=== PATIENT | female | born 1935 | race Caucasian/White ===

== ENCOUNTER 2020-06-17 06:39 | Outpatient (REF) | payer MEDICARE, SELFPAY ==
[2020-06-17 11:41] LABS: Hematocrit 32.7 % (37-47); Hemoglobin 9.9 g/dl (12.0-16.0); Mean Corpuscular HGB Conc 30.3 g/dl (31.0-35.0); Mean Corpuscular Hemoglobin 27.3 pg (27.0-33.0); Mean Corpuscular Volume 90.3 fL (80-98); Mean Platelet Volume 9.4 fL (9.4-12.3); Platelet Count 225 X10*3/uL (160-400); Red Blood Count 3.62 X10*6/uL (4.20-5.50); Red Cell Distribution Width 14.4 % (11.0-16.0); White Blood Count 7.1 X10*3/uL (4.8-10.8)
[2020-06-17 11:44] LABS: Estimated Average Glucose 131 mg/dL; Hemoglobin A1c % 6.2 %
[2020-06-17 12:10] LABS: Alanine Aminotransferase 16 U/L (0-31); Albumin Level 4.1 g/dL (3.5-5.0); Alkaline Phosphatase 67 U/L (39-117); Anion Gap 14 (12-20); Aspartate Amino Transferase 20 U/L (5-31); Bilirubin Total 0.3 mg/dL (0.0-1.0); Blood Urea Nitrogen 26 mg/dL (9-16); Carbon Dioxide 25 mmol/L (22-29); Chloride 105 mmol/L (96-108); Cholesterol 164 mg/dL; Estimated Glomerular Filt Rate 42; Glucose Fasting 138 mg/dL (60-99); HDL Cholesterol 48 mg/dL; LDL Cholesterol Calculated 83 mg/dl; Potassium 4.5 mmol/l (3.3-5.1); Sodium 139 mmol/L (135-145); Total Protein 7.4 g/dL (6.5-8.0); Triglycerides 169 mg/dL
== END 2020-06-17 06:40 | disposition home or self-care (01) ==
LOC: HO.HMGCLDS 06:39
PROVIDERS: PCP Internal Medicine; Visit Provider Internal Medicine
DX: I10 Essential (primary) hypertension (principal); D51.0 Vitamin B12 deficiency anemia due to intrinsic factor deficiency; E78.5 Hyperlipidemia, unspecified; E11.9 Type 2 diabetes mellitus without complications
CPT/HCPCS: 36415; 80053; 80061; 83036; 85027

== ENCOUNTER 2020-07-04 10:36 | Outpatient (REF) | payer MEDICARE, SELFPAY ==
[2020-07-04 14:02] LABS: Basophils Percent Auto 0.5 % (0-2); Eosinophils Absolute Auto 0.2 X10*3/uL (0.0-0.4); Eosinophils Percent Auto 2.1 % (0-4); Hematocrit 34.4 % (37-47); Hemoglobin 10.5 g/dl (12.0-16.0); Imm Gran Abs Auto 0.02 X10*3/uL (0.00-0.03); Imm Gran Pct Auto 0.3 % (0.0-0.4); Lymphocytes Absolute Auto 2.2 X10*3/uL (1.2-4.9); Lymphocytes Percent Auto 27.9 % (20-40); MANUAL DIFF FLAG NO; Mean Corpuscular HGB Conc 30.5 g/dl (31.0-35.0); Mean Corpuscular Hemoglobin 27.5 pg (27.0-33.0); Mean Corpuscular Volume 90.1 fL (80-98); Mean Platelet Volume 9.4 fL (9.4-12.3); Monocytes Absolute Auto 0.7 X10*3/uL (0.1-1.2); Monocytes Percent Auto 8.3 % (2-11); Neutrophils Absolute Auto 4.9 X10*3/uL (2.0-8.3); Neutrophils Percent Auto 60.9 % (45-73); Platelet Count 256 X10*3/uL (160-400); Red Blood Count 3.82 X10*6/uL (4.20-5.50)
[2020-07-04 14:28] LABS: Alanine Aminotransferase 15 U/L (0-31); Albumin Level 4.3 g/dL (3.5-5.0); Alkaline Phosphatase 67 U/L (39-117); Amylase 58 U/L (28-100); Anion Gap 15 (12-20); Aspartate Amino Transferase 21 U/L (5-31); Bilirubin Direct < 0.2 mg/dL (0.0-0.5); Bilirubin Total 0.3 mg/dL (0.0-1.0); Blood Urea Nitrogen 30 mg/dL (9-16); Calcium 9.2 mg/dL (8.4-10.2); Carbon Dioxide 23 mmol/L (22-29); Chloride 107 mmol/L (96-108); Estimated Glomerular Filt Rate 41; Glucose Random 112 mg/dL (60-115); Lipase 36 U/L (8-78); Potassium 4.4 mmol/l (3.3-5.1); Sodium 141 mmol/L (135-145); Total Protein 7.9 g/dL (6.5-8.0)
== END 2020-07-04 10:37 | disposition home or self-care (01) ==
LOC: HO.HMGCLDS 10:36
PROVIDERS: PCP Internal Medicine; Visit Provider Nurse Practitioner Family
DX: Z13.89 Encounter for screening for other disorder (principal)
CPT/HCPCS: 36415; 80053; 80076; 82150; 83690; 85025

== ENCOUNTER 2020-07-04 13:31 | Emergency (ER) | payer MEDICARE, SELFPAY ==
[2020-07-04 14:01] VITALS: BP 140/66; PULSE 97; RESP 18; TEMP 36.8; O2SAT 97; BMI 26.4
--- NOTE | 2020-07-04 14:36 | ED_ITS ---
HPI - Dizziness General Chief Complaint: Dizziness Stated Complaint: dizzy,nausea,headache,abd pain Time Seen by Provider: 07/04/20 14:36 Source: patient Mode of arrival: ambulatory Limitations: no limitations History of Present Illness HPI Narrative: went to urgent care center referred to ED although patient states today she feels the best MD elicited complaint: dizziness, lightheadedness and other (nausea and vomiting, some diarrhea) Onset (ago): day(s) (3) Timing: gradual onset Severity: moderate Description: room spinning and lightheadedness Context: change in body position and recent illness Exacerbating factors: movement/ambulation and change in body position Relieving factors: remaining still Associated symptoms: nausea, vomiting and weakness Associated neuro symptoms: gait ataxia Related Data Home Medications Medication Instructions Recorded Confirmed acetaminophen 500 mg capsule 1,000 mg PO TID PRN cap 06/20/20 06/21/20 amlodipine 5 mg tablet 5 mg PO DAILY 06/20/20 06/21/20 cyanocobalamin (vitamin B-12) 5,000 mcg PO DAILY 06/20/20 06/21/20 5,000 mcg disintegrating tablet famotidine 40 mg tablet 40 mg PO DAILY 06/20/20 06/21/20 ferrous fumarate 325 mg (106 mg 325 mg PO DAILY tab 06/20/20 06/21/20 iron) tablet lisinopril 40 mg tablet 40 mg PO DAILY 06/20/20 06/21/20 metformin 1,000 mg tablet 1,000 mg PO BID 06/20/20 06/21/20 Previous Rx's Medication Instructions Recorded diabetic supplies, miscellan. #1 ea 05/13/20 hydrochlorothiazide 25 mg tablet 25 mg PO DAILY 30 Days #30 tab 06/20/20 simvastatin 40 mg tablet 40 mg PO DAILY 30 Days #30 tab 06/20/20 sertraline 50 mg tablet 50 mg PO DAILY #90 tab 07/01/20 meclizine 25 mg PO TID PRN #30 tab 07/04/20 ondansetron 4 mg PO Q8H PRN #20 tab 07/04/20 Allergies Allergy/AdvReac Type Severity Reaction Status Date / Time celecoxib [Celebrex] Allergy Unknown rash Verified 07/03/20 15:35 penicillin G Allergy Unknown rash Verified 07/03/20 15:35 penicillin V Allergy Unknown rash Verified 07/03/20 15:35 Penicillins [PENICILLINS] Allergy Unknown HIVES, rash Verified 07/03/20 15:35 Review of Systems Review of Systems: Constitutional : No Weight loss, No Fever, No Chills, No Fatigue, No Malaise ENT/Mouth : No sore throat, No Rhinorrhea Eyes: No Eye Pain, No Swelling, No Redness Cardiovascular : No Chest Pain, No SOB, No Dyspnea on Exertion, No Orthopnea, No Edema, No Palpitations Respiratory : No Cough, No Sputum, No Wheezing Gastrointestinal : pos Nausea, No Vomiting, pos Diarrhea, No Constipation, No abdominal Pain, No Hematochezia, No Melena Genitourinary : No Dysuria, No Urinary Frequency, No Hematuria, Musculoskeletal : No joint pain, No Myalgias, No Joint Swelling Skin : No Skin Lesions, No rash Neuro : No Weakness, No Numbness, pos Dizziness, No Headache Psych : No Anxiety/Panic, No Depression Heme/Lymph: No Bruising, No Bleeding,No Lymphadenopathy Endocrine : No Polyuria, No Polydipsia All other systems reviewed and are negative [facility] Past Medical History Attestation statement: The following information was validated with the patient. Medical History CKD (chronic kidney disease), stage III Diabetes HTN (hypertension) Hyperlipidemia Iron deficiency anemia Pernicious anemia Surgical History History of breast biopsy History of ERCP History of esophagogastroduodenoscopy (EGD) S/P cholecystectomy S/P ERCP Family History Family History (Updated 06/17/20 @ 12:42 by Nae Pickett, RMA, [employer]) Father Cancer Mother Colon cancer Social History Social History Alcohol intake: unknown Smoking Status: Unknown if ever smoked Use of substances other than those prescribed or required for medical reasons: Unknown Advance Directives: No Advance Directives Information Provided: No Physical Exam Vital Signs: Vital Signs: Last Vital Signs Temp 98.3 F 07/04/20 14:01 Pulse 87 07/04/20 16:08 Resp 18 07/04/20 14:01 BP 171/76 H 07/04/20 16:08 Pulse Ox 97 07/04/20 14:01 Body Mass Index 26.4 Appearance: Alert. Oriented X3. No acute distress. Eyes: Pupils equal, round and reactive to light. ENT: Pharynx normal. Neck: Normal inspection. Neck supple. CVS: Normal heart rate and rhythm. Pulses normal. Respiratory: No respiratory distress. Breath sounds normal. Abdomen: Soft and non-tender. Skin: Skin warm and dry. Normal skin color. Normal skin turgor. Extremities: No lower extremity edema. No calf ttp Neuro: Oriented X 3. No motor deficit. No sensory deficit. Gait slightly wobbly Course Course Course Narrative: signed out to Dr. Friend pending urine and reassessment otherwise negative workup MDM - Dizziness MDM Narrative Medical decision making narrative: 85 yo female with 3 days of n/v/d and positional dizziness worse with turning head to the left, no recent URI no CP/SOB, denies GIB symptoms, will obtain basic labs, EKG, given IVF, meclizine and zofran, CT head for mass, dispo per results and findings. Lab Data Result diagrams: 07/04/20 15:18 07/04/20 15:18 Labs: Lab Results 07/04/20 07/04/20 07/04/20 Range/Units 15:18 15:18 15:18 WBC 7.8 (4.8-10.8) X10*3/uL RBC 3.82 L (4.20-5.50) X10*6/uL Hgb 10.6 L (12.0-16.0) g/dl Hct 34.1 L (37-47) % MCV 89.3 (80-98) fL MCH 27.7 (27.0-33.0) pg MCHC 31.1 (31.0-35.0) g/dl RDW 14.1 (11.0-16.0) % Plt Count 243 (160-400) X10*3/uL MPV 8.9 L (9.4-12.3) fL Immature Gran % (Auto) 0.3 (0.0-0.4) % Neut % (Auto) 63.4 (45-73) % Lymph % (Auto) 27.0 (20-40) % [place] % (Auto) 7.1 (2-11) % Eos % (Auto) 1.7 (0-4) % Baso % (Auto) 0.5 (0-2) % Lymph # (Auto) 2.1 (1.2-4.9) X10*3/uL [place] # (Auto) 0.6 (0.1-1.2) X10*3/uL Eos # (Auto) 0.1 (0.0-0.4) X10*3/uL Baso # (Auto) 0.0 (0.0-0.2) X10*3/uL Abs Immat Gran (auto) 0.02 (0.00-0.03) X10*3/uL Absolute Neuts (auto) 5.0 (2.0-8.3) X10*3/uL Absolute Nucleated RBC 0.000 (0.0-0.012) X10*3/uL Nucleated RBC % (auto) 0.0 (0.0-0.2) /100WBC PT 11.9 (10.8-13.0) SEC INR 1.0 (0.9-1.1) APTT 31.7 (24.1-38.0) SEC Hold Blue Top SEE NOTE Sodium 141 (135-145) mmol/L Potassium 4.2 (3.3-5.1) mmol/l Chloride 108 (96-108) mmol/L Carbon Dioxide 22 (22-29) mmol/L Anion Gap 15 (12-20) BUN 29 H (9-16) mg/dL Creatinine 1.19 (0.5-1.4) mg/dL Estim Creat Clear Calc 38.8 Estimated GFR 43 Random Glucose 118 H (60-115) mg/dL Calcium 9.1 (8.4-10.2) mg/dL Magnesium 1.9 (1.6-2.6) mg/dL Total Bilirubin 0.3 (0.0-1.0) mg/dL Direct Bilirubin < 0.2 (0.0-0.5) mg/dL AST 21 (5-31) U/L ALT 15 (0-31) U/L Alkaline Phosphatase 69 (39-117) U/L Troponin I High Sens (<3.5-17.0) ng/L Total Protein 7.8 (6.5-8.0) g/dL Albumin 4.3 (3.5-5.0) g/dL Lipase 42 (8-78) U/L 07/04/20 Range/Units 15:18 WBC (4.8-10.8) X10*3/uL RBC (4.20-5.50) X10*6/uL Hgb (12.0-16.0) g/dl Hct (37-47) % MCV (80-98) fL MCH (27.0-33.0) pg MCHC (31.0-35.0) g/dl RDW (11.0-16.0) % Plt Count (160-400) X10*3/uL MPV (9.4-12.3) fL Immature Gran % (Auto) (0.0-0.4) % Neut % (Auto) (45-73) % Lymph % (Auto) (20-40) % [place] % (Auto) (2-11) % Eos % (Auto) (0-4) % Baso % (Auto) (0-2) % Lymph # (Auto) (1.2-4.9) X10*3/uL [place] # (Auto) (0.1-1.2) X10*3/uL Eos # (Auto) (0.0-0.4) X10*3/uL Baso # (Auto) (0.0-0.2) X10*3/uL Abs Immat Gran (auto) (0.00-0.03) X10*3/uL Absolute Neuts (auto) (2.0-8.3) X10*3/uL Absolute Nucleated RBC (0.0-0.012) X10*3/uL Nucleated RBC % (auto) (0.0-0.2) /100WBC PT (10.8-13.0) SEC INR (0.9-1.1) APTT (24.1-38.0) SEC Hold Blue Top Sodium (135-145) mmol/L Potassium (3.3-5.1) mmol/l Chloride (96-108) mmol/L Carbon Dioxide (22-29) mmol/L Anion Gap (12-20) BUN (9-16) mg/dL Creatinine (0.5-1.4) mg/dL Estim Creat Clear Calc Estimated GFR Random Glucose (60-115) mg/dL Calcium (8.4-10.2) mg/dL Magnesium (1.6-2.6) mg/dL Total Bilirubin (0.0-1.0) mg/dL Direct Bilirubin (0.0-0.5) mg/dL AST (5-31) U/L ALT (0-31) U/L Alkaline Phosphatase (39-117) U/L Troponin I High Sens < 3.5 (<3.5-17.0) ng/L Total Protein (6.5-8.0) g/dL Albumin (3.5-5.0) g/dL Lipase (8-78) U/L ECG Data Attestation: I personally reviewed and interpreted this ECG as follows: ECG interpretation date: 07/04/20 ECG interpretation time: 15:13 Interpretation: Rate: 79 Rhythm: NSR [place]: left Normal P waves. Normal MAGI. incomplete RBBB ST T wave : normal qTC: normal prior studies: no acute ischemia The study has been interpreted contemporaneously by me. . Discharge Plan Discharge Clinical Impression: Acute dehydration, Dizziness Patient Disposition: Home, Self-Care Instructions: Dizziness (ED) Additional Instructions: return to ED for any worsening symptoms or concerns Prescriptions: New meclizine 25 mg tablet 25 mg PO TID PRN (Reason: dizziness) Qty: 30 RF: 0 ondansetron 4 mg tablet,disintegrating 4 mg PO Q8H PRN (Reason: nausea and vomiting) Qty: 20 RF: 0 No Action (DME) diabetic supplies, miscellan. Misc See Rx Instructions .ROUTE .MEDSUPPLY Qty: 1 RF: 0 ferrous fumarate 325 mg (106 mg iron) tablet 325 mg PO DAILY RF: 0 metformin 1,000 mg tablet 1,000 mg PO BID RF: 0 cyanocobalamin (vitamin B-12) 5,000 mcg tablet,disintegrating 5,000 mcg PO DAILY RF: 0 acetaminophen 500 mg capsule 1,000 mg PO TID PRN (Reason: pain) RF: 0 amlodipine 5 mg tablet 5 mg PO DAILY RF: 0 lisinopril 40 mg tablet 40 mg PO DAILY RF: 0 famotidine 40 mg tablet 40 mg PO DAILY RF: 0 hydrochlorothiazide 25 mg tablet 25 mg PO DAILY 30 Days Qty: 30 RF: 2 simvastatin 40 mg tablet 40 mg PO DAILY 30 Days Qty: 30 RF: 2 sertraline 50 mg tablet 50 mg PO DAILY Qty: 90 RF: 3 Referrals: Sherron Villanueva MD [Primary Care Provider] - 2 days (if not better)
--- NOTE | 2020-07-04 14:49 | PC.NURSE ---
pt's daughter renal[facility] phone # [phone].
--- NOTE | 2020-07-04 14:53 | CT_ITS ---
EXAMINATION: CT HEAD WITHOUT CONTRAST CLINICAL INFORMATION: Dizziness. COMPARISON: CT brain 01/17/2018 TECHNIQUE: Contiguous axial imaging was performed from the skull base to vertex without intravenous administration of contrast. This CT examination was performed using dose optimization techniques as appropriate, variously including the following: *Automated exposure control *Adjustment of mA and/or kV according to patient size (this includes techniques or standardized protocols for targeted exams where dose is matched to indication/reason for exam; i.e. extremities or head) *Use of iterative reconstruction technique DLP: 731 mGy-cm FINDINGS: There is no evidence of acute intracranial hemorrhage or territorial infarction. No abnormal mass effect or midline shift is seen. Brennan to white matter differentiation is well preserved. No extra-axial fluid collections are identified. The lateral ventricles are symmetrical in size but enlarged with mild prominence of cortical sulci. There is no abnormal attenuation within the brain parenchyma. Bone windows reveal small diploic space 1.1 cm lucency right frontal bone axial image 15/4. Question vascular neil, less likely metastatic disease. The mastoid air cells and visualized portions of the paranasal sinuses are well aerated. CT/CT head/brain wo con IMPRESSION: No acute intracranial process seen. Small lucency right frontal bone, unchanged since 01/17/2018 exam.
--- NOTE | 2020-07-04 14:53 | ECG_ITS ---
Test Reason : DIZZINESS Blood Pressure : / mmHG Vent. Rate : 079 BPM Atrial Rate : 079 BPM P-R Int : 176 ms QRS Dur : 110 ms QT Int : 380 ms P-R-T Axes : 051 -63 021 degrees QTc Int : 435 ms Normal sinus rhythm Left anterior fascicular block Cannot rule out Inferior infarct (cited on or before 08-JUN-2019) Abnormal ECG When compared with ECG of 12-JUN-2019 10:22, Aberrant conduction is no longer Present Criteria for Anteroseptal infarct are no longer Present Referred By: Nery Johnson Electronically Signed By:BOO OHARA MD
[2020-07-04] MEDS: 0.9 % Sodium Chloride 500 ML IV (15:19)
[2020-07-04] MEDS: Meclizine HCl 25 MG TABLET PO (15:19)
[2020-07-04] MEDS: ondansetron HCL 4 MG/2 ML VIAL IVPUSH (15:20)
[2020-07-04 15:33] LABS: MANUAL DIFF FLAG NO
[2020-07-04 15:39] LABS: Basophils Percent Auto 0.5 % (0-2); Eosinophils Absolute Auto 0.1 X10*3/uL (0.0-0.4); Eosinophils Percent Auto 1.7 % (0-4); Hematocrit 34.1 % (37-47); Hemoglobin 10.6 g/dl (12.0-16.0); Imm Gran Abs Auto 0.02 X10*3/uL (0.00-0.03); Imm Gran Pct Auto 0.3 % (0.0-0.4); Lymphocytes Absolute Auto 2.1 X10*3/uL (1.2-4.9); Mean Corpuscular HGB Conc 31.1 g/dl (31.0-35.0); Mean Corpuscular Hemoglobin 27.7 pg (27.0-33.0); Mean Corpuscular Volume 89.3 fL (80-98); Mean Platelet Volume 8.9 fL (9.4-12.3); Monocytes Absolute Auto 0.6 X10*3/uL (0.1-1.2); Monocytes Percent Auto 7.1 % (2-11); Neutrophils Percent Auto 63.4 % (45-73); Platelet Count 243 X10*3/uL (160-400); Red Blood Count 3.82 X10*6/uL (4.20-5.50); Red Cell Distribution Width 14.1 % (11.0-16.0); White Blood Count 7.8 X10*3/uL (4.8-10.8)
[2020-07-04 15:40] LABS: Prothrombin Time 11.9 SEC (10.8-13.0)
--- NOTE | 2020-07-04 15:41 | PC.NURSE ---
patients daughter [phone] Jazmyne for pickup when needed
[2020-07-04 15:42] LABS: Partial Thromboplastin Time 31.7 SEC (24.1-38.0)
[2020-07-04 16:03] LABS: Alanine Aminotransferase 15 U/L (0-31); Albumin Level 4.3 g/dL (3.5-5.0); Alkaline Phosphatase 69 U/L (39-117); Anion Gap 15 (12-20); Aspartate Amino Transferase 21 U/L (5-31); Bilirubin Direct < 0.2 mg/dL (0.0-0.5); Bilirubin Total 0.3 mg/dL (0.0-1.0); Blood Urea Nitrogen 29 mg/dL (9-16); Calcium 9.1 mg/dL (8.4-10.2); Carbon Dioxide 22 mmol/L (22-29); Chloride 108 mmol/L (96-108); Creatinine Clr Calc Pharmacy 38.8; Estimated Glomerular Filt Rate 43; Glucose Random 118 mg/dL (60-115); Lipase 42 U/L (8-78); Magnesium 1.9 mg/dL (1.6-2.6); Potassium 4.2 mmol/l (3.3-5.1); Sodium 141 mmol/L (135-145); Total Protein 7.8 g/dL (6.5-8.0)
[2020-07-04 16:08] VITALS: BP 156/78; BP 165/72; BP 171/76; PULSE 72; PULSE 77; PULSE 87
[2020-07-04 16:08] LABS: Troponin-I High Sensitivity < 3.5 ng/L (<3.5-17.0)
[2020-07-04 16:17] LABS: Glucose Urine UA NEG (NEG); Leukocyte Esterase Urine TRACE (NEG); Nitrite Urine POS (NEG); PH 5.5 (5.0-8.0); Specific Gravity - Urine 1.025 (1.005-1.025); Urine Blood NEG (NEG); Urine Ketones NEG (NEG); Urine Protein NEG (NEG-TRACE)
[2020-07-04 16:36] LABS: Appearance Urine HAZY; Color Urine YELLOW
[2020-07-04 16:50] LABS: Bacteria Urine 4+ /LPF; RBC Urine 0 /HPF (0)
== END 2020-07-04 16:48 | disposition home or self-care (01) ==
PROVIDERS: Emergency Provider Emergency Medicine; PCP Internal Medicine
DX: N39.0 Urinary tract infection, site not specified (principal); R42 Dizziness and giddiness; R11.2 Nausea with vomiting, unspecified; E86.0 Dehydration; E11.22 Type 2 diabetes mellitus with diabetic chronic kidney disease; I12.9 Hypertensive chronic kidney disease with stage 1 through stage 4 chronic kidney disease, or unspecified chronic kidney disease; N18.30 Chronic kidney disease, stage 3 unspecified; E78.5 Hyperlipidemia, unspecified; D50.9 Iron deficiency anemia, unspecified; Z79.899 Other long term (current) drug therapy; Z79.84 Long term (current) use of oral hypoglycemic drugs
CPT/HCPCS: 36415; 70450; 80048; 80053; 80076; 81001; 82150; 83690; 83735; 84484; 85025; 85610; 85730; 87086; 93005; 96361; 96374; 99284; J2405

== ENCOUNTER 2020-08-20 | Outpatient (REF) | payer MEDICARE, SELFPAY | END 2020-08-20 00:01 | disposition home or self-care (01) | LOC: HO.LNP | PROVIDERS: Visit Provider Internal Medicine | DX: N39.0 Urinary tract infection, site not specified (principal) | CPT/HCPCS: 87086; 87088; 87186 ==

== ENCOUNTER 2020-08-22 08:08 | Outpatient (REF) | payer MEDICARE, SELFPAY | END 2020-08-22 08:09 | disposition home or self-care (01) | LOC: HO.LAB 08:08 | PROVIDERS: Visit Provider Nurse Practitioner Family | DX: Z13.89 Encounter for screening for other disorder (principal) ==

== ENCOUNTER 2020-10-16 14:48 | Outpatient (REF) | payer MEDICARE, SELFPAY ==
[2020-10-16 15:04] LABS: Glucose Urine UA NEG (NEG); Leukocyte Esterase Urine TRACE (NEG); Nitrite Urine NEG (NEG); PH 5.5 (5.0-8.0); Specific Gravity - Urine 1.025 (1.005-1.025); UACC Culture Trigger YES; Urine Blood NEG (NEG); Urine Ketones NEG (NEG); Urine Protein NEG (NEG-TRACE)
[2020-10-16 15:06] LABS: Appearance Urine CLEAR; Color Urine YELLOW
[2020-10-16 15:15] LABS: Bacteria Urine TRACE /LPF; RBC Urine 0-2 /HPF (0); Squamous Epithelial Cell Urine 1+ /LPF
== END 2020-10-16 14:49 | disposition home or self-care (01) ==
LOC: HO.LNP 14:48
PROVIDERS: Internal Medicine; Visit Provider Hospitalist
DX: N39.0 Urinary tract infection, site not specified (principal); R30.0 Dysuria
CPT/HCPCS: 81001; 81003; 87086

== ENCOUNTER 2020-10-23 | Outpatient (REF) | payer MEDICARE, SELFPAY ==
[2020-10-23 14:15] LABS: Glucose Urine UA NEG (NEG); Leukocyte Esterase Urine NEG (NEG); Nitrite Urine NEG (NEG); PH 5.5 (5.0-8.0); Specific Gravity - Urine 1.025 (1.005-1.025); Urine Blood NEG (NEG); Urine Ketones NEG (NEG); Urine Protein NEG (NEG-TRACE)
[2020-10-23 14:17] LABS: Appearance Urine CLEAR; Color Urine YELLOW
== END 2020-10-23 00:01 | disposition home or self-care (01) ==
LOC: HO.LNP
PROVIDERS: Visit Provider Internal Medicine
DX: R42 Dizziness and giddiness (principal); R30.0 Dysuria
CPT/HCPCS: 81003

== ENCOUNTER 2020-12-02 11:00 | Outpatient (RCR) | payer MEDICARE, SELFPAY ==
[2020-11-22 12:56] VITALS: BP 122/78
--- NOTE | 2020-11-22 14:04 | MHC.PT.EP ---
[facility] [place] Office [place] Office [place] Office [address] Leola Merchant [address] [phone] F: [phone] F: [phone] F: [phone] F: [phone] Physical Therapy Plan of Care Date of Evaluation: Date of Surgery: Diagnosis: Dizziness and Giddiness Assessment: 85 y/o F referred to PT with dizziness and giddiness. She reports no dizzy episodes in a few months but her walking is limited and her balance is slightly off. She lives with supportive family and is able to perform ADL's. Examination shows (-) for BPPV during Paula-Hallpike and Roll test, (-) oculomotor with ? saccadic intrusions during smooth pursuits, mild-moderate sway with static balance, and impaired gait pattern which is exacerbated with H/V head turns. Recommend PT 2x/week for 5 weeks to address balance impairments, implement HEP, and optimize functional mobility. She would like to trial one session at this time. Frequency and Duration: The patient will be seen 2x/week for 5 weeks Short Term Goals: 3 weeks 1. I with HEP 2. Pt will be able to perform staggered stance for 30sec without sway Band Top Maker Goals: 5 weeks 1. I with HEP and self management of sx 2. Pt will be able to ambulate with H/V head turns with no deviation in gait pattern Treatment Plan: Modalities to reduce pain, spasms and effusion. Manual therapy to restore motion and function. Therapeutic exercise to improve strength and flexibility. Neuromuscular re-education for posture and balance. Therapeutic activities to return to functional activities of daily living. Electronically signed by: Hui Neumann PT Please sign and return to therapist. Thank you for your referral.
--- NOTE | 2021-01-02 13:12 | MHC.PT.DC ---
[facility] [place] Office [place] Office [place] Office [address] Leola Merchant [address] [phone] F: [phone] F: [phone] F: [phone] F: [phone] Physical Therapy Discharge Report Diagnosis: Dizziness and Giddiness Date of Surgery: Date of Evaluation: 11/22/20 Date of Discharge: 01/02/21 Treatments to Date: 2 Cancellations to Date: 0 No Shows to Date: 0 Discharge Status: Improved Function Independent with HEP Discharge Summary: Educated and performed standing balance exercises today with good carryover. She would like to perform HEP only and does not feel the need for PT at this time as she feels I with ADL's and activity. REviewed HEP and pt will be d/c at this time. Electronically signed by: Hui Neumann PT Please sign and return to therapist. Thank you for your referral.
== END 2021-01-02 13:13 | disposition home or self-care (01) ==
LOC: HO.PTCHIC 11:00
PROVIDERS: PCP Internal Medicine; Visit Provider Internal Medicine
DX: R42 Dizziness and giddiness (principal)
CPT/HCPCS: 97110; 97162

== ENCOUNTER 2020-12-23 07:53 | Outpatient (REF) | payer MEDICARE, SELFPAY ==
[2020-12-23 11:49] LABS: Alanine Aminotransferase 13 U/L (0-31); Alkaline Phosphatase 66 U/L (39-117); Anion Gap 15 (12-20); Aspartate Amino Transferase 17 U/L (5-31); Bilirubin Total 0.4 mg/dL (0.0-1.0); Blood Urea Nitrogen 25 mg/dL (9-16); Calcium 9.1 mg/dL (8.4-10.2); Carbon Dioxide 23 mmol/L (22-29); Chloride 108 mmol/L (96-108); Cholesterol 164 mg/dL; Estimated Glomerular Filt Rate 44; Glucose Fasting 151 mg/dL (60-99); HDL Cholesterol 56 mg/dL; Iron 31 mcg/dL (30-160); LDL Cholesterol Calculated 81 mg/dl; Percent Iron Saturation 10 % (15-50); Sodium 141 mmol/L (135-145); Total Iron Binding Capacity 305 mcg/dL (228-428); Total Protein 7.3 g/dL (6.5-8.0); Triglycerides 138 mg/dL; Unsaturated Iron Binding 274 ug/dL
[2020-12-23 12:00] LABS: Hematocrit 32.6 % (37-47); Mean Corpuscular HGB Conc 30.7 g/dl (31.0-35.0); Mean Corpuscular Hemoglobin 27.6 pg (27.0-33.0); Mean Corpuscular Volume 90.1 fL (80-98); Mean Platelet Volume 9.1 fL (9.4-12.3); Platelet Count 227 X10*3/uL (160-400); Red Blood Count 3.62 X10*6/uL (4.20-5.50); Red Cell Distribution Width 14.2 % (11.0-16.0); White Blood Count 7.5 X10*3/uL (4.8-10.8)
[2020-12-23 12:20] LABS: Estimated Average Glucose 128 mg/dL; Hemoglobin A1c % 6.1 %
== END 2020-12-23 07:54 | disposition home or self-care (01) ==
LOC: HO.HMGCLDS 07:53
PROVIDERS: PCP Internal Medicine; Visit Provider Internal Medicine
DX: E11.9 Type 2 diabetes mellitus without complications (principal); D50.9 Iron deficiency anemia, unspecified; E78.5 Hyperlipidemia, unspecified; E11.22 Type 2 diabetes mellitus with diabetic chronic kidney disease; I12.9 Hypertensive chronic kidney disease with stage 1 through stage 4 chronic kidney disease, or unspecified chronic kidney disease; N18.30 Chronic kidney disease, stage 3 unspecified
CPT/HCPCS: 36415; 80053; 80061; 83036; 83540; 85027

== ENCOUNTER 2021-02-20 | Outpatient (REF) | payer MEDICARE, SELFPAY ==
[2021-02-20 11:24] LABS: Glucose Urine UA NEG (NEG); Leukocyte Esterase Urine NEG (NEG); Nitrite Urine NEG (NEG); PH 5.5 (5.0-8.0); Urine Blood NEG (NEG); Urine Ketones NEG (NEG); Urine Protein NEG (NEG-TRACE)
[2021-02-20 11:28] LABS: Appearance Urine CLEAR; Color Urine YELLOW
== END 2021-02-20 00:01 | disposition home or self-care (01) ==
LOC: HO.HMGCLNP
PROVIDERS: Visit Provider Internal Medicine
DX: R30.0 Dysuria (principal)
CPT/HCPCS: 81003

== ENCOUNTER 2021-02-23 10:08 | Emergency (ER) | payer MEDICARE, SELFPAY ==
--- NOTE | ~2021-02-23 | CT_ITS ---
CT ANGIOGRAM NECK WITH CONTRAST CT ANGIOGRAM BRAIN WITH CONTRAST CLINICAL INFORMATION: Question stroke. Dizziness. COMPARISON: Head CT 02/23/2021. TECHNIQUE: Test bolus sequences followed by intravenous administration 70 mL of Omnipaque 350. Helical imaging was performed in the axial plane from the thoracic inlet to the skull vertex. Delayed postcontrast imaging of the head was also performed. The data was processed at the chemical engineering technologist workstation for generation of MIP sequences. Angled MIPs and volume rendered reformatted images were also generated at an offline 3D workstation under concurrent supervision. Stenoses are assessed in accordance with NASCET criteria unless otherwise indicated. This CT examination was performed using dose optimization techniques as appropriate, variously including the following: *Automated exposure control *Adjustment of mA and/or kV according to patient size (this includes techniques or standardized protocols for targeted exams where dose is matched to indication/reason for exam; i.e. extremities or head) *Use of iterative reconstruction technique FINDINGS: BRAIN: [There is no intracranial hemorrhage, hydrocephalus, extra-axial surface collection, midline shift, or other herniation pattern. Brennan to white matter differentiation is diffusely maintained without evidence of an evolved acute territorial infarct. The basilar cisterns are preserved. No significant soft tissue abnormality. No acute osseous abnormality. The paranasal sinuses and the mastoid air cells are well aerated.] CERVICAL SOFT TISSUES AND LUNG APICES: Imaged upper lungs are clear. No significant soft tissue findings are appreciated within the neck. There are a few small subcentimeter nodules within the thyroid gland that are below size criteria for follow-up. There is multilevel cervical spondylosis. NECK CTA: [There is a classic 3 vessel configuration of the aortic arch. Proximal arch vessels are non-stenotic. The vertebral arteries are codominant. No significant ostial stenosis is visualized on either side. Both vertebral arteries are widely patent throughout their extracranial cervical course. Both common and internal carotid arteries are normal in course and caliber.] BRAIN CTA: [There is normal opacification of major intracranial arteries. No focal flow-limiting stenosis nor discrete proximal large artery occlusion. No aneurysm. Timing of the contrast bolus allows assessment of the major dural venous sinuses, which all opacify normally] CT/CT angio head neck IMPRESSION: - No acute intracranial findings. - No acute arterial occlusions and no significant arterial stenoses within the head or neck.
--- NOTE | ~2021-02-23 | CT_ITS ---
EXAMINATION: CT HEAD WITHOUT CONTRAST CLINICAL INFORMATION: Dizziness COMPARISON: July 04, 2020 TECHNIQUE: Contiguous axial imaging was performed from the skull base to vertex without intravenous administration of contrast. This CT examination was performed using dose optimization techniques as appropriate, variously including the following: *Automated exposure control *Adjustment of mA and/or kV according to patient size (this includes techniques or standardized protocols for targeted exams where dose is matched to indication/reason for exam; i.e. extremities or head) *Use of iterative reconstruction technique DLP: 816 mGy-cm FINDINGS: There is no evidence of acute intracranial hemorrhage or territorial infarction. No abnormal mass effect or midline shift is seen. Brennan to white matter differentiation is well preserved. No extra-axial fluid collections are identified. There is prominence of ventricles, sulci, and cisterns. There is no abnormal attenuation within the brain parenchyma. The osseous structures and soft tissues are normal. The mastoid air cells and visualized portions of the paranasal sinuses are well aerated. CT/CT head/brain wo con IMPRESSION: No acute intracranial pathology.
[2021-02-23 10:09] VITALS: BP 137/67; PULSE 76; RESP 16; TEMP 36.1; O2SAT 96; BMI 26.6
--- NOTE | 2021-02-23 11:09 | ECG_ITS ---
Test Reason : NAUSEA Blood Pressure : / mmHG Vent. Rate : 073 BPM Atrial Rate : 073 BPM P-R Int : 166 ms QRS Dur : 108 ms QT Int : 400 ms P-R-T Axes : -14 -61 004 degrees QTc Int : 440 ms Normal sinus rhythm Left axis deviation Incomplete right bundle branch block Possible Anterior infarct , age undetermined Abnormal ECG When compared with ECG of 04-JUL-2020 15:07, No significant change was found Referred By: Randy Vasquez Electronically Signed By:DEION MARTINEZ
--- NOTE | 2021-02-23 11:09 | ED.GENADULT ---
HPI - General Adult General Chief complaint: General Medical Stated complaint: EYE ISSUE DIZZY NAUSEA Time Seen by Provider: 02/23/21 10:55 Source: patient Mode of arrival: ambulatory Limitations: no limitations History of Present Illness HPI narrative: Patient presents to the ED for intermittent dizziness described as room spinning when changing position of head on the bed since September. Patient states when she takes meclizine and Zofran dizziness resolves. Patient states also having sounds in her ear. Patient denies any headache, ear pain, nausea, vomiting, fever, chills, any recent head trauma,, slurred speech, loss of vision, change of vision, paralysis of extremities, chest pain, or shortness of breath. Granddaughter states patient has not had any CT scan of the head. Grand- Daughter wanting CT scan of the head. Patient states dizziness began last night and slightly worsened 20 minutes before come to the ER. Gand- Daughter states also left eyeball bulging this morning and resolved on its own. Patient herself denies any eye pain, eye redness, eye lid swelling, loss of vision, headache, discharge from the eyes, fever, chills, or any recent trauma to the eye Related Data Home Medications Medication Instructions Recorded Confirmed acetaminophen 500 mg capsule 1,000 mg PO TID PRN cap 06/20/20 12/27/20 amlodipine 5 mg tablet 5 mg PO DAILY 06/20/20 12/27/20 cyanocobalamin (vitamin B-12) 5,000 mcg PO DAILY 06/20/20 12/27/20 5,000 mcg disintegrating tablet famotidine 40 mg tablet 40 mg PO DAILY 06/20/20 12/27/20 ferrous fumarate 325 mg (106 mg 325 mg PO DAILY tab 06/20/20 12/27/20 iron) tablet Previous Rx's Medication Instructions Recorded diabetic supplies, miscellan. #1 ea 05/13/20 ondansetron 4 mg PO Q8H PRN #20 tab 07/04/20 sertraline 50 mg tablet 50 mg PO DAILY #90 tab 07/30/20 metformin 1,000 mg tablet 1,000 mg PO BID #180 tab 09/25/20 meclizine 25 mg tablet 25 mg PO TID PRN #30 tab 10/23/20 triamcinolone acetonide 0.1 % 1 appl TOPICAL BID #30 g 10/23/20 topical cream hydrochlorothiazide 25 mg tablet 25 mg PO DAILY 90 Days #90 tab 11/22/20 simvastatin 40 mg tablet 40 mg PO DAILY #90 tab 12/06/20 lisinopril 40 mg tablet 40 mg PO DAILY #90 tab 12/24/20 Allergies Allergy/AdvReac Type Severity Reaction Status Date / Time celecoxib [Celebrex] Allergy Unknown rash Verified 12/27/20 10:49 penicillin G Allergy Unknown rash Verified 12/27/20 10:49 penicillin V Allergy Unknown rash Verified 12/27/20 10:49 Penicillins [PENICILLINS] Allergy Unknown HIVES, rash Verified 12/27/20 10:49 Review of Systems Review of Systems: Yes all other systems are reviewed and are negative Constitutional: Constitutional: Reports as per HPI and Reports no additional constitutional complaints Eyes: Eyes: Reports as per HPI and Reports no additional eye complaints ENT: Reports system reviewed and no additional complaints, except as documented, Reports as per HPI and Reports dizziness Cardiovascular: Cardiovascular: Reports as per HPI and Reports no additional cardiovascular complaints Respiratory: Respiratory: Reports as per HPI and Reports no additional respiratory complaints Gastrointestinal: Gastrointestinal: Reports as per HPI and Reports no additional gastrointestinal complaints Genitourinary: Genitourinary: Reports no additional female genitourinary complaints and Reports as per HPI Musculoskeletal: Musculoskeletal: Reports no additional musculoskeletal complaints and Reports as per HPI Neurologic: Reports system reviewed and no additional complaints, except as documented, Reports as per HPI and Reports dizziness Psychiatric: Psychiatric: Reports no additional psychiatric complaints and Reports as per HPI PMFSH Past Medical History Medical History (Updated 02/23/21 @ 16:58 by TITO Davis) Anemia CKD (chronic kidney disease), stage III Diabetes HTN (hypertension) Hyperlipidemia Iron deficiency anemia Pernicious anemia UTI (urinary tract infection) Vertigo Surgical History History of breast biopsy History of ERCP History of esophagogastroduodenoscopy (EGD) S/P cholecystectomy S/P ERCP Family History Family History Father Cancer Mother Colon cancer Social History Social History (Updated 12/27/20 @ 10:50 by Sowmya Hunter RN) Alcohol intake: never Patient Tobacco Use Status: Never used Tobacco Use of substances other than those prescribed or required for medical reasons: No Advance Directives: Yes Advance Directives Information Provided: Yes Advance Directives on File: No Physical Exam Vital Signs: Vital Signs: Last Vital Signs Temp 97.6 F 02/23/21 12:29 Pulse 68 02/23/21 12:35 Resp 14 02/23/21 12:29 BP 160/63 H 02/23/21 12:35 Pulse Ox 100 02/23/21 12:29 Body Mass Index 26.6 Const: General: cooperative, healthy appearing, comfortable, no acute distress, well developed, alert, awake and Physically active Orientation/consciousness: oriented to time and patient oriented x3 HENMT: Head: Yes normal to inspection, Yes No palpable skull fracture present, Yes normocephalic, Yes atraumatic and No abrasion Eyes: Other: Both eyes negative for any redness, swelling of eyelids, conjunctiva/scleral redness, photophobia, extraocular muscles entraptment, eyelid redness, discharge, or ecchymosis General: appearance normal, both eyes and all related structures Visual David: normal visual david by confrontation Alignment and Position: alignment normal Periorbital: periorbital findings normal Eyelids: Yes eyelids normal Conjunctivae: conjunctivae normal Sclerae: sclerae normal Corneas: corneas normal Pupils: Equal, round and reactive pupils present EOM: EOMs intact bilaterally Neck: Neck: Yes normal visual inspection, Yes full ROM, Yes no lymphadenopathy, Yes no meningeal signs, Yes trachea midline, Yes supple and No tender Chest: Chest palpation & inspection: normal inspection of the chest and normal palpation of entire chest wall Resp: Effort & Inspection: normal respiratory effort and able to speak in complete sentences Auscultation: clear to auscultation bilaterally Cardio: Jugular venous distension: no JVD Heart sounds: S1 normal heart sound present and S2 normal heart sound present GI: Inspection: Yes normal to inspection and No abdominal wall ecchymosis Palpation (GI): Soft to palpation, not firm, nontender, no guarding and not rigid : General: No CVA tenderness and Yes no CVA tenderness Back/Spine/Pelvis: Back: no CVA tenderness, No CVA tenderness and No back tenderness Skin: General skin exam: no rashes or lesions noted and elasticity normal Neuro: Other: Negative facial droop. Negative for slurred speech. Negative pronator drift. All extremities equal strength 5+. [id number] and rapid hand movement intact. Negative Romberg General: oriented to time, patient oriented x3 and no meningeal signs Cranial nerves: Yes Equal, round and reactive pupils present Extrem: General: Yes normal to inspection and Yes full ROM Psych: Appearance: grossly normal, well kempt and not disheveled Course Course Course Narrative: History sounds like vertigo. Will do a medical evaluation including head CT, EKG, troponin, and UA. Reevaluation(s) Reevaluation #1: EKG negative for STEMI. Orthostatics negative. Patient's 1st troponin negative. Urine negative for UTI. TSH level came back normal. Patient's chemistries fine. Are observed patient ambulating to the bathroom. Head CT came back negative for stroke. Head CT came back negative for any bleeding or mass. Will send patient for head CT to rule out any clot and the carotid as cause of dizziness although very unlikely due to patient having intermittent dizziness since September. Neuro exam is intact. TSH level normal. Grand-Daughter showed me pictures of patient's eyes this morning and I did not notice any bulging of the eyeballs, swelling, redness, ecchymosis, or any concerning symptoms.. Time: 13:36 Reevaluation #2: Head CT came back negative awaiting for 2nd troponin. The exam does not indicate conjunctivitis, septal or preseptal cellulitis, temporal arteritis, corneal abrasion, painful glaucoma or fracture. Patient denies any eye pain. Patient already has known history of glaucoma is on medication for glaucoma. Time: 16:00 Reevaluation #3: Second troponin came back negative. Diagnosis vertigo. Family patient informed to follow-up with PCP and ENT. Dizziness resolved after receiving meclizine and Zofran. Patient has meclizine is over prescription at home. Presently not consider posterior stroke. Patient's gait is at baseline as per patient and family. Negative Romberg. Time: 16:50 Medical Decision Making MDM Narrative Medical decision making narrative: Vertigo Lab Data Result diagrams: 02/23/21 11:58 02/23/21 11:58 Labs: Lab Results 02/23/21 02/23/21 02/23/21 Range/Units 11:58 11:58 11:58 WBC 6.8 (4.8-10.8) X10*3/uL RBC 3.67 L (4.20-5.50) X10*6/uL Hgb 10.2 L (12.0-16.0) g/dl Hct 32.4 L (37-47) % MCV 88.3 (80-98) fL MCH 27.8 (27.0-33.0) pg MCHC 31.5 (31.0-35.0) g/dl RDW 14.0 (11.0-16.0) % Plt Count 204 (160-400) X10*3/uL MPV 8.8 L (9.4-12.3) fL Immature Gran % (Auto) 0.3 (0.0-0.4) % Neut % (Auto) 58.8 (45-73) % Lymph % (Auto) 29.2 (20-40) % [place] % (Auto) 9.1 (2-11) % Eos % (Auto) 2.2 (0-4) % Baso % (Auto) 0.4 (0-2) % Lymph # (Auto) 2.0 (1.2-4.9) X10*3/uL [place] # (Auto) 0.6 (0.1-1.2) X10*3/uL Eos # (Auto) 0.2 (0.0-0.4) X10*3/uL Baso # (Auto) 0.0 (0.0-0.2) X10*3/uL Abs Immat Gran (auto) 0.02 (0.00-0.03) X10*3/uL Absolute Neuts (auto) 4.0 (2.0-8.3) X10*3/uL Absolute Nucleated RBC 0.000 (0.0-0.012) X10*3/uL Nucleated RBC % (auto) 0.0 (0.0-0.2) /100WBC PT (9.9-13.0) SEC INR (0.9-1.1) APTT (24.1-38.0) SEC Sodium 141 (135-145) mmol/L Potassium 4.9 (3.3-5.1) mmol/L Chloride 109 H (96-108) mmol/L Carbon Dioxide 21 L (22-29) mmol/L Anion Gap 16 (12-20) BUN 22 H (9-16) mg/dL Creatinine 1.23 (0.5-1.4) mg/dL Estim Creat Clear Calc 37.0 Estimated GFR 41 Random Glucose 99 (60-115) mg/dL Calcium 9.5 (8.4-10.2) mg/dL Magnesium 1.7 (1.6-2.6) mg/dL Total Bilirubin 0.2 (0.0-1.0) mg/dL AST 26 D (5-31) U/L ALT 12 (0-31) U/L Alkaline Phosphatase 61 (39-117) U/L Troponin I High Sens < 3.5 (<3.5-17.0) ng/L Total Protein 7.8 (6.5-8.0) g/dL Albumin 4.0 (3.5-5.0) g/dL TSH (0.32-4.0) uIU/mL Urine Color Urine Appearance Urine pH (5.0-8.0) Ur Specific [place] (1.005-1.025) Urine Protein (NEG-TRACE) MG/DL Urine Glucose (UA) (NEG) MG/DL Urine Ketones (NEG) MG/DL Urine Blood (NEG) Urine Nitrite (NEG) Ur Leukocyte Esterase (NEG) 02/23/21 02/23/21 02/23/21 Range/Units 11:58 11:58 12:27 WBC (4.8-10.8) X10*3/uL RBC (4.20-5.50) X10*6/uL Hgb (12.0-16.0) g/dl Hct (37-47) % MCV (80-98) fL MCH (27.0-33.0) pg MCHC (31.0-35.0) g/dl RDW (11.0-16.0) % Plt Count (160-400) X10*3/uL MPV (9.4-12.3) fL Immature Gran % (Auto) (0.0-0.4) % Neut % (Auto) (45-73) % Lymph % (Auto) (20-40) % [place] % (Auto) (2-11) % Eos % (Auto) (0-4) % Baso % (Auto) (0-2) % Lymph # (Auto) (1.2-4.9) X10*3/uL [place] # (Auto) (0.1-1.2) X10*3/uL Eos # (Auto) (0.0-0.4) X10*3/uL Baso # (Auto) (0.0-0.2) X10*3/uL Abs Immat Gran (auto) (0.00-0.03) X10*3/uL Absolute Neuts (auto) (2.0-8.3) X10*3/uL Absolute Nucleated RBC (0.0-0.012) X10*3/uL Nucleated RBC % (auto) (0.0-0.2) /100WBC PT 11.7 (9.9-13.0) SEC INR 1.0 (0.9-1.1) APTT 36.0 (24.1-38.0) SEC Sodium (135-145) mmol/L Potassium (3.3-5.1) mmol/L Chloride (96-108) mmol/L Carbon Dioxide (22-29) mmol/L Anion Gap (12-20) BUN (9-16) mg/dL Creatinine (0.5-1.4) mg/dL Estim Creat Clear Calc Estimated GFR Random Glucose (60-115) mg/dL Calcium (8.4-10.2) mg/dL Magnesium Cancelled (1.6-2.6) mg/dL Total Bilirubin (0.0-1.0) mg/dL AST (5-31) U/L ALT (0-31) U/L Alkaline Phosphatase (39-117) U/L Troponin I High Sens (<3.5-17.0) ng/L Total Protein (6.5-8.0) g/dL Albumin (3.5-5.0) g/dL TSH 1.75 (0.32-4.0) uIU/mL Urine Color Urine Appearance Urine pH (5.0-8.0) Ur Specific [place] (1.005-1.025) Urine Protein (NEG-TRACE) MG/DL Urine Glucose (UA) (NEG) MG/DL Urine Ketones (NEG) MG/DL Urine Blood (NEG) Urine Nitrite (NEG) Ur Leukocyte Esterase (NEG) 07/25/21 07/25/21 Range/Units 12:43 16:04 WBC (4.8-10.8) X10*3/uL RBC (4.20-5.50) X10*6/uL Hgb (12.0-16.0) g/dl Hct (37-47) % MCV (80-98) fL MCH (27.0-33.0) pg MCHC (31.0-35.0) g/dl RDW (11.0-16.0) % Plt Count (160-400) X10*3/uL MPV (9.4-12.3) fL Immature Gran % (Auto) (0.0-0.4) % Neut % (Auto) (45-73) % Lymph % (Auto) (20-40) % [place] % (Auto) (2-11) % Eos % (Auto) (0-4) % Baso % (Auto) (0-2) % Lymph # (Auto) (1.2-4.9) X10*3/uL [place] # (Auto) (0.1-1.2) X10*3/uL Eos # (Auto) (0.0-0.4) X10*3/uL Baso # (Auto) (0.0-0.2) X10*3/uL Abs Immat Gran (auto) (0.00-0.03) X10*3/uL Absolute Neuts (auto) (2.0-8.3) X10*3/uL Absolute Nucleated RBC (0.0-0.012) X10*3/uL Nucleated RBC % (auto) (0.0-0.2) /100WBC PT (9.9-13.0) SEC INR (0.9-1.1) APTT (24.1-38.0) SEC Sodium (135-145) mmol/L Potassium (3.3-5.1) mmol/L Chloride (96-108) mmol/L Carbon Dioxide (22-29) mmol/L Anion Gap (12-20) BUN (9-16) mg/dL Creatinine (0.5-1.4) mg/dL Estim Creat Clear Calc Estimated GFR Random Glucose (60-115) mg/dL Calcium (8.4-10.2) mg/dL Magnesium (1.6-2.6) mg/dL Total Bilirubin (0.0-1.0) mg/dL AST (5-31) U/L ALT (0-31) U/L Alkaline Phosphatase (39-117) U/L Troponin I High Sens < 3.5 (<3.5-17.0) ng/L Total Protein (6.5-8.0) g/dL Albumin (3.5-5.0) g/dL TSH (0.32-4.0) uIU/mL Urine Color YELLOW Urine Appearance CLEAR Urine pH 5.5 (5.0-8.0) Ur Specific [place] 1.020 (1.005-1.025) Urine Protein NEG (NEG-TRACE) MG/DL Urine Glucose (UA) NEG (NEG) MG/DL Urine Ketones NEG (NEG) MG/DL Urine Blood NEG (NEG) Urine Nitrite NEG (NEG) Ur Leukocyte Esterase NEG (NEG) ECG Data Interpretation: A normal sinus rhythm. Incomplete right bundle-branch block. Patient recently 3. Pr interval 166 QRS 108. QTC 440. Negative STEMI Discharge Plan Discharge Clinical Impression: Vertigo Patient Disposition: Home, Self-Care Instructions: Vertigo (ED) Additional Instructions: Your head CT and head/neck CTA came back negative for stroke. EKG and 2 troponins were negative for heart attack. Negative for UTI. Electrolytes came back normal. Red blood cells came back at baseline. Negative for elevated white blood cell count. Please follow-up with your PCP and ENT. Return to the ED immediately for chest pain, shortness of breath, slurred speech, facial droop, loss of vision, paralysis of extremities, eye pain, eyelid or eye swelling, redness of the eye, bruising around the eye, abdominal pain, intractable nausea/vomiting, or any other concerning symptoms. Continue to take a meclizine and Zofran prescription meds you have at home. Prescriptions: No Action (DME) diabetic supplies, miscellan. Misc See Rx Instructions .ROUTE .MEDSUPPLY Qty: 1 RF: 0 ferrous fumarate 325 mg (106 mg iron) tablet 325 mg PO DAILY RF: 0 cyanocobalamin (vitamin B-12) 5,000 mcg tablet,disintegrating 5,000 mcg PO DAILY RF: 0 acetaminophen 500 mg capsule 1,000 mg PO TID PRN (Reason: pain) RF: 0 amlodipine 5 mg tablet 5 mg PO DAILY RF: 0 famotidine 40 mg tablet 40 mg PO DAILY RF: 0 sertraline 50 mg tablet 50 mg PO DAILY Qty: 90 RF: 3 metformin 1,000 mg tablet 1,000 mg PO BID Qty: 180 RF: 3 hydrochlorothiazide 25 mg tablet 25 mg PO DAILY 90 Days Qty: 90 RF: 2 simvastatin 40 mg tablet 40 mg PO DAILY Qty: 90 RF: 0 lisinopril 40 mg tablet 40 mg PO DAILY Qty: 90 RF: 3 ondansetron 4 mg tablet,disintegrating 4 mg PO Q8H PRN (Reason: nausea and vomiting) Qty: 20 RF: 0 meclizine 25 mg tablet 25 mg PO TID PRN (Reason: dizziness) Qty: 30 RF: 0 triamcinolone acetonide 0.1 % cream 1 appl topical BID Qty: 30 RF: 0 Referrals: Sherron Villanueva MD [Primary Care Provider] - 2 days (Vertigo. Head CT and head/neck CTA came back normal. EKG and troponins were negative. CBC and chemistry came back at baseline. UA negative for UTI.) Akbar Jon [Physician] - 2 days (Vertigo) Interventions: ED Discharge Assessment Last Done: 02/23/21 17:04 Discharge Date/Time: 02/23/21 17:24 Print Language: Citizen Of [place]
[2021-02-23 12:02] LABS: MANUAL DIFF FLAG NO
[2021-02-23 12:04] LABS: Basophils Percent Auto 0.4 % (0-2); Eosinophils Absolute Auto 0.2 X10*3/uL (0.0-0.4); Eosinophils Percent Auto 2.2 % (0-4); Hematocrit 32.4 % (37-47); Hemoglobin 10.2 g/dl (12.0-16.0); Imm Gran Abs Auto 0.02 X10*3/uL (0.00-0.03); Imm Gran Pct Auto 0.3 % (0.0-0.4); Lymphocytes Percent Auto 29.2 % (20-40); Mean Corpuscular HGB Conc 31.5 g/dl (31.0-35.0); Mean Corpuscular Hemoglobin 27.8 pg (27.0-33.0); Mean Corpuscular Volume 88.3 fL (80-98); Mean Platelet Volume 8.8 fL (9.4-12.3); Monocytes Absolute Auto 0.6 X10*3/uL (0.1-1.2); Monocytes Percent Auto 9.1 % (2-11); Neutrophils Percent Auto 58.8 % (45-73); Platelet Count 204 X10*3/uL (160-400); Red Blood Count 3.67 X10*6/uL (4.20-5.50); White Blood Count 6.8 X10*3/uL (4.8-10.8)
[2021-02-23] MEDS: 0.9 % Sodium Chloride 1,000 ML 999 ML IV (12:11)
[2021-02-23] MEDS: Meclizine HCl 25 MG TABLET 50 MG PO (12:11)
[2021-02-23 12:29] VITALS: BP 163/67; PULSE 65; RESP 14; TEMP 36.4; O2SAT 100
[2021-02-23 12:31] VITALS: BP 163/69; PULSE 66
[2021-02-23 12:33] VITALS: BP 146/59; PULSE 64
[2021-02-23 12:34] LABS: Troponin-I High Sensitivity < 3.5 ng/L (<3.5-17.0)
[2021-02-23 12:35] VITALS: BP 160/63; PULSE 68
[2021-02-23 12:35] LABS: Alanine Aminotransferase 12 U/L (0-31); Alkaline Phosphatase 61 U/L (39-117); Anion Gap 16 (12-20); Aspartate Amino Transferase 26 U/L (5-31); Bilirubin Total 0.2 mg/dL (0.0-1.0); Blood Urea Nitrogen 22 mg/dL (9-16); Calcium 9.5 mg/dL (8.4-10.2); Carbon Dioxide 21 mmol/L (22-29); Chloride 109 mmol/L (96-108); Estimated Glomerular Filt Rate 41; Glucose Random 99 mg/dL (60-115); Magnesium 1.7 mg/dL (1.6-2.6); Potassium 4.9 mmol/L (3.3-5.1); Sodium 141 mmol/L (135-145); Total Protein 7.8 g/dL (6.5-8.0)
[2021-02-23 12:46] LABS: Prothrombin Time 11.7 SEC (9.9-13.0)
[2021-02-23 12:49] LABS: TSH reflex Free T4 1.75 uIU/mL (0.32-4.0)
[2021-02-23 12:50] LABS: Glucose Urine UA NEG (NEG); Leukocyte Esterase Urine NEG (NEG); Nitrite Urine NEG (NEG); PH 5.5 (5.0-8.0); Urine Blood NEG (NEG); Urine Ketones NEG (NEG); Urine Protein NEG (NEG-TRACE)
[2021-02-23 12:51] LABS: Appearance Urine CLEAR; Color Urine YELLOW
[2021-02-23] MEDS: iohexoL 350 MG/ML 100 ML INFUS..BTL IV (14:57)
[2021-02-23 16:44] LABS: Troponin-I High Sensitivity < 3.5 ng/L (<3.5-17.0)
== END 2021-02-23 17:24 | disposition home or self-care (01) ==
PROVIDERS: Physician Assistant; Emergency Provider Emergency Medicine; PCP Internal Medicine
DX: R42 Dizziness and giddiness (principal); E11.22 Type 2 diabetes mellitus with diabetic chronic kidney disease; I12.9 Hypertensive chronic kidney disease with stage 1 through stage 4 chronic kidney disease, or unspecified chronic kidney disease; N18.30 Chronic kidney disease, stage 3 unspecified; E78.5 Hyperlipidemia, unspecified; D64.9 Anemia, unspecified; Z79.02 Long term (current) use of antithrombotics/antiplatelets; Z79.899 Other long term (current) drug therapy; Z79.84 Long term (current) use of oral hypoglycemic drugs
CPT/HCPCS: 36415; 70450; 70496; 70498; 80053; 81003; 83735; 84443; 84484; 85025; 85610; 85730; 93005; 96361; 96374; 99285; Q9967

== ENCOUNTER 2021-03-04 13:00 | Outpatient (RCR) | payer MEDICARE, SELFPAY ==
[2021-02-28 13:06] VITALS: BP 158/78
--- NOTE | 2021-02-28 14:22 | MHC.PT.EP ---
[facility] [place] Office [place] Office [place] Office [address] Leola Merchant [address] [phone] F: [phone] F: [phone] F: [phone] F: [phone] Physical Therapy Plan of Care Date of Evaluation: Date of Surgery: Diagnosis: BPPV Assessment: 86 y/o female referred for BPPV complaining of dizziness and room spinning at night. Since September 2020, pt has noticed onset of dizziness and nausea in bed while rolling and changing positioning. Of note, there have been several episodes since initial onset, with the last episode being 3-4 weeks ago. Examination shows (-) B Vertebral Artery Test, (-) smooth pursuits and horizontal saccades, and (-) head thrust test B. Ageotropic nystagmus noted with R roll test. (-) B [place] Hal[place]. Recommend PT 2x/week for 4 week to assess status of BPPV and continue to treat as needed. Frequency and Duration: The patient will be seen 2x/week for 4 weeks Short Term Goals: Film Mounter Goals: 4 weeks: 1. Pt will be (-) for nystagmus and reports of vertigo in all diagnostic directions with resolution of BPPV 2. Pt to be able to functionally move in all planes without provocation of dizziness and return to PLOF Treatment Plan: Modalities to reduce pain, spasms and effusion. Manual therapy to restore motion and function. Therapeutic exercise to improve strength and flexibility. Neuromuscular re-education for posture and balance. Therapeutic activities to return to functional activities of daily living. Electronically signed by: Hui Neumann PT Please sign and return to therapist. Thank you for your referral.
--- NOTE | 2021-04-04 10:51 | MHC.PT.DC ---
[facility] [place] Office [place] Office [place] Office [address] Leola Merchant [address] [phone] F: [phone] F: [phone] F: [phone] F: [phone] Physical Therapy Discharge Report Diagnosis: BPPV Date of Surgery: Date of Evaluation: 02/28/21 Date of Discharge: 04/04/21 Treatments to Date: 3 Cancellations to Date: 0 No Shows to Date: 0 Discharge Status: Patient Elected to Stop Discharge Summary: Pt without any symptoms or notable nystagmus with assessment. Patient did not understand why she was coming and did not want to continue therapy after today. 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 Demos + saccades horizontally with VOR but reports no symptoms. Electronically signed by: Hui Neumann PT Please sign and return to therapist. Thank you for your referral.
== END 2021-04-04 10:51 | disposition home or self-care (01) ==
LOC: HO.PTCHIC 13:00
PROVIDERS: PCP Internal Medicine; Visit Provider Internal Medicine
DX: H81.13 Benign paroxysmal vertigo, bilateral (principal)
CPT/HCPCS: 95992; 97161

== ENCOUNTER 2021-05-14 08:37 | Outpatient (REF) | payer MEDICARE, SELFPAY ==
[2021-05-14 11:46] LABS: Hematocrit 32.5 % (37-47); Hemoglobin 10.1 g/dl (12.0-16.0); Mean Corpuscular HGB Conc 31.1 g/dl (31.0-35.0); Mean Corpuscular Hemoglobin 27.6 pg (27.0-33.0); Mean Corpuscular Volume 88.8 fL (80-98); Mean Platelet Volume 9.4 fL (9.4-12.3); Platelet Count 241 X10*3/uL (160-400); Red Blood Count 3.66 X10*6/uL (4.20-5.50); Red Cell Distribution Width 14.1 % (11.0-16.0); White Blood Count 6.9 X10*3/uL (4.8-10.8)
[2021-05-14 12:03] LABS: Alanine Aminotransferase 13 U/L (0-31); Albumin Level 4.2 g/dL (3.5-5.0); Alkaline Phosphatase 63 U/L (39-117); Anion Gap 14 (12-20); Aspartate Amino Transferase 18 U/L (5-31); Bilirubin Total 0.4 mg/dL (0.0-1.0); Blood Urea Nitrogen 33 mg/dL (9-16); Calcium 9.7 mg/dL (8.4-10.2); Carbon Dioxide 22 mmol/L (22-29); Chloride 107 mmol/L (96-108); Estimated Glomerular Filt Rate 41; Glucose Fasting 132 mg/dL (60-99); Potassium 4.3 mmol/L (3.3-5.1); Sodium 139 mmol/L (135-145); Total Protein 7.5 g/dL (6.5-8.0)
[2021-05-14 12:40] LABS: Folate 19.9 ng/mL (> or = 4.0); Vitamin B12 661 pg/mL (200-900)
[2021-05-14 13:41] LABS: Estimated Average Glucose 134 mg/dL; Hemoglobin A1c % 6.3 %
== END 2021-05-14 08:38 | disposition home or self-care (01) ==
LOC: HO.HMGCLDS 08:37
PROVIDERS: PCP Internal Medicine; Visit Provider Internal Medicine
DX: D64.9 Anemia, unspecified (principal); I10 Essential (primary) hypertension; E11.9 Type 2 diabetes mellitus without complications
CPT/HCPCS: 36415; 80048; 80053; 82607; 82746; 83036; 84484; 85025; 85027; 93005; 99283; 99284

== ENCOUNTER 2021-05-14 19:19 | Emergency (ER) | payer MEDICARE, SELFPAY ==
[2021-05-14 19:26] VITALS: BP 138/72; BP 152/69; PULSE 71; PULSE 80; RESP 16; TEMP 36.8; O2SAT 100; O2SAT 99; BMI 28.0
--- NOTE | 2021-05-14 19:35 | ECG_ITS ---
Test Reason : SYNCOPE Blood Pressure : / mmHG Vent. 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
[2021-05-14 19:52] LABS: MANUAL DIFF FLAG NO
[2021-05-14 19:55] LABS: Basophils Percent Auto 0.5 % (0-2); Eosinophils Absolute Auto 0.2 X10*3/uL (0.0-0.4); Eosinophils Percent Auto 1.9 % (0-4); Hematocrit 32.5 % (37-47); Hemoglobin 10.4 g/dl (12.0-16.0); Imm Gran Abs Auto 0.03 X10*3/uL (0.00-0.03); Imm Gran Pct Auto 0.3 % (0.0-0.4); Lymphocytes Absolute Auto 2.1 X10*3/uL (1.2-4.9); Lymphocytes Percent Auto 24.1 % (20-40); Mean Corpuscular Hemoglobin 28.4 pg (27.0-33.0); Mean Corpuscular Volume 88.8 fL (80-98); Mean Platelet Volume 8.6 fL (9.4-12.3); Monocytes Absolute Auto 0.7 X10*3/uL (0.1-1.2); Monocytes Percent Auto 7.5 % (2-11); Neutrophils Absolute Auto 5.8 X10*3/uL (2.0-8.3); Neutrophils Percent Auto 65.7 % (45-73); Platelet Count 222 X10*3/uL (160-400); Red Blood Count 3.66 X10*6/uL (4.20-5.50); Red Cell Distribution Width 14.1 % (11.0-16.0); White Blood Count 8.8 X10*3/uL (4.8-10.8)
--- NOTE | 2021-05-14 20:10 | ED.GENADULT ---
HPI - General Adult General Chief complaint: Syncope Stated complaint: FALL Time Seen by Provider: 05/14/21 20:09 Source: patient Mode of arrival: EMS Limitations: no limitations History of Present Illness HPI narrative: patient with bilateral cramps to her hands while having to urinate, she got sweaty during this felt nauseated and went to vomit in the sink and slid off the toilet. No LOC. Onset (ago): minute(s) Radiation: non-radiation Severity: mild Relieving factors: none Exacerbating factors: none Associated symptoms: denies other symptoms Related Data Home Medications Medication Instructions Recorded Confirmed acetaminophen 500 mg capsule 1,000 mg PO TID PRN cap 06/20/20 03/27/21 amlodipine 5 mg tablet 5 mg PO DAILY 06/20/20 03/27/21 cyanocobalamin (vitamin B-12) 5,000 mcg PO DAILY 06/20/20 03/27/21 5,000 mcg disintegrating tablet famotidine 40 mg tablet 40 mg PO DAILY 06/20/20 03/27/21 ferrous fumarate 325 mg (106 mg 325 mg PO DAILY tab 06/20/20 03/27/21 iron) tablet Previous Rx's Medication Instructions Recorded diabetic supplies, miscellan. #1 ea 05/13/20 ondansetron 4 mg disintegrating 4 mg PO Q8H PRN #20 tab 07/04/20 tablet sertraline 50 mg tablet 50 mg PO DAILY #90 tab 07/30/20 metformin 1,000 mg tablet 1,000 mg PO BID #180 tab 09/25/20 meclizine 25 mg tablet 25 mg PO TID PRN #30 tab 10/23/20 triamcinolone acetonide 0.1 % 1 appl TOPICAL BID #30 g 10/23/20 topical cream hydrochlorothiazide 25 mg tablet 25 mg PO DAILY 90 Days #90 tab 11/22/20 lisinopril 40 mg tablet 40 mg PO DAILY #90 tab 12/24/20 simvastatin 40 mg tablet 40 mg PO DAILY #90 tab 03/02/21 Allergies Allergy/AdvReac Type Severity Reaction Status Date / Time celecoxib [Celebrex] Allergy Unknown rash Verified 05/14/21 19:34 penicillin G Allergy Unknown rash Verified 05/14/21 19:34 penicillin V Allergy Unknown rash Verified 05/14/21 19:34 Penicillins [PENICILLINS] Allergy Unknown HIVES, rash Verified 05/14/21 19:34 Review of Systems Constitutional: Constitutional: Reports no additional constitutional complaints Eyes: Eyes: Reports no additional eye complaints ENT: Denies dizziness Cardiovascular: Cardiovascular: Reports no additional cardiovascular complaints Respiratory: Respiratory: Reports as per HPI Gastrointestinal: Gastrointestinal: Reports no additional gastrointestinal complaints Genitourinary: Genitourinary: Reports no additional female genitourinary complaints Musculoskeletal: Musculoskeletal: Reports no additional musculoskeletal complaints Integumentary/Breasts: Skin/Breast: Denies rash Neurologic: Reports system reviewed and no additional complaints, except as documented, Denies dizziness and Denies Sensory deficit (Neuro) Psychiatric: Psychiatric: Denies anxiety PMFSH Past Medical History Medical History Anemia Annual physical exam CKD (chronic kidney disease), stage III Diabetes Hearing loss HTN (hypertension) Hyperlipidemia Iron deficiency anemia Pernicious anemia UTI (urinary tract infection) Vertigo Vertigo Surgical History History of breast biopsy History of ERCP History of esophagogastroduodenoscopy (EGD) S/P cholecystectomy S/P ERCP Family History Family History Father Cancer Mother Colon cancer Social History Social History Alcohol intake: never Patient Tobacco Use Status: Never used Tobacco Advance Directives: No Advance Directives Information Provided: Yes Physical Exam Vital Signs: Vital Signs: Last Vital Signs Temp 98.2 F 05/14/21 19:26 Pulse 80 05/14/21 19:26 Resp 16 05/14/21 19:26 BP 152/69 H 05/14/21 19:26 Pulse Ox 99 05/14/21 19:26 Body Mass Index 28.0 Const: Other: elderly patient General: healthy appearing Nutritional Appearance: average body habitus Orientation/consciousness: oriented to person and patient oriented x3 Limitations: no limitations HENMT: Head: Yes normal to inspection Ears: external ears normal General nose exam: Normal external nose present Mouth: Normal oral and palatal mucosa present and oropharynx normal Throat: Yes posterior oropharynx normal Eyes: General: appearance normal, both eyes and all related structures Neck: Other: supple Neck: Yes normal visual inspection Chest: Chest palpation & inspection: normal inspection of the chest Resp: Auscultation: clear to auscultation bilaterally Cardio: Jugular venous distension: no JVD Rate: regular rate Rhythm: regular rhythm Heart sounds: S1 normal heart sound present and S2 normal heart sound present GI: Inspection: Yes normal to inspection Palpation (GI): Soft to palpation, nontender and No hepatosplenomegaly present Auscultation: normal bowel sounds : General: Yes no CVA tenderness Back/Spine/Pelvis: Back: no CVA tenderness Skin: General skin exam: no rashes or lesions noted Neuro: General: oriented to person and patient oriented x3 Cranial nerves: Yes CN's II-XII intact bilaterally Motor exam (neuro): 5/5 motor strength present throughout Sensory Exam: No Sensory deficit (Neuro) Extrem: General: Yes normal to inspection Psych: Appearance: grossly normal Course Reevaluation(s) Reevaluation #1: patient with an episode of nausea and vomiting with dizziness while on the toilet. no LOC. Her EKG is unchanged and cardiac enzymes are normal, her neuro exam is nonfocal. Discussed with family will dc home Time: 20:25 Medical Decision Making Lab Data Result diagrams: 05/14/21 19:46 05/14/21 19:46 Labs: Lab Results 05/14/21 Range/Units 19:46 WBC 8.8 (4.8-10.8) X10*3/uL RBC 3.66 L (4.20-5.50) X10*6/uL Hgb 10.4 L (12.0-16.0) g/dl Hct 32.5 L (37-47) % MCV 88.8 (80-98) fL MCH 28.4 (27.0-33.0) pg MCHC 32.0 (31.0-35.0) g/dl RDW 14.1 (11.0-16.0) % Plt Count 222 (160-400) X10*3/uL MPV 8.6 L (9.4-12.3) fL Immature Gran % (Auto) 0.3 (0.0-0.4) % Neut % (Auto) 65.7 (45-73) % Lymph % (Auto) 24.1 (20-40) % [place] % (Auto) 7.5 (2-11) % Eos % (Auto) 1.9 (0-4) % Baso % (Auto) 0.5 (0-2) % Lymph # (Auto) 2.1 (1.2-4.9) X10*3/uL [place] # (Auto) 0.7 (0.1-1.2) X10*3/uL Eos # (Auto) 0.2 (0.0-0.4) X10*3/uL Baso # (Auto) 0.0 (0.0-0.2) X10*3/uL Abs Immat Gran (auto) 0.03 (0.00-0.03) X10*3/uL Absolute Neuts (auto) 5.8 (2.0-8.3) X10*3/uL Absolute Nucleated RBC 0.000 (0.0-0.012) X10*3/uL Nucleated RBC % (auto) 0.0 (0.0-0.2) /100WBC ECG Data Attestation: I personally reviewed and interpreted this ECG as follows: Interpretation: sinus 80, ole inferior and anterior [place], no st or twave changes Discharge Plan Discharge Clinical Impression: Dizziness Vomiting Qualifiers: Vomiting type: unspecified Vomiting Intractability: non-intractable Nausea presence: with nausea Qualified Code(s): R11.2 - Nausea with vomiting, unspecified Patient Disposition: Home, Self-Care Instructions: Dizziness (ED), Acute Nausea and Vomiting (ED) Prescriptions: No Action (DME) diabetic supplies, miscellan. Misc See Rx Instructions .ROUTE .MEDSUPPLY Qty: 1 RF: 0 ferrous fumarate 325 mg (106 mg iron) tablet 325 mg PO DAILY RF: 0 cyanocobalamin (vitamin B-12) 5,000 mcg tablet,disintegrating 5,000 mcg PO DAILY RF: 0 acetaminophen 500 mg capsule 1,000 mg PO TID PRN (Reason: pain) RF: 0 amlodipine 5 mg tablet 5 mg PO DAILY RF: 0 famotidine 40 mg tablet 40 mg PO DAILY RF: 0 sertraline 50 mg tablet 50 mg PO DAILY Qty: 90 RF: 3 metformin 1,000 mg tablet 1,000 mg PO BID Qty: 180 RF: 3 hydrochlorothiazide 25 mg tablet 25 mg PO DAILY 90 Days Qty: 90 RF: 2 lisinopril 40 mg tablet 40 mg PO DAILY Qty: 90 RF: 3 simvastatin 40 mg tablet 40 mg PO DAILY Qty: 90 RF: 3 ondansetron 4 mg tablet,disintegrating 4 mg PO Q8H PRN (Reason: nausea and vomiting) Qty: 20 RF: 0 meclizine 25 mg tablet 25 mg PO TID PRN (Reason: dizziness) Qty: 30 RF: 0 triamcinolone acetonide 0.1 % cream 1 appl topical BID Qty: 30 RF: 0 Referrals: Spencer Parham [Emergency Nurse] - 2 days
[2021-05-14 20:11] LABS: Anion Gap 15 (12-20); Blood Urea Nitrogen 34 mg/dL (9-16); Calcium 9.3 mg/dL (8.4-10.2); Carbon Dioxide 17 mmol/L (22-29); Chloride 112 mmol/L (96-108); Creatinine Clr Calc Pharmacy 28.3; Estimated Glomerular Filt Rate 32; Glucose Random 188 mg/dL (60-115); Potassium 4.1 mmol/L (3.3-5.1); Sodium 140 mmol/L (135-145)
--- NOTE | 2021-05-14 20:11 | PC.NURSE ---
at bed side for primary eval.
[2021-05-14 20:17] LABS: Troponin-I High Sensitivity < 3.5 ng/L (<3.5-17.0)
== END 2021-05-14 20:56 | disposition home or self-care (01) ==
PROVIDERS: Emergency Provider Emergency Medicine
DX: R42 Dizziness and giddiness (principal); R11.2 Nausea with vomiting, unspecified; I12.9 Hypertensive chronic kidney disease with stage 1 through stage 4 chronic kidney disease, or unspecified chronic kidney disease; E11.22 Type 2 diabetes mellitus with diabetic chronic kidney disease; N18.9 Chronic kidney disease, unspecified; Z79.84 Long term (current) use of oral hypoglycemic drugs; Z79.899 Other long term (current) drug therapy
CPT/HCPCS: 36415; 80048; 84484; 85025; 93005; 99283; 99284

== ENCOUNTER 2021-06-02 11:01 | Outpatient (REF) | payer MEDICARE, SELFPAY ==
[2021-06-02 14:26] LABS: Anion Gap 17 (12-20); Blood Urea Nitrogen 22 mg/dL (9-16); Calcium 9.3 mg/dL (8.4-10.2); Carbon Dioxide 19 mmol/L (22-29); Chloride 113 mmol/L (96-108); Estimated Glomerular Filt Rate 44; Glucose Random 121 mg/dL (60-115); Magnesium 1.7 mg/dL (1.6-2.6); Potassium 4.9 mmol/L (3.3-5.1); Sodium 144 mmol/L (135-145)
[2021-06-02 14:51] LABS: Vitamin D 25-OH Total 44.6 ng/mL (>30)
== END 2021-06-02 11:02 | disposition home or self-care (01) ==
LOC: HO.HMGCLDS 11:01
PROVIDERS: PCP Internal Medicine; Visit Provider Internal Medicine
DX: Z00.00 Encounter for general adult medical examination without abnormal findings (principal); D64.9 Anemia, unspecified; E78.5 Hyperlipidemia, unspecified; N39.0 Urinary tract infection, site not specified; N18.30 Chronic kidney disease, stage 3 unspecified; I10 Essential (primary) hypertension
CPT/HCPCS: 36415; 80048; 82306; 83735

== ENCOUNTER 2021-09-01 08:49 | Outpatient (REF) | payer MEDICARE, SELFPAY ==
[2021-09-01 11:50] LABS: Hematocrit 34.1 % (37.0-47.0); Hemoglobin 10.2 g/dl (12.0-16.0); Mean Corpuscular HGB Conc 29.9 g/dl (31.0-35.0); Mean Corpuscular Volume 90.2 fL (80.0-98.0); Mean Platelet Volume 8.8 fL (9.4-12.3); Platelet Count 225 X10*3/uL (160-400); Red Blood Count 3.78 X10*6/uL (4.20-5.50); Red Cell Distribution Width 13.7 % (11.0-16.0); White Blood Count 6.5 X10*3/uL (4.8-10.8)
[2021-09-01 11:55] LABS: Estimated Average Glucose 131 mg/dL; Hemoglobin A1c % 6.2 %
[2021-09-01 12:13] LABS: Alanine Aminotransferase 14 U/L (0-31); Albumin Level 4.1 g/dL (3.5-5.0); Alkaline Phosphatase 60 U/L (39-117); Anion Gap 12 (12-20); Aspartate Amino Transferase 18 U/L (5-31); Bilirubin Total 0.3 mg/dL (0.0-1.0); Blood Urea Nitrogen 20 mg/dL (9-16); Calcium 9.8 mg/dL (8.4-10.2); Carbon Dioxide 30 mmol/L (22-29); Chloride 106 mmol/L (96-108); Cholesterol 158 mg/dL; Estimated Glomerular Filt Rate 44; Glucose Fasting 126 mg/dL (60-99); HDL Cholesterol 50 mg/dL; LDL Cholesterol Calculated 85 mg/dl; Potassium 4.7 mmol/L (3.3-5.1); Sodium 143 mmol/L (135-145); Total Protein 7.4 g/dL (6.5-8.0); Triglycerides 116 mg/dL
== END 2021-09-01 08:50 | disposition home or self-care (01) ==
LOC: HO.HMGCLDS 08:49
PROVIDERS: PCP Internal Medicine; Visit Provider Internal Medicine
DX: Z00.00 Encounter for general adult medical examination without abnormal findings (principal); N18.30 Chronic kidney disease, stage 3 unspecified; D63.1 Anemia in chronic kidney disease; E78.5 Hyperlipidemia, unspecified; N39.0 Urinary tract infection, site not specified
CPT/HCPCS: 36415; 80053; 80061; 83036; 85027

== ENCOUNTER 2022-03-27 07:30 | Outpatient (REF) | payer MEDICARE, SELFPAY ==
[2022-03-27 11:42] LABS: Hematocrit 32.6 % (37.0-47.0); Hemoglobin 10.2 g/dl (12.0-16.0); Mean Corpuscular HGB Conc 31.3 g/dl (31.0-35.0); Mean Corpuscular Hemoglobin 27.7 pg (27.0-33.0); Mean Corpuscular Volume 88.6 fL (80.0-98.0); Mean Platelet Volume 9.1 fL (9.4-12.3); Platelet Count 206 X10*3/uL (160-400); Red Blood Count 3.68 X10*6/uL (4.20-5.50); Red Cell Distribution Width 14.3 % (11.0-16.0); White Blood Count 5.9 X10*3/uL (4.8-10.8)
[2022-03-27 11:53] LABS: Estimated Average Glucose 137 mg/dL; Hemoglobin A1c % 6.4 %
[2022-03-27 12:34] LABS: Alanine Aminotransferase 13 U/L (0-31); Albumin Level 4.1 g/dL (3.5-5.0); Alkaline Phosphatase 58 U/L (39-117); Anion Gap 19 (12-20); Aspartate Amino Transferase 16 U/L (5-31); Bilirubin Total 0.3 mg/dL (0.0-1.0); Blood Urea Nitrogen 23 mg/dL (9-16); Calcium 9.2 mg/dL (8.4-10.2); Carbon Dioxide 24 mmol/L (22-29); Chloride 106 mmol/L (96-108); Estimated Glomerular Filt Rate 38; Glucose Fasting 135 mg/dL (60-99); Iron 44 mcg/dL (30-160); Percent Iron Saturation 14 % (15-50); Potassium 4.6 mmol/L (3.3-5.1); Sodium 144 mmol/L (135-145); Total Iron Binding Capacity 319 mcg/dL (228-428); Total Protein 7.4 g/dL (6.5-8.0); Unsaturated Iron Binding 275 ug/dL
== END 2022-03-27 07:31 | disposition home or self-care (01) ==
LOC: HO.HMGCLDS 07:30
PROVIDERS: PCP Internal Medicine; Visit Provider Internal Medicine
DX: I12.9 Hypertensive chronic kidney disease with stage 1 through stage 4 chronic kidney disease, or unspecified chronic kidney disease (principal); N18.30 Chronic kidney disease, stage 3 unspecified; E11.22 Type 2 diabetes mellitus with diabetic chronic kidney disease; E78.5 Hyperlipidemia, unspecified
CPT/HCPCS: 36415; 80053; 83036; 83540; 85027

== ENCOUNTER 2022-06-24 09:39 | Outpatient (REF) | payer MEDICARE, SELFPAY ==
[2022-06-24 11:16] LABS: MANUAL DIFF FLAG NO
[2022-06-24 11:33] LABS: Basophils Percent Auto 0.6 % (0-2); Eosinophils Absolute Auto 0.1 X10*3/uL (0.0-0.4); Eosinophils Percent Auto 1.9 % (0-4); Hematocrit 33.4 % (37.0-47.0); Hemoglobin 10.6 g/dl (12.0-16.0); Imm Gran Abs Auto 0.02 X10*3/uL (0.00-0.03); Imm Gran Pct Auto 0.3 % (0.0-0.4); Lymphocytes Absolute Auto 1.9 X10*3/uL (1.2-4.9); Mean Corpuscular HGB Conc 31.7 g/dl (31.0-35.0); Mean Corpuscular Hemoglobin 28.2 pg (27.0-33.0); Mean Corpuscular Volume 88.8 fL (80.0-98.0); Mean Platelet Volume 9.1 fL (9.4-12.3); Monocytes Absolute Auto 0.4 X10*3/uL (0.1-1.2); Monocytes Percent Auto 6.9 % (2-11); Neutrophils Absolute Auto 3.9 x10*3/uL (2.0-8.3); Neutrophils Percent Auto 60.3 % (45-73); Platelet Count 261 X10*3/uL (160-400); Red Blood Count 3.76 X10*6/uL (4.20-5.50); Red Cell Distribution Width 13.5 % (11.0-16.0); White Blood Count 6.4 X10*3/uL (4.8-10.8)
[2022-06-24 11:45] LABS: Alanine Aminotransferase 13 U/L (0-31); Albumin Level 4.3 g/dL (3.5-5.0); Alkaline Phosphatase 66 U/L (39-117); Anion Gap 15 (12-20); Aspartate Amino Transferase 18 U/L (5-31); Bilirubin Total 0.3 mg/dL (0.0-1.0); Blood Urea Nitrogen 28 mg/dL (9-16); Calcium 9.5 mg/dL (8.4-10.2); Carbon Dioxide 24 mmol/L (22-29); Chloride 107 mmol/L (96-108); Cholesterol 155 mg/dL; Estimated Glomerular Filt Rate 38; Glucose Fasting 128 mg/dL (60-99); HDL Cholesterol 54 mg/dL; LDL Cholesterol Calculated 82 mg/dl; Potassium 4.9 mmol/L (3.3-5.1); Sodium 141 mmol/L (135-145); Total Protein 7.8 g/dL (6.5-8.0); Triglycerides 99 mg/dL
[2022-06-24 11:47] LABS: Estimated Average Glucose 131 mg/dL; Hemoglobin A1c % 6.2 %
== END 2022-06-24 09:40 | disposition home or self-care (01) ==
LOC: HO.HMGCLDS 09:39
PROVIDERS: PCP Internal Medicine; Visit Provider Internal Medicine
DX: I12.9 Hypertensive chronic kidney disease with stage 1 through stage 4 chronic kidney disease, or unspecified chronic kidney disease (principal); E11.22 Type 2 diabetes mellitus with diabetic chronic kidney disease; N18.30 Chronic kidney disease, stage 3 unspecified; E78.5 Hyperlipidemia, unspecified
CPT/HCPCS: 36415; 80053; 80061; 83036; 85025

== ENCOUNTER 2022-10-22 17:16 | Emergency (ER) | payer MEDICARE, SELFPAY ==
[2022-10-22 17:24] VITALS: BP 193/86; PULSE 77; RESP 18; TEMP 36.9; O2SAT 100; BMI 28.0
--- NOTE | 2022-10-22 17:24 | ED_ITS ---
HPI - General Adult General Chief complaint: Back Pain/Injury Stated complaint: right lower back pain Source: patient and RN notes reviewed Mode of arrival: ambulatory Limitations: no limitations History of Present Illness HPI narrative: 87-year-old female in for evaluation of right flank pain. Patient's symptoms started last night. She admits to ?breaking the entire your of leaves last night. ? Her discomfort is worse with standing up and moving She rates her discomfort as 6/10. She has been taking ibuprofen and Tylenol with no improvement. Denies any fevers, chills. Denies any nausea vomiting, diarrhea Denies any burning with urination or urinary frequency Related Data Home Medications Medication Instructions Recorded Confirmed acetaminophen 500 mg capsule 1,000 mg PO TID PRN pain 06/20/20 07/03/22 cyanocobalamin (vitamin B-12) 5,000 mcg PO DAILY 06/20/20 07/03/22 5,000 mcg disintegrating tablet famotidine 40 mg tablet 40 mg PO DAILY 06/20/20 07/03/22 ferrous fumarate 325 mg (106 mg 325 mg PO DAILY 06/20/20 07/03/22 iron) tablet Previous Rx's Medication Instructions Recorded triamcinolone acetonide 0.1 % 1 appl topical BID #30 grams 10/23/20 topical cream meclizine 25 mg tablet 25 mg PO TID PRN for dizziness #30 06/03/21 tabs ondansetron 4 mg disintegrating 4 mg PO Q8H PRN nausea and 09/03/21 tablet vomiting #20 tabs lisinopril 40 mg tablet 40 mg PO DAILY #90 tabs 10/17/21 latanoprost 0.005 % eye drops 1 drp ophthalmic (eye) QPM #7.5 mL 11/25/21 simvastatin 40 mg tablet 40 mg PO DAILY #90 tabs 02/26/22 nystatin 100,000 unit/gram topical 1 appl topical BID #60 grams 03/30/22 cream blood sugar diagnostic (OneTouch #100 ea 07/03/22 Ultra Test strips) diabetic supplies, miscellan. #1 ea 07/03/22 metformin 500 mg tablet,extended 500 mg PO DAILY #90 tabs 07/03/22 release 24 hr amlodipine 5 mg tablet 5 mg PO DAILY #90 tabs 09/01/22 sertraline 50 mg tablet 50 mg PO DAILY #90 tabs 09/14/22 cefpodoxime 200 mg tablet 200 mg PO Q12H #14 tabs 10/22/22 phenazopyridine 200 mg tablet 200 mg PO TID 6 doses #6 tabs 10/22/22 (Pyridium) Allergies Allergy/AdvReac Type Severity Reaction Status Date / Time celecoxib [Celebrex] Allergy Unknown rash Verified 07/03/22 11:05 penicillin G Allergy Unknown rash Verified 07/03/22 11:05 Penicillins [PENICILLINS] Allergy Unknown HIVES, rash Verified 07/03/22 11:05 Review of Systems Constitutional: Constitutional: Reports as per HPI, Denies chills, Denies fatigue, Denies fever(s) and Denies headache(s) ENT: Denies headache(s) Cardiovascular: Cardiovascular: Denies chest pain and Denies dyspnea Respiratory: Respiratory: Denies cough and Denies dyspnea Gastrointestinal: Gastrointestinal: Denies abdominal pain, Denies constipation and Denies vomiting Genitourinary: Genitourinary: Denies dysuria Musculoskeletal: Musculoskeletal: Reports back pain Neurologic: Denies headache(s) and Denies focal weakness Endocrine: Endocrine: Denies fatigue [facility] Past Medical History Medical History Anemia Annual physical exam CKD (chronic kidney disease), stage III Diabetes Hearing loss HTN (hypertension) Hyperlipidemia Iron deficiency anemia Pernicious anemia UTI (urinary tract infection) Vertigo Vertigo Surgical History History of breast biopsy History of ERCP History of esophagogastroduodenoscopy (EGD) S/P cholecystectomy S/P ERCP Family History Family History Father Cancer Mother Colon cancer Social History Social History Housing: House Alcohol intake: never Patient Tobacco Use Status: Never used Tobacco e-Cigarette/Vaping Use: Never Used Advance Directives: No Advance Directives Information Provided: Yes Current occupational status: retired Cognitive needs: No Hearing needs: Yes Vision needs: Yes Physical Exam ED Vital Signs: Vital Signs - 24 hr 10/22/22 17:24 Temperature 98.5 F Pulse Rate 77 Respiratory Rate 18 Blood Pressure 193/86 H Pulse Oximetry 100 Oxygen Delivery Method Room Air BMI result Body Mass Index 28.0 Const General: healthy appearing, comfortable, no acute distress, alert and awake Nutritional Appearance: well nourished Orientation/consciousness: patient oriented x3 HENMT Head: Yes normocephalic and Yes atraumatic Throat: Yes posterior oropharynx normal Eyes Eyelids: Yes eyelids normal Conjunctivae: conjunctivae normal Sclerae: sclerae normal Corneas: corneas normal Pupils: Equal, round and reactive pupils present EOM: EOMs intact bilaterally Neck Neck: Yes full ROM Resp Effort & Inspection: normal respiratory effort, able to speak in complete sentences, no audible wheezes and not labored Auscultation: clear to auscultation bilaterally Cardio Rate: regular rate Rhythm: regular rhythm GI Inspection: No distended Palpation (GI): Soft to palpation, not firm, nontender, no guarding and not rigid Auscultation: normoactive bowel sounds Back/Spine/Pelvis Other: Right lumbar paraspinous tenderness. No CVA tenderness. Skin General skin exam: no rashes or lesions noted and elasticity normal Neuro General: patient oriented x3 Cranial nerves: Yes CN's II-XII intact bilaterally, Yes Equal, round and reactive pupils present and Yes Bilaterally intact EOM present Cognition (Neuro): normal cognition Extrem Other: Moving all extremities well without any obvious deformities Course Course Course Narrative: 87-year-old female presents for evaluation of right flank pain. Patient started yesterday. Of note she was outside raking her yard yesterday. Denies any GI or symptoms. Plan for labs, UA no but the patient's pain may be musculoskeletal in origin Reevaluation(s) Reevaluation #1: Patient continues to appear well, labs are reviewed significant for a significant UTI. There is no white count, no fever to suggest systemic infection. I think the patient's pain is likely multifactorial, related to her exertion yesterday as well as the UTI. Will treat with antibiotics and she will use Tylenol Time: 18:37 Medical Decision Making Medical Decision Making MDM Narrative: 87-year-old female presents for evaluation of flank pain. The patient denies any GI or complaints. However given her age will get basic labs and a UA. Patient does admit that she was out working in the [place] all day yesterday. Her pain may be musculoskeletal. Differential Diagnosis Muscle strain Pyelonephritis Obstructive uropathy Back pain Radiculopathy Lab Data 10/22/22 17:43 10/22/22 17:43 Labs: Lab Results 10/22/22 10/22/22 10/22/22 Range/Units 17:42 17:43 17:43 WBC 8.6 (4.8-10.8) X10*3/uL RBC 3.89 L (4.20-5.50) X10*6/uL Hgb 10.7 L (12.0-16.0) g/dl Hct 34.0 L (37.0-47.0) % MCV 87.4 (80.0-98.0) fL MCH 27.5 (27.0-33.0) pg MCHC 31.5 (31.0-35.0) g/dl RDW 13.8 (11.0-16.0) % Plt Count 226 (160-400) X10*3/uL MPV 8.4 L (9.4-12.3) fL Immature Gran % (Auto) 0.1 (0.0-0.4) % Neut % (Auto) 54.6 (45-73) % Lymph % (Auto) 35.0 (20-40) % [place] % (Auto) 7.6 (2-11) % Eos % (Auto) 2.1 (0-4) % Baso % (Auto) 0.6 (0-2) % Lymph # (Auto) 3.0 (1.2-4.9) X10*3/uL [place] # (Auto) 0.7 (0.1-1.2) X10*3/uL Eos # (Auto) 0.2 (0.0-0.4) X10*3/uL Baso # (Auto) 0.1 (0.0-0.2) X10*3/uL Abs Immat Gran (auto) 0.01 (0.00-0.03) X10*3/uL Absolute Neuts (auto) 4.7 (2.0-8.3) x10*3/uL Absolute Nucleated RBC 0.000 (0.0-0.012) X10*3/uL Nucleated RBC % (auto) 0.0 (0.0-0.2) /100WBC Sodium 142 (135-145) mmol/L Potassium 5.3 H (3.3-5.1) mmol/L Chloride 108 (96-108) mmol/L Carbon Dioxide 25 (22-29) mmol/L Anion Gap 14 (12-20) BUN 25 H (9-16) mg/dL Creatinine 1.47 H (0.5-1.4) mg/dL Estim Creat Clear Calc 29.1 Estimated GFR 34 Random Glucose 116 H (60-115) mg/dL Calcium 9.7 (8.4-10.2) mg/dL Total Bilirubin 0.3 (0.0-1.0) mg/dL AST 15 (5-31) U/L ALT 14 (0-31) U/L Alkaline Phosphatase 73 (39-117) U/L Total Protein 7.6 (6.5-8.0) g/dL Albumin 4.1 (3.5-5.0) g/dL Lipase 36 (8-78) U/L Urine Color Yellow Urine Appearance Cloudy Urine pH 5.5 (5.0-9.0) Ur Specific [place] 1.010 (1.005-1.025) Urine Protein Negative (Neg-Trace) mg/dL Urine Glucose (UA) Negative (Negative) mg/dL Urine Ketones Negative (Negative) mg/dL Urine Blood Trace H (Negative) Urine Nitrite Negative (Negative) Ur Leukocyte Esterase Large (3+) H (Negative) Urine RBC 6-10 H (0-2) /HPF Urine WBC >50 H (0-5) /HPF Ur Squamous Epith Cells 0-2 (0-2) /HPF Urine Bacteria 4+ (None Seen) Hyaline Casts 0-2 (0-2) /LPF Discharge Plan Discharge Clinical Impression: Urinary tract infection Patient Disposition: Home, Self-Care Instructions: Urinary Tract Infection in Women (DC) Additional Instructions: Your urine sample shows that you have a urinary tract infection. Your blood work shows that you do have chronic kidney disease, but your kidney function is at its baseline Prescriptions: New cefpodoxime 200 mg tablet 200 mg PO Q12H Qty: 14 0RF Rx Instructions: must administer with a meal/food phenazopyridine [Pyridium] 200 mg tablet 200 mg PO TID Qty: 6 0RF No Action ferrous fumarate 325 mg (106 mg iron) tablet 325 mg PO DAILY cyanocobalamin (vitamin B-12) 5,000 mcg tablet,disintegrating 5,000 mcg PO DAILY acetaminophen 500 mg capsule 1,000 mg PO TID PRN (Reason: pain) famotidine 40 mg tablet 40 mg PO DAILY meclizine 25 mg tablet 25 mg PO TID PRN (Reason: for dizziness) Qty: 30 0RF lisinopril 40 mg tablet 40 mg PO DAILY Qty: 90 3RF latanoprost 0.005 % drops 1 drp ophthalmic (eye) QPM Qty: 7.5 0RF Rx Instructions: One drop to both eyes at bedtime. simvastatin 40 mg tablet 40 mg PO DAILY Qty: 90 3RF amlodipine 5 mg tablet 5 mg PO DAILY Qty: 90 3RF sertraline 50 mg tablet 50 mg PO DAILY Qty: 90 3RF triamcinolone acetonide 0.1 % cream 1 appl topical BID Qty: 30 0RF nystatin 100,000 unit/gram cream 1 appl topical BID Qty: 60 3RF ondansetron 4 mg tablet,disintegrating 4 mg PO Q8H PRN (Reason: nausea and vomiting) Qty: 20 0RF metformin 500 mg tablet extended release 24 hr 500 mg PO DAILY Qty: 90 1RF (DME) diabetic supplies, miscellan. Misc See Rx Instructions .ROUTE .MEDSUPPLY Qty: 1 0RF Rx Instructions: diabetic shoes (DME) OneTouch Ultra Test Strip See Rx Instructions .Route Qty: 100 3RF Rx Instructions: qd
[2022-10-22 17:49] LABS: MANUAL DIFF FLAG NO
[2022-10-22 17:52] LABS: Basophils Absolute Auto 0.1 X10*3/uL (0.0-0.2); Basophils Percent Auto 0.6 % (0-2); Eosinophils Absolute Auto 0.2 X10*3/uL (0.0-0.4); Eosinophils Percent Auto 2.1 % (0-4); Hemoglobin 10.7 g/dl (12.0-16.0); Imm Gran Abs Auto 0.01 X10*3/uL (0.00-0.03); Imm Gran Pct Auto 0.1 % (0.0-0.4); Mean Corpuscular HGB Conc 31.5 g/dl (31.0-35.0); Mean Corpuscular Hemoglobin 27.5 pg (27.0-33.0); Mean Corpuscular Volume 87.4 fL (80.0-98.0); Mean Platelet Volume 8.4 fL (9.4-12.3); Monocytes Absolute Auto 0.7 X10*3/uL (0.1-1.2); Monocytes Percent Auto 7.6 % (2-11); Neutrophils Absolute Auto 4.7 x10*3/uL (2.0-8.3); Neutrophils Percent Auto 54.6 % (45-73); Platelet Count 226 X10*3/uL (160-400); Red Blood Count 3.89 X10*6/uL (4.20-5.50); Red Cell Distribution Width 13.8 % (11.0-16.0); White Blood Count 8.6 X10*3/uL (4.8-10.8)
[2022-10-22 18:02] LABS: Appearance Urine Cloudy; Color Urine Yellow; Glucose Urine UA Negative (Negative); Leukocyte Esterase Urine Large (3+) (Negative); Nitrite Urine Negative (Negative); PH 5.5 (5.0-9.0); UMIC TRIGGER UACC YES; Urine Blood Trace (Negative); Urine Ketones Negative (Negative); Urine Protein Negative (Neg-Trace)
[2022-10-22 18:08] LABS: Bacteria Urine 4+ (None Seen); Hyaline Casts Urine 0-2 /LPF (0-2); Squamous Epithelial Cell Urine 0-2 /HPF (0-2); UACC Culture Trigger YES; WBC Urine >50 /HPF (0-5)
[2022-10-22 18:13] LABS: Alanine Aminotransferase 14 U/L (0-31); Albumin Level 4.1 g/dL (3.5-5.0); Alkaline Phosphatase 73 U/L (39-117); Anion Gap 14 (12-20); Aspartate Amino Transferase 15 U/L (5-31); Bilirubin Total 0.3 mg/dL (0.0-1.0); Blood Urea Nitrogen 25 mg/dL (9-16); Calcium 9.7 mg/dL (8.4-10.2); Carbon Dioxide 25 mmol/L (22-29); Chloride 108 mmol/L (96-108); Creatinine Clr Calc Pharmacy 29.1; Estimated Glomerular Filt Rate 34; Glucose Random 116 mg/dL (60-115); Lipase 36 U/L (8-78); Potassium 5.3 mmol/L (3.3-5.1); Sodium 142 mmol/L (135-145); Total Protein 7.6 g/dL (6.5-8.0)
== END 2022-10-22 18:43 | disposition home or self-care (01) ==
PROVIDERS: Physician Assistant; Emergency Provider Emergency Medicine; PCP Internal Medicine
DX: N39.0 Urinary tract infection, site not specified (principal); B96.1 Klebsiella pneumoniae [K. pneumoniae] as the cause of diseases classified elsewhere; E11.22 Type 2 diabetes mellitus with diabetic chronic kidney disease; I12.9 Hypertensive chronic kidney disease with stage 1 through stage 4 chronic kidney disease, or unspecified chronic kidney disease; N18.30 Chronic kidney disease, stage 3 unspecified; E78.5 Hyperlipidemia, unspecified; Z79.84 Long term (current) use of oral hypoglycemic drugs; Z79.899 Other long term (current) drug therapy; Z79.02 Long term (current) use of antithrombotics/antiplatelets
CPT/HCPCS: 36415; 80053; 81001; 83690; 85025; 87086; 87088; 87186; 99282; 99283

== ENCOUNTER 2022-12-02 08:34 | Outpatient (REF) | payer MEDICARE, SELFPAY ==
[2022-12-02 12:06] LABS: Alanine Aminotransferase 13 U/L (0-31); Albumin Level 4.1 g/dL (3.5-5.0); Alkaline Phosphatase 69 U/L (39-117); Anion Gap 13 (12-20); Aspartate Amino Transferase 17 U/L (5-31); Bilirubin Total 0.4 mg/dL (0.0-1.0); Blood Urea Nitrogen 25 mg/dL (9-16); Calcium 9.5 mg/dL (8.4-10.2); Carbon Dioxide 26 mmol/L (22-29); Chloride 106 mmol/L (96-108); Cholesterol 162 mg/dL; Estimated Glomerular Filt Rate 37; Glucose Fasting 137 mg/dL (60-99); HDL Cholesterol 49 mg/dL; LDL Cholesterol Calculated 80 mg/dl; Potassium 4.6 mmol/L (3.3-5.1); Sodium 140 mmol/L (135-145); Total Protein 7.4 g/dL (6.5-8.0); Triglycerides 167 mg/dL
[2022-12-02 12:18] LABS: Estimated Average Glucose 137 mg/dL; Hemoglobin A1c % 6.4 %
== END 2022-12-02 08:35 | disposition home or self-care (01) ==
LOC: HO.HMGCLDS 08:34
PROVIDERS: PCP Internal Medicine; Visit Provider Internal Medicine
DX: I12.9 Hypertensive chronic kidney disease with stage 1 through stage 4 chronic kidney disease, or unspecified chronic kidney disease (principal); E11.22 Type 2 diabetes mellitus with diabetic chronic kidney disease; N18.30 Chronic kidney disease, stage 3 unspecified; E78.5 Hyperlipidemia, unspecified
CPT/HCPCS: 36415; 80053; 80061; 83036; 84443

== ENCOUNTER 2023-01-29 21:11 | Emergency (ER) | payer MEDICARE, SELFPAY ==
[2023-01-29 21:29] VITALS: BP 188/82; PULSE 85; RESP 18; TEMP 36.6; O2SAT 96; BMI 28.1
--- NOTE | 2023-01-29 23:47 | ED.EYEPROB ---
HPI - Eye Problem General Chief complaint: Eye Problems Stated complaint: swollen/ pain eye Time Seen by Provider: 01/29/23 23:34 Source: patient and family Mode of arrival: ambulatory Limitations: no limitations History of Present Illness HPI Narrative: Patient comes to the emergency room accompanied by his daughter. Patient complaining of severe pain on the left side of her forehead,, erythema around the eye. Patient was diagnosed with shingles 2 days ago, patient on valacyclovir. Patient has not taking any pain medications. Patient states that her vision is normal, the actual eye does not hurt, it is the surrounding area above, below and laterally. Related Data Home Medications Medication Instructions Recorded Confirmed acetaminophen 500 mg capsule 1,000 mg PO TID PRN pain 06/20/20 12/07/22 cyanocobalamin (vitamin B-12) 5,000 mcg PO DAILY 06/20/20 12/07/22 5,000 mcg disintegrating tablet ferrous fumarate 325 mg (106 mg 325 mg PO DAILY 06/20/20 12/07/22 iron) tablet Previous Rx's Medication Instructions Recorded triamcinolone acetonide 0.1 % 1 appl topical BID #30 grams 10/23/20 topical cream meclizine 25 mg tablet 25 mg PO TID PRN for dizziness #30 06/03/21 tabs latanoprost 0.005 % eye drops 1 drp ophthalmic (eye) QPM #7.5 mL 11/25/21 blood sugar diagnostic (OneTouch #100 ea 07/03/22 Ultra Test strips) [facility] supplies, [facility] #1 ea 07/03/22 amlodipine 5 mg tablet 5 mg PO DAILY #90 tabs 09/01/22 sertraline 50 mg tablet 50 mg PO DAILY #90 tabs 09/14/22 lisinopril 40 mg tablet 40 mg PO DAILY #90 tabs 11/30/22 hydrocortisone 2.5 % topical 1 appl topical BID PRN skin 12/07/22 ointment irritation #28.35 grams mupirocin 2 % topical ointment 1 appl topical BID #22 grams 12/07/22 ondansetron 4 mg disintegrating 4 mg PO Q8H PRN nausea and 12/07/22 tablet vomiting #20 tabs simvastatin 40 mg tablet 40 mg PO DAILY #90 tabs 01/01/23 gabapentin 100 mg capsule 100 mg PO TID #30 caps 01/30/23 tramadol 50 mg tablet 50 mg PO BID PRN pain #7 tabs 01/30/23 Allergies Allergy/AdvReac Type Severity Reaction Status Date / Time celecoxib [Celebrex] Allergy Unknown rash Verified 12/07/22 11:11 penicillin G Allergy Unknown rash Verified 12/07/22 11:11 Penicillins [PENICILLINS] Allergy Unknown HIVES, rash Verified 12/07/22 11:11 Review of Systems Review of Systems: Constitutional : No Weight loss, No Fever, No Chills, No Night Sweats, No Fatigue, No Malaise ENT/Mouth : No Hearing loss, No Ear Pain, No Nasal Congestion, No Sinus Pain, No Hoarseness, No sore throat, No Rhinorrhea, No Swallowing Difficulty Eyes: No Eye Pain, No Swelling, No Redness, No Foreign Body, No Discharge, No Vision Changes Cardiovascular : No Chest Pain, No SOB, No Dyspnea on Exertion, No Orthopnea, No Edema, No Palpitations Respiratory : No Cough, No Sputum, No Wheezing, No Smoke Exposure, No Dyspnea Gastrointestinal : No Nausea, No Vomiting, No Diarrhea, No Constipation, No abdominal Pain, No Hematochezia, No Melena Genitourinary : no irregular bleeding, No Dysuria, No Urinary Frequency, No Hematuria, No Urinary Incontinence, No Urgency, No Flank Pain, No Urinary Flow Changes, No Hesitancy Musculoskeletal : No joint pain, No Myalgias, No Joint Swelling Skin : Crusted over lesions in the forehead, no lesions in nose Neuro : No Weakness, No Numbness, No Paresthesias, No Loss of Consciousness, No Dizziness, No Headache, complaining of severe pain, recently diagnosed with shingles Psych : No Anxiety/Panic, No Depression, No SI/HI/AH/VH, No Social Issues, Heme/Lymph: No Bruising, No Bleeding,No Lymphadenopathy Endocrine : No Polyuria, No Polydipsia, No Temperature Intolerance [facility] Past Medical History Medical History Anemia Annual physical exam CKD (chronic kidney disease), stage III Diabetes Hearing loss HTN (hypertension) Hyperlipidemia Iron deficiency anemia Pernicious anemia UTI (urinary tract infection) Vertigo Vertigo Surgical History History of breast biopsy History of ERCP History of esophagogastroduodenoscopy (EGD) S/P cholecystectomy S/P ERCP Family History Family History Father Cancer Mother Colon cancer Social History Social History Housing: House Alcohol intake: never Patient Tobacco Use Status: Never used Tobacco e-Cigarette/Vaping Use: Never Used Advance Directives: No Advance Directives Information Provided: No Current occupational status: retired Cognitive needs: No Hearing needs: Yes Vision needs: Yes Physical Exam Vital Signs: Vital Signs: Last Vital Signs Temp 98 F 01/29/23 21:29 Pulse 85 01/29/23 21:29 Resp 18 01/29/23 21:29 BP 188/82 H 01/29/23 21:29 Pulse Ox 96 01/29/23 21:29 O2 Del Method Room Air 01/29/23 21:29 BMI result Body Mass Index 28.1 Const: Other: Appearance: Alert. Oriented X3. No acute distress. Eyes: Pupils equal, round and reactive to light. Fluorescein stain and a Wood's lamp did not show any lesions in the eye/cornea. Mild erythema under the lower eyelid. No significant pain to palpation. No pain with eye movements ENT: Pharynx normal. Neck: Normal inspection. Neck supple. No lymph nodes noted. No crepitus CVS: Normal heart rate and rhythm. Pulses normal. Normal S1 and S2 Respiratory: No respiratory distress. Breath sounds normal. No Wheezing. No rales Abdomen: Soft and nontender. No rigidity. No distention. Skin: Skin warm and dry. Normal skin color. Normal skin turgor. There is a crusted over rash on the forehead under left side, no rash over the nose, Extremities: No lower extremity edema. No Lacerations. No Rash Neuro: Oriented X 3. No motor deficit. No sensory deficit. Moving all extremities. No slurred speech. CN 2 through 12 grossly intact Psych: calm, cooperative, normal affect Medications Administered Discontinued Medications Generic Name Dose Route Start Last Admin Trade Name Freq PRN Reason Stop Dose Admin Oxycodone HCl 5 mg 01/29/23 23:45 01/29/23 23:49 Oxycodone Hcl Immed Release 5 Mg Tablet PO 01/29/23 23:46 5 mg ONCE ONE Administration Medical Decision Making Medical Decision Making MDM Narrative: -I discussed the physical exam with the patient and her family. No lesions in the eye. However, instructed to follow-up with ophthalmology for checkup -patient instructed to continue taking valacyclovir -patient was given 1 dose of oxycodone, patient feeling much better. 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 If you have any worsening or new symptoms, please return to the emergency room or call 911 Prescriptions: New gabapentin 100 mg capsule 100 mg PO TID Qty: 30 0RF tramadol 50 mg tablet 50 mg PO BID PRN (Reason: pain) Qty: 7 0RF No Action ferrous fumarate 325 mg (106 mg iron) tablet 325 mg PO DAILY cyanocobalamin (vitamin B-12) 5,000 mcg tablet,disintegrating 5,000 mcg PO DAILY acetaminophen 500 mg capsule 1,000 mg PO TID PRN (Reason: pain) meclizine 25 mg tablet 25 mg PO TID PRN (Reason: for dizziness) Qty: 30 0RF latanoprost 0.005 % drops 1 drp ophthalmic (eye) QPM Qty: 7.5 0RF Rx Instructions: One drop to both eyes at bedtime. amlodipine 5 mg tablet 5 mg PO DAILY Qty: 90 3RF sertraline 50 mg tablet 50 mg PO DAILY Qty: 90 3RF lisinopril 40 mg tablet 40 mg PO DAILY Qty: 90 3RF simvastatin 40 mg tablet 40 mg PO DAILY Qty: 90 3RF triamcinolone acetonide 0.1 % cream 1 appl topical BID Qty: 30 0RF (DME) diabetic supplies, [employer]. Misc See Rx Instructions .ROUTE .MEDSUPPLY Qty: 1 0RF Rx Instructions: diabetic shoes (DME) OneTouch Ultra Test Strip See Rx Instructions .Route Qty: 100 3RF Rx Instructions: qd mupirocin 2 % ointment 1 appl topical BID Qty: 22 3RF hydrocortisone 2.5 % ointment 1 appl topical BID PRN (Reason: skin irritation) Qty: 28.35 4RF ondansetron 4 mg tablet,disintegrating 4 mg PO Q8H PRN (Reason: nausea and vomiting) Qty: 20 0RF
[2023-01-29] MEDS: oxyCODONE HCl Immed Release 5 MG TABLET PO (23:49)
== END 2023-01-30 00:18 | disposition home or self-care (01) ==
PROVIDERS: Emergency Provider Emergency Medicine; PCP Internal Medicine
DX: B02.23 Postherpetic polyneuropathy (principal); E11.22 Type 2 diabetes mellitus with diabetic chronic kidney disease; I12.9 Hypertensive chronic kidney disease with stage 1 through stage 4 chronic kidney disease, or unspecified chronic kidney disease; N18.30 Chronic kidney disease, stage 3 unspecified; E78.5 Hyperlipidemia, unspecified; Z79.02 Long term (current) use of antithrombotics/antiplatelets; Z79.899 Other long term (current) drug therapy
CPT/HCPCS: 99283

== ENCOUNTER 2023-02-09 09:42 | Outpatient (AMB) | payer MEDICARE, SELFPAY ==
[2023-02-09 09:37] VITALS: BP 124/64; PULSE 78; O2SAT 98; BMI 28.6
--- NOTE | 2023-02-09 09:37 | A.OFFPC_ITS ---
Vital Signs 02/09/23 09:37 Height 5 ft 6 in Weight 177 lb BMI 28.6 BP 124/64 Blood Pressure Location Rt brachial Position Sitting Pulse 78 Pulse Source Pulse Oximeter Pulse Oximetry (%) 98 Oxygen Delivery Method Room Air Intake Visit Reasons: ER follow up Intake Note: Pt is here today for ER follow up visit from [facility] after being seen for shingles. Pt was put on Zpak by her eye doctor. Allergies celecoxib [Celebrex] Allergy (Unknown, Verified 02/09/23 09:39) rash penicillin G Allergy (Unknown, Verified 02/09/23 09:39) rash Penicillins [PENICILLINS] Allergy (Unknown, Verified 02/09/23 09:39) HIVES, rash Medication List - Last Reconciled 02/09/23 by Sherron Villanueva MD acetaminophen 1,000 mg PO TID PRN amlodipine 5 mg PO DAILY blood sugar diagnostic ([employer] Ultra Test strips) qd cyanocobalamin (vitamin B-12) 5,000 mcg PO DAILY diabetic supplies, [employer]. diabetic shoes ferrous fumarate 325 mg PO DAILY hydrocortisone 2.5% 1 appl topical BID PRN latanoprost 0.005% 1 drp ophthalmic (eye) QPM lisinopril 40 mg PO DAILY meclizine 25 mg PO TID PRN mupirocin 2% 1 appl topical BID ondansetron 4 mg PO Q8H PRN sertraline 50 mg PO DAILY simvastatin 40 mg PO DAILY tramadol 50 mg PO BID PRN triamcinolone acetonide 0.1% 1 appl topical BID Tobacco use date assessed: 02/09/23 Dental Screening Dental Screen Date: 02/09/23 Did you have a dental visit in the last 12 months?: No Did you have a dental problem in the last 6 months where you did not have access to dental care?: No Was dental information given to patient?: Patient declined HPI ER follow up HPI Details Pt presents for f/u ER for H. zoster. She completed a course of Valtrex. Pt has been taking Gabapentin 100 mg tid and feels better. She has been taking Tylenol occasionally but denies any significant pain. Hypertension and type 2 diabetes are stable on meds. [facility] Medical History Anemia Annual physical exam CKD (chronic kidney disease), stage III Diabetes Hearing loss HTN (hypertension) Hyperlipidemia Iron deficiency anemia Pernicious anemia UTI (urinary tract infection) Vertigo Vertigo Surgical History History of breast biopsy History of ERCP History of esophagogastroduodenoscopy (EGD) S/P cholecystectomy S/P ERCP Family History Father Cancer Mother Colon cancer Social History Housing: House Alcohol intake: never Patient Tobacco Use Status: Never used Tobacco e-Cigarette/Vaping Use: Never Used Current occupational status: retired Cognitive needs: No Hearing needs: Yes Vision needs: Yes Questionnaire Thrive Questionnaire Date Thrive assessed: 12/07/22 JADE-7 AMB Questionnaire JADE-7 Date JADE - 7 assessed: 12/07/22 Source: Developed by Drs. Rommel Simmons, Tamie Child, Karl Capone and colleagues, with an educational louis from [employer]. Review of Systems Const All systems reviewed & are unremarkable except as noted in HPI and below Reports no additional complaints Eyes Reports no additional complaints ENT Reports no additional complaints Card Reports no additional complaints Resp Reports no additional complaints GI Reports no additional complaints Physical exam (Primary Care) Vital Signs: Last Vital Signs Pulse 78 02/09/23 09:37 BP 124/64 02/09/23 09:37 Pulse Ox 98 02/09/23 09:37 Oxygen Delivery Method Room Air 02/09/23 09:37 BMI result Body Mass Index 28.6 Tobacco/Smoking Status: Tobacco use Status Tobacco use date assessed 02/09/23 02/09/23 09:45 Patient Tobacco Use Status Never used Tobacco 02/09/23 09:37 e-Cigarette/Vaping Use Never Used 02/09/23 09:37 Thrive Assessment: Date of Thrive Assessment Date Thrive assessed 12/07/22 02/09/23 09:37 Const General: no acute distress HENMT Head: Yes normal to inspection Face and sinus: Yes normal facial exam Throat: Yes posterior oropharynx normal Resp Effort & Inspection: normal respiratory effort Auscultation: clear to auscultation bilaterally Cardio Rhythm: regular rhythm Heart sounds: S1 normal heart sound present and S2 normal heart sound present Assessment and Plan Assessment & Plan (1) HTN (hypertension): Comment: BP goal less than 130/80 Code(s): I10 - Essential (primary) hypertension Plan: Continue medications (2) Zoster: Code(s): B02.9 - Zoster without complications Plan: Lesions healed, patient will continue gabapentin as needed trying to taper it down (3) Diabetes: Comment: A1C less than 8 Code(s): E11.9 - Type 2 diabetes mellitus without complications Plan: Continue ADA and current medications Medications: Refilled gabapentin 100 mg PO TID 30 caps 0RF Discontinued tramadol Discontinued Reason: Doctor's Order 50 mg PO BID PRN 7 tabs 0RF pain Coding Level of Care Code Est Pt Level 4 (24591) Diagnoses HTN (hypertension) I10 Zoster B02.9 Diabetes E11.9
== END 2023-02-09 10:23 | disposition home or self-care (01) ==
LOC: HO.HMGC 09:42
PROVIDERS: PCP Internal Medicine; Visit Provider Internal Medicine
DX: I10 Essential (primary) hypertension (principal); B02.9 Zoster without complications; E11.9 Type 2 diabetes mellitus without complications
CPT/HCPCS: 99214

== ENCOUNTER 2023-03-23 15:09 | Outpatient (AMB) | payer MEDICARE, SELFPAY ==
--- NOTE | 2023-03-23 15:19 | AM.OFFWIN_ITS ---
Intake Vital Signs 03/23/23 15:30 Weight 178 lb BP 130/72 Blood Pressure Location Lt brachial Position Sitting Pulse 76 Pulse Source Pulse Oximeter Pulse Oximetry (%) 99 Oxygen Delivery Method Room Air Intake Visit Reasons: EP not eating/Stomach Bloating Intake Note: Patient here for stomach bloating that has been present for about she states she has been drinking a lot and not really urinating as she usually she states i wear pads because i drip but i have not, its been dry . Patient Tobacco Use Status: Never used Tobacco Allergies celecoxib [Celebrex] Allergy (Unknown, Verified 03/23/23 15:59) rash penicillin G Allergy (Unknown, Verified 03/23/23 15:59) rash Penicillins [PENICILLINS] Allergy (Unknown, Verified 03/23/23 15:59) HIVES, rash Medication List - Last Reconciled 03/23/23 by Oleg Godfrey MD acetaminophen 1,000 mg PO TID PRN amlodipine 5 mg PO DAILY blood sugar diagnostic ([employer] Ultra Test strips) qd cyanocobalamin (vitamin B-12) 5,000 mcg PO DAILY diabetic supplies, [employer]. diabetic shoes ferrous fumarate 325 mg PO DAILY gabapentin 100 mg PO TID hydrocortisone 2.5% 1 appl topical BID PRN latanoprost 0.005% 1 drp ophthalmic (eye) QPM lisinopril 40 mg PO DAILY meclizine 25 mg PO TID PRN mupirocin 2% 1 appl topical BID ondansetron 4 mg PO Q8H PRN sertraline 50 mg PO DAILY simvastatin 40 mg PO DAILY triamcinolone acetonide 0.1% 1 appl topical BID Do you need a note to return to daycare/school/sports/work: No HPI EP not eating/Stomach Bloating HPI Details 88-year-old female presents to the office for a sick visit. Patient is hard of hearing. She reports that she has had difficulty passing urine in the last 2 days. She is normally incontinent but has been dry in the past few days. She has been drinking adequate amount of water. This morning she had 3-4 bowel movements. Her appetite is normal. No fevers or chills. [facility] Medical History Anemia Annual physical exam CKD (chronic kidney disease), stage III Diabetes Hearing loss HTN (hypertension) Hyperlipidemia Iron deficiency anemia Pernicious anemia UTI (urinary tract infection) Vertigo Vertigo Surgical History History of breast biopsy History of ERCP History of esophagogastroduodenoscopy (EGD) S/P cholecystectomy S/P ERCP Family History Father Cancer Mother Colon cancer Social History Housing: House Alcohol intake: never Patient Tobacco Use Status: Never used Tobacco e-Cigarette/Vaping Use: Never Used Current occupational status: retired Cognitive needs: No Hearing needs: Yes Vision needs: Yes Physical Exam Vital Signs: Last Vital Signs Pulse 76 03/23/23 15:30 BP 130/72 03/23/23 15:30 Pulse Ox 99 03/23/23 15:30 Oxygen Delivery Method Room Air 03/23/23 15:30 Const General: cooperative and healthy appearing Nutritional Appearance: well nourished Orientation/consciousness: patient oriented x3 Limitations: no limitations HEENT Head: Yes normal to inspection Eyes General: appearance normal, both eyes and all related structures Neck Neck: Yes normal visual inspection Chest Chest palpation & inspection: normal palpation of entire chest wall Resp Effort & Inspection: normal respiratory effort Neuro General: patient oriented x3 Results AMB Urinalysis, Automated UA Leukoctes 15 Tracy/uL Last Edit by NICK Estrada on 03/23/23 15:3 9 UA Nitrite Negative Last Edit by NICK Estrada on 03/23/23 15:39 UA Urobilinogen 0.2 mg/dL Last Edit by Johnathon Butcher CCM on 03/23/23 15:39 UA Protein 0 mg/dL Last Edit by NICK Estrada on 03/23/23 15:39 UA pH 6.5 Last Edit by NICK Estrada on 03/23/23 15:39 UA Blood 0 Ant/uL Last Edit by NICK Estrada on 03/23/23 15:39 UA Specific Osborne 1.005 Last Edit by NICK Estrada on 03/23/23 15:39 UA Ketone Negative [facility] on 03/23/23 15:39 UA Bilirubin 0 mg/dL Last Edit by John[facility] But[facility] on 03/23/23 15:39 UA Glucose 0 mg/dL Last Edit by John[facility] But[facility] on 03/23/23 15:39 Results Reviewed Results Reviewed: Laboratory Last Values Urine pH (Auto) 6.5 03/23/23 15:37 Specific Osborne (Auto) 1.005 03/23/23 15:37 Urine Protein (Auto) 0 mg/dL 03/23/23 15:37 Glucose (UA)(Auto) 0 mg/dL 03/23/23 15:37 Urine Ketones (Auto) Negative 03/23/23 15:37 Urine Blood (Auto) 0 Ant/uL 03/23/23 15:37 Urine Nitrite (Auto) Negative 03/23/23 15:37 Urine Bilirubin (Auto) 0 mg/dL 03/23/23 15:37 Urine Urobilinogen (Auto) 0.2 mg/dL 03/23/23 15:37 Leukocyte Esterase (Auto) 15 Tracy/uL 03/23/23 15:37 Assessment & Plan Assessment & Plan (1) UTI (urinary tract infection): Code(s): N39.0 - Urinary tract infection, site not specified Plan: Blood work has been ordered to check for kidney functions. Urinalysis is positive for trace infection 5 days of Bactrim ordered. Orders: Orders AMB Urinalysis Automated Today Z13.9 - Encounter for screening, unspecified Coding Level of Care Code Est Pt Level 3 (68151) Diagnoses UTI (urinary tract infection) N39.0
[2023-03-23 15:30] VITALS: BP 130/72; PULSE 76; O2SAT 99
== END 2023-03-23 16:39 | disposition home or self-care (01) ==
PROVIDERS: PCP Internal Medicine; Visit Provider Internal Medicine
DX: N39.0 Urinary tract infection, site not specified (principal)
CPT/HCPCS: 81003; 99213

== ENCOUNTER 2023-03-24 13:16 | Outpatient (REF) | payer MEDICARE, SELFPAY ==
[2023-03-24 16:13] LABS: Hematocrit 34.2 % (37.0-47.0); Hemoglobin 10.8 g/dl (12.0-16.0); Mean Corpuscular HGB Conc 31.6 g/dl (31.0-35.0); Mean Corpuscular Volume 88.6 fL (80.0-98.0); Mean Platelet Volume 9.2 fL (9.4-12.3); Platelet Count 231 X10*3/uL (160-400); Red Blood Count 3.86 X10*6/uL (4.20-5.50); Red Cell Distribution Width 14.6 % (11.0-16.0); White Blood Count 8.2 X10*3/uL (4.8-10.8)
[2023-03-24 16:19] LABS: Alanine Aminotransferase 16 U/L (0-31); Albumin Level 4.1 g/dL (3.5-5.0); Alkaline Phosphatase 78 U/L (39-117); Anion Gap 11 (12-20); Aspartate Amino Transferase 21 U/L (5-31); Bilirubin Direct 0.1 mg/dL (0.0-0.5); Bilirubin Total 0.3 mg/dL (0.0-1.0); Blood Urea Nitrogen 20 mg/dL (9-16); Calcium 9.8 mg/dL (8.4-10.2); Carbon Dioxide 24 mmol/L (22-29); Chloride 103 mmol/L (96-108); Estimated Glomerular Filt Rate 45; Glucose Random 107 mg/dL (60-115); Potassium 4.3 mmol/L (3.3-5.1); Sodium 134 mmol/L (135-145)
[2023-03-24 16:50] LABS: Erythrocyte Sedimentation Rate 67 MM/HR (0-20)
== END 2023-03-24 13:17 | disposition home or self-care (01) ==
LOC: HO.HMGCLDS 13:16
PROVIDERS: PCP Internal Medicine; Visit Provider Internal Medicine
DX: R30.0 Dysuria (principal)
CPT/HCPCS: 36415; 80048; 80076; 85027; 85652

== ENCOUNTER 2023-04-09 13:32 | Emergency (ER) | payer MEDICARE, SELFPAY ==
[2023-04-09 14:26] VITALS: BP 148/66; PULSE 81; RESP 16; TEMP 36.6; O2SAT 98; BMI 28.4
--- NOTE | 2023-04-09 14:31 | ED.GENADULT ---
HPI - General Adult General Chief complaint: Urogenital-Female Stated complaint: Bladder Pain Sent By PCP Source: patient and family Mode of arrival: ambulatory Limitations: no limitations History of Present Illness HPI narrative: Patient comes in the emergency room complaining of intermittent back pain and bladder discomfort for 3-4 days, patient denies hematuria, dysuria. No fever chills, nausea or vomiting. Related Data Home Medications Medication Instructions Recorded Confirmed acetaminophen 500 mg capsule 1,000 mg PO TID PRN pain 06/20/20 02/09/23 cyanocobalamin (vitamin B-12) 5,000 mcg PO DAILY 06/20/20 02/09/23 5,000 mcg disintegrating tablet ferrous fumarate 325 mg (106 mg 325 mg PO DAILY 06/20/20 02/09/23 iron) tablet Previous Rx's Medication Instructions Recorded triamcinolone acetonide 0.1 % 1 appl topical BID #30 grams 10/23/20 topical cream meclizine 25 mg tablet 25 mg PO TID PRN for dizziness #30 06/03/21 tabs latanoprost 0.005 % eye drops 1 drp ophthalmic (eye) QPM #7.5 mL 11/25/21 blood sugar diagnostic (OneTouch #100 ea 07/03/22 Ultra Test strips) diabetic supplies, miscellan. #1 ea 07/03/22 amlodipine 5 mg tablet 5 mg PO DAILY #90 tabs 09/01/22 sertraline 50 mg tablet 50 mg PO DAILY #90 tabs 09/14/22 lisinopril 40 mg tablet 40 mg PO DAILY #90 tabs 11/30/22 hydrocortisone 2.5 % topical 1 appl topical BID PRN skin 12/07/22 ointment irritation #28.35 grams mupirocin 2 % topical ointment 1 appl topical BID #22 grams 12/07/22 ondansetron 4 mg disintegrating 4 mg PO Q8H PRN nausea and 12/07/22 tablet vomiting #20 tabs simvastatin 40 mg tablet 40 mg PO DAILY #90 tabs 01/01/23 gabapentin 100 mg capsule 100 mg PO TID #30 caps 02/09/23 sulfamethoxazole 800 1 tab PO BID #10 tabs 03/24/23 mg-trimethoprim 160 mg tablet (Bactrim DS) cefuroxime axetil 500 mg tablet 500 mg PO BID #13 tabs 04/09/23 Allergies Allergy/AdvReac Type Severity Reaction Status Date / Time celecoxib [Celebrex] Allergy Unknown rash Verified 03/23/23 15:59 penicillin G Allergy Unknown rash Verified 03/23/23 15:59 Penicillins [PENICILLINS] Allergy Unknown HIVES, rash Verified 03/23/23 15:59 Review of Systems Review of Systems: Constitutional : No Weight loss, No Fever, No Chills, No Night Sweats, No Fatigue, No Malaise ENT/Mouth : No Hearing loss, No Ear Pain, No Nasal Congestion, No Sinus Pain, No Hoarseness, No sore throat, No Rhinorrhea, No Swallowing Difficulty Eyes: No Eye Pain, No Swelling, No Redness, No Foreign Body, No Discharge, No Vision Changes Cardiovascular : No Chest Pain, No SOB, No Dyspnea on Exertion, No Orthopnea, No Edema, No Palpitations Respiratory : No Cough, No Sputum, No Wheezing, No Smoke Exposure, No Dyspnea Gastrointestinal : No Nausea, No Vomiting, No Diarrhea, No Constipation, No abdominal Pain, No Hematochezia, No Melena Genitourinary : Complaining of mild Dysuria and bladder pressure, No Urinary Frequency, No Hematuria, No Urinary Incontinence, No Urgency, questionable lower flank pain, No Urinary Flow Changes, No Hesitancy Musculoskeletal : No joint pain, No Myalgias, No Joint Swelling Skin : No Skin Lesions, No rash Neuro : No Weakness, No Numbness, No Paresthesias, No Loss of Consciousness, No Dizziness, No Headache Psych : No Anxiety/Panic, No Depression, No SI/HI/AH/VH, No Social Issues, Heme/Lymph: No Bruising, No Bleeding,No Lymphadenopathy Endocrine : No Polyuria, No Polydipsia, No Temperature Intolerance [facility], [facility] Past Medical History Medical History Hearing loss Annual physical exam Vertigo Anemia Vertigo UTI (urinary tract infection) CKD (chronic kidney disease), stage III Iron deficiency anemia Pernicious anemia HTN (hypertension) Hyperlipidemia Diabetes Surgical History History of esophagogastroduodenoscopy (EGD) S/P ERCP S/P cholecystectomy History of breast biopsy History of ERCP Family History Family History Father Cancer Mother Colon cancer Social History Social History Housing: House Alcohol intake: never Patient Tobacco Use Status: Never used Tobacco Smoked in Last 30 Days: No e-Cigarette/Vaping Use: Never Used Use of substances other than those prescribed or required for medical reasons: No Advance Directives: No Advance Directives Information Provided: No Current occupational status: retired Cognitive needs: No Hearing needs: Yes Vision needs: Yes Physical Exam ED Vital Signs: Vital Signs - 24 hr 04/09/23 14:26 Temperature 97.8 F Pulse Rate 81 Respiratory Rate 16 Blood Pressure 148/66 H Pulse Oximetry 98 Oxygen Delivery Method Room Air BMI result Body Mass Index 28.4 Const Other: Appearance: Alert. Oriented X3. No acute distress. Eyes: Pupils equal, round and reactive to light. ENT: Pharynx normal. Neck: Normal inspection. Neck supple. No lymph nodes noted. No crepitus CVS: Normal heart rate and rhythm. Pulses normal. Normal S1 and S2 Respiratory: No respiratory distress. Breath sounds normal. No Wheezing. No rales Abdomen: Soft and nontender. No rigidity. No distention. No CVA tenderness Skin: Skin warm and dry. Normal skin color. Normal skin turgor. Extremities: No lower extremity edema. No Lacerations. No Rash Neuro: Oriented X 3. No motor deficit. No sensory deficit. Moving all extremities. No slurred speech. CN 2 through 12 grossly intact Psych: calm, cooperative, very anxious Course Course Course Narrative: RME- 88 year old female presents for evaluation of lower back pain that started a few days ago. Denies any injury. Reports history of bladder infections that present with similar pain. Plan for labs and a UA Medical Decision Making Medical Decision Making [facility] Narrative: -I discussed the lab results with the patient, it is possible that she might have a mild UTI. I reviewed patient's microbiology results, susceptible to ceftriaxone and cephalosporins. Patient given 1 dose of IM ceftriaxone in the emergency room, patient will continue treatment with p.o. medications. -patient also complaining of weakness, generalized malaise starting a few hours after getting her flu shot today. -patient well appearing, vital stable, blood pressure 148/66, no fever, sepsis not suspected Differential Diagnosis Differential Diagnoses: The differential diagnosis associated with the presentation includes (UTI, pyelonephritis, viral syndrome) Lab Data MDM Lab Attestation statement: I reviewed the patient's lab results. 04/09/23 15:08 04/09/23 15:08 Labs: Lab Results 04/09/23 Range/Units 15:08 WBC 8.1 (4.8-10.8) X10*3/uL RBC 3.69 L (4.20-5.50) X10*6/uL Hgb 10.6 L (12.0-16.0) g/dl Hct 32.8 L (37.0-47.0) % MCV 88.9 (80.0-98.0) fL MCH 28.7 (27.0-33.0) pg MCHC 32.3 (31.0-35.0) g/dl RDW 14.5 (11.0-16.0) % Plt Count 199 (160-400) X10*3/uL MPV 8.5 L (9.4-12.3) fL Immature Gran % (Auto) 0.4 (0.0-0.4) % Neut % (Auto) 66.1 (45-73) % Lymph % (Auto) 24.1 (20-40) % [place] % (Auto) 6.7 (2-11) % Eos % (Auto) 2.1 (0-4) % Baso % (Auto) 0.6 (0-2) % Lymph # (Auto) 2.0 (1.2-4.9) X10*3/uL [place] # (Auto) 0.5 (0.1-1.2) X10*3/uL Eos # (Auto) 0.2 (0.0-0.4) X10*3/uL Baso # (Auto) 0.1 (0.0-0.2) X10*3/uL Abs Immat Gran (auto) 0.03 (0.00-0.03) X10*3/uL Absolute Neuts (auto) 5.4 (2.0-8.3) x10*3/uL Absolute Nucleated RBC 0.000 (0.0-0.012) X10*3/uL Nucleated RBC % (auto) 0.0 (0.0-0.2) /100WBC Sodium 140 (135-145) mmol/L Potassium 4.0 (3.3-5.1) mmol/L Chloride 108 (96-108) mmol/L Carbon Dioxide 25 (22-29) mmol/L Anion Gap 11 L (12-20) BUN 22 H (9-16) mg/dL Creatinine 1.35 (0.5-1.4) mg/dL Estim Creat Clear Calc 31.3 Estimated GFR 37 Random Glucose 194 H (60-115) mg/dL Calcium 9.9 (8.4-10.2) mg/dL Total Bilirubin 0.2 (0.0-1.0) mg/dL AST 19 (5-31) U/L ALT 15 (0-31) U/L Alkaline Phosphatase 73 (39-117) U/L Total Protein 8.0 (6.5-8.0) g/dL Albumin 4.0 (3.5-5.0) g/dL Urine Color Yellow Urine Appearance Clear Urine pH 5.5 (5.0-9.0) Ur Specific [place] 1.015 (1.005-1.025) Urine Protein Negative (Neg-Trace) mg/dL Urine Glucose (UA) Negative (Negative) mg/dL Urine Ketones Negative (Negative) mg/dL Urine Blood Negative (Negative) Urine Nitrite Negative (Negative) Ur Leukocyte Esterase Small (1+) H (Negative) Urine RBC 0-2 (0-2) /HPF Urine WBC 0-5 (0-5) /HPF Ur Squamous Epith Cells 0-2 (0-2) /HPF Urine Bacteria None Seen (None Seen) Hyaline Casts 0-2 (0-2) /LPF Discharge Plan Discharge Clinical Impression: UTI (urinary tract infection) Patient Disposition: Home, Self-Care Instructions: Urinary Tract Infection in Older Adults (ED) Additional Instructions: Please follow-up with your primary care physician tomorrow. If you have any worsening or new symptoms, please return to the emergency room or call 911 Prescriptions: New cefuroxime axetil 500 mg tablet 500 mg PO BID Qty: 13 0RF No Action ferrous fumarate 325 mg (106 mg iron) tablet 325 mg PO DAILY cyanocobalamin (vitamin B-12) 5,000 mcg tablet,disintegrating 5,000 mcg PO DAILY acetaminophen 500 mg capsule 1,000 mg PO TID PRN (Reason: pain) meclizine 25 mg tablet 25 mg PO TID PRN (Reason: for dizziness) Qty: 30 0RF latanoprost 0.005 % drops 1 drp ophthalmic (eye) QPM Qty: 7.5 0RF Rx Instructions: One drop to both eyes at bedtime. amlodipine 5 mg tablet 5 mg PO DAILY Qty: 90 3RF sertraline 50 mg tablet 50 mg PO DAILY Qty: 90 3RF lisinopril 40 mg tablet 40 mg PO DAILY Qty: 90 3RF simvastatin 40 mg tablet 40 mg PO DAILY Qty: 90 3RF sulfamethoxazole-trimethoprim [Bactrim DS] 800-160 mg tablet 1 tab PO BID Qty: 10 0RF triamcinolone acetonide 0.1 % cream 1 appl topical BID Qty: 30 0RF (DME) diabetic supplies, miscellan. Misc See Rx Instructions .ROUTE .MEDSUPPLY Qty: 1 0RF Rx Instructions: diabetic shoes (DME) OneTouch Ultra Test Strip See Rx Instructions .Route Qty: 100 3RF Rx Instructions: qd mupirocin 2 % ointment 1 appl topical BID Qty: 22 3RF hydrocortisone 2.5 % ointment 1 appl topical BID PRN (Reason: skin irritation) Qty: 28.35 4RF ondansetron 4 mg tablet,disintegrating 4 mg PO Q8H PRN (Reason: nausea and vomiting) Qty: 20 0RF gabapentin 100 mg capsule 100 mg PO TID Qty: 30 0RF
[2023-04-09 15:19] LABS: MANUAL DIFF FLAG NO
[2023-04-09 15:21] LABS: Basophils Absolute Auto 0.1 X10*3/uL (0.0-0.2); Basophils Percent Auto 0.6 % (0-2); Eosinophils Absolute Auto 0.2 X10*3/uL (0.0-0.4); Eosinophils Percent Auto 2.1 % (0-4); Hematocrit 32.8 % (37.0-47.0); Hemoglobin 10.6 g/dl (12.0-16.0); Imm Gran Abs Auto 0.03 X10*3/uL (0.00-0.03); Imm Gran Pct Auto 0.4 % (0.0-0.4); Lymphocytes Percent Auto 24.1 % (20-40); Mean Corpuscular HGB Conc 32.3 g/dl (31.0-35.0); Mean Corpuscular Hemoglobin 28.7 pg (27.0-33.0); Mean Corpuscular Volume 88.9 fL (80.0-98.0); Mean Platelet Volume 8.5 fL (9.4-12.3); Monocytes Absolute Auto 0.5 X10*3/uL (0.1-1.2); Monocytes Percent Auto 6.7 % (2-11); Neutrophils Absolute Auto 5.4 x10*3/uL (2.0-8.3); Neutrophils Percent Auto 66.1 % (45-73); Platelet Count 199 X10*3/uL (160-400); Red Blood Count 3.69 X10*6/uL (4.20-5.50); Red Cell Distribution Width 14.5 % (11.0-16.0); White Blood Count 8.1 X10*3/uL (4.8-10.8)
[2023-04-09 15:26] LABS: Appearance Urine Clear; Color Urine Yellow; Glucose Urine UA Negative (Negative); Leukocyte Esterase Urine Small (1+) (Negative); Nitrite Urine Negative (Negative); PH 5.5 (5.0-9.0); Specific Gravity - Urine 1.015 (1.005-1.025); UMIC TRIGGER UACC YES; Urine Blood Negative (Negative); Urine Ketones Negative (Negative); Urine Protein Negative (Neg-Trace)
[2023-04-09 15:36] LABS: Alanine Aminotransferase 15 U/L (0-31); Alkaline Phosphatase 73 U/L (39-117); Anion Gap 11 (12-20); Aspartate Amino Transferase 19 U/L (5-31); Bacteria Urine None Seen (None Seen); Bilirubin Total 0.2 mg/dL (0.0-1.0); Blood Urea Nitrogen 22 mg/dL (9-16); Calcium 9.9 mg/dL (8.4-10.2); Carbon Dioxide 25 mmol/L (22-29); Chloride 108 mmol/L (96-108); Creatinine Clr Calc Pharmacy 31.3; Estimated Glomerular Filt Rate 37; Glucose Random 194 mg/dL (60-115); Hyaline Casts Urine 0-2 /LPF (0-2); RBC Urine 0-2 /HPF (0-2); Sodium 140 mmol/L (135-145); Squamous Epithelial Cell Urine 0-2 /HPF (0-2); UACC Culture Trigger YES; WBC Urine 0-5 /HPF (0-5)
[2023-04-09] MEDS: cefTRIAXone sodium 500 MG, Lidocaine HCl 1 % MPF 1 ML IM (21:21)
[2023-04-09 21:32] VITALS: BP 138/73; PULSE 84; RESP 16; TEMP 36.8; O2SAT 97
== END 2023-04-09 21:36 | disposition home or self-care (01) ==
PROVIDERS: Physician Assistant; Emergency Provider Emergency Medicine; PCP Internal Medicine
DX: N39.0 Urinary tract infection, site not specified (principal); E11.22 Type 2 diabetes mellitus with diabetic chronic kidney disease; I12.9 Hypertensive chronic kidney disease with stage 1 through stage 4 chronic kidney disease, or unspecified chronic kidney disease; N18.30 Chronic kidney disease, stage 3 unspecified; E78.5 Hyperlipidemia, unspecified
CPT/HCPCS: 36415; 80053; 81001; 85025; 87086; 96372; 99284; J0696

== ENCOUNTER 2023-04-20 10:21 | Outpatient (REF) | payer MEDICARE, SELFPAY | END 2023-04-20 10:22 | disposition home or self-care (01) | LOC: HO.HMGCLDS 10:21 | PROVIDERS: PCP Internal Medicine; Visit Provider Internal Medicine | DX: R30.0 Dysuria (principal) | CPT/HCPCS: 87086 ==

== ENCOUNTER 2023-04-21 08:35 | Outpatient (AMB) | payer MEDICARE, SELFPAY ==
--- NOTE | 2023-04-21 09:06 | MHC.OFFWIV ---
Intake Vital Signs 04/21/23 09:14 Weight 175 lb BP 120/68 Blood Pressure Location Lt brachial Position Sitting Pulse 78 Pulse Source Pulse Oximeter Temp 97.6 F Temp Source Temporal Artery Scan Pulse Oximetry (%) 98 Oxygen Delivery Method Room Air Intake Visit Reasons: EP ?UTI Intake Note: Patient here for possible UTI, she states Dr. villanueva ordered a Urine Culture which was done yesterday. She was seen on 04/09 where a UA was done. The only complaint she has is lower back pain. Patient Tobacco Use Status: Never used Tobacco Allergies celecoxib [Celebrex] Allergy (Unknown, Verified 03/23/23 15:59) rash penicillin G Allergy (Unknown, Verified 03/23/23 15:59) rash Penicillins [PENICILLINS] Allergy (Unknown, Verified 03/23/23 15:59) HIVES, rash HPI EP ?UTI HPI Details This 88-year-old female patient presents today accompanied by her daughter for possible UTI. She was treated for [place] [facility] [place] on 04/09/[place]. She has been complaining of lower back pain and felt this might be a recurrent UTI. She came in yesterday for a urine culture as ordered by PCP Dr. Villanueva. These results are not back yet. She denies any burning/frequency/urgency. Denies fever or discolored/odorous urine. She describes lower back pain that radiates down her buttocks. This is worse with standing after sitting for prolonged periods. [facility] Medical History Hearing loss Annual physical exam Vertigo Anemia Vertigo UTI (urinary tract infection) CKD (chronic kidney disease), stage III Iron deficiency anemia Pernicious anemia HTN (hypertension) Hyperlipidemia Diabetes Surgical History History of esophagogastroduodenoscopy (EGD) S/P ERCP S/P cholecystectomy History of breast biopsy History of ERCP Family History Father Cancer Mother Colon cancer Social History Housing: House Alcohol intake: never Patient Tobacco Use Status: Never used Tobacco e-Cigarette/Vaping Use: Never Used Current occupational status: retired Cognitive needs: No Hearing needs: Yes Vision needs: Yes Review of Systems Const All systems reviewed & are unremarkable except as noted in HPI and below Physical Exam Vital Signs: Last Vital Signs Temp 97.6 F 04/21/23 09:14 Pulse 78 04/21/23 09:14 BP 120/68 04/21/23 09:14 Pulse Ox 98 04/21/23 09:14 Oxygen Delivery Method Room Air 04/21/23 09:14 Const General: cooperative, healthy appearing and no acute distress Neck Neck: Yes no lymphadenopathy Resp Effort & Inspection: normal respiratory effort and able to speak in complete sentences General: Yes bladder normal to palpation and Yes no CVA tenderness Bimanual exam- vagina & uterus: bladder normal to palpation Back/Spine/Pelvis Back: no CVA tenderness Thoracic/Lumbar Spine: thoracic and lumbar spine normal to inspection, straight leg raise negative bilaterally and pain with thoraco-lumbar ROM (Painful flexion, extension, lower lumbar) Skin General skin exam: no rashes or lesions noted Extrem General: Yes capillary refill normal and Yes no clubbing, cyanosis or edema Psych Appearance: grossly normal Mental Status: mental status grossly normal Speech and movement: Normal speech and movement present Results AMB Urinalysis, Automated UA Leukoctes 0 Tracy/uL Last Edit by Ora Han CMA on 04/21/23 09:47 UA Nitrite Negative Last Edit by Ora Han CMA on 04/21/23 09:47 UA Urobilinogen 0.2 mg/dL Last Edit by Ora Han CMA on 04/21/23 09:47 UA Protein 0 mg/dL Last Edit by Ora Han CMA on 04/21/23 09:47 UA pH 6.5 Last Edit by Ora Han CMA on 04/21/23 09:47 UA Blood 0 Ant/uL Last Edit by Ora Han CMA on 04/21/23 09:47 UA Specific [place] 1.015 Last Edit by Ora Han CMA on 04/21/23 09:47 UA Ketone Negative Last Edit by Ora Han CMA on 04/21/23 09:47 UA Bilirubin 0 mg/dL Last Edit by Ora Han CMA on 04/21/23 09:47 UA Glucose 0 mg/dL Last Edit by Ora Han CMA on 04/21/23 09:47 Assessment & Plan Assessment & Plan (1) Lower back pain: Code(s): M54.50 - Low back pain, unspecified Qualifiers: Chronicity: chronic Back pain laterality: bilateral Sciatica presence: without sciatica Qualified Code(s): M54.50 - Low back pain, unspecified; G89.29 - Other chronic pain Plan: Urine dip not consistent with UTI today. Results were all negative. She had a urine culture done yesterday, results still pending on this. I feel her lower back pain is not urologic-related, but rather facet-mediated lower lumbar pain. She has some pain into buttocks, but it does not appear to be radicular in nature. I have ordered an XR of the lumbar spine and also advised Tylenol arthritis, which I will prescribe. Also advised heat/ice application, otc lidocaine patches, and some gentle stretching exercises. Patient will be notified with results once these are available. Certainly if urinary symptoms recur, she should return to the clinic for further evaluation. She should follow up with PCP as needed. Orders: Orders XR lumbar spine 2-3V Today M54.50 - Low back pain, unspecified AMB Urinalysis Automated Today Z13.9 - Encounter for screening, unspecified Medications: New acetaminophen ER (Tylenol Arthritis Pain) 650 mg PO Q12H PRN 60 tabs 0RF pain G89.29 - Other chronic pain, M54.50 - Low back pain, unspecified Coding Level of Care Code Est Pt Level 3 (51417) Diagnoses Chronic bilateral low back pain without sciatica M54.50; G89.29 Chronicity: chronic Back pain laterality: bilateral Sciatica presence: without sciatica
[2023-04-21 09:14] VITALS: BP 120/68; PULSE 78; TEMP 36.4; O2SAT 98
== END 2023-04-21 10:15 | disposition home or self-care (01) ==
PROVIDERS: PCP Internal Medicine; Visit Provider Nurse Practitioner Family
DX: M54.50 Low back pain, unspecified (principal)
CPT/HCPCS: 81003; 99213

== ENCOUNTER 2023-04-21 10:08 | Outpatient (REF) | payer MEDICARE, SELFPAY ==
--- NOTE | ~2023-04-21 | XR_ITS ---
EXAMINATION: XR LUMBOSACRAL SPINE CLINICAL INFORMATION: Low back pain COMPARISON: Lumbar spine radiograph from 03/04/2011 TECHNIQUE: Three views of the lumbosacral spine. FINDINGS: 5 nonrib-bearing lumbar-type vertebral bodies. No acute visible fracture or dislocation. Grade 1 anterolisthesis of L3 on L4 L4 and L4 on L5. Multilevel degenerative changes with disc space narrowing, endplate sclerosis, vacuum disc phenomenon, osteophyte formation, and facet arthropathy. Posterior elements are intact. Paraspinal soft tissues are unremarkable. Atherosclerotic calcification of the abdominal aorta. Bowel gas is unremarkable. Surgical clips in the right upper abdomen. Degenerative changes of the bilateral sacroiliac joints. XR/XR lumbar spine 2-3V IMPRESSION: 1. No acute visible fracture or dislocation. 2. Grade 1 anterolisthesis of L3 on L4 and L4 on L5. 3. Multilevel degenerative changes.
== END 2023-04-21 10:09 | disposition home or self-care (01) ==
LOC: HO.HMGCX 10:08
PROVIDERS: PCP Internal Medicine; Visit Provider Nurse Practitioner Family
DX: M54.50 Low back pain, unspecified (principal)
CPT/HCPCS: 72100

== ENCOUNTER 2023-05-24 08:26 | Outpatient (REF) | payer MEDICARE, SELFPAY ==
[2023-05-24 11:44] LABS: MANUAL DIFF FLAG NO
[2023-05-24 12:01] LABS: Estimated Average Glucose 146 mg/dL; Hemoglobin A1c % 6.7 % (<6.0)
[2023-05-24 12:14] LABS: Alanine Aminotransferase 14 U/L (0-31); Albumin Level 4.1 g/dL (3.5-5.0); Alkaline Phosphatase 77 U/L (39-117); Anion Gap 14 (12-20); Aspartate Amino Transferase 16 U/L (5-31); Bilirubin Total 0.4 mg/dL (0.0-1.0); Blood Urea Nitrogen 24 mg/dL (9-16); Calcium 9.8 mg/dL (8.4-10.2); Carbon Dioxide 27 mmol/L (22-29); Chloride 104 mmol/L (96-108); Estimated Glomerular Filt Rate 41; Glucose Fasting 179 mg/dL (60-99); Iron 56 mcg/dL (30-160); Percent Iron Saturation 22 % (15-50); Potassium 4.5 mmol/L (3.3-5.1); Sodium 140 mmol/L (135-145); Total Iron Binding Capacity 258 mcg/dL (228-428); Unsaturated Iron Binding 202 ug/dL
[2023-05-24 12:21] LABS: Basophils Percent Auto 0.4 % (0-2); Eosinophils Absolute Auto 0.2 X10*3/uL (0.0-0.4); Eosinophils Percent Auto 2.4 % (0-4); Hematocrit 35.4 % (37.0-47.0); Hemoglobin 11.1 g/dl (12.0-16.0); Imm Gran Abs Auto 0.03 X10*3/uL (0.00-0.03); Imm Gran Pct Auto 0.4 % (0.0-0.4); Lymphocytes Absolute Auto 2.2 X10*3/uL (1.2-4.9); Lymphocytes Percent Auto 31.2 % (20-40); Mean Corpuscular HGB Conc 31.4 g/dl (31.0-35.0); Mean Corpuscular Hemoglobin 28.4 pg (27.0-33.0); Mean Corpuscular Volume 90.5 fL (80.0-98.0); Mean Platelet Volume 9.1 fL (9.4-12.3); Monocytes Absolute Auto 0.6 X10*3/uL (0.1-1.2); Monocytes Percent Auto 8.2 % (2-11); Neutrophils Absolute Auto 4.1 x10*3/uL (2.0-8.3); Neutrophils Percent Auto 57.4 % (45-73); Platelet Count 232 X10*3/uL (160-400); Red Blood Count 3.91 X10*6/uL (4.20-5.50); Red Cell Distribution Width 13.7 % (11.0-16.0); White Blood Count 7.1 X10*3/uL (4.8-10.8)
== END 2023-05-24 08:27 | disposition home or self-care (01) ==
LOC: HO.HMGCLDS 08:26
PROVIDERS: PCP Internal Medicine; Visit Provider Internal Medicine
DX: I12.9 Hypertensive chronic kidney disease with stage 1 through stage 4 chronic kidney disease, or unspecified chronic kidney disease (principal); E11.22 Type 2 diabetes mellitus with diabetic chronic kidney disease; N18.30 Chronic kidney disease, stage 3 unspecified; E78.5 Hyperlipidemia, unspecified
CPT/HCPCS: 36415; 80053; 83036; 83540; 85025

== ENCOUNTER 2023-05-25 09:28 | Outpatient (AMB) | payer MEDICARE, SELFPAY ==
[2023-05-25 09:31] VITALS: BP 126/62; PULSE 85; O2SAT 94; BMI 28.2
--- NOTE | 2023-05-25 09:31 | A.OFFPC_ITS ---
Vital Signs 05/25/23 09:31 Height 5 ft 6 in Weight 175 lb BMI 28.2 BP 126/62 Blood Pressure Location Lt brachial Position Sitting Pulse 85 Pulse Source Pulse Oximeter Pulse Oximetry (%) 94 Oxygen Delivery Method Room Air Intake Visit Reasons: 4m follow up Intake Note: Pt is here today for 4 months follow up visit on labs. Allergies celecoxib [Celebrex] Allergy (Unknown, Verified 05/25/23 09:33) rash penicillin G Allergy (Unknown, Verified 05/25/23 09:33) rash Penicillins [PENICILLINS] Allergy (Unknown, Verified 05/25/23 09:33) HIVES, rash Medication List - Last Reconciled 05/25/23 by Sherron Villanueva MD acetaminophen 1,000 mg PO TID PRN acetaminophen ER (Tylenol Arthritis Pain) 650 mg PO Q12H PRN amlodipine 5 mg PO DAILY blood sugar diagnostic ([employer] Ultra Test strips) qd cefuroxime axetil 500 mg PO BID cyanocobalamin (vitamin B-12) 5,000 mcg PO DAILY diabetic supplies, miscellan. diabetic shoes ferrous fumarate 325 mg PO DAILY gabapentin 100 mg PO TID hydrocortisone 2.5% 1 appl topical BID PRN latanoprost 0.005% 1 drp ophthalmic (eye) QPM lisinopril 40 mg PO DAILY meclizine 25 mg PO TID PRN mupirocin 2% 1 appl topical BID ondansetron 4 mg PO Q8H PRN sertraline 50 mg PO DAILY simvastatin 40 mg PO DAILY triamcinolone acetonide 0.1% 1 appl topical BID Tobacco use date assessed: 05/25/23 Fall risk assessment: No Falls in past year Last assessed Fall Risk: 05/25/23 Dental Screening Dental Screen Date: 05/25/23 Did you have a dental visit in the last 12 months?: No Did you have a dental problem in the last 6 months where you did not have access to dental care?: No Was dental information given to patient?: Patient declined HPI 4m follow up HPI Details Patient presents for the follow-up of hypertension hyperlipidemia chronic kidney disease stage 3 diet-controlled diabetes. She complains of frequent episodes of chronic diarrhea and frequent UTIs that she has been treated with antibiotics. Patient denies hematochezia abdominal pain weight loss PFSH Medical History Hearing loss Annual physical exam Vertigo Anemia Vertigo UTI (urinary tract infection) CKD (chronic kidney disease), stage III Iron deficiency anemia Pernicious anemia HTN (hypertension) Hyperlipidemia Diabetes Surgical History History of esophagogastroduodenoscopy (EGD) S/P ERCP S/P cholecystectomy History of breast biopsy History of ERCP Family History Father Cancer Mother Colon cancer Social History Housing: House Alcohol intake: never Patient Tobacco Use Status: Never used Tobacco e-Cigarette/Vaping Use: Never Used Current occupational status: retired Cognitive needs: No Hearing needs: Yes Vision needs: Yes Questionnaire Thrive Questionnaire Date Thrive assessed: 12/07/22 AUDIT C Alcohol Use Questionnaire (AUDIT-C) 1. How often do you have a drink containing alcohol?: Never 3. How often do you have six or more drinks on one occasion?: Never Total Score: 0 JADE-7 AMB Questionnaire JADE-7 Date JADE - 7 assessed: 12/07/22 Source: Developed by Drs. Rommel Simmons, Tamie Child, Karl Capone and colleagues, with an educational louis from [employer]. Review of Systems Const All systems reviewed & are unremarkable except as noted in HPI and below Reports no additional complaints Eyes Reports no additional complaints ENT Reports no additional complaints Card Reports no additional complaints Resp Reports no additional complaints GI Reports no additional complaints Reports no additional complaints Physical exam (Primary Care) Vital Signs: Last Vital Signs Pulse 85 05/25/23 09:31 BP 126/62 05/25/23 09:31 Pulse Ox 94 05/25/23 09:31 Oxygen Delivery Method Room Air 05/25/23 09:31 BMI result Body Mass Index 28.2 Tobacco/Smoking Status: Tobacco use Status Tobacco use date assessed 05/25/23 05/25/23 09:38 Patient Tobacco Use Status Never used Tobacco 05/25/23 09:38 e-Cigarette/Vaping Use Never Used 05/25/23 09:32 Thrive Assessment: Date of Thrive Assessment Date Thrive assessed 12/07/22 05/25/23 09:32 Const General: no acute distress HENMT Head: Yes normal to inspection Neck Neck: Yes no lymphadenopathy and Yes supple Resp Effort & Inspection: normal respiratory effort Auscultation: clear to auscultation bilaterally Cardio Rhythm: regular rhythm Heart sounds: S1 normal heart sound present and S2 normal heart sound present GI Inspection: Yes normal to inspection Palpation (GI): Soft to palpation Percussion: Yes normal to percussion Auscultation: normal bowel sounds Assessment and Plan Assessment & Plan (1) Diarrhea: Code(s): R19.7 - Diarrhea, unspecified Plan: Continue fiber supplement patient declined referral to GI. Check stool for C diff (2) HTN (hypertension): Comment: BP goal less than 130/80 Code(s): I10 - Essential (primary) hypertension Plan: Continue current medications (3) Diabetes: Comment: A1C less than 8 Code(s): E11.9 - Type 2 diabetes mellitus without complications Plan: A1c is 6.7, ADA diet increase physical activity weight loss discussed with the patient. Follow-up in 6 months with fasting labs before (4) Hyperlipidemia: Code(s): E78.5 - Hyperlipidemia, unspecified Plan: Continue statin (5) Anemia: Code(s): D64.9 - Anemia, unspecified Plan: Better on chronic iron supplement (6) CKD (chronic kidney disease), stage III: Code(s): N18.30 - Chronic kidney disease, stage 3 unspecified Plan: Avoid NSAIDs and monitor renal function (7) UTI (urinary tract infection): Code(s): N39.0 - Urinary tract infection, site not specified Plan: For frequent UTIs patient will try Estrace vaginal cream twice a week Orders: Orders CDiff Gene PCR Today R19.7 - Diarrhea, unspecified Hemoglobin A1c 6 Months D64.9 - Anemia, unspecified, E11.9 - Type 2 diabetes mellitus without complications, E78.5 - Hyperlipidemia, unspecified, I10 - Essential (primary) hypertension, N18.30 - Chronic kidney disease, stage 3 unspecified, N39.0 - Urinary tract infection, site not specified Lipid Panel 6 Months D64.9 - Anemia, unspecified, E11.9 - Type 2 diabetes mellitus without complications, E78.5 - Hyperlipidemia, unspecified, I10 - Essential (primary) hypertension, N18.30 - Chronic kidney disease, stage 3 unspecified, N39.0 - Urinary tract infection, site not specified Comprehensive [place]. Panel Fast 6 Months D64.9 - Anemia, unspecified, E11.9 - Type 2 diabetes mellitus without complications, E78.5 - Hyperlipidemia, unspec ified, I10 - Essential (primary) hypertension, N18.30 - Chronic kidney disease, stage 3 unspecified, N39.0 - Urinary tract infection, site not specified Complete Blood Count Auto Diff 6 Months D64.9 - Anemia, unspecified, E11.9 - Type 2 diabetes mellitus without complications, E78.5 - Hyperlipidemia, unspecified, I10 - Essential (primary) hypertension, N18.30 - Chronic kidney disease, stage 3 unspecified, N39.0 - Urinary tract infection, site not specified IRON PROFILE 6 Months D64.9 - Anemia, unspecified, E11.9 - Type 2 diabetes mellitus without complications, E78.5 - Hyperlipidemia, unspecified, I10 - Essential (primary) hypertension, N18.30 - Chronic kidney disease, stage 3 unspecified, N39.0 - Urinary tract infection, site not specified TSH reflex Free T4 6 Months D64.9 - Anemia, unspecified, E11.9 - Type 2 diabetes mellitus without complications, E78.5 - Hyperlipidemia, unspecified, I10 - Essential (primary) hypertension, N18.30 - Chronic kidney disease, stage 3 unspecified, N39.0 - Urinary tract infection, site not specified Coding Level of Care Code Est Pt Level 4 (88558) Diagnoses Diarrhea R19.7 HTN (hypertension) I10 Diabetes E11.9 Hyperlipidemia E78.5 Anemia D64.9 CKD (chronic kidney disease), stage III N18.30 UTI (urinary tract infection) N39.0
== END 2023-05-25 10:36 | disposition home or self-care (01) ==
PROVIDERS: Visit Provider Internal Medicine
DX: I12.9 Hypertensive chronic kidney disease with stage 1 through stage 4 chronic kidney disease, or unspecified chronic kidney disease (principal); E11.22 Type 2 diabetes mellitus with diabetic chronic kidney disease; N18.30 Chronic kidney disease, stage 3 unspecified; R19.7 Diarrhea, unspecified; E78.5 Hyperlipidemia, unspecified; D64.9 Anemia, unspecified; N39.0 Urinary tract infection, site not specified
CPT/HCPCS: 99214

== ENCOUNTER 2023-11-12 18:33 | Emergency (ER) | payer MEDICARE, SELFPAY ==
--- NOTE | ~2023-11-12 | CT_ITS ---
EXAMINATION: CT head/brain wo IV con CLINICAL INFORMATION: Reason for Exam R temporal headache COMPARISON: CT head without contrast 02/23/2021 TECHNIQUE: Contiguous axial imaging was performed from the skull base to vertex without intravenous contrast. Sagittal and coronal reformatted images were obtained. This CT examination was performed using dose optimization techniques as appropriate, variously including the following: * Automated exposure control * Adjustment of mA and/or kV according to patient size (this includes techniques or standardized protocols for targeted exams where dose is matched to indication/reason for exam; i.e. extremities or head) Use of iterative reconstruction technique DLP: 661 FINDINGS: No acute osseous or soft tissue abnormality. 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 The mastoid air cells and visualized portions of the paranasal sinuses are well aerated. There is no evidence of acute intracranial hemorrhage or territorial infarction. No abnormal mass effect or midline shift is seen. Brennan to white matter differentiation is well preserved. No extra-axial fluid collections are identified. No hydrocephalus. Proportional prominence of the ventricles and sulcal spaces related to volume loss. Patchy periventricular and deep white matter hypoattenuation is consistent with mild small vessel ischemic changes. CT/CT head/brain wo IV con IMPRESSION: No acute intracranial abnormality including hemorrhage, mass effect, hydrocephalus, or acute territorial edematous infarction.
[2023-11-12 18:37] VITALS: BP 173/98; PULSE 77; RESP 18; TEMP 37.2; O2SAT 97; BMI 26.4
--- NOTE | 2023-11-12 18:37 | ED_ITS ---
HPI - Headache General Chief Complaint: Headache Stated Complaint: high bp headache Time Seen by Provider: 11/12/23 20:57 Source: patient, family (Granddaughter) and RN notes reviewed Mode of arrival: ambulatory Limitations: no limitations History of Present Illness HPI Narrative: 88-year-old female presents for evaluation of a headache. Patient reports that she woke up at 7:00 a.m. this morning with a headache. She took Tylenol and her symptoms resolved The headache is on the right side of her head only, intermittent and described as shooting in nature She denies any blurry vision, nausea, lightheadedness, trauma to the head or neck She denies any fevers, chills, neck pain There are no rashes The patient did have shingles on the opposite side of her face last summer The patient states that she took Tylenol again this afternoon and her headache did not resolve this time prompting her to seek medical attention Related Data Home Medications ?Medication ?Instructions ?Recorded ?Confirmed acetaminophen 500 mg capsule 1,000 mg PO TID PRN pain 06/20/20 05/25/23 cyanocobalamin (vitamin B-12) 5,000 mcg PO DAILY 06/20/20 05/25/23 5,000 mcg disintegrating tablet ferrous fumarate 325 mg (106 mg 325 mg PO DAILY 06/20/20 05/25/23 iron) tablet Previous Rx's ?Medication ?Instructions ?Recorded triamcinolone acetonide 0.1 % 1 appl topical BID #30 grams 10/23/20 topical cream meclizine 25 mg tablet 25 mg PO TID PRN for dizziness #30 06/03/21 tabs latanoprost 0.005 % eye drops 1 drp ophthalmic (eye) QPM #7.5 mL 11/25/21 blood sugar diagnostic (OneTouch #100 ea 07/03/22 Ultra Test strips) diabetic supplies, miscellan. #1 ea 07/03/22 hydrocortisone 2.5 % topical 1 appl topical BID PRN skin 12/07/22 ointment irritation #28.35 grams mupirocin 2 % topical ointment 1 appl topical BID #22 grams 12/07/22 ondansetron 4 mg disintegrating 4 mg PO Q8H PRN nausea and 12/07/22 tablet vomiting #20 tabs simvastatin 40 mg tablet 40 mg PO DAILY #90 tabs 01/01/23 gabapentin 100 mg capsule 100 mg PO TID #30 caps 02/09/23 cefuroxime axetil 500 mg tablet 500 mg PO BID #13 tabs 04/09/23 acetaminophen 650 mg 650 mg PO Q12H PRN pain #60 tabs 04/21/23 tablet,extended release (Tylenol Arthritis Pain) estradiol 0.01% (0.1 mg/gram) 1 g vaginal 2XW #42.5 grams 05/27/23 vaginal cream (Estrace) amlodipine 5 mg tablet 5 mg PO DAILY #90 tabs 08/21/23 sertraline 50 mg tablet 50 mg PO DAILY #90 tabs 09/07/23 lisinopril 40 mg tablet 40 mg PO DAILY #90 tabs 10/17/23 prednisone 20 mg tablet 40 mg (2 x 20 mg) PO DAILY #28 tabs 11/12/23 Allergies Allergy/AdvReac Type Severity Reaction Status Date / Time celecoxib [Celebrex] Allergy Unknown rash Verified 11/12/23 18:40 penicillin G Allergy Unknown rash Verified 11/12/23 18:40 Penicillins [PENICILLINS] Allergy Unknown HIVES, rash Verified 11/12/23 18:40 Review of Systems 2 Constitutional: Constitutional: Denies body ache(s), Denies chills, Denies fever(s) and Reports headache(s) Eyes: Eyes: Denies blurry vision ENT: Reports headache(s) and Denies sore throat Cardiovascular: Cardiovascular: Denies chest pain and Denies dyspnea Respiratory: Respiratory: Denies cough and Denies dyspnea Gastrointestinal: Gastrointestinal: Denies abdominal pain, Denies nausea and Denies vomiting Musculoskeletal: Musculoskeletal: Denies back pain Integumentary/Breasts: Skin/Breast: Denies rash Neurologic: Reports headache(s) Psychiatric: Psychiatric: Denies anxiety PMFSH Past Medical History Medical History Hearing loss Annual physical exam Vertigo Anemia Vertigo UTI (urinary tract infection) CKD (chronic kidney disease), stage III Iron deficiency anemia Pernicious anemia HTN (hypertension) Hyperlipidemia Diabetes Surgical History History of esophagogastroduodenoscopy (EGD) S/P ERCP S/P cholecystectomy History of breast biopsy History of ERCP Family History Family History Father Cancer Mother Colon cancer Social History Social History Housing: House Alcohol intake: never Patient Tobacco Use Status: Never used Tobacco e-Cigarette/Vaping Use: Never Used Advance Directives: No Advance Directives Information Provided: No Current occupational status: retired Cognitive needs: No Hearing needs: Yes Vision needs: Yes Physical Exam 2 Vital Signs: Vital Signs: Last Vital Signs Temp 98.0 F 11/12/23 21:48 Pulse 71 11/12/23 21:48 Resp 14 11/12/23 21:48 BP 161/59 H 11/12/23 21:48 Pulse Ox 98 11/12/23 21:48 O2 Del Method Room Air 11/12/23 21:48 BMI result Body Mass Index 26.4 Const: General: healthy appearing, comfortable, no acute distress, alert and awake Nutritional Appearance: well nourished Orientation/consciousness: p atient oriented x3 HEENT: Head: Yes normocephalic and Yes atraumatic Eyes: Eyelids: Yes eyelids normal Conjunctivae: conjunctivae normal S clerae: sclerae normal Corneas: corneas normal Pupils: Equal, round and reactive pupils present EOM: EOMs intact bilaterally Neck: Neck: Yes full ROM Resp: Effort & Inspection: normal respiratory effort, able to speak in complete sentences and not labored GI: Inspection: No distended Palpation (GI): Soft to palpation, not firm, nontender, no guarding and not rigid Skin: Other: No rashes to the face General skin exam: elasticity normal Neuro: General: patient oriented x3 Cranial nerves: Yes CN's II-XII intact bilaterally, Yes Equal, round and reactive pupils present and Yes Bilaterally intact EOM present Cognition (Neuro): normal cognition Course Course Course Narrative: This is an RME: Additional HPI, ROS, PE not included below will be deferred to primary provider. Patient is an 88-year-old female with past medical history of vertigo, anemia, hypertension, hyperlipidemia, diabetes, CKD stage 3 who presents emergency department Right temporal headache with varying intensity awoke today with it, shooting pain, ticking then subsides, took Tylenol at 0700 with relief, returned at 15:00 took Tylenol without relief. Denies dizziness or lightheadedness, visions changes, ear pain, neck pain, known tick bites. denies history of similar headache in the past. She does report a history of shingles to the right upper face approximately summer. No obvious rashes, lesions or abnormalities of the external auditory canal. Plan: labs, CT Medications Administered Discontinued Medications Generic Name Dose Route Start Last Admin Trade Name Leslye PRN Reason Stop Dose Admin Acetaminophen/Butalbital/Caffeine 1 tab 11/12/23 21:05 11/12/23 21:29 Butalb/Acetamin/Caff 50/325/40 Tablet PO 11/12/23 21:06 1 tab ONCE ONE Administration Prednisone 60 mg 11/12/23 21:12 11/12/23 21:29 Prednisone 20 Mg Tablet PO 11/12/23 21:13 60 mg ONCE ONE Administration Medical Decision Making Medical Decision Making [facility] Narrative: 88-year-old female presents for evaluation of a headache. She has no neuro deficits, no obvious signs of trauma. She had a workup that included a CT scan of the brain which shows no concerning abnormalities. The patient has no slurred speech, dysarthria, facial asymmetry. Very low suspicion for CVA. She had had labs that were significant for an elevated ESR. She is right temporal headache. There was concern for temporal arteritis. I discussed this with the patient and her daughter at bedside. The patient has no ophthalmic signs or symptoms. Plan to discharge the patient with prednisone and vascular referral. The patient was hypertensive on arrival this improved with just Fioricet and prednisone Differential Diagnosis Differential Diagnoses: The differential diagnosis associated with the presentation includes Acute headache Tension headache Cluster headache Shingles A portal iritis Lab Data [facility] Lab Attestation statement: I reviewed the patient's lab results. There is no leukocytosis, patient has a mild anemia consistent with her baseline. There is no left shift. It is significant the patient's ESR is elevated to 49. No significant chemistry abnormalities. Patient has hyperglycemia to 130 without evidence of DKA 11/12/23 18:56 11/12/23 18:56 Labs: Lab Results 11/12/23 11/12/23 Range/Units 18:56 20:44 WBC 9.1 (4.8-10.8) X10*3/uL RBC 4.04 L (4.20-5.50) X10*6/uL Hgb 11.2 L (12.0-16.0) g/dl Hct 34.4 L (37.0-47.0) % MCV 85.1 (80.0-98.0) fL MCH 27.7 (27.0-33.0) pg MCHC 32.6 (31.0-35.0) g/dl RDW 13.4 (11.0-16.0) % Plt Count 206 (160-400) X10*3/uL MPV 8.5 L (9.4-12.3) fL Immature Gran % (Auto) 0.3 (0.0-0.4) % Neut % (Auto) 58.2 (45-73) % Lymph % (Auto) 32.1 (20-40) % [place] % (Auto) 6.8 (2-11) % Eos % (Auto) 2.1 (0-4) % Baso % (Auto) 0.5 (0-2) % Lymph # (Auto) 2.9 (1.2-4.9) X10*3/uL [place] # (Auto) 0.6 (0.1-1.2) X10*3/uL Eos # (Auto) 0.2 (0.0-0.4) X10*3/uL Baso # (Auto) 0.1 (0.0-0.2) X10*3/uL Abs Immat Gran (auto) 0.03 (0.00-0.03) X10*3/uL Absolute Neuts (auto) 5.3 (2.0-8.3) x10*3/uL Absolute Nucleated RBC 0.000 (0.0-0.012) X10*3/uL Nucleated RBC % (auto) 0.0 (0.0-0.2) /100WBC ESR 49 H (0-20) MM/HR Sodium 141 (135-145) mmol/L Potassium 4.5 (3.3-5.1) mmol/L Chloride 109 H (96-108) mmol/L Carbon Dioxide 22 (22-29) mmol/L Anion Gap 15 (12-20) BUN 28 H (9-16) mg/dL Creatinine 0.94 (0.5-1.4) mg/dL Estim Creat Clear Calc 46.5 Estimated GFR 56 POC Glucose 123 H (60-115) mg/dL Random Glucose 130 H (60-115) mg/dL Calcium 9.8 (8.4-10.2) mg/dL Total Bilirubin 0.2 (0.0-1.0) mg/dL AST 17 (5-31) U/L ALT 16 (0-31) U/L Alkaline Phosphatase 78 (39-117) U/L C-Reactive Protein 0.46 (< or = 0.50) mg/dL Total Protein 8.2 H (6.5-8.0) g/dL Albumin 4.2 (3.5-5.0) g/dL Independent Interpretation I performed an independent interpretation of an: CT Scan (No acute intracranial hemorrhage, mass effect or midline shift) Radiology Impression Discussion of test interpretation with radiology: I have reviewed the radiologist's reading. Radiologist Impression: IMPRESSION: No acute intracranial abnormality including hemorrhage, mass effect, hydrocephalus, or acute territorial edematous infarction. Discharge Plan Discharge Clinical Impression: Acute headache, Elevated erythrocyte sedimentation rate Patient Disposition: Home, Self-Care Instructions: Temporal Arteritis (ED) Additional Instructions: Your workup in the ER today was reassuring Your CT scan did not show any concerning Your blood work is consistent with your baseline. Your blood tests was elevated which is your ESR This may be a sign of temporal arteritis also known as giant cell arteritis I have attached some paperwork regarding this for you to read It is important to follow-up with vascular surgery for a temporal artery biopsy In the meantime you may take prednisone 40 mg daily for the next 2 weeks Use Tylenol as needed for headaches Prescriptions: New prednisone 20 mg tablet 40 mg PO DAILY Qty: 28 0RF No Action ferrous fumarate 325 mg (106 mg iron) tablet 325 mg PO DAILY cyanocobalamin (vitamin B-12) 5,000 mcg tablet,disintegrating 5,000 mcg PO DAILY acetaminophen 500 mg capsule 1,000 mg PO TID PRN (Reason: pain) meclizine 25 mg tablet 25 mg PO TID PRN (Reason: for dizziness) Qty: 30 0RF latanoprost 0.005 % drops 1 drp ophthalmic (eye) QPM Qty: 7.5 0RF Rx Instructions: One drop to both eyes at bedtime. simvastatin 40 mg tablet 40 mg PO DAILY Qty: 90 3RF estradiol [Estrace] 0.01 % (0.1 mg/gram) cream 1 g vaginal 2XW Qty: 42.5 0RF amlodipine 5 mg tablet 5 mg PO DAILY Qty: 90 3RF sertraline 50 mg tablet 50 mg PO DAILY Qty: 90 3RF lisinopril 40 mg tablet 40 mg PO DAILY Qty: 90 3RF cefuroxime axetil 500 mg tablet 500 mg PO BID Qty: 13 0RF triamcinolone acetonide 0.1 % cream 1 appl topical BID Qty: 30 0RF (DME) diabetic supplies, miscellan. Misc See Rx Instructions .ROUTE .MEDSUPPLY Qty: 1 0RF Rx Instructions: diabetic shoes (DME) OneTouch Ultra Test Strip See Rx Instructions .Route Qty: 100 3RF Rx Instructions: qd mupirocin 2 % ointment 1 appl topical BID Qty: 22 3RF hydrocortisone 2.5 % ointment 1 appl topical BID PRN (Reason: skin irritation) Qty: 28.35 4RF ondansetron 4 mg tablet,disintegrating 4 mg PO Q8H PRN (Reason: nausea and vomiting) Qty: 20 0RF gabapentin 100 mg capsule 100 mg PO TID Qty: 30 0RF acetaminophen [Tylenol Arthritis Pain] 650 mg tablet extended release 650 mg PO Q12H PRN (Reason: pain) Qty: 60 0RF Referrals: Hector Houston MD [Physician] - (Acute headache with elevated ESR. ) Interventions: ED Discharge Assessment Last Done: 11/12/23 21:48 Discharge Date/Time: 11/12/23 21:49 Print Language: Swiss
[2023-11-12 18:59] LABS: MANUAL DIFF FLAG NO
[2023-11-12 19:01] LABS: Basophils Absolute Auto 0.1 X10*3/uL (0.0-0.2); Basophils Percent Auto 0.5 % (0-2); Eosinophils Absolute Auto 0.2 X10*3/uL (0.0-0.4); Eosinophils Percent Auto 2.1 % (0-4); Hematocrit 34.4 % (37.0-47.0); Hemoglobin 11.2 g/dl (12.0-16.0); Imm Gran Abs Auto 0.03 X10*3/uL (0.00-0.03); Imm Gran Pct Auto 0.3 % (0.0-0.4); Lymphocytes Absolute Auto 2.9 X10*3/uL (1.2-4.9); Lymphocytes Percent Auto 32.1 % (20-40); Mean Corpuscular HGB Conc 32.6 g/dl (31.0-35.0); Mean Corpuscular Hemoglobin 27.7 pg (27.0-33.0); Mean Corpuscular Volume 85.1 fL (80.0-98.0); Mean Platelet Volume 8.5 fL (9.4-12.3); Monocytes Absolute Auto 0.6 X10*3/uL (0.1-1.2); Monocytes Percent Auto 6.8 % (2-11); Neutrophils Absolute Auto 5.3 x10*3/uL (2.0-8.3); Neutrophils Percent Auto 58.2 % (45-73); Platelet Count 206 X10*3/uL (160-400); Red Blood Count 4.04 X10*6/uL (4.20-5.50); Red Cell Distribution Width 13.4 % (11.0-16.0); White Blood Count 9.1 X10*3/uL (4.8-10.8)
[2023-11-12 19:15] LABS: Alanine Aminotransferase 16 U/L (0-31); Albumin Level 4.2 g/dL (3.5-5.0); Alkaline Phosphatase 78 U/L (39-117); Anion Gap 15 (12-20); Aspartate Amino Transferase 17 U/L (5-31); Bilirubin Total 0.2 mg/dL (0.0-1.0); Blood Urea Nitrogen 28 mg/dL (9-16); C Reactive Protein 0.46 mg/dL (< or = 0.50); Calcium 9.8 mg/dL (8.4-10.2); Carbon Dioxide 22 mmol/L (22-29); Chloride 109 mmol/L (96-108); Creatinine Clr Calc Pharmacy 46.5; Estimated Glomerular Filt Rate 56; Glucose Random 130 mg/dL (60-115); Potassium 4.5 mmol/L (3.3-5.1); Sodium 141 mmol/L (135-145); Total Protein 8.2 g/dL (6.5-8.0)
[2023-11-12 19:53] LABS: Erythrocyte Sedimentation Rate 49 MM/HR (0-20)
[2023-11-12 20:47] VITALS: BP 173/73; PULSE 68; RESP 20; TEMP 36.7; O2SAT 99
[2023-11-12 20:49] LABS: Glucose, Whole Blood 123 mg/dL (60-115)
[2023-11-12] MEDS: Butalb/Acetamin/Caff 50/325/40 TABLET 1 TAB PO (21:29)
[2023-11-12] MEDS: predniSONE 20 MG TABLET 60 MG PO (21:29)
--- NOTE | 2023-11-12 21:32 | PC.NURSE ---
Pt medicated per sep. Plan of care ongoing.
[2023-11-12 21:48] VITALS: BP 161/59; PULSE 71; RESP 14; TEMP 36.7; O2SAT 98
== END 2023-11-12 21:49 | disposition home or self-care (01) ==
PROVIDERS: Nurse Practitioner Family; Emergency Provider Student in an Organized Health Care Education/Training Program; PCP Internal Medicine
DX: R51.9 Headache, unspecified (principal); R70.0 Elevated erythrocyte sedimentation rate; E11.65 Type 2 diabetes mellitus with hyperglycemia; E11.22 Type 2 diabetes mellitus with diabetic chronic kidney disease; I12.9 Hypertensive chronic kidney disease with stage 1 through stage 4 chronic kidney disease, or unspecified chronic kidney disease; N18.30 Chronic kidney disease, stage 3 unspecified
CPT/HCPCS: 36415; 70450; 80053; 82947; 85025; 85652; 86140; 99283; 99284

== ENCOUNTER 2023-11-18 13:48 | Outpatient (AMB) | payer MEDICARE, SELFPAY ==
--- NOTE | 2023-11-18 13:53 | A.OFFVIS_ITS ---
Intake Visit Reasons: [employer]/ED referral for temporal arteritis Intake Note: New patient presents for temporal arteritis , was seen at the ED on 11/12/23. Accompanied by: grandson Allergies celecoxib [Celebrex] Allergy (Unknown, Verified 11/18/23 14:03) rash penicillin G Allergy (Unknown, Verified 11/18/23 14:03) rash Penicillins [PENICILLINS] Allergy (Unknown, Verified 11/18/23 14:03) HIVES, rash HPI HPI [employer]/ED referral for temporal arteritis: Details: Very pleasant 88-year-old female presents for evaluation regarding right temporal headaches. She originally presented to the emergency room on 11/12/2023. She woke up with headaches that have been intermittent. She actually noted that while tapping on the side of the head it was increasingly painful. She was treated in the emergency room and subsequently received prednisone. She did feel some relief after that. She now presents for vascular evaluation. [facility] Medical History Hearing loss Annual physical exam Vertigo Anemia Vertigo UTI (urinary tract infection) CKD (chronic kidney disease), stage III Iron deficiency anemia Pernicious anemia HTN (hypertension) Hyperlipidemia Diabetes Surgical History History of esophagogastroduodenoscopy (EGD) S/P ERCP S/P cholecystectomy History of breast biopsy History of ERCP Family History Father Cancer Mother Colon cancer Social History Housing: House Alcohol intake: never Patient Tobacco Use Status: Never used Tobacco e-Cigarette/Vaping Use: Never Used Current occupational status: retired Cognitive needs: No Hearing needs: Yes Vision needs: Yes Review of Systems Const All systems reviewed & are unremarkable except as noted in HPI and below Reports no additional complaints ENT Reports Normal hearing present Card Denies chest pain, Denies chest pain at rest, Denies chest pain with activity and Denies pedal edema Resp Denies cough GI Denies abdominal pain Musc Denies abnormal gait, Denies muscle cramps and Denies radiating pain into limb Skin/Breast Denies skin ulcer and Denies wounds Neuro Reports Normal hearing present and Denies abnormal gait Psych Reports no additional complaints Physical Exam Const General: cooperative, healthy appearing and comfortable Orientation/consciousness: oriented to person, oriented to place and oriented to time HEENT Head: Yes normal to inspection Neck Neck: Yes normal visual inspection Carotids: no bruits Chest Chest palpation & inspection: normal inspection of the chest Resp Effort & Inspection: normal respiratory effort and able to speak in complete sentences Auscultation: clear to auscultation bilaterally, no crackles, no rales, no rhonchi and no wheezes Cardio Rate: regular rate Rhythm: regular rhythm Heart sounds: S1 normal heart sound present and S2 normal heart sound present Bruits: no carotid bruits Peripheral pulses: Peripheral pulses 2+ throughout GI Inspection: Yes normal to inspection Skin Wounds: no wounds Hair: normal Neuro General: oriented to person, oriented to place and oriented to time Cranial nerves: Yes CN's II-XII intact bilaterally and Yes Normal hearing present Cognition (Neuro): normal cognition Motor exam (neuro): 5/5 motor strength present throughout Extrem Other: venous exam: No significant superficial varicosities or spider telangiectasias, minimal edema General: No clubbing, No cyanosis and No edema Psych Appearance: grossly normal Mental Status: mental status grossly normal Speech and movement: Normal speech and movement present Results Reviewed Results Reviewed: ESR of 49 CRP of 0.46 Assessment & Plan Assessment & Plan (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 The patient will require right temporal artery biopsy. Risks benefits complications were discussed in detail with the patient. She will be scheduled as soon as possible. Thank you for allowing us to assist in her care. If there are any questions or concerns please do not hesitate to contact us.
== END 2023-11-18 14:35 | disposition home or self-care (01) ==
PROVIDERS: PCP Internal Medicine; Visit Provider Surgery Vascular Surgery
DX: M31.6 Other giant cell arteritis (principal)
CPT/HCPCS: 99204

== ENCOUNTER → 2023-11-18 13:48 | Outpatient (BNVA) | payer MEDICARE, SELFPAY | PROVIDERS: PCP Internal Medicine; Visit Provider Surgery Vascular Surgery | DX: M31.6 Other giant cell arteritis (principal) | CPT/HCPCS: 99202 ==

== ENCOUNTER 2023-11-22 08:50 | Day surgery (SDC) | payer MEDICARE, SELFPAY ==
--- NOTE | 2023-11-22 07:50 | MHC.SHP ---
Pre-Procedural Eval Section A - 24 Hr Update-Section A only Date of Service: 11/22/23 The patient is an INPATIENT: No Changes since office visit: Yes Patient answered all questions The patient has been examined within 24 hours of the surgical procedure. The History & Physical has been completed within 30 days and I have reviewed it.: Yes Section B - Complete if H&P > 30 days Chief Complaint: Other giant cell arteritis Allergies: Allergies Allergy/AdvReac Type Severity Reaction Status Date / Time celecoxib [Celebrex] Allergy Unknown rash Verified 11/18/23 14:03 penicillin G Allergy Unknown rash Verified 11/18/23 14:03 Penicillins [PENICILLINS] Allergy Unknown HIVES, rash Verified 11/18/23 14:03 Plan I have reviewed the history and physical and performed a pertinent physical examination on my patient. No changes have occurred unless specified. Time Spent With Patient Time: Total time managing care of this patient today ____ minutes.
[2023-11-22 09:10] VITALS: BMI 27.1
[2023-11-22 09:33] VITALS: BP 173/89; PULSE 82; RESP 16; TEMP 36.3; O2SAT 98
[2023-11-22] MEDS: Lactated Ringers 1,000 ML 80 ML IVCONT (09:36)
[2023-11-22 09:43] LABS: Glucose, Whole Blood 264 mg/dL (60-115)
--- NOTE | 2023-11-22 09:48 | HO.ANESPROP2 ---
HPI - Anesthesia Eval Consult details Narrative: 88 yo female patient for Right temporal artery biopsy PMFSH Active Problems Active Problems: All Active Problems Giant cell arteritis (Acute) Diarrhea (Acute) Zoster (Acute) Hearing loss (Acute) Annual physical exam (Acute) Vertigo (Acute) Anemia (Acute) HTN (hypertension) (Acute) Vertigo (Acute) Dysuria (Acute) Dizziness (Acute) Diabetes (Acute) Hyperlipidemia (Acute) UTI (urinary tract infection) (Acute) Epigastric pain (Acute) CKD (chronic kidney disease), stage III (Acute) Past Medical History Medical History Hearing loss Annual physical exam Vertigo Anemia Vertigo UTI (urinary tract infection) CKD (chronic kidney disease), stage III Iron deficiency anemia Pernicious anemia HTN (hypertension) Hyperlipidemia Diabetes Family History Family History Father Cancer Mother Colon cancer Family history of problems with anesthesia: No Surgical History Surgical History History of esophagogastroduodenoscopy (EGD) S/P ERCP S/P cholecystectomy History of breast biopsy History of ERCP History of Problems with Anesthesia: No Social History Social History Housing: House Alcohol intake: never Patient Tobacco Use Status: Never used Tobacco e-Cigarette/Vaping Use: Never Used Use of substances other than those prescribed or required for medical reasons: No Are you DNR?: No Advance Directives: No Advance Directives Information Provided: Yes Current occupational status: retired Cognitive needs: No Hearing needs: Yes Vision needs: Yes Meds Allergies Allergy/AdvReac Type Severity Reaction Status Date / Time celecoxib [Celebrex] Allergy Unknown rash Verified 11/22/23 09:15 penicillin G Allergy Unknown rash Verified 11/22/23 09:15 Penicillins [PENICILLINS] Allergy Unknown HIVES, rash Verified 11/22/23 09:15 Active Medications: Current Medications Lactated Ringer's (Lr) 1,000 mls @ 80 mls/hr IVCONT .[id number] Last Admin: 11/22/23 09:36 Dose: 80 mls/hr Home Medications ?Medication ?Instructions ?Recorded ?Confirmed ?Last Taken ?Type acetaminophen 500 mg capsule 1,000 mg PO TID PRN pain 06/20/20 05/25/23 Unknown History cyanocobalamin (vitamin B-12) 5,000 mcg PO DAILY 06/20/20 11/22/23 11/22/23 History 5,000 mcg disintegrating tablet ferrous fumarate 325 mg (106 mg 325 mg PO DAILY 06/20/20 11/22/23 11/22/23 History iron) tablet erythromycin 5 mg/gram (0.5 %) eye ophthalmic (eye) TID 11/18/23 Unknown History ointment famotidine 40 mg tablet 40 mg PO DAILY 11/18/23 11/22/23 11/22/23 History Exam Height,Weight and Vital Signs: Height 5 ft 8 in Weight 80.739 kg Last Vital Signs Temp 97.3 F 11/22/23 09:33 Pulse 82 11/22/23 09:33 Resp 16 11/22/23 09:33 BP 173/89 H 11/22/23 09:33 Pulse Ox 98 11/22/23 09:33 O2 Del Method Room Air 11/22/23 09:33 Pertinent Lab Results Pertinent Lab Results: Laboratory Tests 11/22/23 09:33 POC Glucose 264 H Airway Mallampati Class: III TM Dist: >3cm Neck ROM: Full Loose/Missing/Broken Teeth: Yes (Only a few teeth bottom. Denies broken or loose. Left dentures at home) Heart: RRR Lungs: CTAB Assessment and Plan Assessment Anesthesia Assessment: Anesthesia Plan Discussed and Chart Reviewed Final Anesthetic Review Family History of Problems with Anesthesia: No History of Problems with Anesthesia: No NPO: Yes ASA Class: III Final Preanesthetic Review: No Changes in Pt Med Stat, Meds/Allgs Chart Reviewed, Consent Obtained/Reviewed and Anes Risks/Benef Reviewed Patient Risk: Intermediate Procedure Risk: Low Assessment/Block/Sedation in SS: Assess/Block/Sedation-SS Anesthetic Plan Anesthetic Plan: MAC: Disposition: Standard PACU
[2023-11-22 11:42] VITALS: BP 152/89; PULSE 74; RESP 16; TEMP 36.1; O2SAT 98
[2023-11-22 11:57] VITALS: BP 163/85; PULSE 79; RESP 16; TEMP 36.1; O2SAT 99
--- NOTE | 2023-11-22 12:10 | W.PM.OPN ---
Operative Note Operative Note Date of Service: 11/22/23 Narrative: Operative note by [facility] Preoperative diagnosis: Giant cell arteritis Postoperative diagnosis: Same Procedure: Right temporal artery biopsy Surgeon:Hector Houston M.D. Change Consultant: None Anesthesia: Local with sedation performed by Dr. Lazo Specimens: 1 Drains: None Estimated blood loss: Minimal Indications: Very pleasant 88-year-old female who presented to the emergency room with temporal headaches. She had a significant amount of pain. She was noted to have elevated ESR and CRP. She now presents for operative intervention. The patient has signed the informed consent after reviewing risks, complications, benefits, and alternatives previously discussed with the patient. The patient was given the opportunity to ask any additional questions or voice any concerns. All questions were answered to the patient's satisfaction. Procedure in detail: Patient was brought to the operating room prior to which a time-out was called for patient identification and site verification. Incision was carried out right anterior to the ear. Is approximately 3-5 cm in length. It went down into the skin subQ down to the temporal artery. This was confirmed by Doppler. Proximally a 3 cm segment of the temporal artery was removed ends were ligated with 3-0 silk ties. This was then passed off the table as specimen. Wound was irrigated thoroughly. Adequate hemostasis was achieved. Deep layer was reapproximated using 3-0 poly Sorb and finally skin was reapproximated using 4-0 Monocryl in a subcuticular manner. Patient tolerated the procedure well returned to recovery with stable vitals. This note is constructed using voice recognition software. While every effort has been made to ensure accuracy, fleshing machine operator errors may have been included. Thank you for allowing me to participate in the care of your patient. Yours sincerely, Hector Houston MD, FACS, R.P.V.I.
== END 2023-11-22 12:32 | disposition home or self-care (01) ==
PROVIDERS: PCP Internal Medicine; Visit Provider Surgery Vascular Surgery
PROC: (CPT 37609; principal; 2023-11-22 10:40)
DX: I77.89 Other specified disorders of arteries and arterioles (principal); R51.0 Headache with orthostatic component, not elsewhere classified; R42 Dizziness and giddiness; R70.0 Elevated erythrocyte sedimentation rate; R79.82 Elevated C-reactive protein (CRP); E11.22 Type 2 diabetes mellitus with diabetic chronic kidney disease; I12.9 Hypertensive chronic kidney disease with stage 1 through stage 4 chronic kidney disease, or unspecified chronic kidney disease; N18.30 Chronic kidney disease, stage 3 unspecified; Z79.4 Long term (current) use of insulin; D50.9 Iron deficiency anemia, unspecified; E78.5 Hyperlipidemia, unspecified; D51.0 Vitamin B12 deficiency anemia due to intrinsic factor deficiency; Z79.899 Other long term (current) drug therapy; Z88.0 Allergy status to penicillin; Z88.8 Allergy status to other drugs, medicaments and biological substances; Z98.890 Other specified postprocedural states
CPT/HCPCS: 37609; 82947; 88305; A4364; J1596; J2704; J2795

== ENCOUNTER → 2023-11-22 08:50 | Outpatient (BNV) | payer MEDICARE, SELFPAY | PROVIDERS: PCP Internal Medicine; Visit Provider Surgery Vascular Surgery | DX: M31.6 Other giant cell arteritis (principal) | CPT/HCPCS: 37609 ==

== ENCOUNTER 2023-12-06 08:07 | Outpatient (REF) | payer MEDICARE, SELFPAY ==
[2023-12-06 10:32] LABS: MANUAL DIFF FLAG NO
[2023-12-06 10:50] LABS: Estimated Average Glucose 220 mg/dL; Hemoglobin A1c % 9.3 % (<6.0)
[2023-12-06 11:02] LABS: Basophils Percent Auto 0.5 % (0-2); Eosinophils Absolute Auto 0.2 X10*3/uL (0.0-0.4); Eosinophils Percent Auto 2.9 % (0-4); Hematocrit 32.5 % (37.0-47.0); Hemoglobin 10.8 g/dl (12.0-16.0); Imm Gran Abs Auto 0.04 X10*3/uL (0.00-0.03); Imm Gran Pct Auto 0.6 % (0.0-0.4); Lymphocytes Absolute Auto 1.4 X10*3/uL (1.2-4.9); Lymphocytes Percent Auto 20.4 % (20-40); Mean Corpuscular HGB Conc 33.2 g/dl (31.0-35.0); Mean Corpuscular Hemoglobin 29.3 pg (27.0-33.0); Mean Corpuscular Volume 88.1 fL (80.0-98.0); Mean Platelet Volume 9.1 fL (9.4-12.3); Monocytes Absolute Auto 0.8 X10*3/uL (0.1-1.2); Monocytes Percent Auto 11.5 % (2-11); Neutrophils Absolute Auto 4.3 x10*3/uL (2.0-8.3); Neutrophils Percent Auto 64.1 % (45-73); Red Blood Count 3.69 X10*6/uL (4.20-5.50); Red Cell Distribution Width 13.3 % (11.0-16.0); White Blood Count 6.6 X10*3/uL (4.8-10.8)
[2023-12-06 11:04] LABS: Platelet Count 139 X10*3/uL (160-400)
[2023-12-06 11:06] LABS: Alanine Aminotransferase 19 U/L (0-31); Albumin Level 3.6 g/dL (3.5-5.0); Alkaline Phosphatase 57 U/L (39-117); Anion Gap 14 (12-20); Aspartate Amino Transferase 14 U/L (5-31); Bilirubin Total 0.4 mg/dL (0.0-1.0); Blood Urea Nitrogen 19 mg/dL (9-16); Carbon Dioxide 24 mmol/L (22-29); Chloride 108 mmol/L (96-108); Cholesterol 162 mg/dL (<200); Estimated Glomerular Filt Rate 48; Glucose Fasting 197 mg/dL (60-99); HDL Cholesterol 53 mg/dL (>40); Iron 39 mcg/dL (30-160); LDL Cholesterol Calculated 80 mg/dL (<100); Percent Iron Saturation 17 % (15-50); Potassium 5.1 mmol/L (3.3-5.1); Sodium 141 mmol/L (135-145); Total Iron Binding Capacity 225 mcg/dL (228-428); Triglycerides 145 mg/dL (<150); Unsaturated Iron Binding 186 ug/dL
[2023-12-06 11:22] LABS: TSH reflex Free T4 2.62 uIU/mL (0.32-4.0)
== END 2023-12-06 08:08 | disposition home or self-care (01) ==
LOC: HO.HMGCLDS 08:07
PROVIDERS: PCP Internal Medicine; Visit Provider Internal Medicine
DX: I10 Essential (primary) hypertension (principal); E11.9 Type 2 diabetes mellitus without complications; E78.5 Hyperlipidemia, unspecified; D64.9 Anemia, unspecified; N18.30 Chronic kidney disease, stage 3 unspecified; N39.0 Urinary tract infection, site not specified
CPT/HCPCS: 36415; 80053; 80061; 83036; 83540; 84443; 85025

== ENCOUNTER 2023-12-08 10:07 | Outpatient (AMB) | payer MEDICARE, SELFPAY ==
[2023-12-08 10:24] VITALS: BP 132/64; PULSE 89; O2SAT 95; BMI 26.1
--- NOTE | 2023-12-08 10:24 | MHC.PC.OV ---
Vital Signs 12/08/23 10:24 Height 5 ft 8 in Weight 172 lb BMI 26.1 BP 132/64 Blood Pressure Location Lt brachial Position Sitting Pulse 89 Pulse Source Pulse Oximeter Pulse Oximetry (%) 95 Oxygen Delivery Method Room Air Intake Visit Reasons: 6 month fu Intake Note: Pt is here today for 6 months follow up visit. Allergies celecoxib [Celebrex] Allergy (Unknown, Verified 12/08/23 10:29) rash penicillin G Allergy (Unknown, Verified 12/08/23 10:29) rash Penicillins [PENICILLINS] Allergy (Unknown, Verified 12/08/23 10:29) HIVES, rash Medication List - Last Reconciled 12/08/23 by Sherron Villanueva MD acetaminophen 1,000 mg PO TID PRN acetaminophen ER (Tylenol Arthritis Pain) 650 mg PO Q12H PRN amlodipine 5 mg PO DAILY blood sugar diagnostic ([employer] Ultra Test strips) qd blood-glucose sensor (DexMagick.nu G7 Sensor device) As directed cyanocobalamin (vitamin B-12) 5,000 mcg PO DAILY diabetic supplies, Blur[employer]ellan. diabetic shoes famotidine 40 mg PO DAILY ferrous fumarate 325 mg PO DAILY insulin glargine (Lantus Solostar U-100 Insulin) 20 units (0.2 mL) subcut QPM latanoprost 0.005% 1 drp ophthalmic (eye) QPM lisinopril 40 mg PO DAILY meclizine 25 mg PO TID PRN mupirocin 2% 1 appl topical BID pen needle, diabetic (BD Ultra-Fine Mini Pen Needle) As directed to inject insulin once a day sertraline 50 mg PO DAILY simvastatin 40 mg PO DAILY Tobacco use date assessed: 12/08/23 Fall risk assessment: 1 Fall in past year Last assessed Fall Risk: 12/08/23 Dental Screening Dental Screen Date: 12/08/23 Did you have a dental visit in the last 12 months?: No Did you have a dental problem in the last 6 months where you did not have access to dental care?: No Was dental information given to patient?: Patient declined HPI 6 month fu HPI Details Patient presents for the follow-up of type 2 diabetes. She reports persistently elevated blood glucose readings between 200-300 fasting despite taking 10 units of Lantus. Patient had negative biopsy of temporal artery and stopped taking prednisone 2 weeks ago. Patient denies any recurrent headaches, polyuria polydipsia. Hypertension and hyperlipidemia are controlled on current meds [facility] Medical History Hearing loss Annual physical exam Vertigo Anemia Vertigo UTI (urinary tract infection) CKD (chronic kidney disease), stage III Iron deficiency anemia Pernicious anemia HTN (hypertension) Hyperlipidemia Diabetes Surgical History History of esophagogastroduodenoscopy (EGD) S/P ERCP S/P cholecystectomy History of breast biopsy History of ERCP Family History Father Cancer Mother Colon cancer Social History Housing: House Alcohol intake: never Patient Tobacco Use Status: Never used Tobacco e-Cigarette/Vaping Use: Never Used service: No Current occupational status: retired Cognitive needs: No Hearing needs: Yes Vision needs: Yes Questionnaire Thrive Questionnaire Date Thrive assessed: 12/07/22 AUDIT C Alcohol Use Questionnaire (AUDIT-C) 1. How often do you have a drink containing alcohol?: Never 3. How often do you have six or more drinks on one occasion?: Never Total Score: 0 JADE-7 AMB Questionnaire JADE-7 Date JADE - 7 assessed: 12/07/22 Feeling nervous, anxious, or on edge: 0 = Not at all Not being able to stop or control worryin = Not at all Worrying too much about different things: 0 = Not at all Trouble relaxin = Not at all Being so restless that it is hard to sit still: 0 = Not at all Becoming easily annoyed or irritable: 1 = Several days Feeling afraid as if something awful might happen: 0 = Not at all Total JADE-7 score (0-4 normal; 5-9 mild; 10-14 moderate; 15-21 severe): 1 Source: Developed by Drs. Rommel Simmons, Tamie Child, Karl Capone and colleagues, with an educational louis from [employer] Review of Systems Const All systems reviewed & are unremarkable except as noted in HPI and below Eyes Reports no additional complaints Card Reports no additional complaints Resp Reports no additional complaints GI Reports no additional complaints Reports no additional complaints Physical exam (Primary Care) Vital Signs: Last Vital Signs Pulse 89 12/08/23 10:24 BP 132/64 12/08/23 10:24 Pulse Ox 95 12/08/23 10:24 Oxygen Delivery Method Room Air 12/08/23 10:24 BMI result Body Mass Index 26.1 Tobacco/Smoking Status: Tobacco use Status Tobacco use date assessed 12/08/23 12/08/23 10:33 Patient Tobacco Use Status Never used Tobacco 12/08/23 10:33 e-Cigarette/Vaping Use Never Used 12/08/23 10:24 Thrive Assessment: Date of Thrive Assessment Date Thrive assessed 12/07/22 12/08/23 10:24 Const General: no acute distress HENMT Head: Yes normal to inspection Mouth: Normal oral and palatal mucosa present Neck Neck: Yes supple Resp Effort & Inspection: normal respiratory effort Auscultation: clear to auscultation bilaterally Cardio Rhythm: regular rhythm Heart sounds: S1 normal heart sound present and S2 normal heart sound present GI Inspection: Yes normal to inspection Assessment and Plan Assessment & Plan (1) Diabetes: Comment: A1C less than 8 Code(s): E11.9 - Type 2 diabetes mellitus without complications Plan: Increase Lantus to 20 units , patient will start monitoring with Dexcom to detect hypoglycemia, ADA diet regular physical activity discussed with the patient. Follow-up in 1 month (2) Hyperlipidemia: Code(s): E78.5 - Hyperlipidemia, unspecified Plan: Continue statin (3) CKD (chronic kidney disease), stage III: Code(s): N18.30 - Chronic kidney disease, stage 3 unspecified Plan: Monitor renal function avoid nephrotoxins Orders: Orders Comprehensive Met. Panel 1 Month E11.9 - Type 2 diabetes mellitus without complications, E78.5 - Hyperlipidemia, unspecified, N18.30 - Chronic kidney disease, stage 3 unspecified Complete Blood Count Auto Diff 1 Month E11.9 - Type 2 diabetes mellitus without complications, E78.5 - Hyperlipidemia, unspecified, N18.30 - Chronic kidney disease, stage 3 unspecified Medications: New blood-glucose sensor (Dexcom G7 Sensor device) As directed 3 ea 3RF Changed From insulin glargine (Lantus Solostar U-100 Insulin) 10 units (0.1 mL) subcut QPM 15 mL 0RF To insulin glargine (Lantus Solostar U-100 Insulin) 20 units (0.2 mL) subcut QPM 15 mL 0RF Refilled simvastatin 40 mg PO DAILY 90 tabs 3RF E78.5 - Hyperlipidemia, unspecified lisinopril 40 mg PO DAILY 90 tabs 3RF meclizine 25 mg PO TID PRN 30 tabs 0RF for dizziness Coding Level of Care Code Est Pt Level 4 (08953) Diagnoses Diabetes E11.9 Hyperlipidemia E78.5 CKD (chronic kidney disease), stage III N18.30
== END 2023-12-08 11:17 | disposition home or self-care (01) ==
PROVIDERS: PCP Internal Medicine; Visit Provider Internal Medicine
DX: E11.69 Type 2 diabetes mellitus with other specified complication (principal); E78.5 Hyperlipidemia, unspecified; N18.30 Chronic kidney disease, stage 3 unspecified
CPT/HCPCS: 99214

== ENCOUNTER 2024-01-03 14:10 | Outpatient (AMB) | payer MEDICARE, SELFPAY ==
--- NOTE | 2024-01-03 14:21 | MHC.PC.OV ---
Vital Signs 01/03/24 14:23 Height 5 ft 8 in Weight 171 lb BMI 26.0 BP 118/64 Blood Pressure Location Lt brachial Position Sitting Pulse 92 Pulse Source Pulse Oximeter Pulse Oximetry (%) 96 Oxygen Delivery Method Room Air Intake Visit Reasons: 1 month follow up before [address] Jayashree camara for keo Intake Note: Pt is here today for 1 month follow up visit. Allergies celecoxib [Celebrex] Allergy (Unknown, Verified 12/08/23 10:29) rash penicillin G Allergy (Unknown, Verified 12/08/23 10:29) rash Penicillins [PENICILLINS] Allergy (Unknown, Verified 12/08/23 10:29) HIVES, rash Medication List - Last Reconciled 01/03/24 by Sherron Villanueva MD acetaminophen 1,000 mg PO TID PRN acetaminophen ER (Tylenol Arthritis Pain) 650 mg PO Q12H PRN amlodipine 5 mg PO DAILY blood sugar diagnostic ([employer]Touch Ultra Test strips) qd blood-glucose sensor (DexZeOmega G7 Sensor device) As directed cyanocobalamin (vitamin B-12) 5,000 mcg PO DAILY diabetic supplies, [employer]ellan. diabetic shoes famotidine 40 mg PO DAILY ferrous fumarate 325 mg PO DAILY insulin glargine (Lantus Solostar U-100 Insulin) 20 units (0.2 mL) subcut QPM latanoprost 0.005% 1 drp ophthalmic (eye) QPM lisinopril 40 mg PO DAILY meclizine 25 mg PO TID PRN mupirocin 2% 1 appl topical BID pen needle, diabetic (BD Ultra-Fine Mini Pen Needle) As directed to inject insulin once a day sertraline 50 mg PO DAILY simvastatin 40 mg PO DAILY Tobacco use date assessed: 12/08/23 Dental Screening Dental Screen Date: 12/08/23 HPI 1 month follow up before dr Jayashree camara for keo HPI Details Patient presents for the follow-up of insulin-dependent diabetes. She reports improved fasting blood glucose readings between 110-140. Patient reports feeling tired but denies chest pain shortness of breath PND orthopnea or dizziness. [facility] Medical History Hearing loss Annual physical exam Vertigo Anemia Vertigo UTI (urinary tract infection) CKD (chronic kidney disease), stage III Iron deficiency anemia Pernicious anemia HTN (hypertension) Hyperlipidemia Diabetes Surgical History History of esophagogastroduodenoscopy (EGD) S/P ERCP S/P cholecystectomy History of breast biopsy History of ERCP Family History Father Cancer Mother Colon cancer Social History Housing: House Alcohol intake: never Patient Tobacco Use Status: Never used Tobacco e-Cigarette/Vaping Use: Never Used service: No Current occupational status: retired Cognitive needs: No Hearing needs: Yes Vision needs: Yes Questionnaire Thrive Questionnaire Date Thrive assessed: 12/07/22 JADE-7 AMB Questionnaire JADE-7 Date JADE - 7 assessed: 12/07/22 Source: Developed by Drs. Rommel Simmons, Tamie Child, Karl Capone and colleagues, with an educational louis from [employer]. Review of Systems ENT Reports no additional complaints Card Reports no additional complaints Resp Reports no additional complaints GI Reports no additional complaints Reports no additional complaints Physical exam (Primary Care) Vital Signs: Last Vital Signs Pulse 92 01/03/24 14:23 BP 118/64 01/03/24 14:23 Pulse Ox 96 01/03/24 14:23 Oxygen Delivery Method Room Air 01/03/24 14:23 BMI result Body Mass Index 26.0 Tobacco/Smoking Status: Tobacco use Status Tobacco use date assessed 12/08/23 01/03/24 14:23 Patient Tobacco Use Status Never used Tobacco 01/03/24 14:23 e-Cigarette/Vaping Use Never Used 01/03/24 14:23 Thrive Assessment: Date of Thrive Assessment Date Thrive assessed 12/07/22 01/03/24 14:23 Const General: no acute distress HENMT Head: Yes normal to inspection Face and sinus: Yes normal facial exam Eyes General: appearance normal, both eyes and all related structures Neck Neck: Yes supple Resp Effort & Inspection: normal respiratory effort Auscultation: clear to auscultation bilaterally Cardio Rhythm: regular rhythm Heart sounds: S1 normal heart sound present and S2 normal heart sound present GI Inspection: Yes normal to inspection Palpation (GI): Soft to palpation Percussion: Yes normal to percussion Auscultation: normal bowel sounds Assessment and Plan Assessment & Plan (1) Hyperlipidemia: Code(s): E78.5 - Hyperlipidemia, unspecified Plan: cont simvastatin (2) HTN (hypertension): Comment: BP goal less than 130/80 Code(s): I10 - Essential (primary) hypertension Plan: Continue current medications (3) CKD (chronic kidney disease), stage III: Code(s): N18.30 - Chronic kidney disease, stage 3 unspecified Plan: Avoid nephrotoxin and monitor renal function (4) Giant cell arteritis: Comment: in remission Code(s): M31.6 - Other giant cell arteritis Plan: Monitor for recurrence of the symptoms (5) Insulin use (long-term) in type 2 diabetes: Code(s): E11.9 - Type 2 diabetes mellitus without complications; Z79.4 - nursing home (current) use of insulin Plan: Continue 28 units of Lantus and monitor fasting blood glucose, ADA diet regular physical activity discussed with the patient. Follow-up in 3 months with a fasting labs before (6) Anemia: Code(s): D64.9 - Anemia, unspecified (7) Vitamin D deficiency: Code(s): E55.9 - Vitamin D deficiency, unspecified Orders: Orders Hemoglobin A1c 3 Months E11.9 - Type 2 diabetes mellitus without complications, E78.5 - Hyperlipidemia, unspecified, I10 - Essential (primary) hypertension, M31.6 - Other giant cell arteritis, N18.30 - Chronic kidney disease, stage 3 unspecified, Z79.4 - long term care pharmacist (current) use of insulin Vitamin B12 and Folate 3 Months D64.9 - Anemia, unspecified, E11.9 - Type 2 diabetes mellitus without complications, E78.5 - Hyperlipidemia, unspecified, I10 - Essential (primary) hypertension, M31.6 - Other giant cell arteritis, N18.30 - Chronic kidney disease, stage 3 unspecified, Z79.4 - long term care pharmacist (current) use of insulin Vitamin D 25-OH Total 3 Months E11.9 - Type 2 diabetes mellitus without complications, E55.9 - Vitamin D deficiency, unspecified, E78.5 - Hyperlipidemia, unspecified, I10 - Essential (primary) hypertension, M31.6 - Other giant cell arteritis, N18.30 - Chronic kidney disease, stage 3 unspecified, Z79.4 - long term care pharmacist (current) use of insulin IRON PROFILE 3 Months E11.9 - Type 2 diabetes mellitus without complications, E78.5 - Hyperlipidemia, unspecified, I10 - Essential (primary) hypertension, M31.6 - Other giant cell arteritis, N18.30 - Chronic kidney disease, stage 3 unspecified, Z79.4 - long term care pharmacist (current) use of insulin Comprehensive [place]. Panel Fast 3 Months E11.9 - Type 2 diabetes mellitus without complications, E78.5 - Hyperlipidemia, unspecified, I10 - Essential (primary) hypertension, M31.6 - Other giant cell arteritis, N18.30 - Chronic kidney disease, stage 3 unspecified, Z79.4 - long term care pharmacist (current) use of insulin Lipid Panel 3 Months E11.9 - Type 2 diabetes mellitus without complications, E78.5 - Hyperlipidemia, unspecified, I10 - Essential (primary) hypertension, M31.6 - Other giant cell arteritis, N18.30 - Chronic kidney disease, stage 3 unspecified, Z79.4 - long term care pharmacist (current) use of insulin Complete Blood Count Auto Diff 3 Months E11.9 - Type 2 diabetes mellitus without complications, E78.5 - Hyperlipidemia, unspecified, I10 - Essential (primary) hypertension, M31.6 - Other giant cell arteritis, N18.30 - Chronic kidney disease, stage 3 unspecified, Z79.4 - nursing home (current) use of insulin Medications: Refilled blood sugar diagnostic (GuestD[employer]enTouch Ultra Test strips) qd 100 ea 3RF E11.9 - Type 2 diabetes mellitus without complications Coding Level of Care Code Est Pt Level 4 (64112) Diagnoses Hyperlipidemia E78.5 HTN (hypertension) I10 CKD (chronic kidney disease), stage III N18.30 Giant cell arteritis M31.6 Insulin use (long-term) in type 2 diabetes E11.9; Z79.4 Anemia D64.9 Vitamin D deficiency E55.9
[2024-01-03 14:23] VITALS: BP 118/64; PULSE 92; O2SAT 96; BMI 26.0
== END 2024-01-03 14:48 | disposition home or self-care (01) ==
PROVIDERS: PCP Internal Medicine; Visit Provider Internal Medicine
DX: E11.22 Type 2 diabetes mellitus with diabetic chronic kidney disease (principal); N18.30 Chronic kidney disease, stage 3 unspecified; M31.6 Other giant cell arteritis; Z79.4 Long term (current) use of insulin; E78.5 Hyperlipidemia, unspecified; I10 Essential (primary) hypertension; D64.9 Anemia, unspecified; E55.9 Vitamin D deficiency, unspecified
CPT/HCPCS: 99214

== ENCOUNTER 2024-01-23 15:05 | Emergency (ER) | payer MEDICARE, SELFPAY ==
--- NOTE | ~2024-01-23 | XR_ITS ---
EXAMINATION: XR HIP, LEFT CLINICAL INFORMATION: Pain COMPARISON: None available. TECHNIQUE: Two views of the left hip. One view of the pelvis FINDINGS: Bone alignment is normal. No fracture or dislocation. 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 There is arthritis at the sacroiliac joints, left greater than right. There are degenerative changes of the visualized lower lumbar spine. There is atherosclerotic disease. XR/XR hip LT w PEL1V IMPRESSION: Degenerative changes. No fracture or dislocation.
--- NOTE | ~2024-01-23 | XR_ITS ---
EXAMINATION: XR LUMBOSACRAL SPINE CLINICAL INFORMATION: Back pain COMPARISON: Radiograph from 04/21/2023 TECHNIQUE: Three views of the lumbosacral spine. FINDINGS: 5 nonrib-bearing lumbar-type vertebral bodies. No acute visible fracture or dislocation. Dextrocurvature of the mid lumbar spine. Slight grade 1 anterolisthesis of L3 on L4 and L4 and L5. Multilevel degenerative changes disc space narrowing, endplate sclerosis, osteophyte formation, vacuum disc phenomenon, and lower lumbar spine facet arthropathy. Vertebral body heights and spaces are otherwise maintained. Posterior elements are intact. Paraspinal soft tissues are unremarkable. Degenerative changes bilateral sacroiliac joints. Visualized bowel gas is unremarkable. Surgical clips right upper abdomen. XR/XR lumbar spine 2-3V IMPRESSION: 1. No acute visible fracture or dislocation. 2. Dextrocurvature of the mid lumbar spine. 3. Slight grade 1 anterolisthesis of L3 on L4 and L4 and L5. 4. Multilevel degenerative changes.
[2024-01-23 15:09] VITALS: BP 140/61; PULSE 87; RESP 18; TEMP 36.4; O2SAT 98; BMI 29.1
--- NOTE | 2024-01-23 15:31 | ED.GENADULT ---
HPI - General Adult General Chief complaint: Back Pain/Injury Stated complaint: pain from butt down leg Time Seen by Provider: 01/23/24 15:42 Source: patient and family Mode of arrival: ambulatory Limitations: no limitations History of Present Illness ED Provider: Maritza Perea APRN HPI narrative: 88-year-old female with a history of diabetes, chronic kidney disease, hypertension, hyperlipidemia presents the ER with complaints of left lower back pain with radiates to the left buttock for 1 month. Pain is worsened with lifting her left leg. She denies any urinary symptoms. no associated weakness, numbness, tingling of lower extremities. No numbness in the groin. No fevers or chills. Patient has been able to ambulate at home with no difficulty. She has been trying to take Tylenol with continued symptoms. Related Data Home Medications ?Medication ?Instructions ?Recorded ?Confirmed acetaminophen 500 mg capsule 1,000 mg PO TID PRN pain 06/20/20 01/03/24 cyanocobalamin (vitamin B-12) 5,000 mcg PO DAILY 06/20/20 01/03/24 5,000 mcg disintegrating tablet ferrous fumarate 325 mg (106 mg 325 mg PO DAILY 06/20/20 01/03/24 iron) tablet famotidine 40 mg tablet 40 mg PO DAILY 11/18/23 01/03/24 Previous Rx's ?Medication ?Instructions ?Recorded latanoprost 0.005 % eye drops 1 drp ophthalmic (eye) QPM #7.5 mL 11/25/21 diabetic supplies, miscellan. #1 ea 07/03/22 mupirocin 2 % topical ointment 1 appl topical BID #22 grams 12/07/22 acetaminophen 650 mg 650 mg PO Q12H PRN pain #60 tabs 04/21/23 tablet,extended release (Tylenol Arthritis Pain) amlodipine 5 mg tablet 5 mg PO DAILY #90 tabs 08/21/23 sertraline 50 mg tablet 50 mg PO DAILY #90 tabs 09/07/23 pen needle, diabetic 31 gauge x #100 ea 11/25/23/ (BD Ultra-Fine Mini Pen Needle) insulin glargine 100 unit/mL (3 20 unit (0.2 mL) subcut QPM #15 mL 12/08/23 mL) subcutaneous pen (Lantus Solostar U-100 Insulin) lisinopril 40 mg tablet 40 mg PO DAILY #90 tabs 12/08/23 meclizine 25 mg tablet 25 mg PO TID PRN for dizziness #30 12/08/23 tabs simvastatin 40 mg tablet 40 mg PO DAILY #90 tabs 12/08/23 blood-glucose sensor (Dexcom G7 #3 ea 12/12/23 Sensor device) blood sugar diagnostic (OneTouch #100 ea 01/03/24 Ultra Test strips) cefuroxime axetil 500 mg tablet 500 mg PO BID #14 tabs 01/23/24 cyclobenzaprine 5 mg tablet 5 mg PO TID PRN muscle spasm #15 01/23/24 tabs lidocaine 5 % topical patch 1 patch topical DAILY #15 ea 01/23/24 (Lidoderm) Allergies Allergy/AdvReac Type Severity Reaction Status Date / Time celecoxib [Celebrex] Allergy Unknown rash Verified 01/23/24 15:11 penicillin G Allergy Unknown rash Verified 01/23/24 15:11 Penicillins [PENICILLINS] Allergy Unknown HIVES, rash Verified 01/23/24 15:11 Review of Systems Review of Systems: Yes all other systems are reviewed and are negative Constitutional: Constitutional: Reports no additional constitutional complaints, Denies body ache(s), Denies chills, Denies fever(s), Denies headache(s) and Denies weakness Eyes: Eyes: Reports no additional eye complaints and Denies change in vision ENT: Reports system reviewed and no additional complaints, except as documented, Denies dizziness, Denies headache(s), Denies nasal congestion, Denies nasal discharge and Denies neck pain Cardiovascular: Cardiovascular: Reports no additional cardiovascular complaints, Denies chest pain, Denies leg edema and Denies dyspnea Respiratory: Respiratory: Reports no additional respiratory complaints, Denies cough and Denies dyspnea Gastrointestinal: Gastrointestinal: Reports no additional gastrointestinal complaints, Denies abdominal pain, Denies diarrhea, Denies nausea and Denies vomiting Genitourinary: Genitourinary: Reports no additional female genitourinary complaints and Denies urinary incontinence Musculoskeletal: Musculoskeletal: Reports no additional musculoskeletal complaints, Reports back pain, Denies arthralgias, Denies joint swelling, Denies neck pain, Denies numbness, Reports radiating pain into limb and Denies tingling Integumentary/Breasts: Skin/Breast: Reports system reviewed and no additional complaints, except as docu and Denies rash Neurologic: Reports system reviewed and no additional complaints, except as documented, Denies Abnormal speech present, Denies dizziness, Denies headache(s), Denies numbness, Denies tingling and Denies weakness PMFSH Past Medical History Attestation statement: The following information was validated with the patient. Source: old records reviewed and nursing notes reviewed Medical History Hearing loss Annual physical exam Vertigo Anemia Vertigo UTI (urinary tract infection) CKD (chronic kidney disease), stage III Iron deficiency anemia Pernicious anemia HTN (hypertension) Hyperlipidemia Diabetes Surgical History History of esophagogastroduodenoscopy (EGD) S/P ERCP S/P cholecystectomy History of breast biopsy History of ERCP Family History Family History Father Cancer Mother Colon cancer Social History Social History Housing: House Alcohol intake: never Patient Tobacco Use Status: Never used Tobacco e-Cigarette/Vaping Use: Never Used Advance Directives: No Advance Directives Information Provided: No Do you have a plan to hurt others: No Plan service: No Current occupational status: retired Cognitive needs: No Hearing needs: Yes Vision needs: Yes Physical Exam ED Vital Signs: Vital Signs - 24 hr 01/23/24 15:09 01/23/24 17:37 01/23/24 17:38 Temperature 97.6 F 98 F Pulse Rate 87 78 78 Respiratory Rate 18 19 19 Blood Pressure 140/61 H 142/69 H 142/69 H Pulse Oximetry 98 98 98 Oxygen Delivery Method Room Air BMI result Body Mass Index 29.1 Const General: cooperative, healthy appearing, comfortable and no acute distress Orientation/consciousness: patient oriented x3 Limitations: no limitations HENMT Head: Yes normal to inspection Ears: hearing grossly normal bilaterally General nose exam: Normal external nose present Face and sinus: Yes normal facial exam Mouth: Normal oral and palatal mucosa present Throat: Yes posterior oropharynx normal Eyes General: appearance normal, both eyes and all related structures Pupils: Equal, round and reactive pupils present Neck Neck: Yes normal visual inspection Chest Chest palpation & inspection: normal inspection of the chest Resp Effort & Inspection: normal respiratory effort Auscultation: clear to auscultation bilaterally Cardio Rate: regular rate Rhythm: regular rhythm Peripheral pulses: Peripheral pulses 2+ throughout GI Inspection: Yes normal to inspection Palpation (GI): Soft to palpation and nontender Auscultation: normal bowel sounds General: Yes no CVA tenderness Back/Spine/Pelvis Other: TTP to left lumbar soft tissue and left buttocks With no midline tenderness, step-offs or deformities. Pain is worsened with left straight leg raise. Back: no CVA tenderness Thoracic/Lumbar Spine: thoracic and lumbar spine normal to inspection Skin General skin exam: no rashes or lesions noted Neuro General: patient oriented x3, no focal motor deficits and normal sensation to monofilament Cranial nerves: Yes CN's II-XII intact bilaterally, Yes Equal, round and reactive pupils present, Yes Bilaterally intact EOM present, Yes Nystagmus not present, Yes Normal facial strength present and Yes Midline tongue present Cognition (Neuro): normal cognition Speech: No Abnormal speech present Gait exam (Neuro): Normal gait present Motor exam (neuro): 5/5 motor strength present throughout Sensory Exam: Normal double simultaneous stimulation for sensation Deep tendon reflexes (DTR's): Right patellar reflex intensity grade: 2+ and Left patellar reflex intensity grade: 2+ Extrem General: Yes normal to inspection, Yes no pedal edema and Yes no calf tenderness Course Course Course Narrative: RME: done by TITO Vasquez. Presented to the ED for left sided back pain radiaing down left leg since wednesday. NO trauma. positive for lumbar spine and posterior hip tendenress on palpatin. xrays ordered and uA. Reevaluation(s) Reevaluation #1: UA consistent with UTI. No evidence of renal colic or pyelonephritis. X-ray show degenerative changes with no other acute finding. Patient feels improved and will be discharged home. She is up and ambulatory. Reviewed worrisome signs and symptoms of when to return to the emergency room. Comfortable for discharge home. Medications Administered Discontinued Medications Generic Name Dose Route Start Last Admin Trade Name Freq PRN Reason Stop Dose Admin Acetaminophen 975 mg 01/23/24 16:40 01/23/24 16:54 Acetaminophen 325 Mg Tablet PO 01/23/24 16:41 975 mg ONCE ONE Administration Cefuroxime Axetil 500 mg 01/23/24 17:01 01/23/24 17:20 Cefuroxime Axetil 500 Mg Tablet PO 01/23/24 17:02 500 mg ONCE ONE Administration Oxycodone HCl 5 mg 01/23/24 16:40 01/23/24 16:55 Oxycodone Hcl Immed Release 5 Mg Tablet PO 01/23/24 16:41 5 mg ONCE ONE Administration Medical Decision Making Medical Decision Making [facility] Narrative: 88-year-old female with a history of diabetes, chronic kidney disease, hypertension, hyperlipidemia presents the ER with complaints of left lower back pain with radiates to the left buttock for 1 month. Pain is worsened with lifting her left leg. She denies any urinary symptoms. no associated weakness, numbness, tingling of lower extremities. No numbness in the groin. No fevers or chills. Patient has been able to ambulate at home with no difficulty. She has been trying to take Tylenol with continued symptoms. TTP to left lumbar soft tissue and left buttocks With no midline tenderness, step-offs or deformities. Pain is worsened with left straight leg raise. Normal neuro exam no focal deficits or red flag symptoms No CVA tenderness or abdominal pain. Will check x-rays, UA Differential Diagnosis Differential Diagnoses: The differential diagnosis associated with the presentation includes UTI Less likely pyelonephritis or renal colic Lumbar strain, sacroiliitis Low suspicion for cord compression, cauda equina, malignancy, epidural abscess with no neurological deficits or red flag symptoms. Less likely AAA with gradual onset of symptoms Admission/Observation Consideration of admission/observation: Escalation of care including admission/observation considered See MDM. NO need for advanced imaging, urgent NSY consultation and or admission Lab Data [facility] Lab Attestation statement: I reviewed the patient's lab results. Labs: Lab Results 01/23/24 Range/Units 16:25 Urine Color Yellow Urine Appearance Clear Urine pH 7.5 (5.0-9.0) Ur Specific [place] 1.015 (1.005-1.025) Urine Protein Negative (Neg-Trace) mg/dL Urine Glucose (UA) Negative (Negative) mg/dL Urine Ketones Negative (Negative) mg/dL Urine Blood Negative (Negative) Urine Nitrite Negative (Negative) Ur Leukocyte Esterase Moderate (2+) H (Negative) Urine RBC 0-2 (0-2) /HPF Urine WBC >50 H (0-5) /HPF Ur Squamous Epith Cells 0-2 (0-2) /HPF Urine Bacteria Trace (None Seen) Hyaline Casts 0-2 (0-2) /LPF Independent Interpretation I performed an independent interpretation of an: Plain X-Ray Interpretation: I independently reviewed the x-ray and agree with the radiology report Radiology Impression Discussion of test interpretation with radiology: I have reviewed the radiologist's reading. Radiologist Impression: [address] [address] XRay Report Signed Patient: Tamie Mcdaniel MR#: [id number] : 1935 Acct:[id number] Age/Sex: 88 / F ADM Date: 01/23/24 Loc: HO.ED Attending Dr: Ordering Physician: Randy Vasquez Date of Service: 01/23/24 Procedure(s): XR lumbar spine 2-3V Accession Number(s): [id number] cc: Randy Vasquez; Sherron Villanueva MD~ EXAMINATION: XR LUMBOSACRAL SPINE CLINICAL INFORMATION: Back pain COMPARISON: Radiograph from 04/21/2023 TECHNIQUE: Three views of the lumbosacral spine. FINDINGS: 5 nonrib-bearing lumbar-type vertebral bodies. No acute visible fracture or dislocation. Dextrocurvature of the mid lumbar spine. Slight grade 1 anterolisthesis of L3 on L4 and L4 and L5. Multilevel degenerative changes disc space narrowing, endplate sclerosis, osteophyte formation, vacuum disc phenomenon, and lower lumbar spine facet arthropathy. Vertebral body heights and spaces are otherwise maintained. Posterior elements are intact. Paraspinal soft tissues are unremarkable. Degenerative changes bilateral sacroiliac joints. Visualized bowel gas is unremarkable. Surgical clips right upper abdomen. XR/XR lumbar spine 2-3V IMPRESSION: 1. No acute visible fracture or dislocation. 2. Dextrocurvature of the mid lumbar spine. 3. Slight grade 1 anterolisthesis of L3 on L4 and L4 and L5. 4. Multilevel degenerative changes. [address] [address] XRay Report Signed Patient: Tamie Mcdaniel MR#: [id number] : 1935 Acct:[id number] Age/Sex: 88 / F ADM Date: 01/23/24 Loc: HO.ED Attending Dr: Ordering Physician: Randy Vasquez Date of Service: 01/23/24 Procedure(s): XR hip LT w PEL1V Accession Number(s): [id number] cc: Ranyd Vasquez; Sherron Villanueva MD~ EXAMINATION: XR HIP, LEFT CLINICAL INFORMATION: Pain COMPARISON: None available. TECHNIQUE: Two views of the left hip. One view of the pelvis FINDINGS: Bone alignment is normal. No fracture or dislocation. 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 There is arthritis at the sacroiliac joints, left greater than right. There are degenerative changes of the visualized lower lumbar spine. There is atherosclerotic disease. XR/XR hip LT w PEL1V IMPRESSION: Degenerative changes. No fracture or dislocation. Independent Historian Clinical information obtained from an independent historian. History obtained from or confirmed by: Other (daughter) Tests considered The following testing was considered but not selected: Low suspicion for cord compression, cauda equina, malignancy, epidural abscess with no neurological deficits or red flag symptoms requiring advanced imaging Prescription Management I considered prescription management with: Pain Medication Chronic Conditions Patient?s care impacted by: Diabetes Discharge Plan Discharge Clinical Impression: UTI (urinary tract infection), Back pain Patient Disposition: Home, Self-Care Instructions: Urinary Tract Infection in Women (ED), Acute Low Back Pain (ED) Additional Instructions: Continue tylenol 650mg every 4 hours as needed for pain Take the muscle relaxant as needed.Be careful because it can make you sleepy and may cause falls. Use the medication patches (lidoderm as needed) heat or ice the area Gentle stretching No heavy lifting or bending Follow up with her primary care doctor as needed Prescriptions: New cefuroxime axetil 500 mg tablet 500 mg PO BID Qty: 14 0RF lidocaine [Lidoderm] 5 % adhesive patch,medicated 1 patch topical DAILY Qty: 15 0RF Rx Instructions: leave on most painful area for up to 12 hrs cyclobenzaprine 5 mg tablet 5 mg PO TID PRN (Reason: muscle spasm) Qty: 15 0RF No Action ferrous fumarate 325 mg (106 mg iron) tablet 325 mg PO DAILY cyanocobalamin (vitamin B-12) 5,000 mcg tablet,disintegrating 5,000 mcg PO DAILY acetaminophen 500 mg capsule 1,000 mg PO TID PRN (Reason: pain) latanoprost 0.005 % drops 1 drp ophthalmic (eye) QPM Qty: 7.5 0RF Rx Instructions: One drop to both eyes at bedtime. amlodipine 5 mg tablet 5 mg PO DAILY Qty: 90 3RF sertraline 50 mg tablet 50 mg PO DAILY Qty: 90 3RF (DME) pen needle, diabetic [BD Ultra-Fine Mini Pen Needle] 31 gauge x 3/16 needle See Rx Instructions .Route Qty: 100 0RF Rx Instructions: As directed to inject insulin once a day (DME) Dexcom G7 Sensor Device See Rx Instructions .Route Qty: 3 3RF Rx Instructions: As directed (DME) diabetic supplies, miscellan. Misc See Rx Instructions .ROUTE .MEDSUPPLY Qty: 1 0RF Rx Instructions: diabetic shoes mupirocin 2 % ointment 1 appl topical BID Qty: 22 3RF insulin glargine [Lantus Solostar U-100 Insulin] 100 unit/mL (3 mL) insulin pen 20 unit subcut QPM Qty: 15 0RF simvastatin 40 mg tablet 40 mg PO DAILY Qty: 90 3RF lisinopril 40 mg tablet 40 mg PO DAILY Qty: 90 3RF meclizine 25 mg tablet 25 mg PO TID PRN (Reason: for dizziness) Qty: 30 0RF acetaminophen [Tylenol Arthritis Pain] 650 mg tablet extended release 650 mg PO Q12H PRN (Reason: pain) Qty: 60 0RF (DME) OneTouch Ultra Test Strip See Rx Instructions .Route Qty: 100 3RF Rx Instructions: qd famotidine 40 mg tablet 40 mg PO DAILY Referrals: Sherron Villanueva MD [Primary Care Provider] - 1 week Interventions: ED Discharge Assessment Last Done: 01/23/24 17:38 Discharge Date/Time: 01/23/24 17:39 Print Language: Citizen Of [place]
[2024-01-23 16:35] LABS: Appearance Urine Clear; Color Urine Yellow; Glucose Urine UA Negative (Negative); Leukocyte Esterase Urine Moderate (2+) (Negative); Nitrite Urine Negative (Negative); PH 7.5 (5.0-9.0); Specific Gravity - Urine 1.015 (1.005-1.025); UMIC TRIGGER UACC YES; Urine Blood Negative (Negative); Urine Ketones Negative (Negative); Urine Protein Negative (Neg-Trace)
[2024-01-23 16:44] LABS: Bacteria Urine Trace (None Seen); Hyaline Casts Urine 0-2 /LPF (0-2); RBC Urine 0-2 /HPF (0-2); Squamous Epithelial Cell Urine 0-2 /HPF (0-2); UACC Culture Trigger YES; WBC Urine >50 /HPF (0-5)
[2024-01-23] MEDS: Acetaminophen 325 MG TABLET 975 MG PO (16:54)
[2024-01-23] MEDS: oxyCODONE HCl Immed Release 5 MG TABLET PO (16:55)
[2024-01-23] MEDS: cefuroxime axetiL 500 MG TABLET PO (17:20)
[2024-01-23 17:37] VITALS: BP 142/69; PULSE 78; RESP 19; O2SAT 98
[2024-01-23 17:38] VITALS: BP 142/69; PULSE 78; RESP 19; TEMP 36.6; O2SAT 98
== END 2024-01-23 17:39 | disposition home or self-care (01) ==
PROVIDERS: Physician Assistant; Emergency Provider Internal Medicine; PCP Internal Medicine
DX: N39.0 Urinary tract infection, site not specified (principal); M54.50 Low back pain, unspecified; E11.22 Type 2 diabetes mellitus with diabetic chronic kidney disease; I12.9 Hypertensive chronic kidney disease with stage 1 through stage 4 chronic kidney disease, or unspecified chronic kidney disease; N18.30 Chronic kidney disease, stage 3 unspecified; E78.5 Hyperlipidemia, unspecified; Z79.4 Long term (current) use of insulin; Z79.84 Long term (current) use of oral hypoglycemic drugs; Z79.899 Other long term (current) drug therapy; Z79.02 Long term (current) use of antithrombotics/antiplatelets
CPT/HCPCS: 72100; 73502; 81001; 87086; 87088; 87186; 99283; 99284

== ENCOUNTER 2024-04-05 10:36 | Outpatient (AMB) | payer MEDICARE, SELFPAY ==
--- NOTE | 2024-04-05 10:41 | MHC.PC.OV ---
Vital Signs 04/05/24 10:42 Height 5 ft 5 in Weight 175 lb BMI 29.1 BP 120/62 Blood Pressure Location Rt brachial Position Sitting Pulse 78 Pulse Source Pulse Oximeter Pulse Oximetry (%) 99 Oxygen Delivery Method Room Air Intake Visit Reasons: 3M F/U Intake Note: Pt is here today for 3 months follow up visit. Allergies celecoxib [Celebrex] Allergy (Unknown, Verified 01/23/24 15:11) rash penicillin G Allergy (Unknown, Verified 01/23/24 15:11) rash Penicillins [PENICILLINS] Allergy (Unknown, Verified 01/23/24 15:11) HIVES, rash Medication List - Last Reconciled 04/05/24 by Sherron Villanueva MD acetaminophen 1,000 mg PO TID PRN acetaminophen ER (Tylenol Arthritis Pain) 650 mg PO Q12H PRN amlodipine 5 mg PO DAILY blood sugar diagnostic (QuadROIuch Ultra Test strips) qd blood-glucose sensor ([employer] G7 Sensor device) As directed cefuroxime axetil 500 mg PO BID cyanocobalamin (vitamin B-12) 5,000 mcg PO DAILY cyclobenzaprine 5 mg PO TID PRN diabetic supplies, [employer]. diabetic shoes famotidine 40 mg PO DAILY ferrous fumarate 325 mg PO DAILY gabapentin 100 mg PO BID insulin degludec (Tresiba FlexTouch U-100 insulin) 28 units (0.28 mL) subcut DAILY latanoprost 0.005% 1 drp ophthalmic (eye) QPM lidocaine 5% (Lidoderm) 1 patch topical DAILY lisinopril 40 mg PO DAILY meclizine 25 mg PO TID PRN mupirocin 2% 1 appl topical BID pen needle, diabetic (BD Ultra-Fine Mini Pen Needle) As directed to inject insulin once a day sertraline 50 mg PO DAILY simvastatin 40 mg PO DAILY Tobacco use date assessed: 12/08/23 Dental Screening Dental Screen Date: 12/08/23 HPI 3M F/U HPI Details Pt presents for f/u hypertension type 2 diabetes chronic kidney disease stage 3 anxiety advanced osteoarthritis. Patient complains of lower back pain radiating to both lower extremities when starting to walk. She denies any weakness or numbness in extremities. She reports frequent UTIs due to incontinence and wearing a pad at night. Patient's daughter reports better diabetes control on insulin but is at risk for hypoglycemia with A1c of 6%. [facility] Medical History Hearing loss Annual physical exam Vertigo Anemia Vertigo UTI (urinary tract infection) CKD (chronic kidney disease), stage III Iron deficiency anemia Pernicious anemia HTN (hypertension) Hyperlipidemia Diabetes Surgical History History of esophagogastroduodenoscopy (EGD) S/P ERCP S/P cholecystectomy History of breast biopsy History of ERCP Family History Father Cancer Mother Colon cancer Social History Housing: House Alcohol intake: never Patient Tobacco Use Status: Never used Tobacco e-Cigarette/Vaping Use: Never Used service: No Current occupational status: retired Cognitive needs: No Hearing needs: Yes Vision needs: Yes Questionnaire PHQ-9 Over the last 2 weeks, how often have you been bothered by any of the following problems? 1. Little interest or pleasure in doing things: several days 2. Feeling down, depressed, or hopeless: several days 3. Trouble falling or staying asleep, or sleeping too much: not at all 4. Feeling tired or having little energy: several days 5. Poor appetite or overeating: not at all 6. Feeling bad about yourself - or that you are a failure or have let yourself or your family down: not at all 7. Trouble concentrating on things, such as reading the newspaper or watching television: not at all 8. Moving or speaking so slowly that other people could have noticed. Or the opposite - being so fidgety or restless that you have been moving around a lot more than usual: not at all 9. Thoughts that you would be better off or of hurting yourself in some way: not at all Total score: 3 Depression Screening Interpretation: Negative Depression Screening Done: Yes [id number] - PHQ-9 Billing: Yes Source: Developed by Drs. Rommel Simmons, Tamie Child, Karl Capone and colleagues, with an educational louis from [employer]. Thrive Questionnaire Date Thrive assessed: 03/29/24 I am a: Patient What is your living situation today?: I have a steady place to live Within the past 12 months, did the food you bought not last and you didn't have the money to get more?: Never true Within the past 12 months, did you worry whether your food would run out before you got money to buy more?: Never true Do you have trouble paying for medicines?: No Do you have trouble getting transportation to medical appointments?: No Do you have trouble paying your heating and electricity bill?: No Do you have trouble taking care of your child, family member or friend?: I choose not to answer this question Do you have trouble with day-to-day activities such as bathing, preparing meals, shopping, managing finances, etc.?: No Are you currently unemployed and looking for a job?: No Are you interested in more education?: No Please select the resources that you would like help with: None Currently or been in a relationship where the following occur: No concerns reported THRIVE Score: 0 AUDIT C Alcohol Use Questionnaire (AUDIT-C) 3. How often do you have six or more drinks on one occasion?: Never Total Score: 0 JADE-7 AMB Questionnaire JADE-7 Date JADE - 7 assessed: 12/07/22 Feeling nervous, anxious, or on edge: 0 = Not at all Not being able to stop or control worryin = Not at all Worrying too much about different things: 0 = Not at all Trouble relaxin = Not at all Being so restless that it is hard to sit still: 0 = Not at all Becoming easily annoyed or irritable: 1 = Several days Feeling afraid as if something awful might happen: 0 = Not at all Total JADE-7 score (0-4 normal; 5-9 mild; 10-14 moderate; 15-21 severe): 1 Source: Developed by Drs. Rommel iSmmons, Tamie Child, Karl Capone and colleagues, with an educational louis from [employer]. Review of Systems Const All systems reviewed & are unremarkable except as noted in HPI and below Eyes Reports no additional complaints ENT Reports no additional complaints Card Reports no additional complaints Resp Reports no additional complaints GI Reports no additional complaints Reports no additional complaints Physical exam (Primary Care) Vital Signs: Last Vital Signs Pulse 78 09/04/24 10:42 BP 120/62 04/05/24 10:42 Pulse Ox 99 04/05/24 10:42 Oxygen Delivery Method Room Air 04/05/24 10:42 BMI result Body Mass Index 29.1 Tobacco/Smoking Status: Tobacco use Status Tobacco use date assessed 12/08/23 04/05/24 10:46 Patient Tobacco Use Status Never used Tobacco 04/05/24 10:46 e-Cigarette/Vaping Use Never Used 04/05/24 10:46 PHQ-9: PHQ-9 Score PHQ-9: Total score 3 04/05/24 10:46 Depression Screening Interpretation: Negative Thrive Assessment: Date of Thrive Assessment Date Thrive assessed 03/29/24 04/05/24 10:46 Currently or been in a relationship where the following occur: No concerns reported Const General: no acute distress HENMT Head: Yes normal to inspection Mouth: Normal oral and palatal mucosa present Eyes General: appearance normal, both eyes and all related structures Neck Neck: Yes supple Resp Effort & Inspection: normal respiratory effort Auscultation: clear to auscultation bilaterally Cardio Rhythm: regular rhythm Heart sounds: S1 normal heart sound present and S2 normal heart sound present GI Inspection: Yes normal to inspection Palpation (GI): Soft to palpation Percussion: Yes normal to percussion Auscultation: normal bowel sounds Results AMB Hemoglobin A1c AMB Hemoglobin A1c 6.0 % Last Edit by SHAYLA Polk on 04/05/24 10:58 Results Reviewed Results Reviewed: Laboratory Last Values Hgb A1c (Clinic) 6.0 % (4.0-6.0) 04/05/24 10:57 Assessment and Plan Assessment & Plan (1) HTN (hypertension): Comment: BP goal less than 130/80 Code(s): I10 - Essential (primary) hypertension Plan: Continue current medications (2) Giant cell arteritis: Comment: in remission, follow-up with rheumatology Code(s): M31.6 - Other giant cell arteritis Plan: Check sed rate (3) Insulin use (long-term) in type 2 diabetes: Code(s): E11.9 - Type 2 diabetes mellitus without complications; Z79.4 - nursing home (current) use of insulin Plan: A1c is 6.0, ADA diet discussed with the patient. Continue insulin, patient is at risk for hypoglycemia with well controlled diabetes and it is medically necessary for patient to have Dexcom to monitor her glucose closely (4) DJD (degenerative joint disease), lumbar: Code(s): M47.816 - Spondylosis without myelopathy or radiculopathy, lumbar region Plan: Continue Tylenol p.r.n. at gabapentin 100 mg twice a day. Patient declined physical therapy (5) Hyperlipidemia: Code(s): E78.5 - Hyperlipidemia, unspecified Plan: Continue statin (6) UTI (urinary tract infection): Code(s): N39.0 - Urinary tract infection, site not specified Plan: Patient will try estradiol vaginal cream topically (7) CKD (chronic kidney disease), stage III: Code(s): N18.30 - Chronic kidney disease, stage 3 unspecified Plan: Monitor renal function avoid nephrotoxins Orders: Orders Comprehensive Met. Panel Today E11.9 - Type 2 diabetes mellitus without complications, I10 - Essential (primary) hypertension, M31.6 - Other giant cell arteritis, M47.816 - Spondylosis without myelopathy or radiculopathy, lumbar region, Z79.4 - termite control servicer (current) use of insulin Erythrocyte Sedimentation Rate Today E11.9 - Type 2 diabetes mellitus without complications, I10 - Essential (primary) hypertension, M31.6 - Other giant cell arteritis, M47.816 - Spondylosis without myelopathy or radiculopathy, lumbar region, Z79.4 - termite control servicer (current) use of insulin C Reactive Protein Today E11.9 - Type 2 diabetes mellitus without complications, I10 - Essential (primary) hypertension, M31.6 - Other giant cell arteritis, M47.816 - Spondylosis without myelopathy or radiculopathy, lumbar region, Z79.4 - nursing home (current) use of insulin IRON PROFILE Today E11.9 - Type 2 diabetes mellitus without complications, I10 - Essential (primary) hypertension, M31.6 - Other giant cell arteritis, M47.816 - Spondylosis without myelopathy or radiculopathy, lumbar region, Z79.4 - nursing home (current) use of insulin PT Evaluation and Treatment 11/22/20 E11.9 - Type 2 diabetes mellitus without complications, I10 - Essential (primary) hypertension, M31.6 - Other giant cell arteritis, M47.816 - Spondylosis without myelopathy or radiculopathy, lumbar region, R42 - Dizziness and giddiness, Z79.4 - termite control servicer (current) use of insulin AMB Hemoglobin A1c Today Z13.9 - Encounter for screening, unspecified Complete Blood Count Auto Diff Today E11.9 - Type 2 diabetes mellitus without complications, I10 - Essential (primary) hypertension, M31.6 - Other giant cell arteritis, M47.816 - Spondylosis without myelopathy or radiculopathy, lumbar region, Z79.4 - termite control servicer (current) use of insulin Medications: New gabapentin 100 mg PO BID 60 caps 1RF estradiol 0.01%(0.1mg/gram) pea size to urethra vaginally daily; for 14 days 42.5 grams 2RF Refilled blood-glucose sensor (Dexcom G7 Sensor device) As directed 3 ea 3RF E11.9 - Type 2 diabetes mellitus without complications, E16.2 - Hypoglycemia, unspecified, Z79.4 - termite control servicer (current) use of insulin Coding Level of Care Code Est Pt Level 4 (19895) Diagnoses HTN (hypertension) I10 Giant cell arteritis M31.6 Insulin use (long-term) in type 2 diabetes E11.9; Z79.4 DJD (degenerative joint disease), lumbar M47.816 Hyperlipidemia E78.5 UTI (urinary tract infection) N39.0 CKD (chronic kidney disease), stage III N18.30
[2024-04-05 10:42] VITALS: BP 120/62; PULSE 78; O2SAT 99; BMI 29.1
== END 2024-04-05 11:25 | disposition home or self-care (01) ==
PROVIDERS: PCP Internal Medicine; Visit Provider Internal Medicine
DX: I12.9 Hypertensive chronic kidney disease with stage 1 through stage 4 chronic kidney disease, or unspecified chronic kidney disease (principal); N18.30 Chronic kidney disease, stage 3 unspecified; M31.6 Other giant cell arteritis; E11.22 Type 2 diabetes mellitus with diabetic chronic kidney disease; Z79.4 Long term (current) use of insulin; M47.816 Spondylosis without myelopathy or radiculopathy, lumbar region; E78.5 Hyperlipidemia, unspecified; N39.0 Urinary tract infection, site not specified
CPT/HCPCS: 83036; 99214

== ENCOUNTER 2024-04-05 11:29 | Outpatient (REF) | payer MEDICARE, SELFPAY ==
[2024-04-05 13:21] LABS: MANUAL DIFF FLAG NO
[2024-04-05 13:37] LABS: Basophils Percent Auto 0.4 % (0-2); Eosinophils Absolute Auto 0.1 X10*3/uL (0.0-0.4); Eosinophils Percent Auto 1.9 % (0-4); Hematocrit 34.9 % (37.0-47.0); Imm Gran Abs Auto 0.03 X10*3/uL (0.00-0.03); Imm Gran Pct Auto 0.4 % (0.0-0.4); Lymphocytes Absolute Auto 1.7 X10*3/uL (1.2-4.9); Lymphocytes Percent Auto 23.3 % (20-40); Mean Corpuscular HGB Conc 31.5 g/dl (31.0-35.0); Mean Corpuscular Hemoglobin 27.6 pg (27.0-33.0); Mean Corpuscular Volume 87.5 fL (80.0-98.0); Mean Platelet Volume 8.5 fL (9.4-12.3); Monocytes Absolute Auto 0.5 X10*3/uL (0.1-1.2); Monocytes Percent Auto 6.4 % (2-11); Neutrophils Absolute Auto 4.9 x10*3/uL (2.0-8.3); Neutrophils Percent Auto 67.6 % (45-73); Platelet Count 232 X10*3/uL (160-400); Red Blood Count 3.99 X10*6/uL (4.20-5.50); Red Cell Distribution Width 14.2 % (11.0-16.0); White Blood Count 7.3 X10*3/uL (4.8-10.8)
[2024-04-05 13:48] LABS: Alanine Aminotransferase 16 U/L (0-31); Alkaline Phosphatase 68 U/L (39-117); Anion Gap 14 (12-20); Aspartate Amino Transferase 18 U/L (5-31); Bilirubin Total 0.3 mg/dL (0.0-1.0); Blood Urea Nitrogen 27 mg/dL (9-16); Calcium 9.7 mg/dL (8.4-10.2); Carbon Dioxide 25 mmol/L (22-29); Chloride 107 mmol/L (96-108); Estimated Glomerular Filt Rate 47; Glucose Random 119 mg/dL (60-115); Iron 33 mcg/dL (30-160); Percent Iron Saturation 14 % (15-50); Potassium 4.5 mmol/L (3.3-5.1); Sodium 141 mmol/L (135-145); Total Iron Binding Capacity 243 mcg/dL (228-428); Total Protein 7.6 g/dL (6.5-8.0); Unsaturated Iron Binding 210 ug/dL
[2024-04-05 14:12] LABS: Erythrocyte Sedimentation Rate 49 MM/HR (0-20)
== END 2024-04-05 11:30 | disposition home or self-care (01) ==
LOC: HO.HMGCLDS 11:29
PROVIDERS: PCP Internal Medicine; Visit Provider Internal Medicine
DX: M47.816 Spondylosis without myelopathy or radiculopathy, lumbar region (principal); E11.9 Type 2 diabetes mellitus without complications; M31.6 Other giant cell arteritis; I10 Essential (primary) hypertension; Z79.4 Long term (current) use of insulin
CPT/HCPCS: 36415; 80053; 83540; 85025; 85652; 86140

== ENCOUNTER 2024-07-07 08:50 | Outpatient (REF) | payer MEDICARE, SELFPAY ==
[2024-07-07 10:00] LABS: MANUAL DIFF FLAG NO
[2024-07-07 10:04] LABS: Basophils Absolute Auto 0.1 X10*3/uL (0.0-0.2); Basophils Percent Auto 0.7 % (0-2); Eosinophils Absolute Auto 0.1 X10*3/uL (0.0-0.4); Eosinophils Percent Auto 1.6 % (0-4); Hematocrit 34.7 % (37.0-47.0); Hemoglobin 11.1 g/dl (12.0-16.0); Imm Gran Abs Auto 0.03 X10*3/uL (0.00-0.03); Imm Gran Pct Auto 0.4 % (0.0-0.4); Lymphocytes Absolute Auto 1.6 X10*3/uL (1.2-4.9); Mean Corpuscular Hemoglobin 27.7 pg (27.0-33.0); Mean Corpuscular Volume 86.5 fL (80.0-98.0); Mean Platelet Volume 8.7 fL (9.4-12.3); Monocytes Absolute Auto 0.5 X10*3/uL (0.1-1.2); Monocytes Percent Auto 6.6 % (2-11); Neutrophils Absolute Auto 5.8 x10*3/uL (2.0-8.3); Neutrophils Percent Auto 70.7 % (45-73); Platelet Count 229 X10*3/uL (160-400); Red Blood Count 4.01 X10*6/uL (4.20-5.50); Red Cell Distribution Width 13.9 % (11.0-16.0); White Blood Count 8.2 X10*3/uL (4.8-10.8)
[2024-07-07 10:52] LABS: Alanine Aminotransferase 15 U/L (0-31); Albumin Level 4.1 g/dL (3.5-5.0); Alkaline Phosphatase 73 U/L (39-117); Anion Gap 14 (12-20); Aspartate Amino Transferase 21 U/L (5-31); Bilirubin Total 0.3 mg/dL (0.0-1.0); Blood Urea Nitrogen 37 mg/dL (9-16); Calcium 9.8 mg/dL (8.4-10.2); Carbon Dioxide 25 mmol/L (22-29); Chloride 109 mmol/L (96-108); Estimated Glomerular Filt Rate 40; Glucose Fasting 122 mg/dL (60-99); Iron 48 mcg/dL (30-160); Percent Iron Saturation 18 % (15-50); Potassium 4.7 mmol/L (3.3-5.1); Sodium 143 mmol/L (135-145); Total Iron Binding Capacity 263 mcg/dL (228-428); Total Protein 7.9 g/dL (6.5-8.0); Unsaturated Iron Binding 215 ug/dL
[2024-07-07 11:27] LABS: Folate 17.8 ng/mL (> or = 4.0); Vitamin B12 431 pg/mL (200-900)
[2024-07-07 11:35] LABS: Estimated Average Glucose 137 mg/dL; Hemoglobin A1c % 6.4 % (<6.0); Total Hemoglobin (HGBA1C) 2690.5215 umol/L
--- OUTSIDE RECORDS SUMMARY | 2024-07-12 05:56 | XMS_ITS ---
Author Organization [facility] Address [address] [place] [address] Care Team Providers Care Warp Spinner Name Role Phone Sherron Villanueva MD Primary Care Provider Roslyn Campuzano Unavailable [phone] Allergies Allergen (clinical drug ingredient) Drug/Non Drug Allergy documented on EMR Reaction Allergy Type Onset Date Status Adhesive rash Allergy Active Latex Latex redness, itchy Allergy Activ e Penicillin rash Drug Allergy Active REASON FOR VISIT Pcp-04/25, At Risk Footcare Medications Medication SIG (Take, Route, Frequency, Duration) Notes Start Date End Date Status Caltrate 600 Not-Jeremy ing Citalopram Hydrobromide Not-Taking LORazepam Not-Taking Lantus 70units Not-T aking amLODIPine Besylate Not-Taking Extra Depth Diabetic Shoes with 3 Pair Custom heat-molded multi-density innersoles for 1 year Dx: 01/10/2018 Not-Taking Extra-Depth Diabetic Shoes with 3 Pair Custom heat-molded multi-density innersoles . for 1 year . Dx:niddm with neuropathy, foot deformity and preulcerative skin lesions for . 04/11/2014 Active Extra Depth Diabetic Shoes with 3 Pair Custom heat-molded multi-density innersoles for 1 year Dx: 05/13/2016 Not-Taking Extra Depth Diabetic Shoes with 3 Pair Custom heat-molded multi-density innersoles for 1 year Dx: 07/28/2021 Active Extra Depth Orthopedic Shoes (1 Pair) with Customized Heat Molded Multidensity Innersoles (3 Pair) as directed Dx: NIDDM/Polyneuropathy (E11.42), Hammertoe Foot Deformity (M20.41,M20.42), Preulcerative Skin Lesion(s) (L85.1 Active Trulicity 70unit Act shari vitamin Active Simvastatin 20 MG 1 tablet in the evening Orally Once a day for 30 day(s) Active Ondansetron 4 MG Oral for 20 A ctive Meclizine HCl 25 MG Oral for 10 Active Lisinopril 40 MG Orally Act shari Glucosamine Active Metformin & Diet Manage Prod Active levoFLOXacin 750 MG Oral for 5 Active Iron Active Reji Aspirin Active Extra Depth Diabetic Shoes with 3 Pair Custom heat-molded multi-density innersoles for 1 year Dx: Active hydroCHLOROthiazide 25 MG Orally Active Social History Tobacco Use: Social History Observation Description Date Details (start date - stop date) Never Smoker NA - NA Tobacco Use/Smoking Question Answer Notes Are you a: nonsmoker Tobacco use other than smoking: Question Answer Notes Are you an other tobacco user? No Problems Problem Type SNOMED Code ICD Code Onset Dates Problem Status W/U Status Risk Notes Problem Polyneuropathy due to type 2 diabetes mellitus (033304309) Type 2 diabetes mellitus with diabetic polyneuropathy (E11.42) Active confirmed Vital Signs Height 5 ft 6 in in 06/26/2024 Weight 177 lbs 06/26/2024 BMI 28.57 kg/m2 06/26/2024 Blood pressure systolic 120 mm Hg 06/26/20 24 Blood pressure diastolic 80 mm Hg 024 Procedures Procedure Date Ordered Date Performed Result Body Sit e 46061-SZTMCTG NAIL, 6 OR MORE 06/26/2024 N/A 78625-LUNZ SKIN LESIONS, OVER 4 06/26/2024 N/A Encounters Encounter Location Date Provider Diagnosis [facility] [address] [place] [address] 06/26/2024 Roslyn Everardo Type 2 diabetes mellitus with diabetic polyneuropathy E11.42 and Tinea unguium B35.1 Assessments Encounter Date Diagnosis (ICD Code) Assessment Notes Treatment Notes Treatment Clinical Notes Section Notes 06/26/2024 Type 2 diabetes mellitus with diabetic polyneuropathy (ICD-10 - E11.42) 06/26/2024 Tinea unguium (ICD-10 - B35.1) Plan Of Treatment Pending Test Test Name Order Date 52035-FDEXQTO NAIL, 6 OR MORE 06/26/2024 72975-QNKM SKIN LESIONS, OVER 4 06/26/20 24 Next Appt Details Follow Up: 3 Months, Reason: Provider Name:Roslyn chávez, 11/22/2024 01:30:00 PM, [address] [place] [address], [id number], Procedure Notes * Category Sub-Category Detail Notes Debride Nail 6-10 Nail debridement Performance o f this nail treatment by a nonprofessional would put this patients foot and overall health at risk. Therefore, debridement to affected nail(s), as described in exam, was performed extensively to reduce/remove overall nail length, girth, thickness, subungual debris, and necrotic tissue, by manual and/or electrical means through the use of a nail nipper and/or dremel-type grinder carbon plant, to a more viable healthy nail plate or bed tissue 6-10 nails in total. Silver nitrate was used for any petechial bleeding as necessary. Definitive antifungal treatment options, both pharmaceutical and surgical, have been reviewed and discussed with the patient. The patient solely prefers the use of intermittent/as needed professional debridement services for their nail condition and understands the need for additional periodic treatments to maintain effectiveness in symptomatic relief - 37009 Keratoma Treatment Parring or Cutting o f Benign Hyperkeratotic Lesion(s) (-57) More than 4 Lesions - The Benign hyperkeratotic lesions, ( __ ) in total, locations as stated and described in exam, were pared, and/or cut utilizing a sterile 15 blade, tissue nippers, and/or power dremel instrumentation - 35007 Progress Notes * GRICELDAChris MACEbozenaDOB:[birth year] (89 yo F)Acc No.[id number]:06/26/2024 Progress Note Patient:?Tamie MCDANIEL Provider:?Roslyn Mcgee DPM :1935???Age:89 Y???Sex:Female D ate:06/26/2024 Address: [address] , [id number] Pcp:Sherron Villanueva MD Subjective: * Chief Complaints: * ???Pcp-04/25At Risk Footcare * HPI: ???At Risk footcare:?Pt States Last PCP Visit:?Date?04/18/2024 * ROS:?General/Constitutional:?Nausea?denies.?Vomiting?denies.?Hunger Thirst?denies.?Loss appetite?denies.?Chills?denies.?Fatigue?denies.?Fever?denies.?Night Sweats?denies.?Unexplained weight loss?denies.?Unexplained weight gain?denies.?HEENTM:?Dentures?denies.?Dizziness?denies.?Glasses/contacts?denies.?Retinopathy?den ies.?Blurred/double vision?denies.?TMJ?denies.?Discharge/drainage?denies.?Implants?denies.?Sore throat?denies.?Dental implants?denies.?Hard of hearing ?admits.?Difficulty chewing/swallowing/speaking?denies.?Nose bleeds?denies.?Sore mouth?denies.?Respiratory:?On O xygen?denies.?Pneumonia/pleurisy?denies.?Bronchitis?denies.?Emphysema?denies.?Co ughing?denies.?Cough blood?denies.?Shortness of breath?denies.?Wheezing?denies.?Cardiovascular:?Pacemaker?denies.?MVP?denies.?WPW?denies.?CHF?denies.?Heart attack?denies.?Septal defect?denies.?Rapid beat?denies.?Chest pain ?denies.?Atrial Fib.?denies.?Murmur/Palpitations?denies.?Gastrointestinal:?Hemorrhoids?denies.?Stomach/Abdominal pain?denies.?Dark blood stool?denies.?Irritable bowel ?denies.?Constipation?denies.?Diarrhea?denies.?Hematology:?Swelling?denies.?Clots?denies.?Varicose Veins?denies.?Bruising?admits.?Bleeding problem?denies.?Genitourinary:?Blood urine?denies.?Frequent/Painfu/urination/bladder control?denies.?Kidney stones?denies.?Infection (UTI)?denies.?Nephropathy?denies.?sex trans dis (STD)?denies.?Prostate?denies.?Musculoskeletal:?Hammertoes?admits.?Bunions?denies.?Back Pain?denies.?Muscle Cramps/ Resting?denies.?Muscle cramps / walking?denies.?Generalized aches and pains?admits.?Weakness?denies.?Integ.:?Severino?denies.?Scars?denies.?Corns/calluses?admits.?Ingrown nails?denies.?Painful nails?denies.?Open Sores?denies.?Rashes?denies.?Neurologic:?Difficulty sleeping?denies.?Brain disorder?denies.?Numbness?denies.?Balance t rouble?denies.?Confusion?denies.?Fainting/blackouts?denies.?Tingling?denies.?Adrian mors?denies.? * Medical History:? * Surgical History:?Right eye cateract surgery 11/2013Left eyey cateract surgery 12/2013gall bladder complication she had a gallstone and travel from her bladder to her intestian she had to get the gallstone remove 06/19/2019gall stones 06/19/2019intestinal surgery 06/19/2019 * Hospitalization/Major Diagno stic Procedure:?bladder infection 07/2020 * Family History:?Mother: dece ased, diagnosed with Other malignant neoplasm of unspecified site, Diabetic - NIDDM.?Father: , diagnosed with Other malignant neoplasm of unspecified site, Diabetic - NIDDM.?Daughter(s): unknown, diagnosed with Other specified conditions influencing health status.?Son(s): unknown, diagnosed with Other specified conditions influencing health status.?Siblings: multiple sclerosis, heart condition, diagnosed with Diabetic - NIDDM.?1 daughter(s) . .? * Social History:?Tobacco Use:?Tobacco Use/Smoking?Are you a:?nonsmoker ?Tobacco use other than smoking?Are you an other tobacco user??No * Medications:?TakingExtra Dep th Diabetic Shoes with 3 Pair Custom heat-molded multi-density innersoles for 1 year Dx: Reji Aspirin hydroCHLOROthiazide 25 MG Tablet Orally Iron Glucosamine Lisinopril 40 MG Tablet Orally levoFLOXacin 750 MG Tablet Oral Metformin & Diet Manage Prod Meclizine HCl 25 MG Tablet Oral Ondansetron 4 MG Tablet Disintegrating Oral Simvastatin 20 MG Tablet 1 tablet in the evening Orally Once a day vitamin Trulicity 70unit Extra Depth Orthopedic Shoes (1 Pair) with Customized Heat Molded Multidensity Innersoles (3 Pair) as directed Dx: NIDDM/Polyneuropathy (E11.42), Hammertoe Foot Deformity (M20.41,M20.42), Preulcerative Skin Lesion(s) (L85.1 Extra Depth Diabetic Shoes with 3 Pair Custom heat-molded multi-density innersoles for 1 year Dx: Extra-Depth Diabetic Shoes with 3 Pair Custom heat-molded multi-density innersoles . . for 1 year . Dx:niddm with neuropathy, foot deformity and preulcerative skin lesions Taking Extra Depth Diabetic Shoes with 3 Pair Custom heat-molded multi-density innersoles for 1 year Dx: Taking Reji Aspirin Taking hydroCHLOROthiazide 25 MG Tablet Orally Taking Iron Taking Glucosamine Taking Lisinopril 40 MG Tablet Orally Taking levoFLOXacin 750 MG Tablet Oral Taking Metformin & Diet Manage Prod Taking Meclizine HCl 25 MG Tablet Oral Taking Ondansetron 4 MG Tablet Disintegrating Oral Taking Simvastatin 20 MG Tablet 1 tablet in the evening Orally Once a day Taking vitamin Taking Trulicity 70unit Taking Extra Depth Orthopedic Shoes (1 Pair) with Customized Heat Molded Multidensity Innersoles (3 Pair) as directed Dx: NIDDM/Polyneuropathy (E11.42), Hammertoe Foot Deformity (M20.41,M20.42), Preulcerative Skin Lesion(s) (L85.1 Taking Extra Depth Diabetic Shoes with 3 Pair Custom heat-molded multi-density innersoles for 1 year Dx: Taking Extra-Depth Diabetic Shoes with 3 Pair Custom heat-molded multi-density innersoles . . for 1 year . Dx:niddm with neuropathy, foot deformity and preulcerative skin lesions Not-Taking/PRNExtra Depth Diabetic Shoes with 3 Pair Custom heat-molded multi-density innersoles for 1 year Dx: Extra Depth Diabetic Shoes with 3 Pair Custom heat-molded multi-density innersoles for 1 year Dx: Caltrate 600 amLODIPine Besylate Lantus 70units LORazepam Citalopram Hydrobromide Medication List reviewed and reconciled with the patientNot-Taking/PRN Extra Depth Diabetic Shoes with 3 Pair Custom heat-molded multi-density innersoles for 1 year Dx: Not- Taking/PRN Extra Depth Diabetic Shoes with 3 Pair Custom heat-molded multi-density innersoles for 1 year Dx: Not-Taking/PRN Caltrate 600 Not-Taking/PRN amLODIPine Besylate Not-Taking/PRN Lantus 70units Not-Taking/PRN LORazepam Not-Taking/PRN Citalopram Hydrobromide Medication List reviewed and reconciled with the patient * Allergies:?Latex: redness, i tchyAdhesive: rashPenicillin: rashyes[Allergies Verified] Objective: * Vitals:?Ht: 5 ft 6 in, Wt: 1 77, BMI: 28.57, Shoe size: 9.5, BP: 120/80 mm Hg, BS: 130, Wt-k.29 kg. * ???Past Orders: ???Lab:HEMOGLOBIN A1C (GLYCO HEMOGLOBIN) (Order Date - 04/02/2024) (Collection Date & Time - 04/02/2024 01:06 PM) ? Value Reference Range ?TOTAL HEMOGLOBIN (HGBA1C) 5.5 * Examination: ???Ophthalmology Referral: ?DIABETES EYE EXAM?Neurological: ?SENSORY:? Neurological exam demonstrates, reduced light touch sensation, reduced sharp/dull pin prick discrimination , B/L, 5.07 monofilament test performed at plantar aspects of 5 varied sites per foot shows sensation, reduced , B/L.?Nails: ?NAILS are:?Elongated, overgrown, dystrophic, lytic, greater than 3mm thick, discolored and friable with crumbly malodorous subungual debris, 1-5 B/L.?Dermatologic: ?SKIN FINDINGS:?Skin exam reveals Keratotic lesion(s) located at sub 1st and 5th metatarsal heads bilateral, plantar heels bilateral.?Vascular: ?DP PULSES(B):?2/4, B/L.?PT PULSES(B):?3/4, B/L.?CAPILLARY FILL TIME:?3 secs. per digit, b/l.?TROPHIC CONDITION-TEXTURE/ELASTICITY/TURGOR/HAIR GROWTH(B):?normal, B/L.?TEMPERTURE GRADIENT(C):?warm to cool, proximal to distal.?EDEMA(C):?no edema.?ELEV. PALOR:?absent.?CLAUDICATION(C):?negative, b/l .?REST PAIN:?negative.?TELANGECTASIA:?absent.?VARICOSITIES:?absent.?Orthopedic: ?MUSCLE STRENGTH:?5/5 all groups in a symmetrical fashion, B/L.?General Examination: ?GENERAL APPEARANCE:?Reveals a pleasant, alert, well nourished, well- developed, well hydrated individual, who demonstrates proper attention to hygiene/body habitus, and is in no acute distress, Pt serves as own historian for office visit today.?ORIENTED:?person, place, and time.? Assessment: * Assessment: 1.?Type 2 diabetes mellitus with diabetic polyneuropathy - E11.42 (Primary)???2.?Tinea unguium - B35.1??? Plan: * Treatment: * Procedures:?Debride Nail 6-10:?Nail debridement?Performance of this nail treatment by a nonprofessional would put this patients foot and overall health at risk. Therefore, debridement to affected nail(s), as described in exam, was performed extensively to reduce/remove overall nail length, girth, thickness, subungual debris, and necrotic tissue, by manual and/or electrical means through the use of a nail nipper and/or dremel-type grinder carbon plant, to a more viable healthy nail plate or bed tissue 6-10 nails in total. Silver nitrate was used for any petechial bleeding as necessary. Definitive antifungal treatment options, both pharmaceutical and surgical, have been reviewed and discussed with the patient. The patient solely prefers the use of intermittent/as needed professional debridement services for their nail condition and understands the need for additional periodic treatments to maintain effectiveness in symptomatic relief - 25307.?Keratoma Treatment:?Parring or Cutting of Benign Hyperkeratotic Lesion(s)?(-57) More than 4 Lesions - The Benign hyperkeratotic lesions, ( __ ) in total, locations as stated and described in exam, were pared, and/or cut utilizing a sterile 15 blade, tissue nippers, and/or power dremel instrumentation - 65460.? * Procedure Codes:?57244 DEBRI DE NAIL, 6 OR MORE, Modifiers: XS 83267 TRIM SKIN LESIONS, OVER 4, Modifiers: XS * Follow Up:?3 Months * Images: * Sign off status: Completed true * Provider:?Roslyn Mcgee DPM Date:?08/26/2023 Generated for Kary hernández/Daisy/Zachary on:?07/12/2024 05:56 AM EST History and Physical Notes * HPI (History of Present Illness) Category Sub-Category Detail Notes Category Not es At Risk footcare Pt States Last PCP Visit: Date: Examination Category Sub-Category Detail Notes Category Not es Neurological SENSORY: Neurological exa m demonstrates, reduced light touch sensation, reduced sharp/dull pin prick discrimination , B/L, 5.07 monofilament test performed at plantar aspects of 5 varied sites per foot shows sensation, reduced , B/L Dermatologic SKIN FINDINGS: Skin exam reveal s Keratotic lesion(s) located at sub 1st and 5th metatarsal heads bilateral, plantar heels bilateral Orthopedic MUSCLE STRENGTH: 5/5 all groups in a symmetrical fashion, B/L General Examination GENERAL APPEARANCE: Reveals a pleasant, alert, well nourished, well-developed, well hydrated individual, who demonstrates proper attention to hygiene/body habitus, and is in no acute distress, Pt serves as own historian for office visit today ORIENTED: person, place, and t merlene Ophthalmology Referral DIABETES EYE EXAM Procedure Perform ed:: Yes ?Date of Exam Performed: 04/02/2024 Findings of Diabetic Eye Exam:: no retin opathy Vascular DP PULSES(B): 2/4, B/L PT PULSES(B): 3/4, B/L CAPILLARY FILL TIME: 3 secs. per digit, b/l TEMPERTURE GRADIENT(C): warm to cool, pr oximal to distal TROPHIC CONDITION-TEXTURE/EL ASTICITY/TURGOR/HAIR GROWTH(B): normal, B/L EDEMA(C): no edema TELANGECTASIA: absent VARICOSITIES: absent ELEV. PALOR: absent CLAUDICATION(C): negative, b/l REST PAIN: negative Nails NAILS are: Elongated, overg rown, dystrophic, lytic, greater than 3mm thick, discolored and friable with crumbly malodorous subungual debris, 1-5 B/L
--- OUTSIDE RECORDS SUMMARY | 2024-07-12 05:57 | XMS_ITS | Patient Health Record ---
Author Organization [facility] Address [address] [facility] [place] [address] Care Team Providers Care Mortar Carrier Name Role Phone Sherron Villanueva MD Primary Care Provider Roslyn Campuzano Unavailable [phone] David Vasques Unavailable [phone] Allergies Allergen (clinical drug ingredient) Drug/Non Drug Allergy documented on EMR Reaction Allergy Type Onset Date Status Adhesive rash Allergy Active Latex Latex redness, itchy Allergy Activ e Penicillin rash Drug Allergy Active Results Component Value Reference Range Notes HEMOGLOBIN A1C (GLYCOHEMOGLO BIN) Reviewed date:06/26/2024 01:07:14 PM Interpretation: Performing Lab: Notes/Report: TOTAL HEMOGLOBIN (HGBA1C) 5.5 Reason For Referral No Information Medications Medication SIG (Take, Route, Frequency, Duration) Notes Start Date End Date Status Simvastatin 20 MG 1 tablet in the evening Orally Once a day for 30 day(s) Active LORazepam Not-Taking Lantus 70units Not-T aking Lisinopril 40 MG Orally Act shari Extra Depth Diabetic Shoes with 3 Pair Custom heat-molded multi-density innersoles for 1 year Dx: 01/10/2018 Not-Taking Glucosamine Active Extra-Depth Diabetic Shoes with 3 Pair Custom heat-molded multi-density innersoles . for 1 year . Dx:niddm with neuropathy, foot deformity and preulcerative skin lesions for . 04/11/2014 Active Metformin & Diet Manage Prod Active Caltrate 600 Not-Jeremy ing levoFLOXacin 750 MG Oral for 5 Active Extra Depth Diabetic Shoes with 3 Pair Custom heat-molded multi-density innersoles for 1 year Dx: 05/13/2016 Not-Taking Reji Aspirin Active Trulicity 70unit Act shari Extra Depth Diabetic Shoes with 3 Pair Custom heat-molded multi-density innersoles for 1 year Dx: Active vitamin Active Citalopram Hydrobromide Not-Taking Iron Active Extra Depth Diabetic Shoes with 3 Pair Custom heat-molded multi-density innersoles for 1 year Dx: 07/28/2021 Active hydroCHLOROthiazide 25 MG Orally Active Extra Depth Orthopedic Shoes (1 Pair) with Customized Heat Molded Multidensity Innersoles (3 Pair) as directed Dx: NIDDM/Polyneuropathy (E11.42), Hammertoe Foot Deformity (M20.41,M20.42), Preulcerative Skin Lesion(s) (L85.1 Active Ondansetron 4 MG Oral for 20 A ctive Meclizine HCl 25 MG Oral for 10 Active amLODIPine Besylate Not-Taking Immunizations Vaccine Route Administration Date Status Comme nts COVID-19 Pfizer BioNTech Vaccine Unknown 04/02/2021 Administered 1st 09/09/2020 2nd 09/30/2020 Influenza Unknown 05/08/2015 Administered Influenza Unknown 05/04/2016 Administered Influenza Unknown 05/14/2017 Administered Influenza Unknown 05/17/2018 Administered Influenza Unknown 05/15/2021 Administered Influenza Unknown 04/02/2023 Administered Social History Tobacco Use: Social History Observation Description Date Details (start date - stop date) Never Smoker NA - NA Tobacco Use/Smoking Question Answer Notes Are you a: nonsmoker Alcohol Screen Question Answer Notes Did you have a drink containing alcohol in the p ast year? No Points 0 Interpretation Negative Tobacco use other than smoking: Question Answer Notes Are you an other tobacco user? No Problems Problem Type SNOMED Code ICD Code Onset Dates Problem Status W/U Status Risk Notes Problem Polyneuropathy due to type 2 diabetes mellitus (986392351) Type 2 diabetes mellitus with diabetic polyneuropathy (E11.42) Active confirmed Problem Localized, primary osteoarthritis of the ankle and/or foot (892663303) Primary osteoarthritis, right ankle and foot (M19.071) Active confirmed Problem Localized, primary osteoarthritis of the ankle and/or foot (097676669) Primary osteoarthritis, left 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) Active confirmed Problem Polyneuropathy due to diabetes mellitus type I (116493027) Type 1 diabetes mellitus with diabetic polyneuropathy (E10.42) Active confirmed Problem Acquired hammer toe of left foot (7507575817792966 ) Other hammer toe(s) (acquired), left foot (M20.42) Active confirmed Vital Signs Blood pressure diastolic 80 mm Hg 06/26/2024 Height 5 ft 6 in in 06/26/2024 Blood pressure systolic 120 mm Hg 06/26/2024 Weight 177 lbs 06/26/2024 BMI 28.57 kg/m2 06/26/2024 Procedures Procedure Date Ordered Date Performed Result Body Sit e 56742-SBNJRFQ NAIL, 6 OR MORE 06/26/2024 N/A 78673-ODAH SKIN LESIONS, OVER 4 06/26/2024 N/A Encounters Encounter Location Date Provider Diagnosis [address] [address] 09/13/2023 David Vasques Tinea unguium B35.1 ; Pain in right toe(s) M79.674 ; Pain in left toe(s) M79.675 ; Other viral warts B07.8 ; Pain in left foot M79.672 ; Pain in right foot M79.671 and Type 1 diabetes mellitus with diabetic polyneuropathy E10.[address] [address] 12/20/2023 David Vasques Tinea unguium B35.1 ; Pain in right toe(s) M79.674 ; Pain in left toe(s) M79.675 ; Other viral warts B07.8 ; Pain in left foot M79.672 ; Pain in right foot M79.671 and Type 1 diabetes mellitus with diabetic polyneuropathy E10.[address] [address] 03/22/2024 David Vasques Tinea unguium B35.1 ; Pain in right toe(s) M79.674 ; Pain in left toe(s) M79.675 ; Other viral warts B07.8 ; Pain in left foot M79.672 ; Pain in right foot M79.671 and Type 1 diabetes mellitus with diabetic polyneuropathy E10.[address] [address] 06/26/2024 Roslyn Mcgee Type 2 diabetes mellitus with diabetic polyneuropathy E11.42 and Tinea unguium B35.1 [facility] [place] [address] [place] [address] 02/01/2024 David Vasques Assessments Encounter Date Diagnosis (ICD Code) Assessment Notes Treatment Notes Treatment Clinical Notes Section Notes 09/13/2023 Tinea unguium (ICD-10 - B35.1) 12/20/2023 Tinea unguium (ICD-10 - B35.1) 03/22/2024 Tinea unguium (ICD-10 - B35.1) 03/22/2024 Pain in right toe(s) (ICD-10 - M79.674) 06/26/2024 Type 2 diabetes mellitus with diabetic polyneuropathy (ICD-10 - E11.42) 06/26/2024 Tinea unguium (ICD-10 - B35.1) 03/22/2024 Pain in left toe(s) (ICD-10 - M79.675) 12/20/2023 Pain in right toe(s) (ICD-10 - M79.674) 09/13/2023 Pain in right toe(s) (ICD-10 - M79.674) 09/13/2023 Pain in left toe(s) (ICD-10 - M79.675) 12/20/2023 Pain in left toe(s) (ICD-10 - M79.675) 03/22/2024 Other viral warts (ICD-10 - B07.8) 12/20/2023 Other viral warts (ICD-10 - B07.8) 09/13/2023 Other viral warts (ICD-10 - B07.8) 03/22/2024 Pain in left foot (ICD-10 - M79.672) 09/13/2023 Pain in left foot (ICD-10 - M79.672) 12/20/2023 Pain in left foot (ICD-10 - M79.672) 03/22/2024 Pain in right foot (ICD-10 - M79.671) 12/20/2023 Pain in right foot (ICD-10 - M79.671) 09/13/2023 Pain in right foot (ICD-10 - M79.671) 03/22/2024 Type 1 diabetes mellitus with diabetic polyneuropathy (ICD-10 - E10.42) 09/13/2023 Type 1 diabetes mellitus with diabetic polyneuropathy (ICD-10 - E10.42) 12/20/2023 Type 1 diabetes mellitus with diabetic polyneuropathy (ICD-10 - E10.42) Plan Of Treatment Pending Test Test Name Order Date Hemoglobin A1c 05/03/2018 X ray : Foot, right 3V 05/27/2011 35772-MNHIXYI NAIL, 6 OR MORE 06/24/2011 32172-LJJIIOG NAIL, 6 OR MORE 09/09/2011 57571-TKRFMXR NAIL, 6 OR MORE 04/15/2011 85930-BJFAEDJ NAIL, 6 OR MORE 05/27/2011 85852-BKBRFZW NAIL, 6 OR MORE 11/18/2011 05971-AYFHKNX NAIL, 6 OR MORE 01/27/2012 68500-RYKSNSS NAIL, 6 OR MORE 04/27/2012 33100-ASCKAZS NAIL, 6 OR MORE 07/06/2012 05813-VYIOKFG NAIL, 6 OR MORE 09/21/2012 56200-FVRRQLR NAIL, 6 OR MORE 11/30/2012 96240-NDIZFUS NAIL, 6 OR MORE 02/15/2013 16181-XGJRGLY NAIL, 6 OR MORE 05/24/2013 89414-OKMDEGR NAIL, 6 OR MORE 08/30/2013 64890-FLSPSGZ NAIL, 6 OR MORE 11/15/2013 78029-WJQCIYU NAIL, 6 OR MORE 01/31/2014 05442-IOYIREJ NAIL, 6 OR MORE 04/11/2014 73596-YHCLOOP NAIL, 6 OR MORE 07/04/2014 25347-NZBHARX NAIL, 6 OR MORE 09/26/2014 25562-SAAHECO NAIL, 6 OR MORE 12/12/2014 73820-OEROPPD NAIL, 6 OR MORE 02/28/2015 58531-LOIHGIR NAIL, 6 OR MORE 05/22/2015 38598-CBKEYMX NAIL, 6 OR MORE 08/14/2015 11329-YEWJKXE NAIL, 6 OR MORE 11/13/2015 95765-BLMRBHT NAIL, 6 OR MORE 02/12/2016 71963-BBLJWUT NAIL, 6 OR MORE 05/13/2016 86915-GYTSVIT NAIL, 6 OR MORE 08/12/2016 11249-UJTZESN NAIL, 6 OR MORE 11/04/2016 36641-XYDXYGO NAIL, 6 OR MORE 01/27/2017 46949-QVRFDFJ NAIL, 6 OR MORE 04/21/2017 41832-LZZYDWV NAIL, 6 OR MORE 07/14/2017 13315-SQPEVRC NAIL, 6 OR MORE 10/11/2017 11443-KFAIZXV NAIL, 6 OR MORE 01/10/2018 57521-WFFYJBJ NAIL, 6 OR MORE 04/06/2018 12213-MWFUQFO NAIL, 6 OR MORE 07/06/2018 39780-UGEPLRN NAIL, 6 OR MORE 06/26/2024 11108-Bbmbmhpg Plate 11/13/2015 53767-Syivphmz Plate 05/22/2015 80105-Flrjjzsp Plate 12/12/2014 73762-Wpxclydy Plate 09/26/2014 08438-Obceebor Plate 07/04/2014 06970-Tqtrcuxo Plate 04/11/2014 00428- Debride <25 sq cm 02/06/2014 59427-KTDS SKIN LESIONS, OVER 4 02/29/20 15 93158-KFWB SKIN LESIONS, OVER 4 01/11/20 18 81758-SPUJ SKIN LESIONS, OVER 4 10/12/19 18 17803-RZXM SKIN LESIONS, OVER 4 07/14/20 17 33299-OLYS SKIN LESIONS, OVER 4 04/21/20 17 52049-NMEA SKIN LESIONS, OVER 4 11/05/19 17 71854-URER SKIN LESIONS, OVER 4 01/28/20 17 50291-GFNB SKIN LESIONS, OVER 4 08/12/19 17 50137-IHPE SKIN LESIONS, OVER 4 05/13/20 16 22755-GEIC SKIN LESIONS, OVER 4 06/26/20 24 76154-WNOQ SKIN LESIONS, OVER 4 07/17/20 20 87999-EFCH SKIN LESIONS, OVER 4 10/24/19 21 70449-ZCJG SKIN LESIONS, OVER 4 01/24/20 21 91121-DDER SKIN LESIONS, OVER 4 04/17/20 21 72105-HZRD SKIN LESIONS, OVER 4 07/28/20 21 96826-YGXP SKIN LESIONS, OVER 4 10/16/19 22 88103-CLEY SKIN LESIONS, OVER 4 10/06/19 19 24020-RZGQ SKIN LESIONS, OVER 4 01/03/20 19 20207-GRSQ SKIN LESIONS, OVER 4 03/27/20 19 59702-QVXI SKIN LESIONS, OVER 4 06/26/20 19 71125-OFPN SKIN LESIONS, OVER 4 07/06/20 18 74265-QEGN SKIN LESIONS, OVER 4 04/06/20 18 58393-PGGC SKIN LESIONS, 2 TO 4 10/04/19 20 25411-EDEK SKIN LESIONS, 2 TO 4 01/03/20 20 42559-TOJQ SKIN LESIONS, 2 TO 4 04/25/20 20 10805-IWIW SKIN LESIONS, 2 TO 4 02/12/20 16 42978-KQVE SKIN LESIONS, 2 TO 4 05/22/20 15 20215-YPYD SKIN LESIONS, 2 TO 4 11/13/19 16 42215-ZBNP SKIN LESIONS, 2 TO 4 08/14/19 16 62844-UVRB SKIN LESIONS, 2 TO 4 07/04/20 14 84710-BTDI SKIN LESIONS, 2 TO 4 09/26/19 15 71599-ZIJF SKIN LESIONS, 2 TO 4 12/13/19 15 66710-JFKD SKIN LESIONS, 2 TO 4 04/11/20 14 70124-JHRW SKIN LESIONS, 2 TO 4 02/01/20 14 72490-BPNH SKIN LESIONS, 2 TO 4 11/16/19 14 27638-PMRX SKIN LESIONS, 2 TO 4 08/30/19 14 23536-ARML SKIN LESIONS, 2 TO 4 05/24/20 13 94671-HAGY SKIN LESIONS, 2 TO 4 02/16/20 13 42096-XKUT SKIN LESIONS, 2 TO 4 12/01/19 13 89102-WRFL SKIN LESIONS, 2 TO 4 09/21/19 13 95110-PZHE SKIN LESIONS, 2 TO 4 07/06/20 12 09619-IEXQ SKIN LESIONS, 2 TO 4 04/27/20 12 88644-EGUW SKIN LESIONS, 2 TO 4 01/27/20 12 40890-OCQC SKIN LESIONS, 2 TO 4 04/15/20 11 86560-KIKT SKIN LESION 09/09/2011 18796-SDTH SKIN LESION 11/18/2011 24640-UJEZPGQV OF HEMATOMA/FLUID 014 83362- Removal of Foreign Body, Subcut 0 03/29/2023 41703- Removal of Foreign Body, Subcut 0 01/03/2020 37212, J0702- Neuroma/Injection 05/27/20 11 Next Appt Details Provider Name:Roslyn chávez, 11/22/2024 01:30:00 PM, [address] [facility], [place], [address], Insurance Providers Payer Name Payer Address Payer Phone Subscriber Number Group Number Insured Name Patient Relationship to Insured Coverage Start Date Coverage End Date Medicare [employer] [address] [place] [address] [id number] Tamie Martin Self - patient is the insured [employer] [address] [place] [address] [id number] Tamie Martin Self - patient is the insured Medical (General) History Medical History History ICD Code high blood pressure Arthritis sleep apnea type II diabetes Surgical History Surgery Date(Month/Year) Right eye cateract surgery 11/2013 Left eyey cateract surgery 12/2013 gall bladder complication sh william had a gallstone and travel from her bladder to her intestian she had to get the gallstone remove 06/19/2019 gall stones 06/19/2019 intestinal surgery 06/19/2019 Hospitalization History Reason Date(Month/Year) bladder infection 07/2020
--- OUTSIDE RECORDS SUMMARY | 2024-07-12 05:57 | XMS_ITS ---
Author Organization [facility] Address [address] [place] [address] Care Team Providers Care Director Channel Name Role Phone Sherron Villanueva MD Primary Care Provider Roslyn Campuzano Unavailable [phone] David Vasques [phone] REASON FOR VISIT [employer] Encounters Encounter Location Date Provider Diagnosis [address] [address] 02/01/2024 David Vasques Plan Of Treatment Next Appt Details Provider Name:Roslyn chávez, 11/22/2024 01:30:00 PM, [address] [place], [address], Progress Notes * Tamie MCDANIELDOB:[birth year] (88 yo F)Acc No.[id number]:02/01/2024 Patient:?Tamie Mcdaniel :1935???Age:88 Y???Sex:Female Address:[address], [place], [address] * true * Date:? Generated for Printi betty/Daisy/eTransmitting on:?07/12/2024 05:56 AM EST
--- OUTSIDE RECORDS SUMMARY | 2024-07-12 05:57 | XMS_ITS | Data Portability ---
Author Organization [facility] Address [address] [place] [address] Care Team Providers Care Departure Clerk Name Role Phone KATELYN HARMON Primary Care Provider Assessment No assessment recorded. Plan of Treatment Reminders Order Date Submit Date Provider Last Modified By Organization Details Last Modified Time Details Appointments None recorded. Lab None recorded. Referral None recorded. Procedures None recorded. Surgeries None recorded. Imaging None recorded. Medication Orders valacyclovi r 1 gram tablet 2022 023 [facility]/Pharmacy #[id number], [address] [facility] , [place], [address], 13:45:24 Patient TargetsNo targets recorded. Patient Instructions Encounter Date Encounter Id Patient Instructions Last Modified By Organization Details Last Modified Time 01/27/2023 [id number] shingles: care instructions [email or web address] Not available 01/27/2023 13:45:22 Based on your ex am and presentation, you are being diagnosed with Shingles. You are going to start an antiviral medication to help suppress the replication of the virus and help you fight the infection. The following are my recommendations to help with your systems and allow your body to heal: 1. No creams or lotions on the vesicles/rash 2. Take Ibuprofen or Tylenol if you do not have any allergies to these medications. If you take a blood thinner you should not take NSAIDS like Ibuprofen. 3. After the rash heals if you are still having pain you can use Over The Counter Lidoderm Patches 4. Try and avoid scratching or rubbing the area to prevent a skin infection. The rash may take 2-3 weeks to completely resolve. You will most likely be done with the medication but still have the rash. In some occasions after the rash heals you may have some residual pain in that area affected - this is called POST HERPATIC NEURALGIA. If you are experiencing this, you can purchase some Lidoderm Patches over the counter and apply one every 12 hours. Most of the time, people use these to help sleep. You should be seen again if you develop any of the following symptoms. 1. Severe Headache 2. New involvement with the eye. 3. Fever 4. Stiff Neck 5. Shortness of breath. I would recommend the Shingles Vaccine. You can receive this 6 months after this infection. Thank you for using [facility], please feel free to contact us if you have any questions or concerns. [email or web address] Not available 01/27/2023 13:45:20 Reason for Referral None Reported. Problems Name Problem SNOMED Code Status Onset Date Resolution Date Notes Provider Name and Address Organization Details Recorded Time Hypertensive disorder 40005837 Active 2022 Li christian PA - [facility] 3 13:25:42 Hypercholestero lemia 47165613 Active 2022 Li christian PA - [facility] 3 13:30:06 Diabetes mellitus 15233070 Active 2022 Li christian PA - [facility] 3 13:31:59 Notes:pt unsure of medical p roblems Problem Notes None recorded. Medical Equipment None Reported. Allergies Allergen ID Allergen Name Allergen Category Reaction Reaction Severity Criticality Documentation Date Start Date Code Code System Note Provider Name and Address Organization Details Recorded Time 375428 Medicinal product containin g penicilli n and acting as antibacte rial agent (product) medicatio n rash Not available Not available 01/27/2023 34846 05 SNOMED Li christian PA - [facility] 13:23:31 Medications Name Sig Start Date Stop Date Status Note LastModified by Organization Details LastModified Time latanoprost 0.005 % eye drops INSTILL 1 DROP INTO BOTH EYES EVERY NIGHT AT BEDTIME active Not Available Not Available No t Available cefpodoxime 200 mg tablet TAKE 1 TABLET BY MOUTH EVERY 12 HOURS (MUST TAKE WITH MEAL/FOOD ) 01/27 completed Not Available Not Available Not Available valacyclovi r 1 gram tablet TAKE 1 TABLET BY MOUTH THREE TIMES A DAY FOR 7 DAYS active Not Available Not Available No t Available phenazopyri dine 200 mg tablet TAKE 1 TABLET BY MOUTH THREE TIMES A DAY FOR 6 DOSES NOT COVERED 01/27 completed Not Available Not Available Not Available famotidine 40 mg tablet TAKE 1 TABLET BY MOUTH EVERY NIGHT AT BEDTIME. active Not Available Not Available No t Available amlodipine 5 mg tablet TAKE 1 TABLET BY MOUTH EVERY DAY active Not Available Not Available No t Available tramadol 50 mg tablet TAKE 1 TAB ORALLY 2 TIMES A DAY NEEDED FOR PAIN active Not Available Not Available No t Available simvastatin 40 mg tablet TAKE 1 TABLET BY MOUTH DAILY active Not Available Not Available No t Available [employer] Ultra Test strips USE DIRECTED EVERY DAY 01/27 completed Not Available Not Available Not Available erythromyci n 5 mg/gram (0.5 %) eye ointment APPLY TO AFFECTED LESION ON LEFT EYE AND FOREHEAD 3 TIMES A DAY FOR 7 DAYS active Not Available Not Available No t Available metformin 1,000 mg tablet TAKE 1 TABLET BY MOUTH TWICE A DAY 01/27 completed Not Available Not Available Not Available nystatin 100,000 unit/gram topical cream APPLY TOPICALLY 2 TIMES DAILY active Not Available Not Available No t Available mupirocin 2 % topical ointment APPLY TOPCIALLY 2 TIMES DAILY 01/27 completed Not Available Not Available Not Available gabapentin 100 mg capsule TAKE 1 CAPSULE BY MOUTH 3 TIMES A DAY active Not Available Not Available No t Available hydrocortis one 2.5 % topical ointment APPLY TOPICALLY 2 TIMES DAILY NEEDED FOR SKIN IRRITATIO N 01/27 completed Not Available Not Available Not Available lisinopril 40 mg tablet TAKE 1 TABLET BY MOUTH EVERY DAY active Not Available Not Available No t Available ondansetron 4 mg disintegrat ing tablet TAKE 1 TABLET BY MOUTH ORALLY EVERY 8 HOURS NEEDED FOR NAUSEA AND VOMITING active Not Available Not Available No t Available sertraline 50 mg tablet TAKE 1 TABLET BY MOUTH EVERY DAY 01/27 completed Not Available Not Available Not Available aspirin active Not Available Not Avail able Not Available hydrochloro thiazide active Not Available Not Available Not Available Glucosamine active Not Available Not A vailable Not Available triamcinolo ne (bulk) active Not Available Not Available No t Available Cinnamon active Not Available Not Avai lable Not Available cyanocobala m-mecobalam in-folic active Not Available Not Available Not Available Vitals Date Recorded Body height Body mass index (BMI) Body weight Respiratory rate Oxygen saturation Oxygen saturation in Arterial blood by Pulse oximetry Heart rate Body temperature Systolic blood pressure Diastolic blood pressure Provider Name and Address Organization Details Last Updated DateTime 170.18 cm 27.3 kg/m2 59244.0 7 g 18 /min 100 % 100 % 77 /min 98.1 [degF] 162 mm[Hg] 72 mm[Hg] Li Bradley PA - [facility] 13:32:27 Date Recorded Systolic blood pressure Diastolic blood pressure Provider Name and Address Organization Details Last Updated DateTime 01/27/2023 140 mm[Hg] 80 mm[Hg] TITO WHITE [address] [place], [address], [place] - [facility] 01/27/2023 13:47:40 Social History Question Answer Notes LastModified by Organizat ion Details LastModified Time Tobacco Smoking Status Never Smoker Li christian, PA - [facility] 01/27/2023 13:31:03 What Is Your Level Of Alcohol Consumption? Occasional Special Occasions Information not available 01/27/2023 How Many Times Per Week Do You Consume Alcohol? Less Than 1 Time Per Week Information not available 01/27/2023 Do You Use Any Illicit Or Recreational Drugs? No Information not available 01/27/2023 Have You Recently Traveled Abroad? No Information not available 01/27/2023 Do You Or Have You Ever Used Any Other Forms Of Tobacco Or Nicotine? No Information not available 01/27/2023 Sex: Unknown Functional Status None recorded. Mental Status None recorded. Family History Relationship Description Onset Age of this Age Resolved Age Notes LastModified by Organization Details LastModified Time Father No current problems or disability [email or web address] Not available 01/27 13:30:22 Mother No current problems or disability [email or web address] Not available 01/27 13:30:22 Medical History No medical history recorded. Gynecological HistoryNo gynecological history recorded. Obstetrics History GPAL:G 0 P 0 0 0 0 Immunizations Vaccine Type Date Status Note Provider Nam e and Address Organization Details Recorded Time Influenza, high-dose, quadrivalent, PF 2 completed Li Monfette null, PA - [facility] 01/27/2023 13:23:09 Influenza, adjuvanted, quadrivalent, PF 1 completed Li Monfette null, PA - [facility] 01/27/2023 13:23:09 COVID-19, mRNA, LNP-S, PF, 30 mcg/0.3 mL dose 1 completed Li Monfette null, PA - [facility] 01/27/2023 13:23:09 COVID-19, mRNA, LNP-S, PF, 30 mcg/0.3 mL dose 1 completed Li Monfette null, PA - [facility] 01/27/2023 13:23:09 COVID-19, mRNA, LNP-S, PF, 30 mcg/0.3 mL dose 1 completed Li Monfette null, PA - [facility] 01/27/2023 13:23:09 COVID-19, mRNA, LNP-S, bivalent, PF, 30 mcg/0.3 mL dose 2 completed Li Monfette null, PA - [facility] 01/27/2023 13:23:09 Tdap 3 completed Li Monfette null, PA - [facility] 01/27/2023 13:23:09 Pneumococcal conjugate PCV 13 7 completed Li Monfette null, PA - [facility] 01/27/2023 13:23:09 Influenza, high-dose, trivalent, PF 8 completed Li Monfette null, PA - [facility] 01/27/2023 13:23:09 Influenza, high-dose, trivalent, PF 9 completed Li Monfette null, PA - [facility] 01/27/2023 13:23:09 Influenza, high-dose, trivalent, PF 7 completed Li Monfette null, PA - [facility] 01/27/2023 13:23:09 Influenza, high-dose, trivalent, PF 6 completed Li Mahmoodelías null, PA - [facility] 01/27/2023 13:23:09 Influenza, split virus, quadrivalent, PF 0 completed Li Mahmoodelías null, PA - [facility] 01/27/2023 13:23:09 Past Encounters Encounter ID Performer Location Encounter Start Date Encounter Closed Date Diagnosis/Indication Diagnosis SNOMED-CT Code Diagnosis ICD10 Code [id number] [address] [facility] [place] [address] 10/25/2015 08:59:37 10/25/2015 09:53:08 [id number] [address] [facility] [place] [address] 01/17/2018 18:29:55 01/17/2018 18:54:13 [id number] [address] [facility] [place] [address] 12/02/2016 17:00:53 12/02/2016 18:10:28 [id number] [address] [facility] [place] [address] 05/28/2017 10:51:39 05/28/2017 12:24:22 [id number] [address] [facility] [place] [address] 10/05/2015 09:04:04 10/05/2015 09:59:09 [id number] [address] [facility] [place] [address] 07/08/2017 09:24:15 07/08/2017 11:00:44 [id number] [address] [facility] [place] [address] 12/07/2016 08:48:59 12/07/2016 09:33:22 [id number] [address] [facility] [place] [address] 02/02/2018 10:23:50 02/02/2018 11:25:44 [id number] [facility] [address] [place] [address] 01/27/2023 11:57:31 01/27/2023 13:54:52 Herpes zoster [id number] B02.9 Health Concerns Section Related Observation LastModified by Organization Detai ls LastModified Time None Recorded Concern Status LastModified by Organization Details LastModified Time None Recorded Advance Directives Directive None Recorded Payers Encounter Date Sequence Insurance Name Policy Number Policy Ortiz Covered Member ID Ortiz Member ID Guarantor Name 05/28/2017 1 [place] [employer] [place] Tamie Chevalier [id number] A Tamie Chevalier 05/28/2017 2 [place] [id number] Tamie Chevalier [id number] Tamie Chevalier 07/08/2017 1 [place] Tamie Chevalier [id number] A Tamie Chevalier 07/08/2017 2 [place] [id number] Tamie Chevalier [id number] Tamie Chevalier 01/17/2018 1 [place] Tamie Chevalier [id number] A Tamie Chevalier 01/17/2018 2 [place] [id number] Tamie Chevalier [id number] Tamie Chevalier 02/02/2018 1 [place] [employer] [place] Tamie Chevalier [id number] A Tamie Chevalier 02/02/2018 2 [place] [id number] Tamie Chevalier [id number] Tamie Chevalier 01/27/2023 1 [place] Tamie Chevalier [id number] Tamie Chevalier 01/27/2023 2 [place] Tamie Chevalier [id number] Tamie Chevalier Notes Date Note Type Note Provider Name and Address Organization Details Recorded Time 3 text/html Rash / Skin LesionReported bypatient.source of patient informationInformation obtained from patient; Patient arrived at Urgent Care ambulatory Location:face; Left forehead and eyelid. Quality:painful(only when touching the area);red Severity:mild Duration:3 days Associated Symptoms:no fever; no fatigueNotes:The patient reports noticed this on Wednesday and she thought she got stung by a bee. She states when she touches her forehead it hurts. She states not spreading onto the eyelid and she is concerned for an infection. The patient reports is feeling tingles in her scalp and she isn't wearing her hair up today. The patient denies any ear pain or sore throat. No history of shingles. TITO WHITE [address] [place], [address], [place] - [facility] 01/27/2023 16:16:29 OBGyn Episode No OBEpisode recorded.
--- OUTSIDE RECORDS SUMMARY | 2024-07-12 05:57 | XMS_ITS ---
Author Organization [facility] Address [address] [place] [address] Care Team Providers Care De Icer Name Role Phone Sherron Villanueva MD Primary Care Provider UnavailRoslyn Russell Unavailable [phone] David Vasques Unavailable [phone] Allergies Allergen (clinical drug ingredient) Drug/Non Drug Allergy documented on EMR Reaction Allergy Type Onset Date Status Adhesive rash Allergy Active Latex Latex redness, itchy Allergy Activ e Penicillin rash Drug Allergy Active REASON FOR VISIT Painful nail(s) aggrevated by shoes and causing difficulty standing/walking. Medications Medication SIG (Take, Route, Frequency, Duration) Notes Start Date End Date Status Trulicity 70unit Act shari Extra Depth Orthopedic Shoes (1 Pair) with Customized Heat Molded Multidensity Innersoles (3 Pair) as directed Dx: NIDDM/Polyneuropathy (E11.42), Hammertoe Foot Deformity (M20.41,M20.42), Preulcerative Skin Lesion(s) (L85.1 Active vitamin Active Extra Depth Diabetic Shoes with 3 Pair Custom heat-molded multi-density innersoles for 1 year Dx: 07/28/2021 Active Extra-Depth Diabetic Shoes with 3 Pair Custom heat-molded multi-density innersoles . for 1 year . Dx:niddm with neuropathy, foot deformity and preulcerative skin lesions for . 04/11/2014 Active Simvastatin 20 MG 1 tablet in the evening Orally Once a day for 30 day(s) Active levoFLOXacin 750 MG Oral for 5 Active Ondansetron 4 MG Oral for 20 A ctive Metformin & Diet Manage Prod Active Meclizine HCl 25 MG Oral for 10 Active Reji Aspirin Active hydroCHLOROthiazide 25 MG Orally Active Lisinopril 40 MG Orally Act shari Iron Active Glucosamine Active Extra Depth Diabetic Shoes with 3 Pair Custom heat-molded multi-density innersoles for 1 year Dx: Active Citalopram Hydrobromide Not-Taking Lantus 70units Not-T aking LORazepam Not-Taking amLODIPine Besylate Not-Taking Extra Depth Diabetic Shoes with 3 Pair Custom heat-molded multi-density innersoles for 1 year Dx: 01/10/2018 Not-Taking Extra Depth Diabetic Shoes with 3 Pair Custom heat-molded multi-density innersoles for 1 year Dx: 05/13/2016 Not-Taking Caltrate 600 Not-Jeremy ing Social History Tobacco Use: Social History Observation [...] Are you an other tobacco user? No Vital Signs Height 5 ft 6 in in 03/22/2024 Weight 177 lbs 03/22/2024 BMI 28.57 kg/m2 03/22/2024 Blood pressure systolic 120 mm Hg 03/22/20 24 Blood pressure diastolic 80 mm Hg 024 Encounters Encounter Location Date Provider Diagnosis [facility] [address] [place] [address] 03/22/2024 David Vasques Tinea unguium B35.1 ; Pain in right toe(s) M79.674 ; Pain in left toe(s) M79.675 ; Other viral warts B07.8 ; Pain in left foot M79.672 ; Pain in right foot M79.671 and Type 1 diabetes mellitus with diabetic polyneuropathy E10.42 Assessments Encounter Date Diagnosis (ICD Code) Assessment Notes Treatment Notes Treatment Clinical Notes Section Notes 03/22/2024 Tinea unguium (ICD-10 - B35.1) 03/22/2024 Pain in right toe(s) (ICD-10 - M79.674) 03/22/2024 Pain in left toe(s) (ICD-10 - M79.675) 03/22/2024 Other viral warts (ICD-10 - B07.8) 03/22/2024 Pain in left foot (ICD-10 - M79.672) 03/22/2024 Pain in right foot (ICD-10 - M79.671) 03/22/2024 Type 1 diabetes mellitus with diabetic polyneuropathy (ICD-10 - E10.42) Plan Of Treatment Medication Medication Name Sig Start Date Stop Date Notes Extra Depth Diabetic Shoes w ith 3 Pair Custom heat-molded multi-density innersoles for 1 year Dx: Next Appt Details Follow Up: 3 Months, Reason: Provider Name:Roslyn chávez, 11/22/2024 01:30:00 PM, [address] [place] [address], [id number], Procedure Notes * Category Sub-Category Detail Notes Debride Nail 6-10 Nail debridement Nail debridem ent performed extensively to reduce/remove overall nail length and girth, subungual debris, and necrotic tissue, by manual and electrical means with use of a nail nipper and/or dremel, to more viable healthy nail plate or bed tissue 6-10. Silver nitrate used for any petechial bleeding as necessary. Patient chooses, no pharmaceutical tx (10208) Keratoma Treatment Parring or Cutting o f Benign Hyperkeratotic Lesion(s) 42821 ( >4 Lesions) - The Benign hyperkeratotic lesions, as described above were pared, and/or cut utilizing a sterile #15 blade, tissue nippers, and/or dremel Progress Notes * Tamie MCDANIELDOB:[birth year] (89 yo F)Acc No.[id number]:03/22/2024 Progress Note Patient:?Tamie Mcdaniel Provider:?David Vasques DPM :1935???Age:89 Y???Sex:Female D ate:03/22/2024 Address: [address] [place], [id number] Pcp:Sherron Villanueva MD Subjective: * Chief Complaints: * ???Painful nail(s) aggrevate d by shoes and causing difficulty standing/walking. * HPI: ???Painful Nails:?Pt States Last PCP Visit:?Date:?12/06/2023 * ROS:?General/Constitutional:?Nausea?denies.?Vomiting?denies.?Hunger Thirst?denies.?Loss appetite?denies.?Chills?denies.?Fatigue?denies.?Fever?denies.?Night Sweats?denies.?Unexplained weight loss?denies.?Unexplained weight gain?denies.?HEENTM:?Dentures?denies.?Dizziness?denies.?Glasses/contacts?denies.?Retinopathy?de nies.?Blurred/double vision?denies.?TMJ?denies.?Discharge/drainage?denies.?Implants?denies.?Sore throat?denies.?Dental implants?denies.?Hard of hearing ?admits.?Difficulty chewing/swallowing/speaking?denies.?Nose bleeds?denies.?Sore mouth?denies.?Respiratory:?On Oxygen?denies.?Pneumonia/pleurisy?denies.?Bronchitis?denies.?Emphysema?denies.?C oughing?denies.?Cough blood?denies.?Shortness of breath?denies.?Wheezing?denies.?Cardiovascular:?Pacemaker?denies.?MVP?denies.?WPW?denies.?CHF?denies.?Heart attack?denies.?Septal defect?denies.?Rapid beat?denies.?Chest pain ?denies.?Atrial Fib.?denies.?Murmur/Palpitations?denies.?Gastrointestinal:?Hemorrhoids?denies.?Stomach/Abdominal pain?denies.?Dark blood stool?denies.?Irritable bowel ?denies.?Constipation?denies.?Diarrhea?denies.?Hematology:?Swelling?denies.?Clots?denies.?Varicose Veins?denies.?Bruising?admits.?Bleeding problem?denies.?Genitourinary:?Blood urine?denies.?Frequent/Painfu/urination/bladder control?denies.?Kidney stones?denies.?Infection (UTI)?denies.?Nephropathy?denies.?sex trans dis (STD)?denies.?Prostate?denies.?Musculoskeletal:?Hammertoes?admits.?Bunions?denies.?Back Pain?denies.?Muscle Cramps/ Resting?denies.?Muscle cramps / walking?denies.?Generalized aches and pains?admits.?Weakness?denies.?Integ.:?Severino?denies.?Scars?denies.?Corns/calluses?admits.?Ingrown nails?denies.?Painful nails?denies.?Open Sores?denies.?Rashes?denies.?Neurologic:?Difficulty sleeping?denies.?Brain disorder?denies.?Numbness?denies.?Balance trouble?denies.?Confusion?denies.?Fainting/blackouts?denies.?Tingling?denies.?Tr emors?denies.? * Medical History:? * Surgical History:?Right eye cateract surgery 11/2013Left eyey cateract surgery 12/2013gall bladder complication she had a gallstone and travel from her bladder to her intestian she had to get the gallstone remove 06/19/2019gall stones 06/19/2019intestinal surgery 06/19/2019 * Hospitalization/Major Diagno stic Procedure:?bladder infection 07/2020 * Family History:?Mother: dece ased, diagnosed with Diabetic - NIDDM, Other malignant neoplasm of unspecified site.?Father: , diagnosed with Diabetic - NIDDM, Other malignant neoplasm of unspecified site.?Daughter(s): unknown, diagnosed with Other specified conditions influencing health status.?Son(s): unknown, diagnosed with Other specified conditions influencing health status.?Siblings: multiple sclerosis, heart condition, diagnosed with Diabetic - NIDDM.?1 daughter(s) . .? * Social History:?Tobacco Use:?Tobacco Use/Smoking?Are you a:?nonsmoker ?Tobacco use other than smoking?Are you an other tobacco user??No ???Drugs/Alcohol:?Drugs?Have you used drugs other than those for medical reasons in the past 12 months??No ?Alcohol Screen?Did you have a drink containing alcohol in the past year??No ?Points?0 ?Interpretation?Negative ???Miscellaneous:?Caffeine: yes, frequency: coffee, 1 cups per day. ?Children: yes. ?no Exercise. ?Marital status: . 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 * Medications:?TakingBayer Asp irin hydroCHLOROthiazide 25 MG Tablet Orally Iron Glucosamine Lisinopril 40 MG Tablet Orally levoFLOXacin 750 MG Tablet Oral Metformin & Diet Manage Prod Meclizine HCl 25 MG Tablet Oral Ondansetron 4 MG Tablet Disintegrating Oral Simvastatin 20 MG Tablet 1 tablet in the evening Orally Once a dayvitamin Trulicity 70unit Extra Depth Orthopedic Shoes (1 Pair) with Customized Heat Molded Multidensity Innersoles (3 Pair) as directed Dx: NIDDM/Polyneuropathy (E11.42), Hammertoe Foot Deformity (M20.41,M20.42), Preulcerative Skin Lesion(s) (L85.1Extra Depth Diabetic Shoes with 3 Pair Custom heat-molded multi-density innersoles for 1 year Dx:Extra-Depth Diabetic Shoes with 3 Pair Custom heat- molded multi-density innersoles . . for 1 year . Dx:niddm with neuropathy, foot deformity and preulcerative skin lesionsExtra Depth Diabetic Shoes with 3 Pair Custom heat-molded multi-density innersoles for 1 year Dx:Taking Reji Aspirin Taking hydroCHLOROthiazide 25 MG Tablet Orally Taking Iron Taking Glucosamine Taking Lisinopril 40 MG Tablet Orally Taking levoFLOXacin 750 MG Tablet Oral Taking Metformin & Diet Manage Prod Taking Meclizine HCl 25 MG Tablet Oral Taking Ondansetron 4 MG Tablet Disintegrating Oral Taking Simvastatin 20 MG Tablet 1 tablet in the evening Orally Once a dayTaking vitamin Taking Trulicity 70unit Taking Extra Depth Orthopedic Shoes (1 Pair) with Customized Heat Molded Multidensity Innersoles (3 Pair) as directed Dx: NIDDM/Polyneuropathy (E11.42), Hammertoe Foot Deformity (M20.41,M20.42), Preulcerative Skin Lesion(s) (L85.1Taking Extra Depth Diabetic Shoes with 3 Pair Custom heat-molded multi-density innersoles for 1 year Dx:Taking Extra-Depth Diabetic Shoes with 3 Pair Custom heat-molded multi-density innersoles . . for 1 year . Dx:niddm with neuropathy, foot deformity and preulcerative skin lesionsTaking Extra Depth Diabetic Shoes with 3 Pair Custom heat-molded multi- density innersoles for 1 year Dx:Not-Taking/PRNExtra Depth Diabetic Shoes with 3 Pair Custom heat-molded multi-density innersoles for 1 year Dx:Extra Depth Diabetic Shoes with 3 Pair Custom heat-molded multi-density innersoles for 1 year Dx:Caltrate 600 amLODIPine Besylate Lantus 70units LORazepam Citalopram Hydrobromide Medication List reviewed and reconciled with the patientNot-Taking/PRN Extra Depth Diabetic Shoes with 3 Pair Custom heat-molded multi-density innersoles for 1 year Dx:Not- Taking/PRN Extra Depth Diabetic Shoes with 3 Pair Custom heat-molded multi-density innersoles for 1 year Dx:Not-Taking/PRN Caltrate 600 Not-Taking/PRN amLODIPine Besylate Not-Taking/PRN Lantus 70units Not-Taking/PRN LORazepam Not-Taking/PRN Citalopram Hydrobromide Medication List reviewed and reconciled with the patient * Allergies:?Latex: redness, i tchyAdhesive: rashPenicillin: rashyes[Allergies Verified] Objective: * Vitals:?Ht: 5 ft 6 in, Wt:17 7, BMI:28.57, Shoe size:9.5, BP:120/80 mm Hg, BS:131. * Examination: ???Neurological: ?SENSORY:?exam demonstrates, reduced vibration lower extremity, B/L, 5.07 monofilament test performed at plantar aspects of 5 varied sites per foot shows sensation, reduced , B/L, Neurological exam demonstrates pop left PF at point where her old orthotic is broken and duct taped.?TINEL'S COMPRESSION:?negative tarsal tunnel, marc pedis, and medial calcaneal nerves b/l.?BABINSKI REFLEX:?absent.?Vascular: ?DP PULSES:?/4.?PT PULSES:?/4, B/L.?CAPILLARY FILL TIME:?3 secs. per digit, b/l.?SKIN TEMPERTURE GRADIENT OF THE LOWER EXTERMITIES:?warm to cool, proximal to distal.?HAIR GROWTH/TEXTURE/ELASTICITY/TURGOR:?absent.?EDEMA:?no edema.?TELANGECTASIA:?absent.?VARICOSITIES:?absent.?ELEV. PALOR:?absent.?CLUBBING:?absent.?CLAUDICATION:?negative, b/l .?REST PAIN:?negative.?VIANEY'S SIGN:?absent, b/l.?PALPABLE CORDS:?absent, b/l.?Nails: ?NAILS are:?elongated,overgrown,dystrophic,greater than 3mm thick,discolored and friable with crumbly malodorous subungual debris, with dull pain on palpation due to neuropathy, 1-5 B/L.?Dermatologic: ?SKIN FINDINGS:?Skin exam reveals Keratotic lesion(s) located at, SUB MTH (s), 1, B/L , Heel(s), B/L , Skin exam reveals Keratotic lesion(s) located at, Medial plantar, IPJ, TA, SUB MTH (s), 5, Left.?Orthopedic: ?GAIT ABNORMALITY:?pronated, abducted, b/l.?BUNION:?Medially prominet 1st MPJ, RIGHT with large dorsal exostosis first mt-cun right.?DIGITAL DEFORMITIES:? Digital contracture, PIPJ, 2-5 B/L, incompl- reducable to push-up test, no over, nor underlapping.?FOOTWEAR:? good condition.?General Examination: ?GENERAL APPEARANCE:?alert, well hydrated, in no distress , good attention to hygiene.?ORIENTED:?person,place, and time.?FOOT EXAM:?Ingrown Nail: ?INSPECTION:?Reveals nail incurvation, dull pain on palpation due to neuropathy, groove hypertrophy, Medial nail border, TA, T5.?Ophthalmology Referral: ?DIABETES EYE EXAM? Assessment: * Assessment: 1.?Tinea unguium - B35.1 (Pr imary)?2.?Pain in right toe(s) - M79.674?3.?Pain in left toe(s) - M79.675?4.?Other viral warts - B07.8?5.?Pain in left foot - M79.672?6.?Pain in right foot - M79.671?7.?Type 1 diabetes mellitus with diabetic polyneuropathy - E10.42? Plan: * Treatment: * Procedures:?Debride Nail 6-10:?Nail debridement?Nail debridement performed extensively to reduce/remove overall nail length and girth, subungual debris, and necrotic tissue, by manual and electrical means with use of a nail nipper and/or dremel, to more viable healthy nail plate or bed tissue 6-10. Silver nitrate used for any petechial bleeding as necessary. Patient chooses, no pharmaceutical tx (44925).?Keratoma Treatment:?Parring or Cutting of Benign Hyperkeratotic Lesion(s)?74247 ( >4 Lesions) - The Benign hyperkeratotic lesions, as described above were pared, and/or cut utilizing a sterile #15 blade, tissue nippers, and/or dremel.? * Procedure Codes:?63890 DEBRI DE NAIL, 6 OR MORE, Modifiers: XS 61074 TRIM SKIN LESIONS, OVER 4, Modifiers: XS * Follow Up:?3 Months * Images: * Sign off status: Completed true * Provider:?David Vasques DPM Date:? 024 Generated for Kary hernández/Daisy/eTransmitting on:?07/12/2024 05:56 AM EST History and Physical Notes * HPI (History of Present Illness) Category Sub-Category Detail Notes Category Not es Painful Nails Pt States Last PCP Visit: Date:: 12/06/2023 Examination Category Sub-Category Detail Notes Category Not es Ingrown Nail INSPECTION: Reveals nail inc urvation, dull pain on palpation due to neuropathy, groove hypertrophy, Medial nail border, TA, T5 Neurological SENSORY: exam demonstrate s, reduced vibration lower extremity, B/L, 5.07 monofilament test performed at plantar aspects of 5 varied sites per foot shows sensation, reduced , B/L, Neurological exam demonstrates pop left PF at point where her old orthotic is broken and duct taped BABINSKI REFLEX: absent TINEL'S COMPRESSION: negative tarsal brooke cecil, marc pedis, and medial calcaneal nerves b/l Dermatologic SKIN FINDINGS: Skin exam reveal s Keratotic lesion(s) located at, SUB MTH (s), 1, B/L , Heel(s), B/L , Skin exam reveals Keratotic lesion(s) located at, Medial plantar, IPJ, TA, SUB MTH (s), 5, Left Orthopedic GAIT ABNORMALITY: pronated, abducted, b/l BUNION: Medially prominet 1s t MPJ, RIGHT with large dorsal exostosis first mt- cun right FOOTWEAR: good condition DIGITAL DEFORMITIES: Digital contracture , PIPJ, 2-5 B/L, incompl-reducable to push-up test, no over, nor underlapping General Examination GENERAL APPEARANCE: alert, w ell hydrated, in no distress , good attention to hygiene FOOT EXAM: Lower Extremity Neurological Exa m performed:: Yes Visual exam of foot performed:: Yes Date: 06/16/2023 Sensory testing performed:: sensations d iminished Pedal pulse taking performed:: 2+ ORIENTED: person,place, and ti me Ophthalmology Referral DIABETES EYE EXAM Diabeti c Retinopathy Screening:: Yes 12/31/2021, 06/2023 Findings of Diabetic Eye Exam:: no retin opathy 09/2018, 06/2023 Vascular DP PULSES(B): 2/4 PT PULSES(B): 3/4, B/L CAPILLARY FILL TIME: 3 secs. per digit, b/l TEMPERTURE GRADIENT(C): warm to cool, pr oximal to distal TROPHIC CONDITION-TEXTURE/EL ASTICITY/TURGOR/HAIR GROWTH(B): absent EDEMA(C): no edema TELANGECTASIA: absent VARICOSITIES: absent ELEV. PALOR: absent CLUBBING: absent CLAUDICATION(C): negative, b/l REST PAIN: negative VIANEY'S SIGN: absent, b/l PALPABLE CORDS: absent, b/l Nails NAILS are: elongated,overgr own,dystrophic,greater than 3mm thick,discolored and friable with crumbly malodorous subungual debris, with dull pain on palpation due to neuropathy, 1-5 B/L
== END 2024-07-07 08:51 | disposition home or self-care (01) ==
LOC: HO.HMGCLDS 08:50
PROVIDERS: PCP Internal Medicine; Visit Provider Internal Medicine
DX: N18.30 Chronic kidney disease, stage 3 unspecified (principal); E11.9 Type 2 diabetes mellitus without complications; E78.5 Hyperlipidemia, unspecified; I10 Essential (primary) hypertension
CPT/HCPCS: 36415; 80053; 82607; 82746; 83036; 83540; 85025

== ENCOUNTER 2024-07-10 13:41 | Outpatient (AMB) | payer MEDICARE, SELFPAY ==
--- NOTE | 2024-07-10 13:48 | MHC.PC.OV ---
Vital Signs 07/10/24 13:49 Height 5 ft 5 in Weight 180 lb BMI 30.0 BP 122/74 Blood Pressure Location Lt brachial Position Sitting Pulse 91 Pulse Source Pulse Oximeter Pulse Oximetry (%) 97 Oxygen Delivery Method Room Air Intake Visit Reasons: 3M F/U Intake Note: Pt is here today for 3 months follow up visit on DM and labs. Allergies celecoxib [Celebrex] Allergy (Unknown, Verified 07/10/24 13:52) rash penicillin G Allergy (Unknown, Verified 07/10/24 13:52) rash Penicillins [PENICILLINS] Allergy (Unknown, Verified 07/10/24 13:52) HIVES, rash Medication List - Last Reconciled 07/10/24 by Sherron Villanueva MD acetaminophen 1,000 mg PO TID PRN acetaminophen ER (Tylenol Arthritis Pain) 650 mg PO Q12H PRN amlodipine 5 mg PO DAILY blood sugar diagnostic ([employer]Q™ [employer] Ultra Test strips) qd blood-glucose sensor ([employer] G7 Sensor device) Test blood sugar 3 times per day, change sensor every 10 days cyanocobalamin (vitamin B-12) 5,000 mcg PO DAILY diabetic supplies, [employer]. diabetic shoes estradiol 0.01%(0.1mg/gram) pea size to urethra vaginally daily; for 14 days famotidine 40 mg PO DAILY ferrous fumarate 325 mg PO DAILY gabapentin 100 mg PO BID PRN insulin degludec (Tresiba FlexTouch U-100 insulin) 28 units (0.28 mL) subcut DAILY lisinopril 40 mg PO DAILY meclizine 25 mg PO TID PRN pen needle, diabetic (BD Ultra-Fine Mini Pen Needle) As directed to inject insulin once a day sertraline 50 mg PO DAILY simvastatin 40 mg PO DAILY Tobacco use date assessed: 07/10/24 Dental Screening Dental Screen Date: 12/08/23 HPI 3M F/U HPI Details Patient presents for the follow-up for insulin-dependent diabetes hypertension hyperlipidemia chronic kidney disease stage 3 PFSH Medical History Hearing loss Annual physical exam Vertigo Anemia Vertigo UTI (urinary tract infection) CKD (chronic kidney disease), stage III Iron deficiency anemia Pernicious anemia HTN (hypertension) Hyperlipidemia Diabetes Surgical History History of esophagogastroduodenoscopy (EGD) S/P ERCP S/P cholecystectomy History of breast biopsy History of ERCP Family History Father Cancer Mother Colon cancer Social History Housing: House Alcohol intake: never Patient Tobacco Use Status: Never used Tobacco e-Cigarette/Vaping Use: Never Used service: No Current occupational status: retired Cognitive needs: No Hearing needs: Yes Vision needs: Yes Questionnaire Thrive Questionnaire Date Thrive assessed: 03/29/24 I am a: Patient What is your living situation today?: I have a steady place to live Within the past 12 months, did the food you bought not last and you didn't have the money to get more?: Never true Within the past 12 months, did you worry whether your food would run out before you got money to buy more?: Never true Do you have trouble paying for medicines?: No Do you have trouble getting transportation to medical appointments?: No Do you have trouble paying your heating and electricity bill?: No Do you have trouble taking care of your child, family member or friend?: I choose not to answer this question Do you have trouble with day-to-day activities such as bathing, preparing meals, shopping, managing finances, etc.?: No Are you currently unemployed and looking for a job?: No Are you interested in more education?: No Please select the resources that you would like help with: None Currently or been in a relationship where the following occur: No concerns reported THRIVE Score: 0 JADE-7 AMB Questionnaire JADE-7 Date JADE - 7 assessed: 07/10/24 Feeling nervous, anxious, or on edge: 0 = Not at all Not being able to stop or control worryin = Not at all Worrying too much about different things: 0 = Not at all Trouble relaxin = Not at all Being so restless that it is hard to sit still: 0 = Not at all Becoming easily annoyed or irritable: 0 = Not at all Feeling afraid as if something awful might happen: 0 = Not at all Total JADE-7 score (0-4 normal; 5-9 mild; 10-14 moderate; 15-21 severe): 0 Source: Developed by Drs. Rommel Simmons, Tamie Child, Karl Capone and colleagues, with an educational louis from [employer]. Review of Systems Const All systems reviewed & are unremarkable except as noted in HPI and below ENT Reports no additional complaints Card Reports no additional complaints Resp Reports no additional complaints GI Reports no additional complaints Reports no additional complaints Physical exam (Primary Care) Vital Signs: Last Vital Signs Pulse 91 07/10/24 13:49 BP 122/74 07/10/24 13:49 Pulse Ox 97 07/10/24 13:49 Oxygen Delivery Method Room Air 07/10/24 13:49 BMI result Body Mass Index 30.0 Tobacco/Smoking Status: Tobacco use Status Tobacco use date assessed 07/10/24 07/10/24 13:58 Patient Tobacco Use Status Never used Tobacco 07/10/24 13:58 e-Cigarette/Vaping Use Never Used 07/10/24 13:58 Thrive Assessment: Date of Thrive Assessment Date Thrive assessed 03/29/24 07/10/24 13:58 Currently or been in a relationship where the following occur: No concerns reported Const General: no acute distress HENMT Head: Yes normal to inspection Eyes General: appearance normal, both eyes and all related structures Resp Effort & Inspection: normal respiratory effort Auscultation: clear to auscultation bilaterally Cardio Rhythm: regular rhythm Heart sounds: S1 normal heart sound present and S2 normal heart sound present GI Inspection: Yes normal to inspection Palpation (GI): Soft to palpation Auscultation: normal bowel sounds Coding Level of Care Code Est Pt Level 4 (95065) Complex EM visit Add On G2211 Diagnoses Hyperlipidemia E78.5 HTN (hypertension) I10 CKD (chronic kidney disease), stage III N18.30 Dysuria R30.0 Insulin use (long-term) in type 2 diabetes E11.9; Z79.4 Assessment & Plan Assessment & Plan (1) Hyperlipidemia: Code(s): E78.5 - Hyperlipidemia, unspecified Category: Medical Plan: Continue statin (2) HTN (hypertension): Comment: BP goal less than 130/80 Code(s): I10 - Essential (primary) hypertension Category: Medical Plan: Continue current medications (3) CKD (chronic kidney disease), stage III: Code(s): N18.30 - Chronic kidney disease, stage 3 unspecified Category: Medical Plan: Avoid nephrotoxins monitor renal function (4) Dysuria: Code(s): R30.0 - Dysuria Category: Medical Plan: Check urine culture (5) Insulin use (long-term) in type 2 diabetes: Code(s): E11.9 - Type 2 diabetes mellitus without complications; Z79.4 - senior living (current) use of insulin Category: Medical Plan: A1c is down to 6.5. Continue current medications ADA diet and prevention of hypoglycemia discussed with the patient and her daughter follow-up in 4 months Orders: Orders Hemoglobin A1c 4 Months E11.9 - Type 2 diabetes mellitus without complications, E78.5 - Hyperlipidemia, unspecified, I10 - Essential (primary) hypertension, N18.30 - Chronic kidney disease, stage 3 unspecified, R30.0 - Dysuria, Z79.4 - senior living (current) use of insulin Microalbumin, Random (w Creat) 4 Months E11.9 - Type 2 diabetes mellitus without complications, E78.5 - Hyperlipidemia, unspecified, I10 - Essential (primary) hypertension, N18.30 - Chronic kidney disease, stage 3 unspecified, R30.0 - Dysuria, Z79.4 - senior living (current) use of insulin Comprehensive [place]. Panel Fast 4 Months E11.9 - Type 2 diabetes mellitus without complications, E78.5 - Hyperlipidemia, unspecified, I10 - Essential (primary) hypertension, N18.30 - Chronic kidney disease, stage 3 unspecified, R30.0 - Dysuria, Z79.4 - senior living (current) use of insulin Complete Blood Count Auto Diff 4 Months E11.9 - Type 2 diabetes mellitus without complications, E78.5 - Hyperlipidemia, unspecified, I10 - Essential (primary) hypertension, N18.30 - Chronic kidney disease, stage 3 unspecified, R30.0 - Dysuria, Z79.4 - senior living (current) use of insulin Lipid Panel 4 Months E11.9 - Type 2 diabetes mellitus without complications, E78.5 - Hyperlipidemia, unspecified, I10 - Essential (primary) hypertension, N18.30 - Chronic kidney disease, stage 3 unspecified, R30.0 - Dysuria, Z79.4 - senior living (current) use of insulin Urine Culture 4 Months R30.0 - Dysuria Medications: Changed From gabapentin 100 mg PO BID 180 caps 1RF To gabapentin 100 mg PO BID PRN
[2024-07-10 13:49] VITALS: BP 122/74; PULSE 91; O2SAT 97
== END 2024-07-10 14:32 | disposition home or self-care (01) ==
PROVIDERS: PCP Internal Medicine; Visit Provider Internal Medicine
DX: I12.9 Hypertensive chronic kidney disease with stage 1 through stage 4 chronic kidney disease, or unspecified chronic kidney disease (principal); N18.30 Chronic kidney disease, stage 3 unspecified; E11.22 Type 2 diabetes mellitus with diabetic chronic kidney disease; Z79.4 Long term (current) use of insulin; E78.5 Hyperlipidemia, unspecified; R30.0 Dysuria

== ENCOUNTER → 2024-07-10 13:41 | Outpatient (BNVA) | payer MEDICARE, SELFPAY | PROVIDERS: PCP Internal Medicine; Visit Provider Internal Medicine | DX: E78.5 Hyperlipidemia, unspecified (principal); I12.9 Hypertensive chronic kidney disease with stage 1 through stage 4 chronic kidney disease, or unspecified chronic kidney disease; E11.22 Type 2 diabetes mellitus with diabetic chronic kidney disease; N18.30 Chronic kidney disease, stage 3 unspecified; Z79.4 Long term (current) use of insulin | CPT/HCPCS: 96127; 99212 ==

== ENCOUNTER 2024-08-04 10:47 | Outpatient (AMB) | payer MEDICARE, SELFPAY ==
--- NOTE | 2024-08-04 11:34 | AM.OFFWIN_ITS ---
Intake Vital Signs 08/04/24 11:36 Weight 179 lb BP 122/80 Blood Pressure Location Rt brachial Position Sitting Pulse 99 Pulse Source Pulse Oximeter Temp 98.8 F Temp Source Oral Pulse Oximetry (%) 95 Oxygen Delivery Method Room Air Intake Visit Reasons: EP upper respitarory, cough Intake Note: Patient here for cough that has been present for about 5 days. Patient Tobacco Use Status: Never used Tobacco Allergies celecoxib [Celebrex] Allergy (Unknown, Verified 08/04/24 11:37) rash penicillin G Allergy (Unknown, Verified 08/04/24 11:37) rash Penicillins [PENICILLINS] Allergy (Unknown, Verified 08/04/24 11:37) HIVES, rash Do you need a note to return to daycare/school/sports/work: No HPI EP upper respitarory, cough HPI Details This is an 89-year-old female patient who presents to the walk-in clinic today with her daughter present for report of a cough for the last 5 days. Cough was productive for the 1st 2 days, and now has been dry. Patient has used Robitussin and Mucinex at home with mild benefit. Denies known exposure to sick contacts. Denies any fever, chills, or other symptoms. COVID test at home was negative. Denies any shortness of breath. [facility] Medical History Hearing loss Annual physical exam Vertigo Anemia Vertigo UTI (urinary tract infection) CKD (chronic kidney disease), stage III Iron deficiency anemia Pernicious anemia HTN (hypertension) Hyperlipidemia Diabetes Surgical History History of esophagogastroduodenoscopy (EGD) S/P ERCP S/P cholecystectomy History of breast biopsy History of ERCP Family History Father Cancer Mother Colon cancer Social History Housing: House Alcohol intake: never Patient Tobacco Use Status: Never used Tobacco e-Cigarette/Vaping Use: Never Used service: No Current occupational status: retired Cognitive needs: No Hearing needs: Yes Vision needs: Yes Review of Systems Const All systems reviewed & are unremarkable except as noted in HPI and below Physical Exam Vital Signs: Last Vital Signs Temp 98.8 F 08/04/24 11:36 Pulse 99 08/04/24 11:36 BP 122/80 08/04/24 11:36 Pulse Ox 95 08/04/24 11:36 Oxygen Delivery Method Room Air 08/04/24 11:36 Const General: cooperative and no acute distress Limitations: other limitations (hard of hearing) HEENT Head: Yes normal to inspection General nose exam: Normal external nose present and Normal nares present Face and sinus: Yes normal facial exam Mouth: Normal oral and palatal mucosa present Throat: Yes posterior oropharynx normal Neck Neck: Yes no lymphadenopathy and Yes no JVD Resp Effort & Inspection: normal respiratory effort and Actively coughing Quality: dry Auscultation: wheezes (mild, upper b/l. Otherwise clear) Cardio Rate: regular rate Rhythm: regular rhythm Skin General skin exam: no rashes or lesions noted Extrem General: Yes capillary refill normal and Yes no clubbing, cyanosis or edema Psych Appearance: grossly normal Mental Status: mental status grossly normal Speech and movement: Normal speech and movement present Assessment & Plan Assessment & Plan (1) Upper respiratory infection: Code(s): J06.9 - Acute upper respiratory infection, unspecified Qualifiers: URI type: unspecified URI Qualified Code(s): J06.9 - Acute upper respiratory infection, unspecified Plan: Patient has nonproductive cough for the last several days. LS clear aside from some very mild wheezing in uppr geronimo b/l. Will start her on benzonatate and an albuterol inhaler for p.r.n. use. We reviewed indications, use, possible side effects with these medications. Declines viral testing. COVID was negative at home. We discussed possible short course of PO prednisone, however patient has had a lot of blood sugar issues with steroids in the past and would rather not take this. Advised to return to the clinic if she does not improve with treatment of if symptoms worsen/new symptoms such as SOB or fever develop. Patient and daughter present at visit verbalized understanding and agreed to plan. Medications: New albuterol sulfate 90 mcg/actuation 1 inh inhalation QID PRN 6.7 grams 0RF shortness of breath or wheezing J06.9 - Acute upper respiratory infection, unspecified benzonatate Take one capsule twice a day for 7 days. 100 mg PO BID 7 days 14 caps 0RF cough R05.9 - Cough, unspecified Coding Level of Care Code Est Pt Level 4 (27661) Diagnoses Upper respiratory tract infection, unspecified type J06.9 URI type: unspecified URI
[2024-08-04 11:36] VITALS: BP 122/80; PULSE 99; TEMP 37.1; O2SAT 95
--- OUTSIDE RECORDS SUMMARY | 2024-08-04 12:28 | XMS_ITS | Patient Health Record ---
Author Organization [facility] [place] Address [address] [facility] [place] [address] Care Team Providers Care Bessemer Converter Operator Name Role Phone Sherron Villanueva MD Primary Care Provider Roslyn Campuzano Unavailable [phone] David Vasques Unavailable [phone] Allergies Allergen (clinical drug ingredient) Drug/Non Drug [...] Polyneuropathy due to type 2 diabetes mellitus (864743800) Type 2 diabetes mellitus with diabetic polyneuropathy (E11.42) Active confirmed Problem Localized, primary osteoarthritis of the ankle and/or foot (897551454) Primary osteoarthritis, right ankle and foot (M19.071) Active confirmed Problem Localized, primary osteoarthritis of the ankle and/or foot (065347367) Primary osteoarthritis, left 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) Active confirmed Problem Polyneuropathy due to diabetes mellitus type I (725428420) Type 1 diabetes mellitus with diabetic polyneuropathy (E10.42) Active confirmed Problem Acquired hammer toe of left foot (2098136046470205 ) Other hammer toe(s) (acquired), left foot (M20.42) Active confirmed Vital Signs Blood pressure diastolic 80 mm Hg 06/26/2024 Height 5 ft 6 in in 06/26/2024 Blood pressure systolic 120 mm Hg 06/26/2024 Weight 177 lbs 06/26/2024 BMI 28.57 kg/m2 06/26/2024 Procedures Procedure Date Ordered Date Performed Result Body Sit e 68350-JEHVLCW NAIL, 6 OR MORE 06/26/2024 N/A 22736-TUBK SKIN LESIONS, OVER 4 06/26/2024 N/A Encounters Encounter Location Date Provider Diagnosis [address] [address] 09/13/2023 David Vasques Tinea unguium B35.1 ; Pain in right toe(s) M79.674 ; Pain in left toe(s) M79.675 ; Other viral warts B07.8 ; Pain in left foot M79.672 ; Pain in right foot M79.671 and Type 1 diabetes mellitus with diabetic polyneuropathy E10.[address] [address] 12/20/2023 David Vasques Tinea unguium B35.1 ; Pain in right toe(s) M79.674 ; Pain in left toe(s) M79.675 ; Other viral warts B07.8 ; Pain in left foot M79.672 ; Pain in right foot M79.671 and Type 1 diabetes mellitus with diabetic polyneuropathy E10.[address] [address] 03/22/2024 David Vasques Tinea unguium B35.1 ; Pain in right toe(s) M79.674 ; Pain in left toe(s) M79.675 ; Other viral warts B07.8 ; Pain in left foot M79.672 ; Pain in right foot M79.671 and Type 1 diabetes mellitus with diabetic polyneuropathy E10.[address] [address] 06/26/2024 Roslyn Mcgee Type 2 diabetes mellitus with diabetic polyneuropathy E11.42 and Tinea unguium B35.1 [facility] [address] [place] [address] 02/01/2024 David Vasques Assessments Encounter Date Diagnosis [...] X ray : Foot, right 3V 05/27/2011 43957-RPDOIWS NAIL, 6 OR MORE 06/24/2011 87567-THHZPLD NAIL, 6 OR MORE 09/09/2011 00811-PSLCSEQ NAIL, 6 OR MORE 04/15/2011 91081-DRREFTN NAIL, 6 OR MORE 05/27/2011 10886-BNPEQWU NAIL, 6 OR MORE 11/18/2011 25802-JWTTBCE NAIL, 6 OR MORE 01/27/2012 06305-ZZKFPYK NAIL, 6 OR MORE 04/27/2012 02599-MGHSSXT NAIL, 6 OR MORE 07/06/2012 72085-CFKWWXP NAIL, 6 OR MORE 09/21/2012 97258-UOIDFYN NAIL, 6 OR MORE 11/30/2012 36461-ETZOOKD NAIL, 6 OR MORE 02/15/2013 24860-NFNWVGD NAIL, 6 OR MORE 05/24/2013 54379-XKZBWQZ NAIL, 6 OR MORE 08/30/2013 79907-CDHSRWS NAIL, 6 OR MORE 11/15/2013 42278-WZFSCGB NAIL, 6 OR MORE 01/31/2014 29729-YJADTSP NAIL, 6 OR MORE 04/11/2014 91419-GWLENBQ NAIL, 6 OR MORE 07/04/2014 31703-UELIJMC NAIL, 6 OR MORE 09/26/2014 24851-FLVQSLO NAIL, 6 OR MORE 12/12/2014 91040-FPSBQEX NAIL, 6 OR MORE 02/28/2015 45402-GCSTDFM NAIL, 6 OR MORE 05/22/2015 37350-YRDTYQE NAIL, 6 OR MORE 08/14/2015 02651-HMPRVLU NAIL, 6 OR MORE 11/13/2015 13439-GKVLVWP NAIL, 6 OR MORE 02/12/2016 01622-QLRFWPB NAIL, 6 OR MORE 05/13/2016 39681-ECAUEMC NAIL, 6 OR MORE 08/12/2016 43505-KAAXXAW NAIL, 6 OR MORE 11/04/2016 13544-LECCMGN NAIL, 6 OR MORE 01/27/2017 13425-DQYXRMP NAIL, 6 OR MORE 04/21/2017 51908-ONZKXJG NAIL, 6 OR MORE 07/14/2017 08211-YXZUKMP NAIL, 6 OR MORE 10/11/2017 65808-BKQXXQH NAIL, 6 OR MORE 01/10/2018 02121-FHVPMWC NAIL, 6 OR MORE 04/06/2018 51962-KYOIXJP NAIL, 6 OR MORE 07/06/2018 08203-PGFZGYZ NAIL, 6 OR MORE 06/26/2024 36292-Kkxnymrs Plate 11/13/2015 62802-Wdlsfggk Plate 05/22/2015 06300-Atcmbome Plate 12/12/2014 46810-Cnjplrxx Plate 09/26/2014 35325-Tvuolsdn Plate 07/04/2014 41270-Xpbasgmo Plate 04/11/2014 06474- Debride <25 sq cm 02/06/2014 39197-DWZV SKIN LESIONS, OVER 4 02/29/20 15 87832-HQKR SKIN LESIONS, OVER 4 01/11/20 18 07696-AROO SKIN LESIONS, OVER 4 10/12/19 18 32009-UDRH SKIN LESIONS, OVER 4 07/14/20 17 02512-SRHH SKIN LESIONS, OVER 4 04/21/20 17 61556-XGEL SKIN LESIONS, OVER 4 11/05/19 17 36879-WWSA SKIN LESIONS, OVER 4 01/28/20 17 02886-UKRY SKIN LESIONS, OVER 4 08/12/19 17 78383-SYZO SKIN LESIONS, OVER 4 05/13/20 16 76490-OKCH SKIN LESIONS, OVER 4 06/26/20 24 10091-ELWF SKIN LESIONS, OVER 4 07/17/20 20 67644-GMLE SKIN LESIONS, OVER 4 10/24/19 21 30401-WWBN SKIN LESIONS, OVER 4 01/24/20 21 33316-VALQ SKIN LESIONS, OVER 4 04/17/20 21 69670-YHYQ SKIN LESIONS, OVER 4 07/28/20 21 71862-DFVS SKIN LESIONS, OVER 4 10/16/19 22 15218-RTBH SKIN LESIONS, OVER 4 10/06/19 19 37126-ZCIZ SKIN LESIONS, OVER 4 01/03/20 19 46595-GLLC SKIN LESIONS, OVER 4 03/27/20 19 44977-CCXI SKIN LESIONS, OVER 4 06/26/20 19 20538-UGOE SKIN LESIONS, OVER 4 07/06/20 18 76166-ZIUF SKIN LESIONS, OVER 4 04/06/20 18 21479-RWCB SKIN LESIONS, 2 TO 4 10/04/19 20 02228-QQBZ SKIN LESIONS, 2 TO 4 01/03/20 20 27850-DFEW SKIN LESIONS, 2 TO 4 04/25/20 20 12429-VZBK SKIN LESIONS, 2 TO 4 02/12/20 16 08348-CEOG SKIN LESIONS, 2 TO 4 05/22/20 15 83090-EXTK SKIN LESIONS, 2 TO 4 11/13/19 16 75929-FPMV SKIN LESIONS, 2 TO 4 08/14/19 16 62644-OYMJ SKIN LESIONS, 2 TO 4 07/04/20 14 04327-MWNN SKIN LESIONS, 2 TO 4 09/26/19 15 42707-CRIG SKIN LESIONS, 2 TO 4 12/13/19 15 42420-WUMR SKIN LESIONS, 2 TO 4 04/11/20 14 59720-RAFD SKIN LESIONS, 2 TO 4 02/01/20 14 84530-NWOO SKIN LESIONS, 2 TO 4 11/16/19 14 66775-CIMZ SKIN LESIONS, 2 TO 4 08/30/19 14 07046-RPPS SKIN LESIONS, 2 TO 4 05/24/20 13 73845-CUFJ SKIN LESIONS, 2 TO 4 02/16/20 13 21206-ILKF SKIN LESIONS, 2 TO 4 12/01/19 13 44243-CFMY SKIN LESIONS, 2 TO 4 09/21/19 13 00559-BDUS SKIN LESIONS, 2 TO 4 07/06/20 12 42436-SSKH SKIN LESIONS, 2 TO 4 04/27/20 12 83158-XAUJ SKIN LESIONS, 2 TO 4 01/27/20 12 28452-NJAM SKIN LESIONS, 2 TO 4 04/15/20 11 38011-OKBG SKIN LESION 09/09/2011 29209-JARI SKIN LESION 11/18/2011 14416-SPETYWMV OF HEMATOMA/FLUID 014 56414- Removal of Foreign Body, Subcut 0 03/29/2023 30368- Removal of Foreign Body, Subcut 0 01/03/2020 77663, J0702- Neuroma/Injection 05/27/20 11 Next Appt Details Provider Name:Roslyn chávez, 11/22/2024 01:30:00 PM, [address] [facility], [place], [address], Insurance Providers Payer Name Payer Address Payer Phone Subscriber Number Group Number Insured Name Patient Relationship to Insured Coverage Start Date Coverage End Date Medicare National [employer]t [employer] [address] [place] [address] [id number] Tamie Martin Self - patient is the insured [employer] [address] [place] [address] [phone] [id number] Tamie Martin Self - patient is the [...]
--- OUTSIDE RECORDS SUMMARY | 2024-08-04 12:28 | XMS_ITS | Data Portability ---
Author Organization [facility] Address [address] [place] [address] Care Team Providers Care Tile Layer Name Role Phone KATELYN HARMON Primary Care Provider Assessment No assessment recorded. Plan of Treatment Reminders Order Date Submit Date Provider Last Modified By Organization Details Last Modified Time Details Appointments None recorded. Lab None recorded. Referral None recorded. Procedures None recorded. Surgeries None recorded. Imaging None recorded. Medication Orders valacyclovi r 1 gram tablet 2022 023 [facility] #[id number], [address] , [place], [address], 13:45:24 Patient TargetsNo targets recorded. Patient Instructions Encounter Date Encounter Id Patient Instructions Last Modified By Organization Details Last Modified Time 01/27/2023 [id number] shingles: care instructions Not available 01/27/2023 13:45:22 Based on your [...] after this infection. Thank you for using [employer], please feel free to contact us if you have any questions or concerns. [email or web address] Not available 01/27/2023 13:45:20 Reason for Referral None Reported. Problems Name Problem SNOMED Code Status Onset Date Resolution Date Notes Provider Name and Address Organization Details Recorded Time Hypertensive disorder 28925059 Active 2022 Li christian PA - [facility] 13:25:42 Hypercholestero lemia 11961909 Active 2022 Li christian PA - [facility] 13:30:06 Diabetes mellitus 27877673 Active 2022 Li christian PA - [facility] 3 13:31:59 Notes:pt unsure of medical p roblems Problem Notes None recorded. Medical Equipment None Reported. Allergies Allergen ID Allergen Name Allergen Category Reaction Reaction Severity Criticality Documentation Date Start Date Code Code System Note Provider Name and Address Organization Details Recorded Time 616455 Medicinal product containin g penicilli n and acting as antibacte rial agent (product) medicatio n rash Not available Not available 01/27/2023 67834 05 SNOMED Li [facility]ian [facility] - [facility] [...] Not Available Not Available No t Available [employer] Ultra Test strips USE DIRECTED EVERY DAY [...] Last Updated DateTime 170.18 cm 27.3 kg/m2 39880.0 7 g 18 /min 100 % 100 % 77 /min 98.1 [degF] 162 mm[Hg] 72 mm[Hg] Li Bradley PA - [facility] 13:32:27 Date Recorded Systolic blood pressure Diastolic blood pressure Provider Name and Address Organization Details Last Updated DateTime 01/27/2023 140 mm[Hg] 80 mm[Hg] TITO WHITE [address] [place], [address], [place] - [facility] 01/27/2023 13:47:40 Social [...] Diagnosis/Indication Diagnosis SNOMED-CT Code Diagnosis ICD10 Code [id number] [address] [facility] [place] [address] 10/25/2015 08:59:37 10/25/2015 09:53:08 [id number] [address] [facility] [place] [address] 01/17/2018 18:29:55 01/17/2018 18:54:13 [id number] [address] [facility] [place] [address] 12/02/2016 17:00:53 12/02/2016 18:10:28 [id number] [address] [facility] [place] [address] 05/28/2017 10:51:39 05/28/2017 12:24:22 [id number] [address] [facility] [place] [address] 10/05/2015 09:04:04 10/05/2015 09:59:09 [id number] [address] [facility] [place] [address] 07/08/2017 09:24:15 07/08/2017 11:00:44 [id number] [address] [facility] [place] [address] 12/07/2016 08:48:59 12/07/2016 09:33:22 [id number] [address] [facility] [place] [address] 02/02/2018 10:23:50 02/02/2018 11:25:44 [id number] [facility] [address] [place] [address] 01/27/2023 11:57:31 01/27/2023 13:54:52 Herpes zoster 3133803 B02.9 Health Concerns Section Related Observation LastModified by Organization Detai ls LastModified Time None Recorded Concern Status LastModified by Organization Details LastModified Time None Recorded Advance Directives Directive None Recorded Payers Encounter Date Sequence Insurance Name Policy Number Policy Ortiz Covered Member ID Ortiz Member ID Guarantor Name 05/28/2017 1 [place] Tamie Chevalier [id number] A Tamie Chevalier 05/28/2017 2 [place] [id number] Tamie Chevalier [id number] Tamie Chevalier 07/08/2017 1 [place] Tamie Chevalier [id number] A Tamie Chevalier 07/08/2017 2 [place] [id number] Tamie Chevalier [id number] Tamie Chevalier 01/17/2018 1 [place] Tamie Chevalier [id number] A Tamie Chevalier 01/17/2018 2 [place] [id number] Tamie Chevalier [id number] Tamie Chevalier 02/02/2018 1 [place] Tamie Chevalier [id number] A Tamie Chevalier 02/02/2018 2 [place] [id number] Tamie Chevalier [id number] Tamie Chevalier 01/27/2023 2 [place] Tamie Chevalier [id number] Tamie Chevalier 01/27/2023 1 [place] Tamie Chevalier [id number] Tamie Chevalier Notes Date Note Type Note [...] [facility] [address] [place], [address], [place] - [facility] 01/27/2023 16:16:29 OBGyn Episode No OBEpisode recorded.
--- OUTSIDE RECORDS SUMMARY | 2024-08-04 12:28 | XMS_ITS ---
Author Organization [facility] Address [address] [place] [address] Care Team Providers Care Patent Counsel Name Role Phone Sherron Villanueva MD Primary Care Provider Roslyn Campuzano Unavailable [phone] David Vasques [phone] REASON FOR VISIT [employer] Encounters Encounter Location Date Provider Diagnosis [address] [address] 02/01/2024 David Vasques Plan Of Treatment Next Appt Details Provider Name:Roslyn chávez, 11/22/2024 01:30:00 PM, [address] [place], [address], Progress Notes * Tamie MCDANIELDOB:[birth year] (88 yo F)Acc No.[id number]:02/01/2024 Patient:?Tamie Mcdaniel :1935???Age:88 Y???Sex:Female Address:[address], [place], [address] * true * Date:? Generated for Printi betty/Daisy/eTransmitting on:?08/04/2024 12:27 PM EST
--- OUTSIDE RECORDS SUMMARY | 2024-08-04 12:28 | XMS_ITS ---
Author Organization [facility] Address [address] [facility] [place] [address] Care Team Providers Care Antenna Engineer Name Role Phone Sherron Villanueva MD Primary Care Provider UnavailRoslyn Russell Unavailable [phone] David Vasques Unavailable [phone] Allergies Allergen (clinical drug ingredient) Drug/Non Drug [...] 024 Encounters Encounter Location Date Provider Diagnosis [facility] [place] [address] [place] [address] 03/22/2024 David Vasques Tinea unguium B35.1 ; [...] Reason: Provider Name:Roslyn chávez, 11/22/2024 01:30:00 PM, [address] [place] [address], [address], Procedure Notes * Category Sub-Category Detail Notes [...] as necessary. Patient chooses, no pharmaceutical tx (39703) Keratoma Treatment Parring or Cutting o f Benign Hyperkeratotic Lesion(s) 83870 ( >4 Lesions) - The Benign hyperkeratotic lesions, as described above were pared, and/or cut utilizing a sterile #15 blade, tissue nippers, and/or dremel Progress Notes * Tamie MCDANIELDOB:[birth year] (89 yo F)Acc No.[id number]:03/22/2024 Progress Note Patient:?Tamie Mcdaniel Provider:?David Vasques DPM :1935???Age:89 Y???Sex:Female D ate:03/22/2024 Address: [address], [id number] Pcp:Sherron Villanueva MD Subjective: * Chief Complaints: [...] as necessary. Patient chooses, no pharmaceutical tx (62320).?Keratoma Treatment:?Parring or Cutting of Benign Hyperkeratotic Lesion(s)?71566 ( >4 Lesions) - The Benign hyperkeratotic lesions, as described above were pared, and/or cut utilizing a sterile #15 blade, tissue nippers, and/or dremel.? * Procedure Codes:?57649 DEBRI DE NAIL, 6 OR MORE, Modifiers: XS 85867 TRIM SKIN LESIONS, OVER 4, Modifiers: XS * Follow Up:?3 Months * Images: * Sign off status: Completed true * Provider:?David Vasques DPM Date:? 024 Generated for Kary hernández/Daisy/eTransmitting on:?08/04/2024 12:27 PM EST History and Physical Notes * HPI [...] no retin opathy 09/2018, 06/2023 Vascular DP PULSES (B): 2/4 PT PULSES (B): 3/4, B/L CAPILLARY FILL TIME: 3 secs. per digit, b/l TEMPERTURE GRADIENT (C): warm to cool, p roximal to distal TROPHIC CONDITION-TEXTURE/EL ASTICITY/TURGOR/HAIR GROWTH (B): absent EDEMA (C): no edema TELANGECTASIA: absent VARICOSITIES: absent ELEV. PALOR: absent CLUBBING: absent CLAUDICATION (C): negative, b/l REST PAIN: negative VIANEY'S SIGN: absent, b/l PALPABLE CORDS: absent, b/l Nails NAILS are: elongated,overgr own,dystrophic,greater than 3mm thick,discolored and friable with crumbly malodorous subungual debris, with dull pain on palpation due to neuropathy, 1-5 B/L
--- OUTSIDE RECORDS SUMMARY | 2024-08-04 12:28 | XMS_ITS ---
Author Organization [facility] Address [address] [facility] [place] [address] Care Team Providers Care Head Strength And Conditioning Coach Name Role Phone Sherron Villanueva MD Primary Care Provider Roslyn Campuzano Unavailable [phone] Allergies Allergen (clinical drug ingredient) Drug/Non Drug [...] Polyneuropathy due to type 2 diabetes mellitus (545061445) Type 2 diabetes mellitus with diabetic polyneuropathy (E11.42) Active confirmed Vital Signs Height 5 ft 6 in in 06/26/2024 Weight 177 lbs 06/26/2024 BMI 28.57 kg/m2 06/26/2024 Blood pressure systolic 120 mm Hg 06/26/20 24 Blood pressure diastolic 80 mm Hg 024 Procedures Procedure Date Ordered Date Performed Result Body Sit e 45122-CQJGRVL NAIL, 6 OR MORE 06/26/2024 N/A 72326-BJIK SKIN LESIONS, OVER 4 06/26/2024 N/A Encounters Encounter Location Date Provider Diagnosis [facility] [address] [place] [address] 06/26/2024 Roslyn Everardo Type 2 diabetes mellitus with diabetic polyneuropathy E11.42 and Tinea unguium B35.1 Assessments Encounter Date Diagnosis (ICD Code) Assessment Notes Treatment Notes Treatment Clinical Notes Section Notes 06/26/2024 Type 2 diabetes mellitus with diabetic polyneuropathy (ICD-10 - E11.42) 06/26/2024 Tinea unguium (ICD-10 - B35.1) Plan Of Treatment Pending Test Test Name Order Date 27784-TMBIIUW NAIL, 6 OR MORE 06/26/2024 38451-XMWW SKIN LESIONS, OVER 4 06/26/20 24 Next Appt Details Follow Up: 3 Months, Reason: Provider Name:Roslyn chávez, 11/22/2024 01:30:00 PM, [address] [place] [address], [address], Procedure Notes * Category Sub-Category Detail Notes [...] use of a nail nipper and/or dremel-type bone grinder, to a more viable healthy nail plate [...] to maintain effectiveness in symptomatic relief - 30258 Keratoma Treatment Parring or Cutting o f Benign Hyperkeratotic Lesion(s) (-57) More than 4 Lesions - The Benign hyperkeratotic lesions, ( __ ) in total, locations as stated and described in exam, were pared, and/or cut utilizing a sterile 15 blade, tissue nippers, and/or power dremel instrumentation - 50211 Progress Notes * GRICELDAChris MACEbozenaDOB:[birth year] (89 yo F)Acc No.[id number]:06/26/2024 Progress Note Patient:?Tamie MCDANIEL Provider:?Roslyn Mcgee DPM :1935???Age:89 Y???Sex:Female D ate:06/26/2024 Address: [address] , [phone] Pcp:Sherron Villanueva MD Subjective: * Chief Complaints: [...] use of a nail nipper and/or dremel-type bone grinder, to a more viable healthy nail plate [...] to maintain effectiveness in symptomatic relief - 09944.?Keratoma Treatment:?Parring or Cutting of Benign Hyperkeratotic Lesion(s)?(-57) More than 4 Lesions - The Benign hyperkeratotic lesions, ( __ ) in total, locations as stated and described in exam, were pared, and/or cut utilizing a sterile 15 blade, tissue nippers, and/or power dremel instrumentation - 98019.? * Procedure Codes:?45860 DEBRI DE NAIL, 6 OR MORE, Modifiers: XS 65748 TRIM SKIN LESIONS, OVER 4, Modifiers: XS * Follow Up:?3 Months * Images: * Sign off status: Completed true * Provider:?Roslyn Mcgee DPM Date:?08/26/2023 Generated for Kary hernández/Daisy/Zachary on:?08/04/2024 12:27 PM EST History and Physical [...] Eye Exam:: no retin opathy Vascular DP PULSES (B): 2/4, B/L PT PULSES (B): 3/4, B/L CAPILLARY FILL TIME: 3 secs. per digit, b/l TEMPERTURE GRADIENT (C): warm to cool, p roximal to distal TROPHIC CONDITION-TEXTURE/EL ASTICITY/TURGOR/HAIR GROWTH (B): normal, B/L EDEMA (C): no edema TELANGECTASIA: absent VARICOSITIES: absent ELEV. PALOR: absent CLAUDICATION (C): negative, b/l REST PAIN: negative Nails NAILS are: Elongated, overg rown, dystrophic, lytic, greater than 3mm thick, discolored and friable with crumbly malodorous subungual debris, 1-5 B/L
== END 2024-08-04 12:08 | disposition home or self-care (01) ==
PROVIDERS: PCP Internal Medicine; Visit Provider Nurse Practitioner Family
DX: J06.9 Acute upper respiratory infection, unspecified (principal)

== ENCOUNTER → 2024-08-04 10:47 | Outpatient (BNVA) | payer MEDICARE, SELFPAY | PROVIDERS: PCP Internal Medicine | DX: J06.9 Acute upper respiratory infection, unspecified (principal) | CPT/HCPCS: 99212 ==

== ENCOUNTER 2024-08-11 09:43 | Outpatient (AMB) | payer MEDICARE, SELFPAY ==
--- OUTSIDE RECORDS SUMMARY | 2024-08-11 09:46 | XMS_ITS ---
Author Organization [facility] Address [address] [place] [address] Care Team Providers Care Inside Polisher Name Role Phone Sherron Villanueva MD Primary Care Provider Roslyn Campuzano Unavailable [phone] David Vasques [phone] REASON FOR VISIT [employer] Encounters Encounter Location Date Provider Diagnosis [address] [address] 02/01/2024 David Vasques Plan Of Treatment Next Appt Details Provider Name:Roslyn chávez, 11/22/2024 01:30:00 PM, [address] [place], [address], Progress Notes * Tamie MCDANIELDOB:[birth year] (88 yo F)Acc No.[id number]:02/01/2024 Patient:?Tamie Mcdaniel :1935???Age:88 Y???Sex:Female Address:[address], [place], [address] * true * Date:? Generated for Printi betty/Daisy/eTransmitting on:?08/11/2024 09:46 AM EST
--- OUTSIDE RECORDS SUMMARY | 2024-08-11 09:46 | XMS_ITS ---
Author Organization [facility] [place] Address [address] [facility] [place] [address] Care Team Providers Care Head Trimmer Name Role Phone Sherron Villanueva MD Primary Care Provider Roslyn Campuzano Unavailable [phone] Allergies Allergen (clinical drug ingredient) Drug/Non Drug [...] Polyneuropathy due to type 2 diabetes mellitus (876268372) Type 2 diabetes mellitus with diabetic polyneuropathy (E11.42) Active confirmed Vital Signs Blood pressure systolic 120 mm Hg 06/26/20 24 Blood pressure diastolic 80 mm Hg 024 Height 5 ft 6 in in 06/26/2024 Weight 177 lbs 06/26/2024 BMI 28.57 kg/m2 06/26/2024 Procedures Procedure Date Ordered Date Performed Result Body Sit e 60837-MHNEKMG NAIL, 6 OR MORE 06/26/2024 N/A 96192-UUKW SKIN LESIONS, OVER 4 06/26/2024 N/A Encounters Encounter Location Date Provider Diagnosis [facility] [address] [place] [address] 06/26/2024 Roslyn Everadro Type 2 diabetes mellitus with diabetic polyneuropathy E11.42 and Tinea unguium B35.1 Assessments Encounter Date Diagnosis (ICD Code) Assessment Notes Treatment Notes Treatment Clinical Notes Section Notes 06/26/2024 Type 2 diabetes mellitus with diabetic polyneuropathy (ICD-10 - E11.42) 06/26/2024 Tinea unguium (ICD-10 - B35.1) Plan Of Treatment Pending Test Test Name Order Date 51162-KPFHJON NAIL, 6 OR MORE 06/26/2024 60638-FQWS SKIN LESIONS, OVER 4 06/26/20 24 Next Appt Details Follow Up: 3 Months, Reason: Provider Name:Roslyn chávez, 11/22/2024 01:30:00 PM, [address] [place] [address], [phone], Procedure Notes * Category Sub-Category Detail Notes [...] use of a nail nipper and/or dremel-type blade grinder, to a more viable healthy nail [...] to maintain effectiveness in symptomatic relief - 98001 Keratoma Treatment Parring or Cutting o f Benign Hyperkeratotic Lesion(s) (-57) More than 4 Lesions - The Benign hyperkeratotic lesions, ( __ ) in total, locations as stated and described in exam, were pared, and/or cut utilizing a sterile 15 blade, tissue nippers, and/or power dremel instrumentation - 01632 Progress Notes * GRICELDAChris MACEbozenaDOB:[birth year] (89 yo F)Acc No.[id number]:06/26/2024 Progress Note Patient:?Tamie MCDANIEL Provider:?Roslyn Mcgee DPM :1935???Age:89 Y???Sex:Female D ate:06/26/2024 Address: [place] , [id number] Pcp:Sherron Villanueva MD Subjective: * Chief Complaints: [...] use of a nail nipper and/or dremel-type blade grinder, to a more viable healthy nail [...] to maintain effectiveness in symptomatic relief - 58117.?Keratoma Treatment:?Parring or Cutting of Benign Hyperkeratotic Lesion(s)?(-57) More than 4 Lesions - The Benign hyperkeratotic lesions, ( __ ) in total, locations as stated and described in exam, were pared, and/or cut utilizing a sterile 15 blade, tissue nippers, and/or power dremel instrumentation - 85007.? * Procedure Codes:?04019 DEBRI DE NAIL, 6 OR MORE, Modifiers: XS 14478 TRIM SKIN LESIONS, OVER 4, Modifiers: XS * Follow Up:?3 Months * Images: * Sign off status: Completed true * Provider:?Roslyn Mcgee DPM Date:?08/26/2023 Generated for Kary hernández/Daisy/Zachary on:?08/11/2024 09:46 AM EST History and Physical Notes * [...]
--- OUTSIDE RECORDS SUMMARY | 2024-08-11 09:46 | XMS_ITS ---
Author Organization [facility] Address [address] [facility] [place] [address] Care Team Providers Care Blood And Plasma Laboratory Assistant Name Role Phone Sherron Villanueva MD Primary Care Provider UnavailRoslyn Russell Unavailable [phone] David Vasques Unavailable [phone] Allergies Allergen (clinical drug ingredient) Drug/Non Drug [...] an other tobacco user? No Vital Signs Blood pressure systolic 120 mm Hg 03/22/20 24 Blood pressure diastolic 80 mm Hg 024 Height 5 ft 6 in in 03/22/2024 Weight 177 lbs 03/22/2024 BMI 28.57 kg/m2 03/22/2024 Encounters Encounter Location Date Provider Diagnosis [facility] [address] [place] [address] 03/22/2024 David Vasques Tinea unguium B35.1 ; [...] Reason: Provider Name:Roslyn chávez, 11/22/2024 01:30:00 PM, [address] [place] [address], [phone], Procedure Notes * Category Sub-Category Detail Notes [...] as necessary. Patient chooses, no pharmaceutical tx (10699) Keratoma Treatment Parring or Cutting o f Benign Hyperkeratotic Lesion(s) 15524 ( >4 Lesions) - The Benign hyperkeratotic lesions, as described above were pared, and/or cut utilizing a sterile #15 blade, tissue nippers, and/or dremel Progress Notes * Tamie MCDANIELDOB:[birth year] (89 yo F)Acc No.[id number]:03/22/2024 Progress Note Patient:?Tamie Mcdaniel Provider:?David Vasques DPM :1935???Age:89 Y???Sex:Female D ate:03/22/2024 Address: [place], [id number] Pcp:Sherron Villanueva MD Subjective: * Chief Complaints: [...] as necessary. Patient chooses, no pharmaceutical tx (93314).?Keratoma Treatment:?Parring or Cutting of Benign Hyperkeratotic Lesion(s)?85831 ( >4 Lesions) - The Benign hyperkeratotic lesions, as described above were pared, and/or cut utilizing a sterile #15 blade, tissue nippers, and/or dremel.? * Procedure Codes:?94047 DEBRI DE NAIL, 6 OR MORE, Modifiers: XS 33777 TRIM SKIN LESIONS, OVER 4, Modifiers: XS * Follow Up:?3 Months * Images: * Sign off status: Completed true * Provider:?David Vasques DPM Date:? 024 Generated for Kary hernández/Daisy/eTransmitting on:?08/11/2024 09:46 AM EST History and Physical [...]
--- OUTSIDE RECORDS SUMMARY | 2024-08-11 09:47 | XMS_ITS | Data Portability ---
Author Organization [facility] Address [address] [place] [address] Care Team Providers Care Director Of Early Childhood Name Role Phone KATELYN HARMON Primary Care Provider Assessment No assessment recorded. Plan of Treatment Reminders Order Date Submit Date Provider Last Modified By Organization Details Last Modified Time Details Appointments None recorded. Lab None recorded. Referral None recorded. Procedures None recorded. Surgeries None recorded. Imaging None recorded. Medication Orders valacyclovi r 1 gram tablet 2022 023 [facility] #[id number], [address] [facility] , [place], [address], 13:45:24 Patient TargetsNo targets recorded. Patient Instructions Encounter Date Encounter Id Patient Instructions Last Modified By Organization Details Last Modified Time 01/27/2023 [id number] shingles: care instructions [email or web address] Not available 01/27/2023 13:45:22 Based on your [...] after this infection. Thank you for using [employer], please feel free to contact us if you have any questions or concerns. [email or web address] Not available 01/27/2023 13:45:20 Reason for Referral None Reported. Problems Name Problem SNOMED Code Status Onset Date Resolution Date Notes Provider Name and Address Organization Details Recorded Time Hypertensive disorder 13869503 Active 2022 Li christian [place] - [facility] 3 13:25:42 Hypercholestero lemia 96812213 Active 2022 Li christian PA - [facility] 13:30:06 Diabetes mellitus 80901569 Active 2022 Li christian PA - [facility] 3 13:31:59 Notes:pt unsure of medical p roblems Problem Notes None recorded. Medical Equipment None Reported. Allergies Allergen ID Allergen Name Allergen Category Reaction Reaction Severity Criticality Documentation Date Start Date Code Code System Note Provider Name and Address Organization Details Recorded Time 034338 Medicinal product containin g penicilli n and acting as antibacte rial agent (product) medicatio n rash Not available Not available 01/27/2023 85950 05 SNOMED Li christian [facility] - [facility] [...] Not Available Not Available No t Available Eagle Alpha Ultra Test strips USE DIRECTED EVERY DAY [...] Last Updated DateTime 170.18 cm 27.3 kg/m2 25423.0 7 g 18 /min 100 % 100 % 77 /min 98.1 [degF] 162 mm[Hg] 72 mm[Hg] Li Bradley PA - [facility] 13:32:27 Date Recorded Systolic blood pressure Diastolic blood pressure Provider Name and Address Organization Details Last Updated DateTime 01/27/2023 140 mm[Hg] 80 mm[Hg] [facility] [address] [place], [address], [place] - [facility] 01/27/2023 13:47:40 Social [...] Diagnosis/Indication Diagnosis SNOMED-CT Code Diagnosis ICD10 Code Diagnosis Note [id number] [address] [facility] [address] 10/25/2015 08:59:37 10/25/2015 09:53:08 [id number] [facility] [facility] [address] 01/17/2018 18:29:55 01/17/2018 18:54:13 [id number] [facility] [facility] [address] [facility] [place] [address] 12/02/2016 17:00:53 12/02/2016 18:10:28 [id number] [address] [facility] [place] [address] 05/28/2017 10:51:39 05/28/2017 12:24:22 [id number] [address] [facility] [place] [address] 10/05/2015 09:04:04 10/05/2015 09:59:09 [id number] [address] [facility] [place] [address] 07/08/2017 09:24:15 07/08/2017 11:00:44 [id number] [address] [facility] [place] [address] 12/07/2016 08:48:59 12/07/2016 09:33:22 [id number] [address] [facility] [place] [address] 02/02/2018 10:23:50 02/02/2018 11:25:44 [id number] [facility] [address] [facility] [place] [address] 01/27/2023 11:57:31 01/27/2023 13:54:52 Herpes zoster 3836893 B02.9 Health Concerns Section Related Observation LastModified by Organization Detai ls LastModified Time None Recorded Concern Status LastModified by Organization Details LastModified Time None Recorded Advance Directives Directive None Recorded Payers Encounter Date Sequence Insurance Name Policy Number Policy Ortiz Covered Member ID Ortiz Member ID Guarantor Name 05/28/2017 1 [place] [employer] [place] Tamie Chevalier [id number] A Tamie Chevalier 05/28/2017 2 [place] [id number] Tamie Chevalier [id number] Tamie Chevalier 07/08/2017 1 [place] Tamie Chevalier [id number] Tamie Chevalier 07/08/2017 2 [place] [id number] Tamie Chevalier [id number] Tamie Chevalier 01/17/2018 1 [place] Tamie Chevalier [id number] A Tamie Chevalier 01/17/2018 2 [place] [id number] Tamie Chevalier [id number] Tamie Chevalier 02/02/2018 1 [place] [employer] Tamie Chevalier [id number] A Tamie Chevalier 02/02/2018 2 [place] [id number] Tamie Chevalier [id number] Tamie Chevalier 01/27/2023 2 [place] Tamie Chevalier [id number] Tamie Chevalier 01/27/2023 1 [place] Tamie Chevalier [id number] Tamie Chevalier Notes Date Note Type [...] [facility] [address] [place], [address], [place] - [facility] 01/27/2023 16:16:29 OBGyn Episode No OBEpisode recorded.
--- OUTSIDE RECORDS SUMMARY | 2024-08-11 09:47 | XMS_ITS | Patient Health Record ---
Author Organization [facility] Address [address] [facility] [place] [address] Care Team Providers Care Curbstone Setter Name Role Phone Sherron Villanueva MD Primary Care Provider Roslyn Campuzano Unavailable [phone] David Vasques Unavailable [phone] Allergies Allergen (clinical drug ingredient) Drug/Non Drug [...] Polyneuropathy due to type 2 diabetes mellitus (948337292) Type 2 diabetes mellitus with diabetic polyneuropathy (E11.42) Active confirmed Problem Localized, primary osteoarthritis of the ankle and/or foot (512363468) Primary osteoarthritis, right ankle and foot (M19.071) Active confirmed Problem Localized, primary osteoarthritis of the ankle and/or foot (264224550) Primary osteoarthritis, left 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) Active confirmed Problem Polyneuropathy due to diabetes mellitus type I (404541269) Type 1 diabetes mellitus with diabetic polyneuropathy (E10.42) Active confirmed Problem Acquired hammer toe of left foot (3322176849025668 ) Other hammer toe(s) (acquired), left foot (M20.42) Active confirmed Vital Signs Blood pressure diastolic 80 mm Hg 06/26/2024 Height 5 ft 6 in in 06/26/2024 Blood pressure systolic 120 mm Hg 06/26/2024 Weight 177 lbs 06/26/2024 BMI 28.57 kg/m2 06/26/2024 Procedures Procedure Date Ordered Date Performed Result Body Sit e 50170-VQDTPXT NAIL, 6 OR MORE 06/26/2024 N/A 69069-QWEY SKIN LESIONS, OVER 4 06/26/2024 N/A Encounters Encounter Location Date Provider Diagnosis [address] [address] 09/13/2023 David Vasques Tinea unguium B35.1 ; Pain in right toe(s) M79.674 ; Pain in left toe(s) M79.675 ; Other viral warts B07.8 ; Pain in left foot M79.672 ; Pain in right foot M79.671 and Type 1 diabetes mellitus with diabetic polyneuropathy E10.[address] [address] 12/20/2023 David Vasques Tinea unguium B35.1 ; Pain in right toe(s) M79.674 ; Pain in left toe(s) M79.675 ; Other viral warts B07.8 ; Pain in left foot M79.672 ; Pain in right foot M79.671 and Type 1 diabetes mellitus with diabetic polyneuropathy E10.[address] [address] 03/22/2024 David Vasques Tinea unguium B35.1 ; Pain in right toe(s) M79.674 ; Pain in left toe(s) M79.675 ; Other viral warts B07.8 ; Pain in left foot M79.672 ; Pain in right foot M79.671 and Type 1 diabetes mellitus with diabetic polyneuropathy E10.[address] [address] 06/26/2024 Roslyn Mcgee Type 2 diabetes mellitus with diabetic polyneuropathy E11.42 and Tinea unguium B35.1 [facility] [place] [address] [place] [address] 02/01/2024 David Vasques Assessments Encounter Date Diagnosis [...] X ray : Foot, right 3V 05/27/2011 95163-YJBPUJR NAIL, 6 OR MORE 06/24/2011 90472-NYMGSKI NAIL, 6 OR MORE 09/09/2011 30546-XAXEEWH NAIL, 6 OR MORE 04/15/2011 66020-IUBYNBF NAIL, 6 OR MORE 05/27/2011 60349-HPWGIRX NAIL, 6 OR MORE 11/18/2011 87286-VVXSYZH NAIL, 6 OR MORE 01/27/2012 59701-LULZDDR NAIL, 6 OR MORE 04/27/2012 81398-UJYDPMF NAIL, 6 OR MORE 07/06/2012 74286-AWPWBXK NAIL, 6 OR MORE 09/21/2012 73400-GXGGBEZ NAIL, 6 OR MORE 11/30/2012 36689-TIAYEMN NAIL, 6 OR MORE 02/15/2013 65019-SZOIVJI NAIL, 6 OR MORE 05/24/2013 21440-OFSMHKH NAIL, 6 OR MORE 08/30/2013 70830-LQOXJPB NAIL, 6 OR MORE 11/15/2013 18430-NZXWLOL NAIL, 6 OR MORE 01/31/2014 08389-BSRIXEI NAIL, 6 OR MORE 04/11/2014 39567-OUOSGUE NAIL, 6 OR MORE 07/04/2014 71560-CCBBPPM NAIL, 6 OR MORE 09/26/2014 09726-DOPGGYX NAIL, 6 OR MORE 12/12/2014 79601-BKYLHRI NAIL, 6 OR MORE 02/28/2015 62749-BILABAH NAIL, 6 OR MORE 05/22/2015 14607-DPFZUXF NAIL, 6 OR MORE 08/14/2015 24214-WFGFVTX NAIL, 6 OR MORE 11/13/2015 36659-XLUWRTB NAIL, 6 OR MORE 02/12/2016 16563-FRICXQG NAIL, 6 OR MORE 05/13/2016 01178-OBBFLTT NAIL, 6 OR MORE 08/12/2016 51055-AEPKPWG NAIL, 6 OR MORE 11/04/2016 33890-VCDRASS NAIL, 6 OR MORE 01/27/2017 65827-SAEGVEG NAIL, 6 OR MORE 04/21/2017 72128-IYGWQYO NAIL, 6 OR MORE 07/14/2017 04346-PLIUHVW NAIL, 6 OR MORE 10/11/2017 68579-OQWFHAF NAIL, 6 OR MORE 01/10/2018 45174-EYZRNUM NAIL, 6 OR MORE 04/06/2018 11631-TXTEQGP NAIL, 6 OR MORE 07/06/2018 71342-FUJXOYM NAIL, 6 OR MORE 06/26/2024 11886-Phvuuhwf Plate 11/13/2015 24169-Xyuvaafi Plate 05/22/2015 93851-Oiniqcmt Plate 12/12/2014 02520-Zkpegtjw Plate 09/26/2014 23792-Wcveofse Plate 07/04/2014 30367-Efkrzevs Plate 04/11/2014 31559- Debride <25 sq cm 02/06/2014 05987-WGOA SKIN LESIONS, OVER 4 02/29/20 15 68303-QTLF SKIN LESIONS, OVER 4 01/11/20 18 28323-JXZB SKIN LESIONS, OVER 4 10/12/19 18 65709-NQLX SKIN LESIONS, OVER 4 07/14/20 17 74823-SSJZ SKIN LESIONS, OVER 4 04/21/20 17 10183-HZGK SKIN LESIONS, OVER 4 11/05/19 17 36715-OXWV SKIN LESIONS, OVER 4 01/28/20 17 05386-OYIE SKIN LESIONS, OVER 4 08/12/19 17 74225-VNOS SKIN LESIONS, OVER 4 05/13/20 16 46980-WJTT SKIN LESIONS, OVER 4 06/26/20 24 60624-OYOQ SKIN LESIONS, OVER 4 07/17/20 20 25314-NCPL SKIN LESIONS, OVER 4 10/24/19 21 10677-FMFC SKIN LESIONS, OVER 4 01/24/20 21 43910-PYVQ SKIN LESIONS, OVER 4 04/17/20 21 86243-ZRNM SKIN LESIONS, OVER 4 07/28/20 21 93473-PWLE SKIN LESIONS, OVER 4 10/16/19 22 17070-CATC SKIN LESIONS, OVER 4 10/06/19 19 98465-UXZX SKIN LESIONS, OVER 4 01/03/20 19 68604-OAUX SKIN LESIONS, OVER 4 03/27/20 19 24672-NRGT SKIN LESIONS, OVER 4 06/26/20 19 01881-PAHU SKIN LESIONS, OVER 4 07/06/20 18 87953-WFKJ SKIN LESIONS, OVER 4 04/06/20 18 29061-JABD SKIN LESIONS, 2 TO 4 10/04/19 20 40591-KDXB SKIN LESIONS, 2 TO 4 01/03/20 20 39611-ALAC SKIN LESIONS, 2 TO 4 04/25/20 20 63974-ATQW SKIN LESIONS, 2 TO 4 02/12/20 16 25562-OYGP SKIN LESIONS, 2 TO 4 05/22/20 15 79716-AYGE SKIN LESIONS, 2 TO 4 11/13/19 16 61425-ZSUA SKIN LESIONS, 2 TO 4 08/14/19 16 72723-FONJ SKIN LESIONS, 2 TO 4 07/04/20 14 22716-EVGM SKIN LESIONS, 2 TO 4 09/26/19 15 01786-IERJ SKIN LESIONS, 2 TO 4 12/13/19 15 61656-KROI SKIN LESIONS, 2 TO 4 04/11/20 14 43369-KMCI SKIN LESIONS, 2 TO 4 02/01/20 14 93038-JELK SKIN LESIONS, 2 TO 4 11/16/19 14 89953-TDGT SKIN LESIONS, 2 TO 4 08/30/19 14 25132-EWGK SKIN LESIONS, 2 TO 4 05/24/20 13 19238-APFT SKIN LESIONS, 2 TO 4 02/16/20 13 83369-HHHD SKIN LESIONS, 2 TO 4 12/01/19 13 52308-CPXD SKIN LESIONS, 2 TO 4 09/21/19 13 13084-OFCZ SKIN LESIONS, 2 TO 4 07/06/20 12 20891-CRUR SKIN LESIONS, 2 TO 4 04/27/20 12 65876-GSBV SKIN LESIONS, 2 TO 4 01/27/20 12 10130-SYFM SKIN LESIONS, 2 TO 4 04/15/20 11 02844-ADKB SKIN LESION 09/09/2011 33328-FAJK SKIN LESION 11/18/2011 60125-LYCVUSGU OF HEMATOMA/FLUID 014 60360- Removal of Foreign Body, Subcut 0 03/29/2023 45959- Removal of Foreign Body, Subcut 0 01/03/2020 41190, J0702- Neuroma/Injection 05/27/20 11 Next Appt Details Provider Name:Roslyn chávez, 11/22/2024 01:30:00 PM, [address] [facility], [place], [address], Insurance Providers Payer Name Payer Address Payer Phone Subscriber Number Group Number Insured Name Patient Relationship to Insured Coverage Start Date Coverage End Date Medicare [employer] [address] [place] [address] [id number] Tamie Martin Self - patient is the insured [place] [address] [place] [address] [id number] Tamie Martin Self - patient is the [...]
--- NOTE | 2024-08-11 10:02 | AM.OFFWIN_ITS ---
Intake Vital Signs 08/11/24 10:12 Weight 179 lb BP 130/72 Blood Pressure Location Lt brachial Position Sitting Pulse 80 Pulse Source Pulse Oximeter Temp 98.1 F Temp Source Oral Pulse Oximetry (%) 96 Oxygen Delivery Method Room Air Intake Visit Reasons: EP ?upper respiratory/not better Intake Note: Patient here for cough, SOB which has not improved after finishing antibiotics. Patient Tobacco Use Status: Never used Tobacco Allergies celecoxib [Celebrex] Allergy (Unknown, Verified 08/11/24 10:13) rash penicillin G Allergy (Unknown, Verified 08/11/24 10:13) rash Penicillins [PENICILLINS] Allergy (Unknown, Verified 08/11/24 10:13) HIVES, rash Do you need a note to return to daycare/school/sports/work: No HPI EP ?upper respiratory/not better HPI Details Patient presents to the [place] clinic today for ongoing cough. She was seen here one week ago on 08/04 with a nonproductive cough. She was started on benzonatate and an albuterol inhaler for p.r.n. use. COVID test was negative at home. We had discussed possible short course of PO prednisone, however declined due to blood sugar concerns. Advised her to return to the clinic if she did not improve with treatment of if symptoms worsen/new symptoms such as SOB or fever develop. She returns today with persistent cough which is keeping her up at night. States she cannot get sputum up. Denies fevers/chills. Denies other symptoms. [facility] Medical History Hearing loss Annual physical exam Vertigo Anemia Vertigo UTI (urinary tract infection) CKD (chronic kidney disease), stage III Iron deficiency anemia Pernicious anemia HTN (hypertension) Hyperlipidemia Diabetes Surgical History History of esophagogastroduodenoscopy (EGD) S/P ERCP S/P cholecystectomy History of breast biopsy History of ERCP Family History Father Cancer Mother Colon cancer Social History Housing: House Alcohol intake: never Patient Tobacco Use Status: Never used Tobacco e-Cigarette/Vaping Use: Never Used service: No Current occupational status: retired Cognitive needs: No Hearing needs: Yes Vision needs: Yes Review of Systems Const All systems reviewed & are unremarkable except as noted in HPI and below Physical Exam Vital Signs: Last Vital Signs Temp 98.1 F 08/11/24 10:12 Pulse 80 08/11/24 10:12 BP 130/72 08/11/24 10:12 Pulse Ox 96 08/11/24 10:12 Oxygen Delivery Method Room Air 08/11/24 10:12 Const General: cooperative and no acute distress Limitations: other limitations (hard of hearing) HEENT Head: Yes normal to inspection General nose exam: Normal external nose present and Normal nares present Face and sinus: Yes normal facial exam Mouth: Normal oral and palatal mucosa present Throat: Yes posterior oropharynx normal Neck Neck: Yes no lymphadenopathy and Yes no JVD Resp Effort & Inspection: normal respiratory effort and Actively coughing (dry cough) Quality: actively coughing Auscultation: clear to auscultation bilaterally and rhonchi (mild) upper bilaterally Cardio Rate: regular rate Rhythm: regular rhythm Skin General skin exam: no rashes or lesions noted Extrem General: Yes capillary refill normal and Yes no clubbing, cyanosis or edema Psych Appearance: grossly normal Mental Status: mental status grossly normal Speech and movement: Normal speech and movement present Assessment & Plan Assessment & Plan (1) Upper respiratory infection: Code(s): J06.9 - Acute upper respiratory infection, unspecified Qualifiers: URI type: unspecified URI Qualified Code(s): J06.9 - Acute upper respiratory infection, unspecified Plan CXR obtained in the office today: Pulmonary reticular pattern. Prominence of the interstitial markings and haziness in the perihilar and lower hemithoraces. No pleural effusion. No pneumothorax. This cough/URI is unimproved with conservative measures at home, benzonatate, inhalers, wrmw-cml-gqhahah cough/cold medicine. At this point, I will start her on antibiotics and also a short course of prednisone. She is a diabetic and we discussed the influence this medication will have on blood sugars, and to more closely monitor glucose levels due to this. We also reviewed medications use, indications, and possible side effects aside from hyperglycemia. Encouraged ongoing use of inhalers as needed. If she does not improve with treatment, or if symptoms worsen/any shortness of breath or fevers develop, she should go to the emergency department for further evaluation. She and daughter Jazmin present at visit verbalized understanding agreed to plan. Orders: Orders XR chest 2V Today R05.9 - Cough, unspecified Medications: New doxycycline hyclate Take one capsule twice a day for 7 days. 100 mg PO BID 14 caps 0RF 7 days J06.9 - Acute upper respiratory infection, unspecified prednisone Take one tablet twice a day by mouth for 5 days. If improved by day 3, discontinue medication. 20 mg PO BID 10 tabs 0RF 5 days J06.9 - Acute upper respiratory infection, unspecified, R05.9 - Cough, unspecified Coding Level of Care Code Est Pt Level 4 (13288) Diagnoses Upper respiratory tract infection, unspecified type J06.9 URI type: unspecified URI
[2024-08-11 10:12] VITALS: BP 130/72; PULSE 80; TEMP 36.7; O2SAT 96
== END 2024-08-11 11:14 | disposition home or self-care (01) ==
PROVIDERS: PCP Internal Medicine; Visit Provider Nurse Practitioner Family
DX: J06.9 Acute upper respiratory infection, unspecified (principal)

== ENCOUNTER 2024-08-11 09:43 | Outpatient (REF) | payer MEDICARE, SELFPAY ==
--- NOTE | ~2024-08-11 | XR_ITS ---
EXAMINATION: XR CHEST CLINICAL INFORMATION: R05.9 - Cough, unspecified COMPARISON: X-ray dated June 30, 2019. TECHNIQUE: 2 views of the chest were obtained. FINDINGS: Pulmonary reticular pattern. Prominence of the interstitial markings and haziness in the perihilar and lower hemithoraces. No pleural effusion. No pneumothorax. Cardiomediastinal silhouette appears normal in size, with questionable calcified thoracic aortic arch. Multilevel thoracic and upper lumbar spondylosis. Degenerative changes in the right acromioclavicular joint. XR/XR chest 2V IMPRESSION: Concerning pulmonary edema in the correct clinical settings. Superimposed acute small airway inflammatory disease cannot be excluded. Electronically signed by: Abhishek Barroso MD 08/11/2024 11:11 AM JYOTI
== END 2024-08-11 09:44 | disposition home or self-care (01) ==
LOC: HO.HMGCX 09:43
PROVIDERS: PCP Internal Medicine; Visit Provider Nurse Practitioner Family
DX: J06.9 Acute upper respiratory infection, unspecified (principal); R05.9 Cough, unspecified
CPT/HCPCS: 71046; 99212

== ENCOUNTER → 2024-08-11 10:36 | Outpatient (BNV) | payer MEDICARE, SELFPAY | PROVIDERS: PCP Internal Medicine; Visit Provider Radiology Diagnostic Radiology | DX: R05.9 Cough, unspecified (principal) | CPT/HCPCS: 71046 ==

== ENCOUNTER 2024-12-01 09:13 | Outpatient (REF) | payer MEDICARE, SELFPAY ==
--- OUTSIDE RECORDS SUMMARY | 2024-12-01 09:52 | XMS_ITS ---
[facility] Address [address] [place] [address] Care Team Providers Care Epoxy Fabrication Supervisor Name Role Phone Sherron Villanueva MD Primary Care Provider Roslyn Campuzano Unavailable [phone] Allergies Allergen (clinical drug ingredient) Drug/Non Drug [...] Polyneuropathy due to type 2 diabetes mellitus (244636142) Type 2 diabetes mellitus with diabetic polyneuropathy (E11.42) Active confirmed Vital Signs Height 5 ft 6 in in 06/26/2024 Weight 177 lbs 06/26/2024 BMI 28.57 kg/m2 06/26/2024 Blood pressure systolic 120 mm Hg 06/26/20 24 Blood pressure diastolic 80 mm Hg 024 Procedures Procedure Date Ordered Date Performed Result Body Sit e 22082-HSBNVYC NAIL, 6 OR MORE 06/26/2024 N/A 53092-JSGK SKIN LESIONS, OVER 4 06/26/2024 N/A Encounters Encounter Location Date Provider Diagnosis [facility] [place] [address] [place] [address] 06/26/2024 Roslyn Everardo Type 2 diabetes mellitus with diabetic polyneuropathy E11.42 and Tinea unguium B35.1 Assessments Encounter Date Diagnosis (ICD Code) Assessment Notes Treatment Notes Treatment Clinical Notes Section Notes 06/26/2024 Type 2 diabetes mellitus with diabetic polyneuropathy (ICD-10 - E11.42) 06/26/2024 Tinea unguium (ICD-10 - B35.1) Plan Of Treatment Pending Test Test Name Order Date 42937-IJBIUBJ NAIL, 6 OR MORE 06/26/2024 41128-GYZM SKIN LESIONS, OVER 4 06/26/20 24 Next Appt Details Follow Up: 3 Months, Reason: Provider Name:Roslyn chávez, 02/28/2025 11:15:00 AM, [address] [place], [address], Procedure Notes * Category Sub-Category Detail Notes [...] use of a nail nipper and/or dremel-type outer diameter grinder, to a more viable healthy nail [...] to maintain effectiveness in symptomatic relief - 77739 Keratoma Treatment Parring or Cutting o f Benign Hyperkeratotic Lesion(s) (-57) More than 4 Lesions - The Benign hyperkeratotic lesions, ( __ ) in total, locations as stated and described in exam, were pared, and/or cut utilizing a sterile 15 blade, tissue nippers, and/or power dremel instrumentation - 96409 Progress Notes * GRICELDAChris MACEbozenaDOB:[birth year] (89 yo F)Acc No.[id number]:06/26/2024 Progress Note Patient:?Tamie MCDANIEL Provider:?Roslyn Mcgee DPM :1935???Age:89 Y???Sex:Female D ate:06/26/2024 Address: [address] , [id number] Pcp:Sherron Villanueva MD Subjective: * Chief Complaints: [...] 5.5 * Examination: ???Ophthalmology Referral: ?DIABETES EYE EXAM?Procedure Performed:?Yes ?Date of Exam Performed?04/02/2024 ?Findings of Diabetic Eye Exam:?no retinopathy?Neurological: ?SENSORY:? Neurological exam demonstrates, reduced light touch [...] use of a nail nipper and/or dremel-type outer diameter grinder, to a more viable healthy nail [...] to maintain effectiveness in symptomatic relief - 45395.?Keratoma Treatment:?Parring or Cutting of Benign Hyperkeratotic Lesion(s)?(-57) More than 4 Lesions - The Benign hyperkeratotic lesions, ( __ ) in total, locations as stated and described in exam, were pared, and/or cut utilizing a sterile 15 blade, tissue nippers, and/or power dremel instrumentation - 14361.? * Procedure Codes:?10845 DEBRI DE NAIL, 6 OR MORE, Modifiers: XS 60692 TRIM SKIN LESIONS, OVER 4, Modifiers: XS * Follow Up:?3 Months * Images: * Sign off status: Completed true * Provider:?Roslyn Mcgee DPM Date:?08/26/2023 Generated for Kary hernández/Daisy/Zachary on:?12/01/2024 09:52 AM EDT History and Physical Notes * HPI (History of Present Illness) Category Sub-Category Detail Notes Category Not es At Risk footcare Pt States Last PCP Visit: Date: 4 Examination Category Sub-Category Detail Notes Category Not [...]
--- OUTSIDE RECORDS SUMMARY | 2024-12-01 09:52 | XMS_ITS | Data Portability ---
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 Plan of Treatment Reminders Order Date Submit Date Provider Last Modified By Organization Details Last Modified Time Details Appointments None recorded. Lab None recorded. Referral None recorded. Procedures None recorded. Surgeries None recorded. Imaging None recorded. Medication Orders valacyclovi r 1 gram tablet 2022 023 [facility] #[id number], [address] , [place], [address], 13:45:24 Patient TargetsNo targets recorded. Patient Instructions Encounter Date Encounter Id Patient Instructions Last Modified By Organization Details Last Modified Time 01/27/2023 [id number] shingles: care instructions [email or web address] Not available 01/27/2023 13:45:22 Based on your [...] after this infection. Thank you for using [facility], please feel free to contact us if you have any questions or concerns. [email or web address] Not available 01/27/2023 13:45:20 Reason for Referral None Reported. Problems Name Problem SNOMED Code Status Onset Date Resolution Date Notes Provider Name and Address Organization Details Recorded Time Hypertensive disorder 19097951 Active 2022 TITO Gautam [facility] 13:25:42 Hypercholestero lemia 37885148 Active 2022 Li christian [place] - [facility] 13:30:06 Diabetes mellitus 30507321 Active 2022 Li christian [place] - [facility] 13:31:59 Notes:pt unsure of medical p roblems Problem Notes None recorded. Medical Equipment None Reported. Allergies Allergen ID Allergen Name Allergen Category Reaction Reaction Severity Criticality Documentation Date Start Date Code Code System Note Provider Name and Address Organization Details Recorded Time 309417 Product containin g penicilli n (product) medicatio n rash Not available Not available 01/27/2023 58256 8001 SNOMED Li christian PA - [facility] [...] Not Available Not Available No t Available [employer] Ultra Test strips USE DIRECTED EVERY DAY [...] height Body mass index (BMI) Body weight Pain severity - 0-10 verbal numeric rating [Score] - Reported Respiratory rate Oxygen saturation Oxygen saturation in Arterial blood by Pulse oximetry Heart rate Body temperature Systolic blood pressure Diastolic blood pressure Provider Name and Address Organization Details Last Updated DateTime 170.18 cm 27.3 kg/m2 33159.0 7 g 0 18 /min 100 % 100 % 77 /min 98.1 [degF] 162 mm[Hg] 72 mm[Hg] Li Bradley PA - [facility] 13:32:27 Date Recorded Systolic blood pressure Diastolic blood pressure Provider Name and Address Organization Details Last Updated DateTime 01/27/2023 140 mm[Hg] 80 mm[Hg] T[facility] WHITE [facility] [place], [address], [place] - [facility] 01/27/2023 13:47:40 Social [...] Influenza, high-dose, trivalent, PF 7 completed Li Kirk null, PA - [facility] 01/27/2023 13:23:09 Influenza, high-dose, trivalent, PF 6 completed Li Romerofette null, PA - [facility] 01/27/2023 13:23:09 Influenza, split virus, quadrivalent, PF 0 completed Li Romerojamey null, [place] - [facility] 01/27/2023 13:23:09 Past Encounters Encounter ID Performer Location Encounter Start Date Encounter Closed Date Diagnosis/Indication Diagnosis SNOMED-CT Code Diagnosis ICD10 Code Diagnosis Note [id number] [address] [place] [address] 10/25/2015 08:59:37 10/25/2015 09:53:08 [id number] [address] [place] [address] 01/17/2018 18:29:55 01/17/2018 18:54:13 [id number] [address] [place] [address] 12/02/2016 17:00:53 12/02/2016 18:10:28 [id number] [address] [place] [address] 05/28/2017 10:51:39 05/28/2017 12:24:22 [id number] [address] [place] [address] 10/05/2015 09:04:04 10/05/2015 09:59:09 [id number] [address] [place] [address] 07/08/2017 09:24:15 07/08/2017 11:00:44 [id number] [address] [place] [address] 12/07/2016 08:48:59 12/07/2016 09:33:22 [id number] [address] [place] [address] 02/02/2018 10:23:50 02/02/2018 11:25:44 [id number] [facility] [address] [place] [address] 01/27/2023 11:57:31 01/27/2023 13:54:52 Herpes zoster 8748077 B02.9 Health Concerns Section Related Observation LastModified by Organization Detai ls LastModified Time None Recorded Concern Status LastModified by Organization Details LastModified Time None Recorded Advance Directives Directive None Recorded Payers Encounter Date Sequence Insurance Name Policy Number Policy Ortiz Covered Member ID Ortiz Member ID Guarantor Name 05/28/2017 1 [place] [employer] Tamie Chevalier [id number] Chevalier 05/28/2017 2 [place] [id number] Tamie Chevalier [id number] 343valier 07/08/2017 1 [place] [employer] [place] Tamie Chevalier [id number] Chevalier 07/08/2017 2 [place] [id number] Tamie Chevalier [id number] Chevalier 01/17/2018 1 [place] [employer] [place] Tamie Chevalier [id number] Chevalier 01/17/2018 2 [place] [id number] Tamie Chevalier [id number] Tamie Chevalier 02/02/2018 1 [place] Tamie Chevalier [id number] Chevalier 02/02/2018 2 [place] [id number] Tamie Mcdaniel [id number] Tamie Mcdaniel 01/27/2023 2 [place] Tamie Mcdaniel [id number] Tamie Mcdaniel 01/27/2023 1 [place] [employer] [employer] Tamie Mcdaniel [id number] Tamie Mcdaniel Notes Date Note Type Note Provider Name [...] No history of shingles. T[facility] WHITE [address] [place], [address], [place] - [facility] 01/27/2023 16:16:29 OBGyn Episode No OBEpisode recorded.
--- OUTSIDE RECORDS SUMMARY | 2024-12-01 09:53 | XMS_ITS ---
Author Organization [facility] Address [address] [facility] [facility] [place] [address] Care Team Providers Care Tibco Developer Name Role Phone Sherron Villanueva MD Primary Care Provider Roslyn Campuzano Unavailable [phone] Allergies Allergen (clinical drug ingredient) Drug/Non Drug Allergy documented on EMR Reaction Allergy Type Onset Date Status Adhesive rash Allergy Active Latex Latex redness, itchy Allergy Activ e Penicillin rash Drug Allergy Active REASON FOR VISIT Toe Irritation, At Risk Footcare Medications Medication SIG (Take, Route, Frequency, Duration) Notes Start Date End Date Status LORazepam Not-Taking Lantus 70units Not-T aking amLODIPine Besylate Not-Taking Caltrate 600 Not-Jeremy ing Citalopram Hydrobromide Not-Taking Extra Depth Diabetic Shoes with 3 [...] Deformity (M20.41,M20.42), Preulcerative Skin Lesion(s) (L85.1 Active Simvastatin 20 MG 1 tablet in the evening Orally Once a day for 30 day(s) Active Ondansetron 4 MG Oral for 20 A ctive Extra Depth Orthopedic Shoes (1 Pair) with Customized Heat Molded Multidensity Innersoles (3 Pair) as directed Dx: NIDDM/Polyneuropathy (E11.42), Hammertoe Foot Deformity (M20.41,M20.42), Preulcerative Skin Lesion(s) (L85.1 11/22/2024 Active Trulicity 70unit Act shari vitamin Active Meclizine HCl 25 MG Oral for 10 Active Metformin & Diet Manage Prod Active levoFLOXacin 750 MG Oral for 5 Active Lisinopril 40 MG Orally Act shari Glucosamine Active Iron Active hydroCHLOROthiazide 25 MG Orally Active Reji Aspirin Not-Ta placido Extra Depth Diabetic Shoes with 3 Pair Custom heat-molded multi-density innersoles for 1 year Dx: Active Social History Tobacco Use: Social History Observation Description Date Details (start date - stop date) Never Smoker NA - NA Tobacco use other than smoking: Question Answer Notes Are you an other tobacco user? No Tobacco Control (Standard) Question Answer Notes Tobacco use: Nonsmoker Additional Findings: Tobacco non-user Current no nsmoker AUDIT-C (Standard) Question Answer Notes Did you have a drink containing alcohol in the p ast year? No Points 0 Interpretation Negative Problems Problem Type SNOMED Code ICD Code Onset Dates Problem Status W/U Status Risk Notes Problem Acquired hammer toe of right foot (0893226090059 105) Other hammer toe(s) (acquired), right foot (M20.41) Active confirmed Vital Signs Height 5 ft 6 in in 11/22/2024 Weight 177 lbs 11/22/2024 BMI 28.57 kg/m2 11/22/2024 Blood pressure systolic 130 mm Hg 11/23/19 25 Blood pressure diastolic 60 mm Hg 025 Procedures Procedure Date Ordered Date Performed Result Body Sit e 27002-MZSCZJN NAIL, 6 OR MORE 11/22/2024 N/A Encounters Encounter Location Date Provider Diagnosis [facility] [address] [place] [address] 11/22/2024 Roslyn Mcgee Other hammer toe(s) (acquired), right foot M20.41 ; Other hammer toe(s) (acquired), left foot M20.42 ; Type 2 diabetes mellitus with diabetic polyneuropathy E11.42 and Tinea unguium B35.1 Assessments Encounter Date Diagnosis (ICD Code) Assessment Notes Treatment Notes Treatment Clinical Notes Section Notes 11/22/2024 Other hammer toe(s) (acquired), right foot (ICD-10 - M20.41) Patient Educated with: DIABETIC FOOT CARE INSTRUCTIONS. pdf (DIABETIC FOOT CARE INSTRUCTIONS. pdf) 11/22/2024 Other hammer toe(s) (acquired), left foot (ICD-10 - M20.42) 11/22/2024 Type 2 diabetes mellitus with diabetic polyneuropathy (ICD-10 - E11.42) 11/22/2024 Tinea unguium (ICD-10 - B35.1) Plan Of Treatment Medication Medication Name Sig Start Date Stop Date Notes Extra Depth Orthopedic Shoes (1 Pair) with Customized Heat Molded Multidensity Innersoles (3 Pair) as directed Dx: NIDDM/Polyneuropathy (E11.42), Hammertoe Foot Deformity (M20.41,M20.42), Preulcerative Skin Lesion(s) (L85.1 11/22/2024 Treatment Notes Assessment Notes Other hammer toe(s) (acquired), right fo ot Patient Educated with: DIABETIC FOOT CARE INSTRUCTIONS.pdf (DIABETIC FOOT CARE INSTRUCTIONS.pdf) Pending Test Test Name Order Date [id number] NAIL, 6 OR MORE 11/22/2024 Next Appt Details Follow Up: 3 Months, Reason: Provider Name:Roslyn chávez, 02/28/2025 11:15:00 AM, [address] [place], [address], Procedure Notes * Category Sub-Category Detail Notes Debride Nail 6-10 Nail debridement Due to the cl inical pathology outlined in the exam findings, performance of this nail treatment is medically necessary as its management by an unskilled/untrained nonprofessional would put this patients foot and overall health at risk. Therefore, debridement to affected nail(s), as described in exam ( TA, T1, T2, T3, T4, T5, T6, T7, T8, T9, ), was performed exclusively by the physician of record to reduce/remove overall nail length, girth, thickness, subungual debris, and necrotic tissue, by manual and/or electrical means through the use of a nail nipper and/or dremel-type die grinder, to a more viable healthy nail [...] to maintain effectiveness in symptomatic relief - 52734 Keratoma Treatment Parring or Cutting o f Benign Hyperkeratotic Lesion(s) (-57) More than 4 Lesions - Due to the at risk nature of the patients medical condition as documented in the exam findings, performance of this keratoderma treatment is medically necessary as its management by an unskilled/untrained nonprofessional would put this patients foot and overall health at risk. Therefore, the benign hyperkeratotic lesions, (_6_) in total, locations as stated and described in the exam ( sub 1st and 5th metatarsal heads bilateral, plantar heels bilateral. ), were pared, and/or cut utilizing a sterile 15 blade, tissue nippers, and/or power dremel instrumentation by the physician of record - [id number] Progress Notes * Tamie MCDANIELDOB:[birth year] (89 yo F)Acc No.[id number]:11/22/2024 Progress Note Patient:?Tamie MCDANIEL Provider:?Roslyn Mcgee DPM :1935???Age:89 Y???Sex:Female D ate:11/22/2024 Address: [address], [place], [id number] Pcp:Sherron Villanueva MD Subjective: * Chief Complaints: * ???Toe IrritationAt Risk Silver tcare * HPI: ???At Risk footcare:?Pt States Last PCP Visit:?Date?09/01/2024 ???Toe pain:?Location:?B/L feet.?Duration:?several years.?Course:?worse.?Aggravated by:?shoes, any pressure.?Treatments:?change in shoes.? * ROS:?General/Constitutional:?Nausea?denies.?Vomiting?denies.?Hunger Thirst?denies.?Loss appetite?denies.?Chills?denies.?Fatigue?denies.?Fever?denies.?Night Sweats?denies.?Unexplained weight loss?denies.?Unexplained [...] daughter(s) . .? * Social History:?Tobacco Use:?Tobacco use other than smoking?Are you an other tobacco user??No ?Tobacco Control (Standard)?Tobacco use:?Nonsmoker ?Additional Findings: Tobacco non-user?Current nonsmoker ???Drugs/Alcohol:?Drugs?Have you used drugs other than those for medical reasons in the past 12 months??No ???Miscellaneous:?Caffeine: yes, frequency: coffee, 1 cups per day. ?Children: yes. ?Exercise: no. ?Marital status: . 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 ???Drug/Alcohol:?AUDIT-C (Standard)?Did you have a drink containing alcohol in the past year??No ?Points?0 ?Interpretation?Negative * Medications:?TakingExtra Dep th Diabetic Shoes with 3 Pair Custom heat-molded multi-density innersoles for 1 year Dx: hydroCHLOROthiazide 25 MG Tablet Orally Iron Glucosamine [...] Extra-Depth Diabetic Shoes with 3 Pair Custom heat- molded multi-density innersoles . . for 1 year . Dx:niddm with neuropathy, foot deformity and preulcerative skin lesions Taking Extra Depth Diabetic Shoes with 3 Pair Custom heat-molded multi-density innersoles for 1 year Dx: Taking hydroCHLOROthiazide 25 MG Tablet Orally Taking [...] neuropathy, foot deformity and preulcerative skin lesions Not-Taking/PRNBayer Aspirin Extra Depth Diabetic Shoes with 3 Pair Custom heat- molded multi-density innersoles for 1 year Dx: Extra Depth Diabetic Shoes with 3 Pair Custom heat-molded multi-density innersoles for 1 year Dx: Caltrate 600 amLODIPine Besylate Lantus 70units LORazepam Citalopram Hydrobromide Medication List reviewed and reconciled with the patientNot-Taking/PRN Reji Aspirin Not-Taking/PRN Extra Depth Diabetic Shoes with 3 Pair Custom heat-molded multi-density innersoles for 1 year Dx: Not-Taking/PRN Extra Depth Diabetic Shoes with 3 Pair Custom heat-molded multi-density innersoles for 1 year Dx: Not-Taking/PRN Caltrate 600 Not- Taking/PRN amLODIPine Besylate Not-Taking/PRN Lantus 70units Not-Taking/PRN LORazepam Not-Taking/PRN Citalopram Hydrobromide Medication List reviewed and reconciled with the patient * Allergies:?Latex: redness, i tchyAdhesive: rashPenicillin: rash Objective: * Vitals:?Ht: 5 ft 6 in, Wt:17 7, BMI: 28.57, Shoe size:9.5, BP:130/60mm Hg, BS:151, Wt-k.29 kg. * ???Past Orders: ???Lab:HEMOGLOBIN A1C (GLYCO HEMOGLOBIN) (Order Date - 04/02/2024) (Collection Date & Time - 04/02/2024 01:06 PM) ? Value Reference Range ?TOTAL HEMOGLOBIN (HGBA1C) 5.5 * Examination: ???Ophthalmology Referral: ?DIABETES EYE EXAM?Procedure Performed:?No ?Eye Exam not performed:?No reason specified?Orthopedic: ?MUSCLE STRENGTH:?5/5 all groups in a symmetrical fashion, B/L.?DIGITAL DEFORMITIES:?Digital contracture, PIPJ, 2-5 B/L, incompl-reducible to push-up test, no over, nor underlapping,?there is?evidence of shoe producing skin irritation.?FOOTWEAR EVALUATION:?worn, non-supportive, shoe gear properties exacerbate patient's foot/toe deformity.?General Examination: ?GENERAL APPEARANCE:?Reveals a pleasant, alert, well nourished, well- developed, well hydrated individual, who demonstrates proper attention to hygiene/body habitus, and is in no acute distress, Pt serves as own historian for office visit today.?ORIENTED:?person, place, and time.?FOOT EXAM:?Lower Extremity Neurological Exam performed:?Yes Date ?Visual exam of foot performed:?Yes ?Footwear Evaluation?Footwear Evaluation performed:?Yes?Neurological: ?SENSORY:? Neurological exam demonstrates, reduced light touch sensation, reduced sharp/dull pin prick discrimination , B/L, 5.07 monofilament test performed at plantar aspects of 5 varied sites per foot shows sensation, reduced , B/L.?Nails: ?NAILS are:?Elongated, overgrown, dystrophic, lytic, greater than 3mm thick, discolored and friable with crumbly malodorous subungual debris, with dull to no pain on palpation due to neuropathy, TA, T1, T2, T3, T4, T5, T6, T7, T8, T9.?Dermatologic: ?SKIN FINDINGS:?Skin exam reveals Keratotic lesion(s) located at?sub 1st and 5th metatarsal heads bilateral, plantar heels bilateral..?Vascular: ?DP PULSES (B):?2/4, B/L.?PT PULSES (B):?3/4, B/L.?CAPILLARY FILL TIME:?3 secs. per digit, b/l.?TROPHIC CONDITION-TEXTURE/ELASTICITY/TURGOR/HAIR GROWTH (B):?normal, B/L.?TEMPERTURE GRADIENT (C):?warm to cool, proximal to distal.?EDEMA (C):?no edema.?ELEV. PALOR:?absent.?CLAUDICATION (C):?negative, b/l .?REST PAIN:?negative.?TELANGECTASIA:?absent.?VARICOSITIES:?absent.? Assessment: * Assessment: 1.?Other hammer toe(s) (acqu ired), right foot - M20.41 (Primary)???Specify :Chronic problem, Worse (4),Rx Management (4)???2.?Other hammer toe(s) (acquired), left foot - M20.42???Specify :Chronic problem, Worse (4),Rx Management (4)???3.?Type 2 diabetes mellitus with diabetic polyneuropathy - E11.42???4.?Tinea unguium - B35.1??? Plan: * Treatment: 2.?Type 2 diabetes mellitus with diabetic polyneuropathy?Procedure: [id number] NAIL, 6 OR MORE * Procedures:?Debride Nail 6-10:?Nail debridement?Due to the clinical pathology outlined in the exam findings, performance of this nail treatment is medically necessary as its management by an unskilled/untrained nonprofessional would put this patients foot and overall health at risk. Therefore, debridement to affected nail(s), as described in exam ( TA, T1, T2, T3, T4, T5, T6, T7, T8, T9, ), was performed exclusively by the physician of record to reduce/remove overall nail length, girth, thickness, subungual debris, and necrotic tissue, by manual and/or electrical means through the use of a nail nipper and/or dremel-type die grinder, to a more viable healthy nail plate or bed tissue 6- 10 nails in total. Silver nitrate was used for any petechial bleeding as necessary. Definitive antifungal treatment options, both pharmaceutical and surgical, have been reviewed and discussed with the patient. The patient solely prefers the use of intermittent/as needed professional debridement services for their nail condition and understands the need for additional periodic treatments to maintain effectiveness in symptomatic relief - 92032.?Keratoma Treatment:?Parring or Cutting of Benign Hyperkeratotic Lesion(s)?(-57) More than 4 Lesions - Due to the at risk nature of the patients medical condition as documented in the exam findings, performance of this keratoderma treatment is medically necessary as its management by an unskilled/untrained nonprofessional would put this patients foot and overall health at risk. Therefore, the benign hyperkeratotic lesions, (_6_) in total, locations as stated and described in the exam ( sub 1st and 5th metatarsal heads bilateral, plantar heels bilateral. ), were pared, and/or cut utilizing a sterile 15 blade, tissue nippers, and/or power dremel instrumentation by the physician of record - [id number].? * Procedure Codes:?75051 DEBRI DE NAIL, 6 OR MORE, Modifiers: XS 56567 TRIM SKIN LESIONS, OVER 4, Modifiers: XS * Preventive Medicine:? ??Counseling:?Discussion:?-14: Office or other outpatient visit for the evaluation and management of an established patient, which required a medically appropriate history and/or examination and MODERATE level of DECISION MAKING for: 1 OR MORE CHRONIC PROBLEM(S) THATS WORSENING, 2 STABLE CHRONIC PROBLEMS, A NEWLY DIAGNOSED PROBLEM WITH UNCERTAIN PROGNOSIS, AN ACUTE COMPLICATED INJURY WITH MULTIPLE TREATMENT OPTIONS, OR AN ACUTE PROBLEM WITH ACCOMPANYING SYSTEMIC SYMPTOMS, THAT POSE(S) A MODERATE RISK OF MORBIDITY. THIS CONDITION MAY ALSO INCLUDE RX DRUG MANAGEMENT, OR A DECISON FOR MINOR SURGERY. The visit on the day of the encounter encompassed interpreting the data and educating the patient as to the nature of their condition, treatment options available according to their individual PMH, meds, allergies, and overall health/living conditions, as well as any potential risks or complications that may occur from a failure to adhere to, and participate in, the recommended course of therapy. The discussion included a complete verbal, and/or written explanation of the examination results, any x-rays taken, the proposed diagnosis, and outline of the treatment plan. A schedule for future care needs was also explained. The patient verbalized an understanding of the instructions at this time and agreed to be an active participant in their treatment. If the patient should think of any questions or concerns after the visit, I have encouraged the patient to call the office.?Digital Surgery:?Digital surgery was discussed with the patient, We elected to try conservative treatment at the present time, due to the patients medical history and increased asssociated post-operative risks.?Digital Treatment:?HT- I explained to the patient the possible etiologies of Hammertoes, including genetics/foot type/shoegear/activity level/exercise routine and the risks/benefits of all the different treatment options for their pain including: No treatment at all, Rest, Ice, New/supportive/wider/deeper Shoegear, Digital Padding/Strapping/Taping/Bracing/Gel protective sleeves, Foot/Ankle AFO Bracing, Stretching exercises, Deep Tissue Massage, Arch support/shoe inserts with splay metatarsal padding, and Custom orthoses. I insisted that any digital devices be removed daily and not worn overnight for safety. The patient is to carefully examine the toes daily for any skin irritation while using any splinting or padding device. The advantages and disadvantages of each option were discussed and the patients questions re: shoegear, padding, custom vs prefabricated inserts, activity level, and consistency in home treatment regimens for optimal success were answered to their verbally confirmed satisfaction.?Shoe Gear Counseling:?SHOE Rx - The patient was counseled in great detail on their muscoloskeletal foot and toe deformities which coincided with the dermatological presentations visualized on exam. We discussed how their deformities put the integrity of their feet at risk for potential pedal complications which makes the accomidative diabetic shoes and cutomizable inserts medically necessary. We discussed the different shoe and insert treatment types and options, as well as the important advantages for adhering to regularly wearing these accomidative devices daily. The patient was made aware of the fact that a failure to abide by these recommedations may be deleterious to their foot health as they are able to prevent many pedal complications such as skin irritation, skin ulceration, infection, and even loss of toe/foot/leg/or life. Time was also spent with the patient dispensing and discussing proper diabetic footcare techniques including daily skin moisturization, daily foot inspection for any interruption in skin integrity including open lesions, or sign of infection such as redness/malodor/drainage/swelling. Also discussed and recommended were procedures regarding daily shoe inspection for the presence of internal foreign bodies as well as any visualized irregular shoe or insert wear. Patient questions re: shoes, inserts, and self foot inspections were answered to their satisfaction as the patient verbally confirmed a full understanding of the above information. A Rx for Extra Depth Orthopedic Shoes with 3 pair of custom heat-molded inserts was dispensed.? ??Screening/Special Tests:?Fall Risk?Screening:?No falls in the past year ?FALLS: Screening for Future Fall Risk?Have you had any falls with injury in the past year??No * Follow Up:?3 Months * Images: * Sign off status: Completed true * Provider:?Roslyn Mcgee DPM Date:?0 11/22/2024 Generated for Kary hernández/Daisy/eTransmitting on:?12/01/2024 09:52 AM EDT History and Physical Notes * HPI (History of Present Illness) Category Sub-Category Detail Notes Category Not es Toe pain Location: B/L feet Duration: several years Course: worse Aggravated by: shoes, any pressure Treatments: change in shoes At Risk footcare Pt States Last PCP Visit: Date: 5 Examination Category Sub-Category Detail Notes Category Not es Neurological SENSORY: Neurological exa m demonstrates, reduced light touch sensation, reduced sharp/dull pin prick discrimination , B/L, 5.07 monofilament test performed at plantar aspects of 5 varied sites per foot shows sensation, reduced , B/L Dermatologic SKIN FINDINGS: Skin exam reveal s Keratotic lesion(s) located at sub 1st and 5th metatarsal heads bilateral, plantar heels bilateral. Orthopedic FOOTWEAR EVALUATION: worn, non-s upportive, shoe gear properties exacerbate patient's foot/toe deformity DIGITAL DEFORMITIES: Digital contracture , PIPJ, 2-5 B/L, incompl-reducible to push-up test, no over, nor underlapping, there is evidence of shoe producing skin irritation MUSCLE STRENGTH: 5/5 all groups in a symmetrical fashion, B/L General Examination GENERAL APPEARANCE: Reveals a pleasant, alert, well nourished, well-developed, well hydrated individual, who demonstrates proper attention to hygiene/body habitus, and is in no acute distress, Pt serves as own historian for office visit today FOOT EXAM: Lower Extremity Neurological Exa m performed:: Yes Date Visual exam of foot performed:: Yes ORIENTED: person, place, and t merlene Footwear Evaluation Footwear Evaluation performe d:: Yes Ophthalmology Referral DIABETES EYE EXAM Procedure Perform ed:: No Eye Exam not performed:: No reason speci fied Vascular DP PULSES (B): 2/4, B/L PT [...] with crumbly malodorous subungual debris, with dull to no pain on palpation due to neuropathy, TA, T1, T2, T3, T4, T5, T6, T7, T8, T9
--- OUTSIDE RECORDS SUMMARY | 2024-12-01 09:53 | XMS_ITS | Patient Health Record ---
Author Organization [facility] Address [address] [address] Care Team Providers Care Software Quality Assurance Specialist Name Role Phone Sherron Villanueva MD Primary Care Provider Roslyn Campuzano Unavailable [phone] David Vasques Unavailable [phone] Allergies Allergen (clinical drug ingredient) Drug/Non Drug Allergy documented on EMR Reaction Allergy Type Onset Date Status Adhesive rash Allergy Active Latex Latex redness, itchy Allergy Activ e Penicillin rash Drug Allergy Active Results Component Value Reference Range Notes HEMOGLOBIN A1C (GLYCOHEMOGLO BIN) Reviewed date:06/26/2024 01:07:14 PM Interpretation: Performing Lab: Notes/Report: TOTAL HEMOGLOBIN (HGBA1C) 5.5 HEMOGLOBIN A1C (GLYCOHEMOGLO BIN) Reviewed date:11/22/2024 01:34:05 PM Interpretation: Performing Lab: Notes/Report: HEMOGLOBIN A1C % (HH) 5.5 Reason For Referral No Information Medications Medication SIG (Take, Route, Frequency, Duration) Notes Start Date End Date Status Simvastatin 20 MG 1 tablet in the evening Orally Once a day for 30 day(s) Active LORazepam Not-Taking Ondansetron 4 MG Oral for 20 A ctive Lantus 70units Not-T aking Meclizine HCl 25 MG Oral for 10 Active amLODIPine Besylate Not-Taking Metformin & Diet Manage Prod Active Caltrate 600 Not-Jeremy ing Extra Depth Diabetic Shoes with 3 Pair Custom heat-molded multi-density innersoles for 1 year Dx: 05/13/2016 Not-Taking levoFLOXacin 750 MG Oral for 5 Active Lisinopril 40 MG Orally Act shari Extra Depth Diabetic Shoes with 3 Pair Custom heat-molded multi-density innersoles for 1 year Dx: 01/10/2018 Not-Taking Glucosamine Active Extra-Depth Diabetic Shoes with 3 Pair Custom heat-molded multi-density innersoles . for 1 year . Dx:niddm with neuropathy, foot deformity and preulcerative skin lesions for . 04/11/2014 Active Iron Active Extra Depth Diabetic Shoes with 3 Pair Custom heat-molded multi-density innersoles for 1 year Dx: 07/28/2021 Active hydroCHLOROthiazide 25 MG Orally Active Extra Depth Orthopedic Shoes (1 Pair) with Customized Heat Molded Multidensity Innersoles (3 Pair) as directed Dx: NIDDM/Polyneuropathy (E11.42), Hammertoe Foot Deformity (M20.41,M20.42), Preulcerative Skin Lesion(s) (L85.1 Active Extra Depth Orthopedic Shoes (1 Pair) with Customized Heat Molded Multidensity Innersoles (3 Pair) as directed Dx: NIDDM/Polyneuropathy (E11.42), Hammertoe Foot Deformity (M20.41,M20.42), Preulcerative Skin Lesion(s) (L85.1 11/22/2024 Active Reji Aspirin [facility] Act shari Extra Depth Diabetic Shoes with 3 Pair Custom heat-molded multi-density innersoles for 1 year Dx: Active vitamin Active Citalopram Hydrobromide Not-Taking Immunizations Vaccine Route Administration Date Status [...] Problem Acquired hammer toe of right foot (0668570985674014 ) Other hammer toe(s) (acquired), right foot (M20.41) Active confirmed Problem Polyneuropathy due to type 2 diabetes mellitus (591473936) Type 2 diabetes mellitus with diabetic polyneuropathy (E11.42) Active confirmed Problem Localized, primary osteoarthritis of the ankle and/or foot (615797957) Primary osteoarthritis, right ankle and foot (M19.071) Active confirmed Problem Localized, primary osteoarthritis of the ankle and/or foot (809486925) Primary osteoarthritis, left 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) Active confirmed Problem Acquired hammer toe of left foot (1762911994688005 ) Other hammer toe(s) (acquired), left foot (M20.42) Active confirmed Vital Signs Blood pressure diastolic 60 mm Hg 11/22/2024 Height 5 ft 6 in in 11/22/2024 Blood pressure systolic 130 mm Hg 11/22/2024 Weight 177 lbs 11/22/2024 BMI 28.57 kg/m2 11/22/2024 Procedures Procedure Date Ordered Date Performed Result Body Sit e 99564-JSNQYMI NAIL, 6 OR MORE 06/26/2024 N/A 62174-PMXJ SKIN LESIONS, OVER 4 06/26/2024 N/A 43875-UMCVNFU NAIL, 6 OR MORE 11/22/2024 N/A Encounters Encounter Location Date Provider Diagnosis [address] [address] 12/20/2023 David Vasques Tinea unguium B35.1 ; Pain in right toe(s) M79.674 ; Pain in left toe(s) M79.675 ; Other viral warts B07.8 ; Pain in left foot M79.672 ; Pain in right foot M79.671 and Type 1 diabetes mellitus with diabetic polyneuropathy E10.[address] [facility] [address] 03/22/2024 David Vasques Tinea unguium B35.1 ; Pain in right toe(s) M79.674 ; Pain in left toe(s) M79.675 ; Other viral warts B07.8 ; Pain in left foot M79.672 ; Pain in right foot M79.671 and Type 1 diabetes mellitus with diabetic polyneuropathy E10.[address] [address] 06/26/2024 Roslyn Mcgee Type 2 diabetes mellitus with diabetic polyneuropathy E11.42 and Tinea unguium B35.[address] [address] 11/22/2024 Roslyn Mcgee Other hammer toe(s) (acquired), right foot M20.41 ; Other hammer toe(s) (acquired), left foot M20.42 ; Type 2 diabetes mellitus with diabetic polyneuropathy E11.42 and Tinea unguium B35.[address] [address] 02/01/2024 David Vasques Assessments Encounter Date Diagnosis (ICD Code) Assessment Notes Treatment Notes Treatment Clinical Notes Section Notes 12/20/2023 Tinea unguium (ICD-10 - B35.1) 03/22/2024 Tinea unguium (ICD-10 - B35.1) 03/22/2024 Pain in right toe(s) (ICD-10 - M79.674) 06/26/2024 Type 2 diabetes mellitus with diabetic polyneuropathy (ICD-10 - E11.42) 06/26/2024 Tinea unguium (ICD-10 - B35.1) 11/22/2024 Other hammer toe(s) (acquired), right foot (ICD-10 - M20.41) Patient Educated with: DIABETIC FOOT CARE INSTRUCTIONS. pdf (DIABETIC FOOT CARE INSTRUCTIONS. pdf) 11/22/2024 Other hammer toe(s) (acquired), left foot (ICD-10 - M20.42) 11/22/2024 Type 2 diabetes mellitus with diabetic polyneuropathy (ICD-10 - E11.42) 03/22/2024 Pain in left toe(s) (ICD-10 - M79.675) 12/20/2023 Pain in right toe(s) (ICD-10 - M79.674) 12/20/2023 Pain in left toe(s) (ICD-10 - M79.675) 03/22/2024 Other viral warts (ICD-10 - B07.8) 11/22/2024 Tinea unguium (ICD-10 - B35.1) 03/22/2024 Pain in left foot (ICD-10 - M79.672) 12/20/2023 Other viral warts (ICD-10 - B07.8) 12/20/2023 Pain in left foot (ICD-10 - M79.672) 03/22/2024 Pain in right foot (ICD-10 - M79.671) 03/22/2024 Type 1 diabetes mellitus with diabetic polyneuropathy (ICD-10 - E10.42) 12/20/2023 Pain in right foot (ICD-10 - M79.671) 12/20/2023 Type 1 diabetes mellitus with diabetic polyneuropathy (ICD-10 - E10.42) Plan Of Treatment Pending Test Test Name Order Date Hemoglobin A1c 05/03/2018 X ray : Foot, right 3V 05/27/2011 92461-QPHFJDL NAIL, 6 OR MORE 06/24/2011 96365-HGDFOYE NAIL, 6 OR MORE 09/09/2011 80124-VCQRGMD NAIL, 6 OR MORE 04/15/2011 46461-UVHSGNU NAIL, 6 OR MORE 05/27/2011 43290-TFEWNPX NAIL, 6 OR MORE 11/18/2011 79558-EQXGBAD NAIL, 6 OR MORE 09/21/2012 65429-ESTWHQD NAIL, 6 OR MORE 11/30/2012 47919-CFICPQM NAIL, 6 OR MORE 02/15/2013 86283-EMLPBUS NAIL, 6 OR MORE 05/24/2013 43845-FIANLPU NAIL, 6 OR MORE 08/30/2013 06116-SZRVNBM NAIL, 6 OR MORE 11/15/2013 76235-WWFBQPM NAIL, 6 OR MORE 01/31/2014 47382-HKOWVEA NAIL, 6 OR MORE 07/04/2014 69156-UHVGGUJ NAIL, 6 OR MORE 09/26/2014 36098-CUYHZIE NAIL, 6 OR MORE 12/12/2014 53197-WTUVPOC NAIL, 6 OR MORE 02/28/2015 52620-FMCREHH NAIL, 6 OR MORE 05/22/2015 92455-JWGSTII NAIL, 6 OR MORE 08/14/2015 92987-KUONCUD NAIL, 6 OR MORE 11/13/2015 36438-MEUPDPL NAIL, 6 OR MORE 02/12/2016 32057-ZVPYAUQ NAIL, 6 OR MORE 05/13/2016 22603-CUSJWWV NAIL, 6 OR MORE 08/12/2016 77576-JCQQAWC NAIL, 6 OR MORE 11/04/2016 11992-YBHEYUP NAIL, 6 OR MORE 01/27/2017 21464-QCMJTTQ NAIL, 6 OR MORE 04/21/2017 12333-LTMHPBU NAIL, 6 OR MORE 07/14/2017 92770-XDECOOB NAIL, 6 OR MORE 10/11/2017 12689-OVMBXQS NAIL, 6 OR MORE 04/06/2018 51467-TJCFHYQ NAIL, 6 OR MORE 07/06/2018 69413-ZQNMDNG NAIL, 6 OR MORE 11/22/2024 24186-RBBNBUG NAIL, 6 OR MORE 06/26/2024 44982-BYZRYZH NAIL, 6 OR MORE 01/10/2018 34194-EEOSOZG NAIL, 6 OR MORE 04/11/2014 51103-UDURACH NAIL, 6 OR MORE 07/06/2012 90320-TZVRLWD NAIL, 6 OR MORE 04/27/2012 81895-GSPPPSY NAIL, 6 OR MORE 01/27/2012 61624-Hbiduzwz Plate 04/11/2014 49326-Snkgntio Plate 11/13/2015 67512-Tqihiupf Plate 05/22/2015 83616-Oyouaizi Plate 12/12/2014 43710-Dldqmben Plate 09/26/2014 71984-Vhsdshla Plate 07/04/2014 07771- Debride <25 sq cm 02/06/2014 69300-XBYP SKIN LESIONS, OVER 4 01/11/20 18 51182-ONFF SKIN LESIONS, OVER 4 06/26/20 24 60973-KTBI SKIN LESIONS, OVER 4 02/29/20 15 51194-EPCE SKIN LESIONS, OVER 4 04/21/20 17 89508-JKDR SKIN LESIONS, OVER 4 11/05/19 17 99762-MGCQ SKIN LESIONS, OVER 4 01/28/20 17 08256-SANJ SKIN LESIONS, OVER 4 08/12/19 17 67475-KWMK SKIN LESIONS, OVER 4 05/13/20 16 37570-EHWM SKIN LESIONS, OVER 4 10/06/19 19 87628-VWIT SKIN LESIONS, OVER 4 01/03/20 19 29120-TSUE SKIN LESIONS, OVER 4 03/27/20 19 82054-IEJN SKIN LESIONS, OVER 4 06/26/20 19 86442-KTXT SKIN LESIONS, OVER 4 07/17/20 20 72781-RTSQ SKIN LESIONS, OVER 4 10/24/19 21 96261-KQSC SKIN LESIONS, OVER 4 01/24/20 21 81740-XGDP SKIN LESIONS, OVER 4 04/17/20 31603-XFZV SKIN LESIONS, OVER 4 07/28/20 21 07476-KBTZ SKIN LESIONS, OVER 4 10/16/19 22 39219-XTNK SKIN LESIONS, OVER 4 07/06/20 18 75314-FLIC SKIN LESIONS, OVER 4 04/06/20 18 87207-PBVB SKIN LESIONS, OVER 4 10/12/19 18 50916-DUFG SKIN LESIONS, OVER 4 07/14/20 17 85556-MRUM SKIN LESIONS, 2 TO 4 10/04/19 20 25350-OPCN SKIN LESIONS, 2 TO 4 05/22/20 15 57923-SOIM SKIN LESIONS, 2 TO 4 08/14/19 16 06050-FEQF SKIN LESIONS, 2 TO 4 02/12/20 16 00716-YUMB SKIN LESIONS, 2 TO 4 11/13/19 16 33515-QKJV SKIN LESIONS, 2 TO 4 12/13/19 15 41309-OWDV SKIN LESIONS, 2 TO 4 07/04/20 14 99729-GRWQ SKIN LESIONS, 2 TO 4 09/26/19 15 11250-WPLT SKIN LESIONS, 2 TO 4 02/01/20 14 29675-SPLJ SKIN LESIONS, 2 TO 4 11/16/19 14 46792-VSHS SKIN LESIONS, 2 TO 4 08/30/19 14 21050-FISA SKIN LESIONS, 2 TO 4 05/24/20 13 83491-DKYE SKIN LESIONS, 2 TO 4 02/16/20 13 57971-TAGW SKIN LESIONS, 2 TO 4 12/01/19 13 41956-WWJA SKIN LESIONS, 2 TO 4 09/21/19 13 94390-FXNA SKIN LESIONS, 2 TO 4 04/15/20 11 91733-VJVF SKIN LESIONS, 2 TO 4 01/03/20 20 60043-PMKC SKIN LESIONS, 2 TO 4 04/25/20 20 84652-GYTB SKIN LESIONS, 2 TO 4 04/11/20 14 89071-VGHQ SKIN LESIONS, 2 TO 4 04/27/20 12 96340-VHGQ SKIN LESIONS, 2 TO 4 07/06/20 12 82712-VKVD SKIN LESIONS, 2 TO 4 01/27/20 12 22909-WFTX SKIN LESION 09/09/2011 10751-IFUY SKIN LESION 11/18/2011 63482-MTDVHHNE OF HEMATOMA/FLUID 014 29638- Removal of Foreign Body, Subcut 0 01/03/2020 20878- Removal of Foreign Body, Subcut 0 03/29/2023 78795, J0702- Neuroma/Injection 05/27/20 11 Next Appt Details Provider Name:Roslyn chávez, 02/28/2025 11:15:00 AM, [address] [facility], [place], [address], Insurance Providers Payer Name Payer Address Payer Phone Subscriber Number Group Number Insured Name Patient Relationship to Insured Coverage Start Date Coverage End Date Medicare National [employer]t [employer] [address] [place] [address] [id number] Tamie Martin Self - patient is the insured [employer] [address] [place] [address] [phone] [id number] Tamie Martin Self - patient is the insured Medical (General) History Medical History History ICD Code high blood pressure Arthritis sleep apnea type II diabetes Surgical History Surgery Date(Month/Year) Right eye cateract surgery 11/2013 Left eyey cateract surgery 12/2013 gall bladder complication cyndi thomas had a gallstone and travel from her bladder to her intestian she had to get the gallstone remove 06/19/2019 gall stones 06/19/2019 intestinal surgery 06/19/2019 Hospitalization History Reason Date(Month/Year) bladder infection 07/2020
--- OUTSIDE RECORDS SUMMARY | 2024-12-01 09:53 | XMS_ITS ---
Author Organization [facility] Address [address] [address] Care Team Providers Care Digital Analytics Manager Name Role Phone Sherron Villanueva MD Primary Care Provider UnavailRoslyn Russell Unavailable [phone] David Vasques Unavailable [phone] Allergies Allergen (clinical drug ingredient) Drug/Non Drug [...] 024 Encounters Encounter Location Date Provider Diagnosis [facility] [place] [address] [place] [address] 03/22/2024 David Vasques Tinea unguium B35.1 ; [...] Follow Up: 3 Months, Reason: Provider Name:Roslyn Bailey saira, 02/28/2025 11:15:00 AM, [address] [place] [address], [phone], Procedure Notes * Category Sub-Category Detail Notes [...] as necessary. Patient chooses, no pharmaceutical tx (21191) Keratoma Treatment Parring or Cutting o f Benign Hyperkeratotic Lesion(s) 08411 ( >4 Lesions) - The Benign hyperkeratotic lesions, as described above were pared, and/or cut utilizing a sterile #15 blade, tissue nippers, and/or dremel Progress Notes * Tamie MCDANIELDOB:[birth year] (89 yo F)Acc No.[id number]:03/22/2024 Progress Note Patient:?Tamie Mcdaniel Provider:?David Vasques DPM :1935???Age:89 Y???Sex:Female D ate:03/22/2024 Address: [address], [id number] Pcp:Sherron Villanueva MD Subjective: * Chief Complaints: [...] , good attention to hygiene.?ORIENTED:?person,place, and time.?FOOT EXAM:?Lower Extremity Neurological Exam performed:?Yes ?Visual exam of foot performed:?Yes ?Date?06/16/2023 ?Sensory testing performed:?sensations diminished ?Pedal pulse taking performed:?2+?Ingrown Nail: ?INSPECTION:?Reveals nail incurvation, dull pain on palpation due to neuropathy, groove hypertrophy, Medial nail border, TA, T5.?Ophthalmology Referral: ?DIABETES EYE EXAM?Diabetic Retinopathy Screening:?Yes 12/31/2021, 06/2023 ?Findings of Diabetic Eye Exam:?no retinopathy 09/2018, 06/2023??? Assessment: * Assessment: 1.?Tinea unguium - B35.1 [...] as necessary. Patient chooses, no pharmaceutical tx (46189).?Keratoma Treatment:?Parring or Cutting of Benign Hyperkeratotic Lesion(s)?09085 ( >4 Lesions) - The Benign hyperkeratotic lesions, as described above were pared, and/or cut utilizing a sterile #15 blade, tissue nippers, and/or dremel.? * Procedure Codes:?33570 DEBRI DE NAIL, 6 OR MORE, Modifiers: XS 08604 TRIM SKIN LESIONS, OVER 4, Modifiers: XS * Follow Up:?3 Months * Images: * Sign off status: Completed true * Provider:?David Vasques DPM Date:? 024 Generated for Kary hernández/Daisy/eTransmitting on:?12/01/2024 09:53 AM EDT History and Physical Notes * [...] large dorsal exostosis first mt- cun right FOOTWEAR EVALUATION: good condition DIGITAL DEFORMITIES: Digital contracture , [...]
[2024-12-01 10:06] LABS: MANUAL DIFF FLAG NO
[2024-12-01 10:09] LABS: Basophils Absolute Auto 0.1 X10*3/uL (0.0-0.2); Basophils Percent Auto 0.7 % (0-2); Eosinophils Absolute Auto 0.2 X10*3/uL (0.0-0.4); Eosinophils Percent Auto 2.4 % (0-4); Hematocrit 35.1 % (37.0-47.0); Hemoglobin 11.1 g/dl (12.0-16.0); Imm Gran Abs Auto 0.03 X10*3/uL (0.00-0.03); Imm Gran Pct Auto 0.4 % (0.0-0.4); Lymphocytes Absolute Auto 1.7 X10*3/uL (1.2-4.9); Lymphocytes Percent Auto 23.8 % (20-40); Mean Corpuscular HGB Conc 31.6 g/dl (31.0-35.0); Mean Corpuscular Hemoglobin 27.8 pg (27.0-33.0); Mean Corpuscular Volume 87.8 fL (80.0-98.0); Mean Platelet Volume 8.5 fL (9.4-12.3); Monocytes Absolute Auto 0.5 X10*3/uL (0.1-1.2); Neutrophils Absolute Auto 4.6 x10*3/uL (2.0-8.3); Neutrophils Percent Auto 65.7 % (45-73); Platelet Count 239 X10*3/uL (160-400); White Blood Count 7.1 X10*3/uL (4.8-10.8)
[2024-12-01 10:29] LABS: Estimated Average Glucose 140 mg/dL; Hemoglobin A1C 141.5671 umol/L; Hemoglobin A1c % 6.5 % (<6.0); Total Hemoglobin (HGBA1C) 2961.0831 umol/L
[2024-12-01 10:38] LABS: Creatinine Urine 74.62 mg/dL; Microalbum/Creatinine Ratio Ur 50.9 ug/mg cr (<30)
[2024-12-01 10:59] LABS: Alanine Aminotransferase 12 U/L (0-31); Alkaline Phosphatase 70 U/L (39-117); Anion Gap 16 (12-20); Aspartate Amino Transferase 20 U/L (5-31); Bilirubin Total 0.3 mg/dL (0.0-1.0); Blood Urea Nitrogen 26 mg/dL (9-16); Calcium 9.4 mg/dL (8.4-10.2); Carbon Dioxide 25 mmol/L (22-29); Chloride 107 mmol/L (96-108); Cholesterol 151 mg/dL (<200); Estimated Glomerular Filt Rate 41; Glucose Fasting 115 mg/dL (60-99); HDL Cholesterol 48 mg/dL (>40); LDL Cholesterol Calculated 79 mg/dL (<100); Potassium 4.7 mmol/L (3.3-5.1); Sodium 143 mmol/L (135-145); Total Protein 7.5 g/dL (6.5-8.0); Triglycerides 121 mg/dL (<150)
== END 2024-12-01 09:14 | disposition home or self-care (01) ==
LOC: HO.HMGCLDS 09:13
PROVIDERS: PCP Internal Medicine; Visit Provider Internal Medicine
DX: I12.9 Hypertensive chronic kidney disease with stage 1 through stage 4 chronic kidney disease, or unspecified chronic kidney disease (principal); E11.22 Type 2 diabetes mellitus with diabetic chronic kidney disease; N18.30 Chronic kidney disease, stage 3 unspecified; R30.0 Dysuria; E78.5 Hyperlipidemia, unspecified; Z79.4 Long term (current) use of insulin
CPT/HCPCS: 36415; 80053; 80061; 82043; 82570; 83036; 85025; 87086

== ENCOUNTER 2024-12-05 11:13 | Outpatient (AMB) | payer MEDICARE, SELFPAY ==
--- NOTE | 2024-12-05 11:17 | MHC.PC.OV ---
Vital Signs 12/05/24 11:18 Height 5 ft 5 in Weight 184 lb BMI 30.6 BP 132/66 Blood Pressure Location Lt brachial Position Sitting Respiration 18 Pulse 84 Pulse Source Pulse Oximeter Pulse Oximetry (%) 99 Oxygen Delivery Method Room Air Intake Visit Reasons: 4m follow up Intake Note: Pt is here today for 4 months follow up visit. Allergies celecoxib [Celebrex] Allergy (Unknown, Verified 12/05/24 11:44) rash penicillin G Allergy (Unknown, Verified 12/05/24 11:44) rash Penicillins [PENICILLINS] Allergy (Unknown, Verified 12/05/24 11:44) HIVES, rash Medication List - Last Reconciled 12/05/24 by Sherron Villanueva MD acetaminophen 1,000 mg PO TID PRN acetaminophen ER (Tylenol Arthritis Pain) 650 mg PO Q12H PRN albuterol sulfate 90 mcg/actuation 1 inh inhalation QID PRN amlodipine 5 mg PO DAILY blood sugar diagnostic (Oceenuch Ultra Test strips) qd blood-glucose sensor (Luminary Micro G7 Sensor device) Test blood sugar 3 times per day, change sensor every 10 days cyanocobalamin (vitamin B-12) 5,000 mcg PO DAILY diabetic supplies, miscellan. diabetic shoes doxycycline hyclate 100 mg PO BID 7 days estradiol 0.01%(0.1mg/gram) pea size to urethra vaginally daily; for 14 days famotidine 40 mg PO DAILY ferrous fumarate 325 mg PO DAILY gabapentin 100 mg PO BID PRN lisinopril 40 mg PO DAILY meclizine 25 mg PO TID PRN pen needle, diabetic DIRECTED TO INJECT INSULIN ONCE A DAY prednisone 20 mg PO BID 5 days sertraline 50 mg PO DAILY simvastatin 40 mg PO DAILY Tresiba FlexTouch U-100 (insulin degludec) 28 units (0.28 mL) subcut DAILY NS Tobacco use date assessed: 12/05/24 Fall risk assessment: No Falls in past year Last assessed Fall Risk: 12/05/24 Dental Screening Dental Screen Date: 12/05/24 Did you have a dental visit in the last 12 months?: Yes Did you have a dental problem in the last 6 months where you did not have access to dental care?: No Was dental information given to patient?: Patient has dentist HPI 4m follow up HPI Details Patient presents for the follow-up of hypertension chronic kidney disease stage 3 hyperlipidemia, type 2 diabetes. Patient reports glucose readings between 110-140 in the morning. [facility] Medical History Hearing loss Annual physical exam Vertigo Anemia Vertigo UTI (urinary tract infection) CKD (chronic kidney disease), stage III Iron deficiency anemia Pernicious anemia HTN (hypertension) Hyperlipidemia Diabetes Surgical History History of esophagogastroduodenoscopy (EGD) S/P ERCP S/P cholecystectomy History of breast biopsy History of ERCP Family History Father Cancer Mother Colon cancer Social History Housing: House Alcohol intake: never Patient Tobacco Use Status: Never used Tobacco e-Cigarette/Vaping Use: Never Used service: No Current occupational status: retired Cognitive needs: No Hearing needs: Yes Vision needs: Yes Questionnaire PHQ-9 Over the last 2 weeks, how often have you been bothered by any of the following problems? 1. Little interest or pleasure in doing things: several days 2. Feeling down, depressed, or hopeless: several days 3. Trouble falling or staying asleep, or sleeping too much: not at all 4. Feeling tired or having little energy: several days 5. Poor appetite or overeating: not at all 6. Feeling bad about yourself - or that you are a failure or have let yourself or your family down: not at all 7. Trouble concentrating on things, such as reading the newspaper or watching television: not at all 8. Moving or speaking so slowly that other people could have noticed. Or the opposite - being so fidgety or restless that you have been moving around a lot more than usual: not at all 9. Thoughts that you would be better off or of hurting yourself in some way: not at all Total score: 3 Depression Screening Interpretation: Negative Depression Screening Done: Yes 71030 - PHQ-9 Billing: Yes Source: Developed by Drs. Rommel Simmons, Tamie Child, Karl Capone and colleagues, with an educational louis from [employer]. Thrive Questionnaire Date Thrive assessed: 12/05/24 I am a: Patient What is your living situation today?: I have a steady place to live Within the past 12 months, did the food you bought not last and you didn't have the money to get more?: Never true Within the past 12 months, did you worry whether your food would run out before you got money to buy more?: Never true Do you have trouble paying for medicines?: No Do you have trouble getting transportation to medical appointments?: No Do you have trouble paying your heating and electricity bill?: No Do you have trouble taking care of your child, family member or friend?: No Do you have trouble with day-to-day activities such as bathing, preparing meals, shopping, managing finances, etc.?: No Are you currently unemployed and looking for a job?: No Are you interested in more education?: No Please select the resources that you would like help with: None Currently or been in a relationship where the following occur: No concerns reported THRIVE Score: 0 AUDIT C Alcohol Use Questionnaire (AUDIT-C) 1. How often do you have a drink containing alcohol?: Never 3. How often do you have six or more drinks on one occasion?: Never Total Score: 0 JADE-7 AMB Questionnaire JADE-7 Date JADE - 7 assessed: 12/05/24 Feeling nervous, anxious, or on edge: 0 = Not at all Not being able to stop or control worryin = Not at all Worrying too much about different things: 0 = Not at all Trouble relaxin = Not at all Being so restless that it is hard to sit still: 0 = Not at all Becoming easily annoyed or irritable: 0 = Not at all Feeling afraid as if something awful might happen: 0 = Not at all Total JADE-7 score (0-4 normal; 5-9 mild; 10-14 moderate; 15-21 severe): 0 Source: Developed by Drs. Rommel Simmons, Tamie Child, Karl Capone and colleagues, with an educational louis from [employer]. JADE-7 Assessment Billing JADE-7 Assessment Tool: JADE-7 Assessment 06394 Review of Systems Const All systems reviewed & are unremarkable except as noted in HPI and below ENT Reports no additional complaints Card Reports no additional complaints Resp Reports no additional complaints GI Reports no additional complaints Reports no additional complaints Physical exam (Primary Care) Vital Signs: Last Vital Signs Pulse 84 12/05/24 11:18 Resp 18 12/05/24 11:18 BP 132/66 12/05/24 11:18 Pulse Ox 99 12/05/24 11:18 Oxygen Delivery Method Room Air 12/05/24 11:18 BMI result Body Mass Index 30.6 Tobacco/Smoking Status: Tobacco use Status Tobacco use date assessed 12/05/24 12/05/24 11:19 Patient Tobacco Use Status Never used Tobacco 12/05/24 11:19 e-Cigarette/Vaping Use Never Used 12/05/24 11:19 PHQ-9: PHQ-9 Score PHQ-9: Total score 3 12/05/24 12:31 Depression Screening Interpretation: Negative Thrive Assessment: Date of Thrive Assessment Date Thrive assessed 12/05/24 12/05/24 11:19 Currently or been in a relationship where the following occur: No concerns reported Const General: no acute distress HENMT Head: Yes normal to inspection Neck Neck: Yes supple Resp Effort & Inspection: normal respiratory effort Auscultation: clear to auscultation bilaterally Cardio Rhythm: regular rhythm Heart sounds: S1 normal heart sound present and S2 normal heart sound present GI Inspection: Yes normal to inspection Immunizations pneumoc 20-omra conj-dip cr(PF) 0.5 mL IM syringe Performing Provider: Sherron Villanueva MD Performing Location: [facility] [place] [facility] Administered by: Tip Shaffer CMA on 12/05/24 12:24 Dose Route Admin Location Dispensed Lot Number Expiration Date [facility] Business Consultant 0.5 mL IM Left Deltoid 0.5 mL [id number] 10/19/25 8130-0451-14 [employer]PFIZER VIS Given Date VIS Provided VIS Publication Date 12/05/24 Single Vaccine 21 Eligibility Eligibility Date Funding Source Not [facility] Eligible 12/05/24 Private Coding Level of Care Code Est Pt Level 4 (44073) Diagnoses Insulin use (long-term) in type 2 diabetes E11.9; Z79.4 CKD (chronic kidney disease), stage III N18.30 Giant cell arteritis M31.6 HTN (hypertension) I10 Hyperlipidemia E78.5 Additional Codes JADE-7 Assessment Billing - JADE-7 Assessment Tool: JADE-7 Assessment 37176 ([id number]) PHQ-9 - 45721 - PHQ-9 Billing: Yes ([id number]) Assessment & Plan Assessment & Plan (1) Insulin use (long-term) in type 2 diabetes: Code(s): E11.9 - Type 2 diabetes mellitus without complications; Z79.4 - superintendent terminal (current) use of insulin Category: Medical Plan: A1c is 6.5. Continue ADA diet regular physical activity current medications. Patient is established with material loader for diabetic foot care. It is medically necessary for patient to to wear diabetic shoes to prevent diabetic ulcers (2) CKD (chronic kidney disease), stage III: Code(s): N18.30 - Chronic kidney disease, stage 3 unspecified Category: Medical Plan: Monitor renal function avoid nephrotoxins (3) Giant cell arteritis: Comment: in remission, follow-up with rheumatology Code(s): M31.6 - Other giant cell arteritis Category: Medical Plan: In remission, established with rheumatoid (4) HTN (hypertension): Comment: BP goal less than 130/80 Code(s): I10 - Essential (primary) hypertension Category: Medical Plan: Continue current medication (5) Hyperlipidemia: Code(s): E78.5 - Hyperlipidemia, unspecified Category: Medical Plan: Continue statin return in 4 months with a fasting labs before Orders: Orders Pneumococcal 20 Immunization Today Z23 - Encounter for immunization Comprehensive Hector. Panel Fast 4 Months E11.9 - Type 2 diabetes mellitus without complications, N18.30 - Chronic kidney disease, stage 3 unspecified, Z79.4 - half-way (current) use of insulin Lipid Panel 4 Months E11.9 - Type 2 diabetes mellitus without complications, N18.30 - Chronic kidney disease, stage 3 unspecified, Z79.4 - half-way (current) use of insulin Hemoglobin A1c 4 Months E11.9 - Type 2 diabetes mellitus without complications, N18.30 - Chronic kidney disease, stage 3 unspecified, Z79.4 - superintendent terminal (current) use of insulin Medications: New nystatin 1 appl topical BID 60 grams 3RF famotidine 40 mg PO DAILY 90 tabs 3RF Refilled amlodipine 5 mg PO DAILY 90 tabs 3RF simvastatin 40 mg PO DAILY 90 tabs 3RF E78.5 - Hyperlipidemia, unspecified Tresiba FlexTouch U-100 (insulin degludec) 28 units (0.28 mL) subcut DAILY 15 mL 3RF NS estradiol 0.01%(0.1mg/gram) pea size to urethra vaginally daily; for 14 days 42.5 grams 2RF lisinopril 40 mg PO DAILY 90 tabs 3RF Discontinued doxycycline hyclate Take one capsule twice a day for 7 days. Discontinued Reason: Doctor's Order 100 mg PO BID 7 days 14 caps 0RF J06.9 - Acute upper respiratory infection, unspecified prednisone Take one tablet twice a day by mouth for 5 days. If improved by day 3, discontinue medication. Discontinued Reason: Duplicate 20 mg PO BID 5 days 10 tabs 0RF J06.9 - Acute upper respiratory infection, unspecified, R05.9 - Cough, unspecified
[2024-12-05 11:18] VITALS: BP 132/66; PULSE 84; RESP 18; O2SAT 99; BMI 30.6
--- OUTSIDE RECORDS SUMMARY | 2024-12-05 13:03 | XMS_ITS | Data Portability ---
Author Organization [facility] [address] Address [address] [place] [address] Care Team Providers Care Greenhouse Laborer Name Role Phone KATELYN HARMON Primary Care Provider Assessment No assessment recorded. Plan of Treatment Reminders Order Date Submit Date Provider Last Modified By Organization Details Last Modified Time Details Appointments None recorded. Lab None recorded. Referral None recorded. Procedures None recorded. Surgeries None recorded. Imaging None recorded. Medication Orders valacyclovi r 1 gram tablet 2022 023 [facility] #[id number], [address] [facility] , [place], [address], 13:45:24 Patient TargetsNo targets recorded. Patient Instructions Encounter Date Encounter Id Patient Instructions Last Modified By Organization Details Last Modified Time 01/27/2023 [id number] shingles: care instructions Not available 01/27/2023 13:45:22 [...] after this infection. Thank you for using [facility], please feel free to contact us if you have any questions or concerns. [email or web address] Not available 01/27/2023 13:45:20 Reason for Referral None Reported. Problems Name Problem SNOMED Code Status Onset Date Resolution Date Notes Provider Name and Address Organization Details Recorded Time Hypertensive disorder 98855392 Active 2022 TITO Gautam [facility] 13:25:42 Hypercholestero lemia 00778126 Active 2022 Li christian [place] - [facility] 13:30:06 Diabetes mellitus 81585537 Active 2022 Li christian PA - [facility] 13:31:59 Notes:pt unsure of medical p roblems Problem Notes None recorded. Medical Equipment None Reported. Allergies Allergen ID Allergen Name Allergen Category Reaction Reaction Severity Criticality Documentation Date Start Date Code Code System Note Provider Name and Address Organization Details Recorded Time 673670 Product containin g penicilli n (product) medicatio n rash Not available Not available 01/27/2023 60194 8001 SNOMED Li [facility]ian [facility] - [facility] [...] Not Available Not Available No t Available OneToBellabeat Ultra Test strips USE DIRECTED EVERY DAY [...] Last Updated DateTime 170.18 cm 27.3 kg/m2 46964.0 7 g 0 18 /min 100 % 100 % 77 /min 98.1 [degF] 162 mm[Hg] 72 mm[Hg] Li Bradley PA - [facility] 13:32:27 Date Recorded Systolic blood pressure Diastolic blood pressure Provider Name and Address Organization Details Last Updated DateTime 01/27/2023 140 mm[Hg] 80 mm[Hg] TITO WHITE [facility] [place], [address], [place] - [facility] 01/27/2023 13:47:40 Social [...] Time Influenza, high-dose, quadrivalent, PF 2 completed Il Monfette null, PA - [facility] 01/27/2023 [...] SNOMED-CT Code Diagnosis ICD10 Code Diagnosis Note [id number] [address] [place] [address] 10/25/2015 08:59:37 10/25/2015 09:53:08 [id number] [address] [place] [address] 01/17/2018 18:29:55 01/17/2018 18:54:13 [id number] [address] [place] [address] 12/02/2016 17:00:53 12/02/2016 18:10:28 [id number] [address] [place] [address] 05/28/2017 10:51:39 05/28/2017 12:24:22 [id number] [address] [place] [address] 10/05/2015 09:04:04 10/05/2015 09:59:09 [id number] [address] [place] [address] 07/08/2017 09:24:15 07/08/2017 11:00:44 [id number] [address] [facility] [place] [address] 12/07/2016 08:48:59 12/07/2016 09:33:22 [id number] [facility] [facility] [place] [address] 02/02/2018 10:23:50 02/02/2018 11:25:44 [id number] TITO WHITE [address] [place] [address] 01/27/2023 11:57:31 01/27/2023 13:54:52 Herpes zoster 3993804 B02.9 Health Concerns Section Related Observation LastModified by Organization Detai ls LastModified Time None Recorded Concern Status LastModified by Organization Details LastModified Time None Recorded Advance Directives Directive None Recorded Payers Encounter Date Sequence Insurance Name Policy Number Policy Ortiz Covered Member ID Ortiz Member ID Guarantor Name 05/28/2017 1 [place] [employer] Tamie Chevalier [id number] Chevalier 05/28/2017 2 [place] [id number] Tamie Chevalier [id number] [id number] 07/08/2017 1 [place] Tamie Chevalier [id number] Chevalier 07/08/2017 2 [place] [id number] Tamie Chevalier [id number] Chevalier 01/17/2018 1 [place] Tamie Chevalier [id number] Chevalier 01/17/2018 2 [place] [id number] Tamie Chevalier [id number] Tamie Chevalier 02/02/2018 1 [place] Tamie Chevalier [id number] Chevalier 02/02/2018 2 [place] [id number] Tamie Mcdaniel [id number] Tamie Mcdaniel 01/27/2023 2 [place] Tamie Mcdaniel [id number] Tamie Mcdaniel 01/27/2023 1 [place] Tamie Mcdaniel [id number] Tamie Mcdaniel Notes Date Note Type [...] shingles. TITO WHITE [address] [place], [address], [place] - [facility] 01/27/2023 16:16:29 OBGyn Episode No OBEpisode recorded.
--- OUTSIDE RECORDS SUMMARY | 2024-12-05 13:03 | XMS_ITS ---
Author Organization [facility] Address [address] [facility] [place] [address] Care Team Providers Care Fuel Pilot Engineer Name Role Phone Sherron Villanueva MD Primary Care Provider Roslyn Campuzano Unavailable [phone] Allergies Allergen (clinical drug ingredient) Drug/Non Drug [...] Polyneuropathy due to type 2 diabetes mellitus ([id number]) Type 2 diabetes mellitus with diabetic polyneuropathy (E11.42) Active confirmed Vital Signs Height 5 ft 6 in in 06/26/2024 Weight 177 lbs 06/26/2024 BMI 28.57 kg/m2 06/26/2024 Blood pressure systolic 120 mm Hg 06/26/20 24 Blood pressure diastolic 80 mm Hg 024 Procedures Procedure Date Ordered Date Performed Result Body Sit e 71254-WJTPCED NAIL, 6 OR MORE 06/26/2024 N/A 36853-WFHC SKIN LESIONS, OVER 4 06/26/2024 N/A Encounters Encounter Location Date Provider Diagnosis [facility] [place] [address] [place] [address] 06/26/2024 Roslyn Everardo Type 2 diabetes mellitus with diabetic polyneuropathy E11.42 and Tinea unguium B35.1 Assessments Encounter Date Diagnosis (ICD Code) Assessment Notes Treatment Notes Treatment Clinical Notes Section Notes 06/26/2024 Type 2 diabetes mellitus with diabetic polyneuropathy (ICD-10 - E11.42) 06/26/2024 Tinea unguium (ICD-10 - B35.1) Plan Of Treatment Pending Test Test Name Order Date 44392-KBYYFMG NAIL, 6 OR MORE 06/26/2024 30953-DHMZ SKIN LESIONS, OVER 4 06/26/20 24 Next Appt Details Follow Up: 3 Months, Reason: Provider Name:Roslyn chávez, 02/28/2025 11:15:00 AM, [address] [place], [address], Procedure Notes * Category Sub-Category Detail Notes [...] use of a nail nipper and/or dremel-type air grinder, to a more viable healthy nail [...] to maintain effectiveness in symptomatic relief - 64418 Keratoma Treatment Parring or Cutting o f Benign Hyperkeratotic Lesion(s) (-57) More than 4 Lesions - The Benign hyperkeratotic lesions, ( __ ) in total, locations as stated and described in exam, were pared, and/or cut utilizing a sterile 15 blade, tissue nippers, and/or power dremel instrumentation - 33607 Progress Notes * GRICELDAChris MACEbozenaDOB:[birth year] (89 yo F)Acc No.[id number]:06/26/2024 Progress Note Patient:?Tamie MCDANIEL Provider:?Roslyn Mcgee DPM :1935???Age:89 Y???Sex:Female D ate:06/26/2024 Address: [address] , [id number] Pcp:Sherron Villanueva MD Subjective: * Chief Complaints: [...] use of a nail nipper and/or dremel-type air grinder, to a more viable healthy nail [...] to maintain effectiveness in symptomatic relief - 28537.?Keratoma Treatment:?Parring or Cutting of Benign Hyperkeratotic Lesion(s)?(-57) More than 4 Lesions - The Benign hyperkeratotic lesions, ( __ ) in total, locations as stated and described in exam, were pared, and/or cut utilizing a sterile 15 blade, tissue nippers, and/or power dremel instrumentation - 29753.? * Procedure Codes:?50874 DEBRI DE NAIL, 6 OR MORE, Modifiers: XS 08609 TRIM SKIN LESIONS, OVER 4, Modifiers: XS * Follow Up:?3 Months * Images: * Sign off status: Completed true * Provider:?Roslyn Mcgee DPM Date:?08/26/2023 Generated for Kary hernández/Daisy/Zachary on:?12/05/2024 01:03 PM EDT History and Physical Notes * HPI [...]
--- OUTSIDE RECORDS SUMMARY | 2024-12-05 13:04 | XMS_ITS ---
Author Organization [facility] Address [address] [facility] [address] Care Team Providers Care Die Cutter Apprentice Name Role Phone Sherron Villanueva MD Primary Care Provider UnavailRoslyn Russell Unavailable [phone] David Vasques Unavailable [phone] Allergies Allergen (clinical drug ingredient) Drug/Non Drug [...] 024 Encounters Encounter Location Date Provider Diagnosis [facility] [place] [address] [place] [address] 03/22/2024 David Vasques Tinea unguium B35.1 ; [...] Provider Name:Roslyn Bailey saira, 02/28/2025 11:15:00 AM, [address] [place] [address], [address], Procedure Notes * Category Sub-Category Detail Notes [...] as necessary. Patient chooses, no pharmaceutical tx (47125) Keratoma Treatment Parring or Cutting o f Benign Hyperkeratotic Lesion(s) 58329 ( >4 Lesions) - The Benign hyperkeratotic lesions, as described above were pared, and/or cut utilizing a sterile #15 blade, tissue nippers, and/or dremel Progress Notes * Tamie MCDANIELDOB:[birth year] (89 yo F)Acc No.[id number]:03/22/2024 Progress Note Patient:?Tamie Mcdaniel Provider:?David Vasques DPM :1935???Age:89 Y???Sex:Female D ate:03/22/2024 Address: [address], [id number] Pcp:Sherron Villanueva MD Subjective: * Chief Complaints: [...] as necessary. Patient chooses, no pharmaceutical tx (41663).?Keratoma Treatment:?Parring or Cutting of Benign Hyperkeratotic Lesion(s)?49536 ( >4 Lesions) - The Benign hyperkeratotic lesions, as described above were pared, and/or cut utilizing a sterile #15 blade, tissue nippers, and/or dremel.? * Procedure Codes:?68674 DEBRI DE NAIL, 6 OR MORE, Modifiers: XS 76077 TRIM SKIN LESIONS, OVER 4, Modifiers: XS * Follow Up:?3 Months * Images: * Sign off status: Completed true * Provider:?David Vasques DPM Date:? 024 Generated for Kary hernández/Daisy/eTransmitting on:?12/05/2024 01:04 PM EDT History and Physical Notes * [...]
--- OUTSIDE RECORDS SUMMARY | 2024-12-05 13:04 | XMS_ITS | Patient Health Record ---
Author Organization [facility] Address [address] [facility] [place] [place] [address] Care Team Providers Care Rolling Down Machine Operator Name Role Phone Sherron Villanueva MD Primary Care Provider Roslyn Campuzano Unavailable [phone] David Vasques Unavailable [phone] Allergies Allergen (clinical drug ingredient) Drug/Non Drug [...] (L85.1 11/22/2024 Active Reji Aspirin [facility] Act shari Extra Depth Diabetic Shoes [...] Problem Acquired hammer toe of right foot ([id number] ) Other hammer toe(s) (acquired), right foot (M20.41) Active confirmed Problem Polyneuropathy due to type 2 diabetes mellitus (782219962) Type 2 diabetes mellitus with diabetic polyneuropathy (E11.42) Active confirmed Problem Localized, primary osteoarthritis of the ankle and/or foot (121186886) Primary osteoarthritis, right ankle and foot (M19.071) Active confirmed Problem Localized, primary osteoarthritis of the ankle and/or foot (768225035) Primary osteoarthritis, left 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) Active confirmed Problem Acquired hammer toe of left foot (6087944355345333 ) Other hammer toe(s) (acquired), left foot (M20.42) Active confirmed Vital Signs Blood pressure diastolic 60 mm Hg 11/22/2024 Height 5 ft 6 in in 11/22/2024 Blood pressure systolic 130 mm Hg 11/22/2024 Weight 177 lbs 11/22/2024 BMI 28.57 kg/m2 11/22/2024 Procedures Procedure Date Ordered Date Performed Result Body Sit e 82125-EUJNUUT NAIL, 6 OR MORE 06/26/2024 N/A 44320-ZULG SKIN LESIONS, OVER 4 06/26/2024 N/A 54093-ZUNOAAQ NAIL, 6 OR MORE 11/22/2024 N/A Encounters Encounter Location Date Provider Diagnosis [address] [address] 12/20/2023 David Vasques Tinea unguium B35.1 ; Pain in right toe(s) M79.674 ; Pain in left toe(s) M79.675 ; Other viral warts B07.8 ; Pain in left foot M79.672 ; Pain in right foot M79.671 and Type 1 diabetes mellitus with diabetic polyneuropathy E10.[address] [facility] [address] 03/22/2024 David Vasques Tinea unguium B35.1 ; Pain in right toe(s) M79.674 ; Pain in left toe(s) M79.675 ; Other viral warts B07.8 ; Pain in left foot M79.672 ; Pain in right foot M79.671 and Type 1 diabetes mellitus with diabetic polyneuropathy E10.[address] [address] 06/26/2024 Roslyn Mcgee Type 2 diabetes mellitus with diabetic polyneuropathy E11.42 and Tinea unguium B35.[address] [address] 11/22/2024 Roslyn Mcgee Other hammer toe(s) (acquired), right foot M20.41 ; Other hammer toe(s) (acquired), left foot M20.42 ; Type 2 diabetes mellitus with diabetic polyneuropathy E11.42 and Tinea unguium B35.[address] [address] 02/01/2024 David Vasques Assessments Encounter Date Diagnosis [...] X ray : Foot, right 3V 05/27/2011 08091-MDSSAUF NAIL, 6 OR MORE 06/24/2011 81467-WELKWSN NAIL, 6 OR MORE 09/09/2011 49682-ELTLCGD NAIL, 6 OR MORE 04/15/2011 72872-YXRQEWS NAIL, 6 OR MORE 05/27/2011 55982-WTKWDYM NAIL, 6 OR MORE 11/18/2011 05844-WJESIVI NAIL, 6 OR MORE 01/27/2012 92509-JMWAHNZ NAIL, 6 OR MORE 04/27/2012 93741-LLLZHXX NAIL, 6 OR MORE 07/06/2012 13414-MSMPXHQ NAIL, 6 OR MORE 09/21/2012 20727-JZZAWUK NAIL, 6 OR MORE 11/30/2012 04648-TENSAKV NAIL, 6 OR MORE 02/15/2013 20114-NSLIGID NAIL, 6 OR MORE 05/24/2013 72525-QXYMSRR NAIL, 6 OR MORE 08/30/2013 03733-DZKNXXG NAIL, 6 OR MORE 11/15/2013 61829-TRJTKNZ NAIL, 6 OR MORE 01/31/2014 87986-URMLFRX NAIL, 6 OR MORE 04/11/2014 68608-SVKWELR NAIL, 6 OR MORE 07/04/2014 62978-GIRKQWS NAIL, 6 OR MORE 09/26/2014 82417-PPGCMYB NAIL, 6 OR MORE 12/12/2014 41530-XABMLHR NAIL, 6 OR MORE 02/28/2015 36342-OWSEJDM NAIL, 6 OR MORE 05/22/2015 09196-JYQKLOO NAIL, 6 OR MORE 08/14/2015 61887-DJGYVBG NAIL, 6 OR MORE 11/13/2015 48207-KKKIHSU NAIL, 6 OR MORE 02/12/2016 71953-NGKDLTA NAIL, 6 OR MORE 05/13/2016 34650-OVJDDQJ NAIL, 6 OR MORE 08/12/2016 75640-UMOGTWG NAIL, 6 OR MORE 11/04/2016 45263-VYNFMTW NAIL, 6 OR MORE 01/27/2017 42024-CTOOKMU NAIL, 6 OR MORE 04/21/2017 33227-CGCTIMY NAIL, 6 OR MORE 07/14/2017 03527-XNCOKPB NAIL, 6 OR MORE 10/11/2017 78706-XNMWREK NAIL, 6 OR MORE 11/22/2024 82998-UIKKLLU NAIL, 6 OR MORE 01/10/2018 88797-QZEAXCN NAIL, 6 OR MORE 04/06/2018 02241-LGAGWDA NAIL, 6 OR MORE 07/06/2018 75061-LUTUKSY NAIL, 6 OR MORE 06/26/2024 94255-Fbbebkfr Plate 11/13/2015 96576-Tegzpbaz Plate 05/22/2015 19666-Zpdjrcii Plate 12/12/2014 38773-Gdiemsuj Plate 09/26/2014 36061-Xwjljlbs Plate 07/04/2014 34550-Rmciosup Plate 04/11/2014 11658- Debride <25 sq cm 02/06/2014 26801-MDPH SKIN LESIONS, OVER 4 02/29/20 15 32714-YKIO SKIN LESIONS, OVER 4 01/11/20 18 48353-IUMK SKIN LESIONS, OVER 4 10/12/19 18 09245-VWWJ SKIN LESIONS, OVER 4 07/14/20 17 47448-CYSM SKIN LESIONS, OVER 4 04/21/20 17 58081-HOBD SKIN LESIONS, OVER 4 11/05/19 17 45944-TGFS SKIN LESIONS, OVER 4 01/28/20 17 22811-FGKM SKIN LESIONS, OVER 4 08/12/19 17 76399-EWOO SKIN LESIONS, OVER 4 05/13/20 16 11158-GIID SKIN LESIONS, OVER 4 06/26/20 03151-MDII SKIN LESIONS, OVER 4 07/17/20 04585-XYNY SKIN LESIONS, OVER 4 10/24/19 31255-LBYS SKIN LESIONS, OVER 4 01/24/20 53729-XLUN SKIN LESIONS, OVER 4 04/17/20 32130-ILGP SKIN LESIONS, OVER 4 07/28/20 77068-LWJP SKIN LESIONS, OVER 4 10/16/19 61994-LAVG SKIN LESIONS, OVER 4 10/06/19 19 46380-FNQS SKIN LESIONS, OVER 4 01/03/20 19 99331-CIEY SKIN LESIONS, OVER 4 03/27/20 19 52507-PUKY SKIN LESIONS, OVER 4 06/26/20 25791-HZEA SKIN LESIONS, OVER 4 07/06/20 18 28601-YSJG SKIN LESIONS, OVER 4 04/06/20 18 96166-KECC SKIN LESIONS, 2 TO 4 10/04/19 28206-QLYF SKIN LESIONS, 2 TO 4 01/03/20 71342-KXFQ SKIN LESIONS, 2 TO 4 04/25/20 20 60613-VLDF SKIN LESIONS, 2 TO 4 02/12/20 16 62708-PHGD SKIN LESIONS, 2 TO 4 05/22/20 15 80682-PGHQ SKIN LESIONS, 2 TO 4 11/13/19 16 09741-WIWK SKIN LESIONS, 2 TO 4 08/14/19 16 07447-NETU SKIN LESIONS, 2 TO 4 07/04/20 14 99775-TSCN SKIN LESIONS, 2 TO 4 09/26/19 15 66368-ZYDK SKIN LESIONS, 2 TO 4 12/13/19 15 55708-ZOQZ SKIN LESIONS, 2 TO 4 04/11/20 14 24785-KMCE SKIN LESIONS, 2 TO 4 02/01/20 14 52923-SUYN SKIN LESIONS, 2 TO 4 11/16/19 14 77711-XJZC SKIN LESIONS, 2 TO 4 08/30/19 14 27933-XMLW SKIN LESIONS, 2 TO 4 05/24/20 13 35643-EARD SKIN LESIONS, 2 TO 4 02/16/20 13 47356-ZTMA SKIN LESIONS, 2 TO 4 12/01/19 13 58073-TGQM SKIN LESIONS, 2 TO 4 09/21/19 13 14439-GEVG SKIN LESIONS, 2 TO 4 07/06/20 12 57941-CGWC SKIN LESIONS, 2 TO 4 04/27/20 12 23967-YZTB SKIN LESIONS, 2 TO 4 01/27/20 12 08314-EYQR SKIN LESIONS, 2 TO 4 04/15/20 11 41480-OQXE SKIN LESION 09/09/2011 64650-IUOP SKIN LESION 11/18/2011 28073-ICDNPZLI OF HEMATOMA/FLUID 014 93214- Removal of Foreign Body, Subcut 0 03/29/2023 08862- Removal of Foreign Body, Subcut 0 01/03/2020 05676, J0702- Neuroma/Injection 05/27/20 11 Next Appt Details Provider Name:Roslyn chávez, 02/28/2025 11:15:00 AM, [address] [facility], [place], [address], Insurance Providers Payer Name Payer Address Payer Phone Subscriber Number Group Number Insured Name Patient Relationship to Insured Coverage Start Date Coverage End Date Medicare National Govt Svcs Inc [address] [place] [address] [id number] Tamie Martin Self - patient is the insured [employer] [address] [place] [address] [id number] Tamie Martin Self - patient is the [...]
--- OUTSIDE RECORDS SUMMARY | 2024-12-05 13:04 | XMS_ITS ---
Author Organization [facility] Address [address] [facility] [place] [address] Care Team Providers Care Crna Name Role Phone Sherron Villanueva MD Primary Care Provider Roslyn Campuzano Unavailable [phone] Allergies Allergen (clinical drug ingredient) Drug/Non Drug [...] Problem Acquired hammer toe of right foot (7778948674284 105) Other hammer toe(s) (acquired), right foot (M20.41) Active confirmed Vital Signs Height 5 ft 6 in in 11/22/2024 Weight 177 lbs 11/22/2024 BMI 28.57 kg/m2 11/22/2024 Blood pressure systolic 130 mm Hg 11/23/19 25 Blood pressure diastolic 60 mm Hg 025 Procedures Procedure Date Ordered Date Performed Result Body Sit e 57028-DPJEMMQ NAIL, 6 OR MORE 11/22/2024 N/A Encounters Encounter Location Date Provider Diagnosis [facility] [address] [place] [address] 11/22/2024 Roslyn Mcgee Other hammer toe(s) (acquired), [...] INSTRUCTIONS.pdf) Pending Test Test Name Order Date 44190-KHZFUVK NAIL, 6 OR MORE 11/22/2024 Next Appt Details Follow Up: 3 Months, Reason: Provider Name:Roslyn chávez, 02/28/2025 11:15:00 AM, [address] [place], [address], Procedure Notes * Category Sub-Category Detail Notes [...] use of a nail nipper and/or dremel-type surface grinder, to a more viable healthy nail [...] to maintain effectiveness in symptomatic relief - 06349 Keratoma Treatment Parring or Cutting o f [...] instrumentation by the physician of record - 72887 Progress Notes * Tamie MCDANIELDOB:[birth year] (89 yo F)Acc No.[id number]:11/22/2024 Progress Note Patient:?Tamie MCDANIEL Provider:?Roslyn Mcgee DPM :1935???Age:89 Y???Sex:Female D ate:11/22/2024 Address: [address], [place], [place] Pcp:Sherron Villanueva MD Subjective: * Chief Complaints: [...] no. ?Marital status: . 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 ???Drug/Alcohol:?AUDIT-C (Standard)?Did you have a drink containing [...] 2.?Type 2 diabetes mellitus with diabetic polyneuropathy?Procedure: 43131-ZIKYKJF NAIL, 6 OR MORE * Procedures:?Debride Nail [...] use of a nail nipper and/or dremel-type surface grinder, to a more viable healthy nail [...] to maintain effectiveness in symptomatic relief - 90929.?Keratoma Treatment:?Parring or Cutting of Benign Hyperkeratotic Lesion(s)?(-57) [...] instrumentation by the physician of record - 10832.? * Procedure Codes:?69187 DEBRI DE NAIL, 6 OR MORE, Modifiers: XS 74968 TRIM SKIN LESIONS, OVER 4, Modifiers: XS [...] DPM Date:?0 11/22/2024 Generated for Kary hernández/Daisy/eTransmitting on:?12/05/2024 01:03 PM EDT History and Physical [...]
== END 2024-12-05 12:30 | disposition home or self-care (01) ==
LOC: HO.HMCC 11:14
PROVIDERS: PCP Internal Medicine; Visit Provider Internal Medicine
DX: E11.9 Type 2 diabetes mellitus without complications (principal); Z79.4 Long term (current) use of insulin; N18.30 Chronic kidney disease, stage 3 unspecified; M31.6 Other giant cell arteritis; I10 Essential (primary) hypertension; E78.5 Hyperlipidemia, unspecified; Z23 Encounter for immunization

== ENCOUNTER → 2024-12-05 11:13 | Outpatient (BNVA) | payer MEDICARE, SELFPAY | PROVIDERS: PCP Internal Medicine; Visit Provider Internal Medicine | DX: Z23 Encounter for immunization (principal); I12.9 Hypertensive chronic kidney disease with stage 1 through stage 4 chronic kidney disease, or unspecified chronic kidney disease; E11.22 Type 2 diabetes mellitus with diabetic chronic kidney disease; N18.30 Chronic kidney disease, stage 3 unspecified; M31.6 Other giant cell arteritis; E78.5 Hyperlipidemia, unspecified | CPT/HCPCS: 90471; 90677; 96127; 99212 ==

== ENCOUNTER 2025-04-19 08:23 | Outpatient (REF) | payer MEDICARE, SELFPAY ==
--- OUTSIDE RECORDS SUMMARY | 2025-04-19 09:26 | XMS_ITS | Patient Health Record ---
Author Organization [facility] Address [address] [facility] [place] [address] Care Team Providers Care Manual Writer Name Role Phone Sherron Villanueva MD Primary Care Provider Roslyn Campuzano Unavailable [phone] Allergies Allergen (clinical drug ingredient) Drug/Non Drug Allergy documented on EMR Reaction Allergy Type Onset Date Status Adhesive rash Allergy Active Latex Latex redness, itchy Allergy Activ e Penicillin rash Drug Allergy Active Results Component Value Reference Range Notes HEMOGLOBIN A1C (GLYCOHEMOGLO BIN) Reviewed date:11/22/2024 01:34:05 PM Interpretation: Performing Lab: Notes/Report: HEMOGLOBIN A1C % (HH) 5.5 Reason For Referral No Information Medications Medication SIG (Take, Route, Frequency, Duration) Notes Start Date End Date Status Trulicity 70unit Act shari LORazepam Not-Taking Lantus 70units Not-T aking vitamin Active Simvastatin 20 MG 1 tablet in the evening Orally Once a day; Duration: 30 day(s) Active amLODIPine Besylate Not-Taking Extra Depth Diabetic Shoes with 3 Pair Custom heat-molded multi-density innersoles for 1 year Dx: Active Metformin & Diet Manage Prod Active Extra Depth Diabetic Shoes with 3 Pair Custom heat-molded multi-density innersoles for 1 year Dx: 01/10/2018 Not-Taking levoFLOXacin 750 MG Oral; Duration: 5 Active Reji Aspirin Not-Ta placido Ondansetron 4 MG Oral; Duration: 20 Active Caltrate 600 Not-Jeremy ing Meclizine HCl 25 MG Oral; Duration: 10 Active Extra Depth Diabetic Shoes with 3 Pair Custom heat-molded multi-density innersoles for 1 year Dx: 05/13/2016 Not-Taking Iron Active Extra Depth Diabetic Shoes with 3 Pair Custom heat-molded multi-density innersoles for 1 year Dx: 07/28/2021 Active hydroCHLOROthiazide 25 MG Orally Active Extra Depth Orthopedic Shoes (1 Pair) with Customized Heat Molded Multidensity Innersoles (3 Pair) as directed Dx: NIDDM/Polyneuropathy (E11.42), Hammertoe Foot Deformity (M20.41,M20.42), Preulcerative Skin Lesion(s) (L85.1 Active Citalopram Hydrobromide Not-Taking Lisinopril 40 MG Orally Act shari Extra Depth Orthopedic Shoes (1 Pair) with Customized Heat Molded Multidensity Innersoles (3 Pair) as directed Dx: NIDDM/Polyneuropathy (E11.42), Hammertoe Foot Deformity (M20.41,M20.42), Preulcerative Skin Lesion(s) (L85.1 11/22/2024 Active Glucosamine Active Extra-Depth Diabetic Shoes with 3 Pair Custom heat-molded multi-density innersoles . for 1 year . Dx:niddm with neuropathy, foot deformity and preulcerative skin lesions; Duration: . 04/11/2014 Active Immunizations Vaccine Route Administration Date Status Comme nts Influenza Unknown 05/08/2015 Administered Influenza Unknown 05/04/2016 Administered Influenza Unknown 05/14/2017 Administered Influenza Unknown 05/17/2018 Administered Influenza Unknown 05/15/2021 Administered Influenza Unknown 04/02/2023 Administered Influenza Unknown 05/02/2024 Administered COVID-19 Pfizer BioNTech Vaccine Unknown 04/02/2021 Administered 1st 09/09/2020 2nd 09/30/2020 Social History Tobacco Use: Social History Observation [...] Problem Acquired hammer toe of right foot (2681238276708032 ) Other hammer toe(s) (acquired), right foot (M20.41) Active confirmed Problem Polyneuropathy due to type 2 diabetes mellitus (139667400) Type 2 diabetes mellitus with diabetic polyneuropathy (E11.42) Active confirmed Problem Localized, primary osteoarthritis of the ankle and/or foot (260952113) Primary osteoarthritis, right ankle and foot (M19.071) Active confirmed Problem Localized, primary osteoarthritis of the ankle and/or foot (589293448) Primary osteoarthritis, left 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) Active confirmed Problem Acquired hammer toe of left foot (0000928825539100 ) Other hammer toe(s) (acquired), left foot (M20.42) Active confirmed Vital Signs Blood pressure diastolic 65 mm Hg 02/28/2025 Height 5 ft 6 in in 02/28/2025 Blood pressure systolic 128 mm Hg 02/28/2025 Weight 177 lbs 02/28/2025 BMI 28.57 kg/m2 02/28/2025 Procedures Procedure Date Ordered Date Performed Result Body Sit e 88502-DNBFQPF NAIL, 6 OR MORE 06/26/2024 N/A 64278-EBXI SKIN LESIONS, OVER 4 06/26/2024 N/A 48598-RVLLTCG NAIL, 6 OR MORE 11/22/2024 N/A Encounters Encounter Location Date [facility] [address] 06/26/2024 Roslyn Darnellaker Type 2 diabetes mellitus with diabetic polyneuropathy E11.42 and Tinea unguium B35.[address] [address] 11/22/2024 Roslyn Mcgee Other hammer toe(s) (acquired), right foot M20.41 ; Other hammer toe(s) (acquired), left foot M20.42 ; Type 2 diabetes mellitus with diabetic polyneuropathy E11.42 and Tinea unguium B35.[address] [address] 02/28/2025 Roslyn Mcgee Type 2 diabetes mellitus with [...] toe(s) (acquired), left foot (ICD-10 - M20.42) 02/28/2025 Type 2 diabetes mellitus with diabetic polyneuropathy (ICD-10 - E11.42) 02/28/2025 Tinea unguium (ICD-10 - B35.1) 11/22/2024 Type 2 diabetes mellitus with diabetic polyneuropathy (ICD-10 - E11.42) 11/22/2024 Tinea unguium (ICD-10 - B35.1) Plan Of Treatment Pending Test Test Name Order Date Hemoglobin A1c 05/03/2018 X ray : Foot, right 3V 05/27/2011 99516-JTBWFBT NAIL, 6 OR MORE 06/24/2011 02438-WPTYEWZ NAIL, 6 OR MORE 09/09/2011 31585-KZMVYZQ NAIL, 6 OR MORE 04/15/2011 01269-EYAUKTQ NAIL, 6 OR MORE 05/27/2011 82919-OTEGZGG NAIL, 6 OR MORE 11/18/2011 08115-BWDEVYS NAIL, 6 OR MORE 01/27/2012 16675-OIHEYRF NAIL, 6 OR MORE 04/27/2012 49367-SPYMPAM NAIL, 6 OR MORE 07/06/2012 33240-XJJSHOJ NAIL, 6 OR MORE 09/21/2012 75583-WKGMMBK NAIL, 6 OR MORE 11/30/2012 53318-MUHBAOM NAIL, 6 OR MORE 02/15/2013 37987-DKCYYSS NAIL, 6 OR MORE 05/24/2013 44471-XNCKGDD NAIL, 6 OR MORE 08/30/2013 27290-DAVJLFB NAIL, 6 OR MORE 11/15/2013 43779-FQOCJPW NAIL, 6 OR MORE 01/31/2014 56093-PGFIDIS NAIL, 6 OR MORE 04/11/2014 30403-KMTMHFL NAIL, 6 OR MORE 07/04/2014 46926-PMLLQMF NAIL, 6 OR MORE 09/26/2014 80539-RCUDOIK NAIL, 6 OR MORE 12/12/2014 79262-NWAXCDL NAIL, 6 OR MORE 02/28/2015 61610-XHTEJXZ NAIL, 6 OR MORE 05/22/2015 34842-TZYHBPI NAIL, 6 OR MORE 08/14/2015 11203-MHAFBXQ NAIL, 6 OR MORE 11/13/2015 00944-FWNQZIL NAIL, 6 OR MORE 02/12/2016 94332-VJYXZYR NAIL, 6 OR MORE 05/13/2016 28973-YLWJMEM NAIL, 6 OR MORE 08/12/2016 43483-YFOPXKE NAIL, 6 OR MORE 11/04/2016 16014-YQGJPYK NAIL, 6 OR MORE 01/27/2017 17303-GNPOXPS NAIL, 6 OR MORE 04/21/2017 21628-OXMXYUL NAIL, 6 OR MORE 07/14/2017 22534-GXZHRFN NAIL, 6 OR MORE 10/11/2017 15148-YXUTVCT NAIL, 6 OR MORE 11/22/2024 45402-XMMOFWE NAIL, 6 OR MORE 01/10/2018 74606-RLMPZUH NAIL, 6 OR MORE 04/06/2018 06307-TXMMJYL NAIL, 6 OR MORE 07/06/2018 05835-FMBLUDC NAIL, 6 OR MORE 06/26/2024 18827-Rqrtcfox Plate 11/13/2015 09868-Kolqfxlh Plate 05/22/2015 77708-Cozclqkf Plate 12/12/2014 98930-Owkaetip Plate 09/26/2014 98894-Lccpcjoh Plate 07/04/2014 21024-Eilwqulf Plate 04/11/2014 59071- Debride <25 sq cm 02/06/2014 76301-BUMJ SKIN LESIONS, OVER 4 02/29/20 15 55217-VOTP SKIN LESIONS, OVER 4 01/11/20 18 76610-SBXK SKIN LESIONS, OVER 4 10/12/19 18 51159-DARB SKIN LESIONS, OVER 4 07/14/20 17 69482-QFCS SKIN LESIONS, OVER 4 04/21/20 17 74180-VDBY SKIN LESIONS, OVER 4 11/05/19 17 55701-FSYV SKIN LESIONS, OVER 4 01/28/20 17 08351-SUOD SKIN LESIONS, OVER 4 08/12/19 17 66872-YEYI SKIN LESIONS, OVER 4 05/13/20 16 24493-RZFI SKIN LESIONS, OVER 4 06/26/20 67958-HIUX SKIN LESIONS, OVER 4 07/17/20 83513-TZIV SKIN LESIONS, OVER 4 10/24/19 30702-YSAM SKIN LESIONS, OVER 4 01/24/20 78511-FVRU SKIN LESIONS, OVER 4 04/17/20 34893-GHLT SKIN LESIONS, OVER 4 07/28/20 26472-SCSC SKIN LESIONS, OVER 4 10/16/19 22 80504-EPEY SKIN LESIONS, OVER 4 10/06/19 19 65673-NVAT SKIN LESIONS, OVER 4 01/03/20 19 36027-KYHY SKIN LESIONS, OVER 4 03/27/20 19 79709-ORHW SKIN LESIONS, OVER 4 06/26/20 50497-BYGM SKIN LESIONS, OVER 4 07/06/20 18 30979-JUGX SKIN LESIONS, OVER 4 04/06/20 18 10971-BAWW SKIN LESIONS, 2 TO 4 10/04/19 44808-CJPB SKIN LESIONS, 2 TO 4 01/03/20 05841-AACG SKIN LESIONS, 2 TO 4 04/25/20 20 44413-EOPI SKIN LESIONS, 2 TO 4 02/12/20 16 90221-JBJN SKIN LESIONS, 2 TO 4 05/22/20 15 12117-IIIU SKIN LESIONS, 2 TO 4 11/13/19 16 72594-FETE SKIN LESIONS, 2 TO 4 08/14/19 16 27649-NDGX SKIN LESIONS, 2 TO 4 07/04/20 14 83011-RXYE SKIN LESIONS, 2 TO 4 09/26/19 15 08697-KXLN SKIN LESIONS, 2 TO 4 12/13/19 15 49973-ZWUM SKIN LESIONS, 2 TO 4 04/11/20 14 00262-YLPH SKIN LESIONS, 2 TO 4 02/01/20 14 49868-GLQB SKIN LESIONS, 2 TO 4 11/16/19 14 13571-JMLQ SKIN LESIONS, 2 TO 4 08/30/19 14 53762-STFK SKIN LESIONS, 2 TO 4 05/24/20 13 78418-SNFD SKIN LESIONS, 2 TO 4 02/16/20 13 51357-UXSF SKIN LESIONS, 2 TO 4 12/01/19 13 56783-CDIA SKIN LESIONS, 2 TO 4 09/21/19 13 60142-DQWV SKIN LESIONS, 2 TO 4 07/06/20 12 18579-XWAM SKIN LESIONS, 2 TO 4 04/27/20 12 85852-TFRT SKIN LESIONS, 2 TO 4 01/27/20 12 65840-NLBE SKIN LESIONS, 2 TO 4 04/15/20 11 77097-YYRD SKIN LESION 09/09/2011 13007-FAWM SKIN LESION 11/18/2011 69008-BJSGJDIP OF HEMATOMA/FLUID 014 69565- Removal of Foreign Body, Subcut 0 03/29/2023 81792- Removal of Foreign Body, Subcut 0 01/03/2020 91855, J0702- Neuroma/Injection 05/27/20 11 Next Appt Details Provider Name:Amy horne, 06/05/2025 11:30:00 AM, [address] [facility], [place], [address], Insurance Providers Payer Name Payer Address Payer Phone Subscriber Number Group Number Insured Name Patient Relationship to Insured Coverage Start Date Coverage End Date Medicare National Govt Svcs Inc [address] [place] [address] [id number] Tamie Martin Self - patient is the insured [employer] [address] [place] [address] [phone] [id number] Tamie Martin Self - patient is the [...]
--- OUTSIDE RECORDS SUMMARY | 2025-04-19 09:26 | XMS_ITS | Patient Health Record ---
Author Organization [facility] Address [address] [place] [address] Care Team Providers Care Game Master Name Role Phone Sherron Villanueva MD Primary Care Provider Rommel Nieto Unavailable [phone] Allergies Allergen (clinical drug ingredient) Drug/Non Drug Allergy documented on EMR Reaction Allergy Type Onset Date Status penicillin G Penicillin G Sodium Unknown Drug Allergy Active Reason For Referral No Information Medications Medication SIG (Take, Route, Frequency, Duration) Notes Start Date End Date Status hydroCHLOROthiazide 25 MG 1 tablet in th e morning Orally Once a day for 30 day(s) 06/20/2019 Active Reji Aspirin EC Low Dose 81 MG 1 tablet Orally Once a day for 30 day(s) 06/20/2019 Not-Taking Triamcinolone (oint)-Silicone Active Nystatin 956785 UNIT/GM 1 application Externally Twice a day Active Cinnamon 500 MG as directed Orally twice a day 06/20/2019 Active Vitamin B12 100 MCG as directed Orally Once a day 06/20/2019 Active Glucosamine 500 MG 1 capsule with a meal Orally twice times a day for 30 day(s) 06/20/2019 Active Famotidine 40 MG TAKE 1 TABLET BY MOUTH EVERY NIGHT AT BEDTIME for 90 Active metFORMIN HCl 1000 MG 1 tablet with a me al Orally twice a day for 30 day(s) 06/20/2019 Active Lisinopril 40 MG 1 tablet Orally Once a day for 30 day(s) 06/20/2019 Active Simvastatin 40 MG 1 tablet in the evening Orally Once a day for 30 day(s) 06/20/2019 Active amLODIPine Besylate 5 MG 1 tablet Orally Once a day for 30 day(s) 06/20/2019 Active Immunizations Vaccine Route Administration Date Status Comme nts Influenza Unknown 05/02/2019 Administered Social History Tobacco Use: Social History Observation Description Date Details (start date - stop date) Never Smoker NA - NA Tobacco Use/Smoking Question Answer Notes Patient is a nonsmoker Alcohol Screen Question Answer Notes Did you have a drink containing alcohol in the p ast year? No Points 0 Interpretation Negative Section Notes: Nonsmoker; no sig alcohol Problems Problem Type SNOMED Code ICD Code Onset Dates Problem Status W/U Status Risk Notes Problem 675596199 Calculus of bile duct with acute cholangitis with obstruction (K80.33) Active confirmed Problem 932047404 Iron deficiency anemia due to chronic blood loss (D50.0) Active confirmed Problem 89426425 Iron deficiency anemia, unspecified iron deficiency anemia type (D50.9) Active confirmed Problem 384271510 History of biliary stent insertion (Z98.890) Active confirmed Problem 570526177 History of cholangitis (Z87.19) Active confirmed Plan Of Treatment Pending Test Test Name Order Date LIVER PROFILE 06/18/2019 CBC w DIFF 07/03/2019 CBC w DIFF 06/18/2019 PROTHROMBIN TIME (PT, INR) 06/18/2019 XR ABD UPRIGHT AND CHEST 06/18/2019 Future Test Test Name Order Date ERCP CHANGE OF STENT OR TUBE 06/18/2019 UPPER GI ENDOSCOPY 08/17/2019 COLONOSCOPY 08/17/2019 Insurance Providers Payer Name Payer Address Payer Phone Subscriber Number Group Number Insured Name Patient Relationship to Insured Coverage Start Date Coverage End Date MEDICARE OF [place] [address] [place] [address] [id number] AMMON CLIFTON Self - patient is the insured [employer] CLAIMS [address] [place] [address] [id number] AMMON CLIFTON Self - patient is the insured Medical (General) History Medical History History ICD Code Iron deficiency anemia NIDDM Hypertension Cholangitis from CBD stone i n 06/2019 -had ERCP and CCY with resolution--temporary stent placed, and removed in 07/2019 Denies [place],CVA,Lung disease,renal disease 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
[2025-04-19 10:50] LABS: Alanine Aminotransferase 11 U/L (0-31); Albumin Level 4.1 g/dL (3.5-5.0); Alkaline Phosphatase 76 U/L (39-117); Anion Gap 11 (12-20); Aspartate Amino Transferase 23 U/L (5-31); Blood Urea Nitrogen 33 mg/dL (9-16); Calcium 9.3 mg/dL (8.4-10.2); Carbon Dioxide 27 mmol/L (22-29); Chloride 109 mmol/L (96-108); Cholesterol 158 mg/dL (<200); Estimated Glomerular Filt Rate 31; HDL Cholesterol 48 mg/dL (>40); Potassium 5.0 mmol/L (3.3-5.1); Sodium 142 mmol/L (135-145); Total Protein 7.4 g/dL (6.5-8.0); Triglycerides 132 mg/dL (<150)
[2025-04-19 11:16] LABS: Hemoglobin A1C 124.3353 umol/L; Total Hemoglobin (HGBA1C) 2755.0721 umol/L
== END 2025-04-19 08:24 | disposition home or self-care (01) ==
LOC: HO.HMGCLDS 08:23
PROVIDERS: PCP Internal Medicine; Visit Provider Internal Medicine
DX: E11.22 Type 2 diabetes mellitus with diabetic chronic kidney disease (principal); N18.30 Chronic kidney disease, stage 3 unspecified; Z79.4 Long term (current) use of insulin
CPT/HCPCS: 36415; 80053; 80061; 83036

== ENCOUNTER 2025-04-24 09:15 | Outpatient (AMB) | payer MEDICARE, SELFPAY ==
--- NOTE | 2025-04-24 09:23 | MHC.PC.OV ---
Vital Signs 04/24/25 09:25 Height 5 ft 5 in Weight 182 lb BMI 30.3 BP 128/66 Blood Pressure Location Lt brachial Position Sitting Respiration 18 Pulse 69 Pulse Source Pulse Oximeter Temp 98.2 F Temp Source Oral Pulse Oximetry (%) 99 Oxygen Delivery Method Room Air Intake Visit Reasons: 4 months f/up Intake Note: Pt is here today for 4 months follow up visit on DM. Allergies celecoxib (Celebrex) Allergy (Unknown, Verified 04/24/25 09:26) rash penicillin G Allergy (Unknown, Verified 04/24/25 09:26) rash Penicillins (PENICILLINS) Allergy (Unknown, Verified 04/24/25 09:26) HIVES, rash Medication List - Last Reconciled 04/24/25 by Sherron Villanueva MD acetaminophen 1,000 mg PO TID PRN acetaminophen ER (Tylenol Arthritis Pain) 650 mg PO Q12H PRN albuterol sulfate 90 mcg/actuation 1 inh inhalation QID PRN amlodipine 5 mg PO DAILY blood sugar diagnostic ([employer] Ultra Test strips) qd blood-glucose sensor (Mobile Messenger G7 Sensor device) Test blood sugar 3 times per day, change sensor every 10 days cyanocobalamin (vitamin B-12) 5,000 mcg PO DAILY diabetic supplies, miscellan. diabetic shoes estradiol 0.01%(0.1mg/gram) pea size to urethra vaginally daily; for 14 days famotidine 40 mg PO DAILY ferrous fumarate 325 mg PO DAILY gabapentin 100 mg PO BID lisinopril 40 mg PO DAILY meclizine 25 mg PO TID PRN nystatin 1 appl topical BID pen needle, diabetic DIRECTED TO INJECT INSULIN ONCE A DAY sertraline 50 mg PO DAILY simvastatin 40 mg PO DAILY Tresiba FlexTouch U-100 (insulin degludec) 28 units (0.28 mL) subcut DAILY NS Tobacco use date assessed: 04/24/25 Fall risk assessment: No Falls in past year Last assessed Fall Risk: 04/24/25 Dental Screening Dental Screen Date: 12/05/24 HPI 4 months f/up HPI Details Pt presents for follow-up of hypertension hyperlipidemia type 2 diabetes chronic anxiety stable on current medications PFSH Medical History Hearing loss Annual physical exam Vertigo Anemia Vertigo UTI (urinary tract infection) CKD (chronic kidney disease), stage III Iron deficiency anemia Pernicious anemia HTN (hypertension) Hyperlipidemia Diabetes Surgical History History of esophagogastroduodenoscopy (EGD) S/P ERCP S/P cholecystectomy History of breast biopsy History of ERCP Family History Father Cancer Mother Colon cancer Social History Housing: House Alcohol intake: never Patient Tobacco Use Status: Never used Tobacco e-Cigarette/Vaping Use: Never Used service: No Current occupational status: retired Cognitive needs: No Hearing needs: Yes Vision needs: Yes Questionnaire PHQ-9 Over the last 2 weeks, how often have you been bothered by any of the following problems? 1. Little interest or pleasure in doing things: several days 2. Feeling down, depressed, or hopeless: several days 3. Trouble falling or staying asleep, or sleeping too much: not at all 4. Feeling tired or having little energy: several days 5. Poor appetite or overeating: not at all 6. Feeling bad about yourself - or that you are a failure or have let yourself or your family down: not at all 7. Trouble concentrating on things, such as reading the newspaper or watching television: not at all 8. Moving or speaking so slowly that other people could have noticed. Or the opposite - being so fidgety or restless that you have been moving around a lot more than usual: not at all 9. Thoughts that you would be better off or of hurting yourself in some way: not at all Total score: 3 Depression Screening Interpretation: Negative Depression Screening Done: Yes Source: Developed by Drs. Rommel Simmons, Tamie Child, Karl Capone and colleagues, with an educational louis from [employer]. Thrive Questionnaire Date Thrive assessed: 12/05/24 I am a: Patient What is your living situation today?: I have a steady place to live Within the past 12 months, did the food you bought not last and you didn't have the money to get more?: Never true Within the past 12 months, did you worry whether your food would run out before you got money to buy more?: Never true Do you have trouble paying for medicines?: No Do you have trouble getting transportation to medical appointments?: No Do you have trouble paying your heating and electricity bill?: No Do you have trouble taking care of your child, family member or friend?: No Do you have trouble with day-to-day activities such as bathing, preparing meals, shopping, managing finances, etc.?: No Are you currently unemployed and looking for a job?: No Are you interested in more education?: No Please select the resources that you would like help with: None Currently or been in a relationship where the following occur: No concerns reported THRIVE Score: 0 JADE-7 AMB Questionnaire JADE-7 Date JADE - 7 assessed: 12/05/24 Feeling nervous, anxious, or on edge: 0 = Not at all Not being able to stop or control worryin = Not at all Worrying too much about different things: 0 = Not at all Trouble relaxin = Not at all Being so restless that it is hard to sit still: 0 = Not at all Becoming easily annoyed or irritable: 0 = Not at all Feeling afraid as if something awful might happen: 0 = Not at all Total JADE-7 score (0-4 normal; 5-9 mild; 10-14 moderate; 15-21 severe): 0 Source: Developed by Drs. Rommel Simmons, Tamie Child, Karl Capone and colleagues, with an educational louis from [employer]. Review of Systems Const All systems reviewed & are unremarkable except as noted in HPI and below Eyes Reports no additional complaints ENT Reports no additional complaints Card Reports no additional complaints Resp Reports no additional complaints GI Reports no additional complaints Reports no additional complaints Physical exam (Primary Care) Vital Signs: Last Vital Signs Temp 98.2 F 04/24/25 09:25 Pulse 69 04/24/25 09:25 Resp 18 04/24/25 09:25 BP 128/66 04/24/25 09:25 Pulse Ox 99 04/24/25 09:25 Oxygen Delivery Method Room Air 04/24/25 09:25 BMI result Body Mass Index 30.3 Tobacco/Smoking Status: Tobacco use Status Tobacco use date assessed 04/24/25 04/24/25 09:29 Patient Tobacco Use Status Never used Tobacco 04/24/25 09:25 e-Cigarette/Vaping Use Never Used 04/24/25 09:25 PHQ-9: PHQ-9 Score PHQ-9: Total score 3 04/24/25 09:29 Depression Screening Interpretation: Negative Thrive Assessment: Date of Thrive Assessment Date Thrive assessed 12/05/24 04/24/25 09:25 Currently or been in a relationship where the following occur: No concerns reported Const General: no acute distress HENMT Head: Yes normal to inspection Eyes General: appearance normal, both eyes and all related structures Neck Neck: Yes no lymphadenopathy and Yes supple Resp Effort & Inspection: normal respiratory effort Auscultation: clear to auscultation bilaterally Cardio Rhythm: regular rhythm Heart sounds: S1 normal heart sound present and S2 normal heart sound present GI Inspection: Yes normal to inspection Palpation (GI): Soft to palpation Percussion: Yes normal to percussion Auscultation: normal bowel sounds Extrem General: Yes no clubbing, cyanosis or edema Coding Level of Care Code Est Pt Level 4 (28615) Diagnoses HTN (hypertension) I10 Hyperlipidemia E78.5 Diabetes E11.9 CKD (chronic kidney disease), stage III N18.30 Assessment & Plan Assessment & Plan (1) HTN (hypertension): Comment: BP goal less than 130/80 Code(s): I10 - Essential (primary) hypertension Category: Medical Plan: Continue current medications (2) Hyperlipidemia: Code(s): E78.5 - Hyperlipidemia, unspecified Category: Medical Plan: Continue statin (3) Diabetes: Comment: A1C less than 8 Code(s): E11.9 - Type 2 diabetes mellitus without complications Category: Medical Plan: A1c is 6.3. Patient has been monitor her blood glucose regularly and reports no hypoglycemic episodes. Continue current medications follow-up in 6 months (4) CKD (chronic kidney disease), stage III: Code(s): N18.30 - Chronic kidney disease, stage 3 unspecified Category: Medical Plan: Avoid nephrotoxins monitor renal function Orders: Orders Comprehensive [place]. Panel Fast 6 Months E11.9 - Type 2 diabetes mellitus without complications, E78.5 - Hyperlipidemia, unspecified, I10 - Essential (primary) hypertension, N18.30 - Chronic kidney disease, stage 3 unspecified Complete Blood Count Auto Diff 6 Months E11.9 - Type 2 diabetes mellitus without complications, E78.5 - Hyperlipidemia, unspecified, I10 - Essential (primary) hypertension, N18.30 - Chronic kidney disease, stage 3 unspecified Hemoglobin A1c 6 Months E11.9 - Type 2 diabetes mellitus without complications, E78.5 - Hyperlipidemia, unspecified, I10 - Essential (primary) hypertension, N18.30 - Chronic kidney disease, stage 3 unspecified Lipid Panel 6 Months E11.9 - Type 2 diabetes mellitus without complications, E78.5 - Hyperlipidemia, unspecified, I10 - Essential (primary) hypertension, N18.30 - Chronic kidney disease, stage 3 unspecified Vitamin D 25-OH Total 6 Months E11.9 - Type 2 diabetes mellitus without complications, E78.5 - Hyperlipidemia, unspecified, I10 - Essential (primary) hypertension, N18.30 - Chronic kidney disease, stage 3 unspecified Vitamin B12 and Folate 6 Months E11.9 - Type 2 diabetes mellitus without complications, E78.5 - Hyperlipidemia, unspecified, I10 - Essential (primary) hypertension, N18.30 - Chronic kidney disease, stage 3 unspecified Microalbumin, Random (w Creat) 6 Months E11.9 - Type 2 diabetes mellitus without complications, E78.5 - Hyperlipidemia, unspecified, I10 - Essential (primary) hypertension, N18.30 - Chronic kidney disease, stage 3 unspecified
[2025-04-24 09:25] VITALS: BP 128/66; PULSE 69; RESP 18; TEMP 36.8; O2SAT 99; BMI 30.3
== END 2025-04-24 10:06 | disposition home or self-care (01) ==
LOC: HO.HMCC 09:16
PROVIDERS: PCP Internal Medicine; Visit Provider Internal Medicine
DX: I10 Essential (primary) hypertension (principal); E78.5 Hyperlipidemia, unspecified; E11.9 Type 2 diabetes mellitus without complications; N18.30 Chronic kidney disease, stage 3 unspecified

== ENCOUNTER → 2025-04-24 09:15 | Outpatient (BNVA) | payer MEDICARE, SELFPAY | PROVIDERS: PCP Internal Medicine; Visit Provider Internal Medicine | DX: E78.5 Hyperlipidemia, unspecified (principal); I12.9 Hypertensive chronic kidney disease with stage 1 through stage 4 chronic kidney disease, or unspecified chronic kidney disease; E11.22 Type 2 diabetes mellitus with diabetic chronic kidney disease; N18.30 Chronic kidney disease, stage 3 unspecified | CPT/HCPCS: 99212 ==